=== PATIENT | female | born 1940 | race Caucasian/White ===

== ENCOUNTER 2018-12-11 18:41 | Emergency (ER) | payer OTHER, BC ==
--- NOTE | 2018-12-11 19:45 | RAD REPORT ---
EXAM DESCRIPTION: RAD - Chest Pa And Lat (2 Views) - 12/11/2018 7:39 pm CLINICAL HISTORY: Cough;SOB COMPARISON: None. TECHNIQUE: PA and lateral views of the chest were obtained. FINDINGS: The lungs are clear. Heart size is normal and central vasculature is within normal limit s. No pleural effusion or pneumothorax seen. No acute bony finding noted. No aortic abnormality. IMPRESSION: No acute cardiopulmonary process.
[2018-12-11 21:02] LABS: Absolute Lymphocytes (CBC) 0.5 K/uL (0.7-4.9); Basophils % 0.1 % (0-1.3); Hematocrit 30.5 % (36.0-45.0); Lymphocytes % 6.5 % (15.3-44.8); MPV 8.6 fL (7.6-11.3)
[2018-12-11] MEDS ORDERED: METHYLPREDNISOLONE 125 MG INJ ONE (21:16)
[2018-12-11 21:17] LABS: Protime INR 1.55
[2018-12-11] MEDS ORDERED: CEFTRIAXONE/SWI 1gm 1 GM/10 ML SYR ONE (21:17)
[2018-12-11] MEDS ORDERED: IPRATROPIUM BROM 0.5MG/2.5ML ONE (21:17)
[2018-12-11] MEDS ORDERED: AZITHROMYCIN 250 MG TAB ONE (21:17)
[2018-12-11] MEDS ORDERED: ALBUTEROL 2.5 MG/3 ML NEB SOL ONE (21:17)
[2018-12-11] MEDS ORDERED: NA CHLORIDE 0.9% 1,000 ML ONE (21:17)
[2018-12-11 21:22] LABS: ALT/SGPT 26 U/L (12-78); AST/SGOT 40 U/L (15-37); Albumin 3.7 g/dL (3.4-5.0); Alkaline Phosphatase 72 U/L (45-117); BUN Blood Urea Nitrogen 26 mg/dL (7-18); Bicarbonate 27 mmol/L (21-32); Bilirubin Direct 0.1 mg/dL (0-0.2); Bilirubin Total 0.4 mg/dL (0.2-1.0); Glucose Level 98 mg/dL (74-106); Magnesium 2.1 mg/dL (1.8-2.4); NT PRO-BNP 1779 pg/mL (<450); Potassium 4.2 mmol/L (3.5-5.1); Sodium Level 133 mmol/L (136-145); Troponin (Emerg Dept Use Only) < 0.02 ng/mL (0.0-0.045)
--- NOTE | 2018-12-11 21:31 | ER ---
Nurse's Notes [facility] Name: Bertha Connell Age: 78 yrs Sex: Female : 1940 Arrival Date: 12/11/2018 Time: 18:45 Bed 14 Private MD: ALAN ARAUZ Diagnosis: Chronic obstructive pulmonary disease with (acute) exacerbation;Bronchitis, not specified as acute or chronic Presentation: 12/11 18:51 Presenting complaint: SOB x 2 days. Pt is being treated for lymphocytic lymphoma at [facility], told to come to local ED, was seen at [facility] today and was unhappy with plan so she signed out AMA. Transition of care: patient was not received from another setting of care. Onset of symptoms was December 10, 2018. Risk Assessment: Do you want to hurt yourself or someone else? Patient reports no desire to harm self or others. Care prior to arrival: None. 18:51 Method Of Arrival: Ambulatory 18:51 Acuity: SUSY 3 19:38 Initial Sepsis Screen: Does the patient meet any 2 criteria? No. Patient's initial ca1 sepsis screen is negative. Does the patient have a suspected source of infection? No. Patient's initial sepsis screen is negative. Triage Assessment: 19:38 Respiratory: Onset: The symptoms/episode began/occurred ca1 Historical: - Allergies: 18:54 IV contrast; hb - PMHx: 18:54 lymphocytic lymphoma; - Immunization history:: Adult Immunizations up to date. - Social history:: Smoking status: Patient/guardian denies using tobacco. - Ebola Screening: : No symptoms or risks identified at this time. - Family history:: not pertinent. Screenin:10 Abuse screen: Denies threats or abuse. Denies injuries from another. Nutritional ca1 screening: No deficits noted. Tuberculosis screening: No symptoms or risk factors identified. Fall Risk None identified. Assessment: 19:10 General: Appears in no apparent distress. comfortable, Behavior is calm, cooperative, ca1 appropriate for age. Pain: Denies pain. Neuro: Level of Consciousness is awake, alert, obeys commands, Oriented to person, place, time, situation. Cardiovascular: Heart tones S1 S2 present Capillary refill < 3 seconds Patient's skin is warm and dry. Respiratory: Reports shortness of breath on exertion since yesterday Airway is patent Respiratory effort is even, unlabored, Respiratory pattern is regular, symmetrical, Breath sounds are clear bilaterally. GI: Abdomen is flat, non-distended, Bowel sounds present X 4 quads. Abd is soft and non tender X 4 quads. : No deficits noted. No signs and/or symptoms were reported regarding the genitourinary system. EENT: No deficits noted. No signs and/or symptoms were reported regarding the EENT system. Derm: Skin is intact, is healthy with good turgor, Skin is pink, warm \T\ dry. Musculoskeletal: Circulation, motion, and sensation intact. Capillary refill < 3 seconds, Range of motion: intact in all extremities. 20:29 Reassessment: Patient appears in no apparent distress at this time. Patient and/or jb4 family updated on plan of care and expected duration. Pain level reassessed. Patient is alert, oriented x 3, equal unlabored respirations, skin warm/dry/pink. 21:30 Reassessment: Patient appears in no apparent distress at this time. Patient and/or jb4 family updated on plan of care and expected duration. Pain level reassessed. Patient is alert, oriented x 3, equal unlabored respirations, skin warm/dry/pink. D/c pending completion of breathing treatment. 22:30 Reassessment: Patient appears in no apparent distress at this time. Patient and/or jb4 family updated on plan of care and expected duration. Pain level reassessed. Patient is alert, oriented x 3, equal unlabored respirations, skin warm/dry/pink. Pt request to speak with ER provider. 23:11 Reassessment: Patient appears in no apparent distress at this time. Patient and/or jb4 family updated on plan of care and expected duration. Pain level reassessed. Patient is alert, oriented x 3, equal unlabored respirations, skin warm/dry/pink. Pt verbalized understanding of d/c and follow up instructions. Refused to wait for provider, left ED with ambulatory gait, with family. Vital Signs: 18:54 BP 156 / 57; Pulse 58; Resp 16; Temp 97.8; Pulse Ox 96% on R/A; Weight 70.31 kg; Height hb 5 ft. 5 in. (165.10 cm); Pain 0/10; 20:30 BP 134 / 57; Pulse 59; Resp 16; Pulse Ox 98% on R/A; jb4 21:45 BP 155 / 58; Pulse 57; Resp 16; Pulse Ox 100% on R/A; jb4 22:45 BP 145 / 64; Pulse 77; Resp 16; Pulse Ox 100% on R/A; jb4 18:54 Body Mass Index 25.79 (70.31 kg, 165.10 cm) hb ED Course: 18:45 Patient arrived in ED. am2 18:45 ALAN ARAUZ is Private Physician. am2 18:54 Triage completed. hb 18:54 Arm band placed on. hb 19:01 Shannan Spencer, RN is Primary Nurse. ca1 19:10 Patient has correct armband on for positive identification. Bed in low position. Call ca1 light in reach. Side rails up X 1. log turner on. Pulse ox on. NIBP on. Warm blanket given. 19:10 No provider procedures requiring assistance completed. ca1 19:16 [facility]C [facility]. snw 19:16 Radhames Downing MD is Attending Physician. snw 19:37 Radhames Downing MD is Attending Physician. racquel 19:40 Chest Pa And Lat (2 Views) XRAY In Process Unspecified. EDMS 20:29 Usman Trujillo, RN is Primary Nurse. jb4 20:42 Inserted saline lock: 20 gauge in right antecubital area, using aseptic technique. jb4 Blood collected. 20:42 Initial lab(s) drawn, by id, sent to lab. First set of blood cultures drawn by me, Flu jb4 and/or RSV swab sent to lab. 20:57 Second set of blood cultures drawn by me. jb4 21:28 ALAN ARAUZ is Referral Physician. racquel 21:28 Raffaele Bosch MD is Referral Physician. racquel 22:45 IV discontinued, intact, bleeding controlled, No redness/swelling at site. Pressure jb4 dressing applied. Administered Medications: 21:32 Drug: Zithromax 500 mg Route: PO; jb4 23:08 Follow up: Response: No adverse reaction jb4 21:34 Drug: Albuterol - atroVENT (3:1) (2.5 mg - 0.5 mg) 3 ml Route: Nebulizer; jb4 22:00 Follow up: Response: No adverse reaction jb4 21:35 Drug: SOLU-Medrol 125 mg Route: IVP; Site: right antecubital; jb4 23:09 Follow up: Response: No adverse reaction jb4 21:36 Drug: Rocephin 1 grams Route: IV; Rate: per protocol; Site: right antecubital; jb4 21:38 Follow up: Response: No adverse reaction; IV Status: Completed infusion; IV Intake: [id number] 21:37 Drug: NS 0.9% 500 ml Route: IV; Rate: bolus; Site: right antecubital; jb4 22:00 Follow up: Response: No adverse reaction; IV Status: Order to discontinue infusion jb4 22:09 Not Given (Patient Refused): predniSONE 20 mg PO once jb4 22:09 Not Given (Patient Refused): predniSONE 20 mg PO once jb4 22:26 Not Given (Physician Discretion): NS 0.9% 1000 ml IV at 125 ml/hr continuous jb4 Intake: 21:38 IV: 10ml; Total: 10ml. jb4 Outcome: 21:30 Discharge ordered by MD. clement 23:13 Discharged to home ambulatory, with family. jb4 23:13 Condition: stable 23:13 Discharge instructions given to patient, family, Instructed on discharge instructions, follow up and referral plans. medication usage, Demonstrated understanding of instructions, follow-up care, medications, Prescriptions given X 4. 23:14 Patient left the ED. jb4 Signatures: Dispatcher [employer] Radhames Pettit MD MD cha Therrien, Shelly, COMPENSATION AND HRIS ANALYST-C COMPENSATION AND HRIS ANALYST-Csnw Joyce Coe RN RN hb Bryson, James, RN RN jb4 Amita Briseno Cheryl, RN RN ca1
--- NOTE | 2018-12-11 21:31 | EDPHYS ---
Physician Documentation [facility] Name: Bertha Connell Age: 78 yrs Sex: Female : 1940 Arrival Date: 12/11/2018 Time: 18:45 Bed 14 Private MD: ALAN ARAUZ ED Physician Radhames Downing HPI: 12/11 20:29 This 78 yrs old Female presents to ER via Ambulatory with complaints of racquel Shortness Of Breath. 20:29 The patient has shortness of breath at rest. Onset: The symptoms/episode began/occurred racquel 3 day(s) ago. Duration: The symptoms are continuous, and are steadily getting worse. The patient's shortness of breath has no apparent modifying factors. Associated signs and symptoms: The patient has no apparent associated signs or symptoms. Severity of symptoms: At their worst the symptoms were mild in the emergency department the symptoms are unchanged. The patient has experienced similar episodes in the past, a few times. Historical: - Allergies: 18:54 IV contrast; hb - PMHx: 18:54 lymphocytic lymphoma; hb - Immunization history:: Adult Immunizations up to date. - Social history:: Smoking status: Patient/guardian denies using tobacco. - Ebola Screening: : No symptoms or risks identified at this time. - Family history:: not pertinent. ROS: 20:29 Constitutional: Negative for fever, chills, and weight loss, Eyes: Negative for injury, racquel pain, redness, and discharge, ENT: Negative for injury, pain, and discharge, Neck: Negative for injury, pain, and swelling, Cardiovascular: Negative for chest pain, palpitations, and edema, Abdomen/GI: Negative for abdominal pain, nausea, vomiting, diarrhea, and constipation, Back: Negative for injury and pain, : Negative for injury, bleeding, discharge, and swelling, MS/Extremity: Negative for injury and deformity, Skin: Negative for injury, rash, and discoloration, Neuro: Negative for headache, weakness, numbness, tingling, and seizure, Psych: Negative for depression, anxiety, suicide ideation, homicidal ideation, and hallucinations, Allergy/Immunology: Negative for hives, rash, and allergies, Endocrine: Negative for neck swelling, polydipsia, polyuria, polyphagia, and marked weight changes, Hematologic/Lymphatic: Negative for swollen nodes, abnormal bleeding, and unusual bruising. 20:29 Respiratory: Positive for cough, shortness of breath, wheezing, inspiratory, expiratory. Exam: 20:29 Constitutional: This is a well developed, well nourished patient who is awake, alert, racquel and in no acute distress. Head/Face: Normocephalic, atraumatic. Eyes: Pupils equal round and reactive to light, extra-ocular motions intact. Lids and lashes normal. Conjunctiva and sclera are non-icteric and not injected. Cornea within normal limits. Periorbital areas with no swelling, redness, or edema. ENT: Nares patent. No nasal discharge, no septal abnormalities noted. Tympanic membranes are normal and external auditory canals are clear. Oropharynx with no redness, swelling, or masses, exudates, or evidence of obstruction, uvula midline. Mucous membranes moist. Neck: Trachea midline, no thyromegaly or masses palpated, and no cervical lymphadenopathy. Supple, full range of motion without nuchal rigidity, or vertebral point tenderness. No Meningismus. Chest/axilla: Normal chest wall appearance and motion. Nontender with no deformity. No lesions are appreciated. Cardiovascular: Regular rate and rhythm with a normal S1 and S2. No gallops, murmurs, or rubs. Normal PMI, no JVD. No pulse deficits. Abdomen/GI: Soft, non-tender, with normal bowel sounds. No distension or tympany. No guarding or rebound. No evidence of tenderness throughout. Back: No spinal tenderness. No costovertebral tenderness. Full range of motion. Female : Normal external genitalia. Skin: Warm, dry with normal turgor. Normal color with no rashes, no lesions, and no evidence of cellulitis. MS/ Extremity: Pulses equal, no cyanosis. Neurovascular intact. Full, normal range of motion. Neuro: Awake and alert, GCS 15, oriented to person, place, time, and situation. Cranial nerves II-XII grossly intact. Motor strength 5/5 in all extremities. Sensory grossly intact. Cerebellar exam normal. Normal gait. Psych: Awake, alert, with orientation to person, place and time. Behavior, mood, and affect are within normal limits. 20:29 Respiratory: the patient does not display signs of respiratory distress, Respirations: labored breathing, that is mild, Breath sounds: decreased breath sounds, rhonchi, that are mild, + upper airway congestion. wheezing: inspiratory expiratory 20:29 Musculoskeletal/extremity: DVT Exam: No signs of deep vein thrombosis. no pain, no swelling, no tenderness, negative Homans' sign noted on exam, no appreciated bluish discoloration, no erythema, no increased warmth. Vital Signs: 18:54 BP 156 / 57; Pulse 58; Resp 16; Temp 97.8; Pulse Ox 96% on R/A; Weight 70.31 kg; Height hb 5 ft. 5 in. (165.10 cm); Pain 0/10; 20:30 BP 134 / 57; Pulse 59; Resp 16; Pulse Ox 98% on R/A; jb4 21:45 BP 155 / 58; Pulse 57; Resp 16; Pulse Ox 100% on R/A; jb4 22:45 BP 145 / 64; Pulse 77; Resp 16; Pulse Ox 100% on R/A; jb4 18:54 Body Mass Index 25.79 (70.31 kg, 165.10 cm) hb MDM: 19:37 Patient medically screened. [facility] 20:31 Data reviewed: vital signs, nurses notes, lab test result(s), EKG, radiologic studies, racquel plain films. 12/11 20:28 Order name: Basic Metabolic Panel; Complete Time: 21:28 [facility] 12/11 20:28 Order name: CBC with Diff; Complete Time: 21:24 [facility] 12/11 20:28 Order name: LFT's; Complete Time: 21:28 [facility] 12/11 20:28 Order name: Magnesium; Complete Time: 21:28 [facility] 12/11 20:28 Order name: NT PRO-BNP; Complete Time: 21:28 [facility] 12/11 20:28 Order name: PT-INR; Complete Time: 21:24 [facility] 12/11 19:18 Order name: Chest Pa And Lat (2 Views) XRAY; Complete Time: 21:24 snw 12/11 20:28 Order name: Troponin (emerg Dept Use Only); Complete Time: 21:28 [facility] 12/11 20:28 Order name: Blood Culture Adult (2) [facility] 12/11 20:29 Order name: Flu; Complete Time: 21:28 [facility] 12/11 20:28 Order name: EKG; Complete Time: 20:29 [facility] 12/11 20:28 Order name: Cardiac monitoring; Complete Time: 21:39 [facility] 12/11 20:28 Order name: EKG - Nurse/Tech; Complete Time: 21:39 [facility] 12/11 20:28 Order name: IV Saline Lock; Complete Time: 21:12 [facility] 12/11 20:28 Order name: Labs collected and sent; Complete Time: 21:12 [facility] 12/11 20:28 Order name: O2 Per Protocol; Complete Time: 21:12 [facility] 12/11 20:28 Order name: O2 Sat Monitoring; Complete Time: 21:12 [facility] Administered Medications: 21:32 Drug: Zithromax 500 mg Route: PO; jb4 23:08 Follow up: Response: No adverse reaction jb4 21:34 Drug: Albuterol - atroVENT (3:1) (2.5 mg - 0.5 mg) 3 ml Route: Nebulizer; jb4 22:00 Follow up: Response: No adverse reaction jb4 21:35 Drug: SOLU-Medrol 125 mg Route: IVP; Site: right antecubital; jb4 23:09 Follow up: Response: No adverse reaction jb4 21:36 Drug: Rocephin 1 grams Route: IV; Rate: per protocol; Site: right antecubital; jb4 21:38 Follow up: Response: No adverse reaction; IV Status: Completed infusion; IV Intake: [id number] 21:37 Drug: NS 0.9% 500 ml Route: IV; Rate: bolus; Site: right antecubital; jb4 22:00 Follow up: Response: No adverse reaction; IV Status: Order to discontinue infusion jb4 22:09 Not Given (Patient Refused): predniSONE 20 mg PO once jb4 22:09 Not Given (Patient Refused): predniSONE 20 mg PO once jb4 22:26 Not Given (Physician Discretion): NS 0.9% 1000 ml IV at 125 ml/hr continuous jb4 Disposition: 12/11/18 21:30 Discharged to Home. Impression: Chronic obstructive pulmonary disease with (acute) exacerbation, Bronchitis, not specified as acute or chronic. - Condition is Stable. - Discharge Instructions: Acute Bronchitis, Adult, Asthma, Adult, Chronic Bronchitis, Chronic Obstructive Pulmonary Disease, How to Use an Inhaler, Upper Respiratory Infection, Adult, Chronic Obstructive Pulmonary Disease Exacerbation, Chronic Obstructive Pulmonary Disease, [id number]. - Prescriptions for Zithromax Z- Musa 250 mg Oral Tablet - take 1 tablet by ORAL route as directed for 5 days Day 1 - take two (2) tablets one time. Day 2, 3, 4 , 5 take one (1) tablet once daily.; 6 tablet. Prednisone 20 mg Oral Tablet - take 2 tablet by ORAL route once daily for 5 days; 10 tablet. Albuterol Sulfate 90 mcg/actuation - inhale 1-2 puff by INHALATION route every 4-6 hours; 1 Inhaler. Guaifenesin AC 10- 100 mg/5 mL Oral Liquid - take 5 milliliter by ORAL route every 4 hours As needed; 150 milliliter. - Medication Reconciliation Form, Thank You Letter, Antibiotic Education, Prescription Opioid Use form. - Follow up: ALAN ARAUZ; When: 2 - 3 days; Reason: Recheck today's complaints, Continuance of care, Re-evaluation by your physician. Follow up: Raffaele Bosch MD; When: 2 - 3 days; Reason: Recheck today's complaints, Re-evaluation by your physician. - Problem is new. - Symptoms have improved. Signatures: Dispatcher [employer] [facility] Radhames Downing MD MD cha Baxter, Heather, ADRIA RN Usman Trujillo RN RN jb4 Corrections: (The following items were deleted from the chart) 20:36 20:29 Chest Single View+RAD.RAD.BRZ ordered. [facility] 23:14 21:30 12/11/2018 21:30 Discharged to Home. Impression: Chronic obstructive pulmonary jb4 disease with (acute) exacerbation; Bronchitis, not specified as acute or chronic. Condition is Stable. Forms are Medication Reconciliation Form, Thank You Letter, Antibiotic Education, Prescription Opioid Use. Follow up: ALAN ARAUZ; When: 2 - 3 days; Reason: Recheck today's complaints, Continuance of care, Re-evaluation by your physician. Follow up: Raffaele Bosch; When: 2 - 3 days; Reason: Recheck today's complaints, Re-evaluation by your physician. Problem is new. Symptoms have improved. racquel
[2018-12-11 23:35] VITALS: TEMP 97.8
[2018-12-11 23:38] VITALS: O2SAT 100
[2018-12-11 23:40] VITALS: BP 145/64
--- NOTE | 2018-12-12 07:42 | EKG ---
Test Date: 2018-12-11 Test Time: 22:40:27 Autism Specialist: JAYDEN MEASUREMENT RESULTS: Intervals: Rate: 77 VT: 206 QRSD: 82 QT: 388 QTc: 439 [place]: P: 72 VT: 206 QRS: -18 T: 46 INTERPRETIVE STATEMENTS: Sinus rhythm with marked sinus arrhythmia with occasional premature ventricular complexes Possible Anteroseptal infarct, age undetermined Abnormal ECG Compared to ECG 12/11/2018 21:20:14 Ventricular premature complex(es) now present Sinus bradycardia no longer present Atrial premature complex(es) no longer present Myocardial infarct finding still present Electronically Signed On 12-12-18 07:41:38 CDT by Mehul Soto
--- NOTE | 2018-12-12 07:42 | EKG ---
Test Date: 2018-12-11 Test Time: 21:20:14 Top Stop Attacher: JAYDEN MEASUREMENT RESULTS: Intervals: Rate: 52 MN: 196 QRSD: 86 QT: 448 QTc: 416 [place]: P: 75 MN: 196 QRS: -15 T: 37 INTERPRETIVE STATEMENTS: Sinus bradycardia with premature atrial complexes Possible Anteroseptal infarct, age undetermined Abnormal ECG Compared to ECG 06/29/2003 07:12:00 Atrial premature complex(es) now present Myocardial infarct finding still present Electronically Signed On 12-12-18 07:42:05 CDT by Mehul Soto
== END 2018-12-11 23:14 | disposition home or self-care (01) ==
LOC: ER 18:41
DX: J44.1 Chronic obstructive pulmonary disease with (acute) exacerbation (principal); J40 Bronchitis, not specified as acute or chronic
CPT/HCPCS: 93005 ×2; 87040 ×2; 85025; 80048; 36415; 83735; 85610; 80076; 84484; 83880; 87804 ×2; 71046; 94640; 96375; 96374; 99285; J0696; J7030; J2930

== ENCOUNTER 2018-12-31 19:37 | Emergency (ER) | payer OTHER, BC ==
--- OUTSIDE RECORDS SUMMARY | 2018-12-31 19:39 | XMS REPORT ---
:1940 [facility] Address [address] [place] [id number] Care Team Providers Name Role Phone Unavailable Unavailable Unavailable Problems This patient has no known problems. Allergies, Adverse Reactions, Alerts This patient has no known allergies or adverse reactions. Medications This patient has no known medications.
--- NOTE | 2018-12-31 20:46 | RAD REPORT ---
EXAM DESCRIPTION: Aura Single View12/31/2018 8:41 pm CLINICAL HISTORY: Chest pain COMPARISON: November 2018 FINDINGS: The lungs appear clear of acute infiltrate. The heart is mildly enlarged IMPRESSION: No acute abnormalities displayed
[2018-12-31] MEDS ORDERED: ALBUTEROL 2.5 MG/3 ML NEB SOL ONE (20:53)
[2018-12-31 21:16] LABS: Protime INR 1.55
[2018-12-31 21:18] LABS: ALT/SGPT 21 U/L (12-78); AST/SGOT 19 U/L (15-37); Albumin 3.6 g/dL (3.4-5.0); Alkaline Phosphatase 80 U/L (45-117); BUN Blood Urea Nitrogen 15 mg/dL (7-18); Bicarbonate 27 mmol/L (21-32); Bilirubin Direct 0.2 mg/dL (0-0.2); Bilirubin Total 0.4 mg/dL (0.2-1.0); Glucose Level 117 mg/dL (74-106); Magnesium 1.6 mg/dL (1.8-2.4); NT PRO-BNP 330 pg/mL (<450); Potassium 3.8 mmol/L (3.5-5.1); Protein, Total 6.6 g/dL (6.4-8.2); Sodium Level 129 mmol/L (136-145); Troponin (Emerg Dept Use Only) < 0.02 ng/mL (0.0-0.045)
[2018-12-31 21:32] LABS: Absolute Lymphocytes (CBC) 0.7 K/uL (0.7-4.9); Basophils % 1.4 % (0-1.3); Hematocrit 30.4 % (36.0-45.0); Lymphocytes % 25.6 % (15.3-44.8); MPV 7.9 fL (7.6-11.3); RBC Red Blood Cell Count 3.44 M/uL (3.86-4.86)
[2018-12-31 22:09] LABS: Blood Morphology Comment NOT SEEN (NOT SEEN); Platelet Estimate ADEQ; Urine White Blood Cell Casts OK
[2018-12-31] MEDS ORDERED: MAGNESIUM OXIDE 400 MG TAB ONE (22:46)
--- NOTE | 2019-01-01 00:41 | EDPHYS ---
Physician Documentation [facility] Name: Bertha Connell Age: 78 yrs Sex: Female : 1940 Arrival Date: 12/31/2018 Time: 19:38 Bed 17 Private MD: ED Physician Miles Corea HPI: 01/01 04:39 This 78 yrs old Female presents to ER via Ambulatory with complaints of tw4 Breathing Difficulty. 04:39 The patient has shortness of breath at rest. Onset: The symptoms/episode began/occurred tw4 today. Duration: The symptoms are continuous, and are unchanged since they started. The patient's shortness of breath has no apparent modifying factors. Associated signs and symptoms: Pertinent positives: pleuritic chest pain. Severity of symptoms: At their worst the symptoms were moderate in the emergency department the symptoms. The patient has not experienced similar symptoms in the past. Historical: - Allergies: 12/31 19:46 IV contrast; aj1 - Home Meds: 19:46 Advair Diskus 100-50 mcg/dose Inhl dsdv 1 puff 2 times per day [Active]; estradiol aj1 patch [Active]; fenofibrate 40 mg oral tab [Active]; Gazyva 1,000 mg/40 mL intravenous soln [Active]; hydrochlorothiazide 12.5 mg Oral tab 1 tab once daily [Active]; Bystolic 2.5 mg oral tab 2 tabs once daily [Active]; losartan 100 mg oral tab 1 tab once daily [Active]; [place] Thyroid 75 mg Oral daily [Active]; Xarelto 15 mg oral tab daily [Active]; Dexilant 30 mg oral CpDB 1 cap once daily [Active]; allopurinol 300 mg Oral tab 1 tab once daily [Active]; aspirin 81 mg Oral chew 1 tab once daily [Active]; - PMHx: 19:46 lymphocytic lymphoma; Atrial Fib; Hypertension; Hypothyroidism; Hyperlipidemia; Gout; aj1 - Immunization history:: Flu vaccine is not up to date. - Social history:: Smoking status: Patient/guardian denies using tobacco. - Ebola Screening: : Patient denies travel to an Ebola-affected area in the 21 days before illness onset. ROS: 01/01 04:39 Constitutional: Negative for fever, chills, and weight loss, Eyes: Negative for injury, tw4 pain, redness, and discharge, Cardiovascular: Negative for chest pain, palpitations, and edema, Abdomen/GI: Negative for abdominal pain, nausea, vomiting, diarrhea, and constipation, Back: Negative for injury and pain, MS/Extremity: Negative for injury and deformity, Skin: Negative for injury, rash, and discoloration, Neuro: Negative for headache, weakness, numbness, tingling, and seizure. Cardiovascular: Positive for chest pain, with movement, Negative for edema, orthopnea, palpitations. Respiratory: Positive for shortness of breath, Negative for cough, dyspnea on exertion, hemoptysis, orthopnea, pleurisy. Exam: 04:39 Constitutional: This is a well developed, well nourished patient who is awake, alert, tw4 and in no acute distress. Head/Face: Normocephalic, atraumatic. Chest/axilla: Normal chest wall appearance and motion. Nontender with no deformity. No lesions are appreciated. Cardiovascular: Regular rate and rhythm with a normal S1 and S2. No gallops, murmurs, or rubs. Normal PMI, no JVD. No pulse deficits. Respiratory: Lungs have equal breath sounds bilaterally, clear to auscultation and percussion. No rales, rhonchi or wheezes noted. No increased work of breathing, no retractions or nasal flaring. Abdomen/GI: Soft, non-tender, with normal bowel sounds. No distension or tympany. No guarding or rebound. No evidence of tenderness throughout. Skin: Warm, dry with normal turgor. Normal color with no rashes, no lesions, and no evidence of cellulitis. MS/ Extremity: Pulses equal, no cyanosis. Neurovascular intact. Full, normal range of motion. Neuro: Awake and alert, GCS 15, oriented to person, place, time, and situation. Cranial nerves II-XII grossly intact. Motor strength 5/5 in all extremities. Sensory grossly intact. Cerebellar exam normal. Normal gait. Vital Signs: 12/31 19:46 BP 157 / 41; Pulse 57; Resp 18; Temp 97.2; Pulse Ox 97% on R/A; Weight 68.04 kg (R); aj1 Height 5 ft. 5 in. (165.10 cm) (R); Pain 0/10; 21:20 BP 129 / 46; Pulse 64; Resp 18; Pulse Ox 95% on R/A; wh 22:53 BP 113 / 64; Pulse 57; Resp 18; Pulse Ox 97% on R/A; wh 01/01 01:14 BP 118 / 66; Pulse 61; Resp 18; Pulse Ox 100% on R/A; rv 12/31 19:46 Body Mass Index 24.96 (68.04 kg, 165.10 cm) aj1 MDM: 12/31 20:07 Patient medically screened. tw4 01/01 04:39 Differential diagnosis: Anemia Anxiety Reaction. Differential diagnosis: asthma, tw4 Bronchitis Myocardial Infarction pneumonia, Pneumothorax pulmonary edema, Pulmonary Embolism reactive airway disease, Unstable Angina. Antibiotic administration: Not indicated. The patient's Wells Deep Vein Thrombosis Score was calculated as follows: Malignancy Total Score: 0-2 Pts- Low Risk. The patient's pulmonary embolism risk score was calculated as follows: malignancy Total Score: 0-2 points. This patient was found to be at low risk for a pulmonary embolism by using the Well's assessment criteria. Data reviewed: vital signs, nurses notes. Data reviewed: lab test result(s), CBC, white blood cell count, hemoglobin, hematocrit, platelets, electrolytes, sodium, potassium, chloride, serum bicarbonate, BUN, creatinine, serum glucose, hepatic panel, radiologic studies, plain films. Data interpreted: Pulse oximetry: Interpretation: normal. Test interpretation: by ED physician or midlevel provider: ECG, plain radiologic studies. Counseling: I had a detailed discussion with the patient and/or guardian regarding: the historical points, exam findings, and any diagnostic results supporting the discharge/admit diagnosis, lab results, radiology results. Medication response: albuterol nebulizer treatment(s) relieved the patient's symptoms. The patient is no longer wheezing. Response to treatment: the patient's symptoms have resolved after treatment, and as a result, I will discharge patient. Special discussion: Based on the patient's history, exam, and Dx evaluation, there is no indication for emergent intervention or inpatient Tx. It is understood by the patient/guardian that if the Sx's persist or worsen they need to return immediately for re-evaluation. I discussed with the patient/guardian in detail that at this point there is no indication for admission to the hospital. It is understood, however, that if the symptoms persist or worsen the patient needs to return immediately for re-evaluation. ED course: Discussed with pt's PMD Dr Calderon from [facility] and reviewed all pertinent findings. Agreed that patient is low risk for PE and patient has normal EKG and two sets of negative troponin's. Pt also felt better after neb treatments. Plan is to have pt followup with Dr Calderon this and continue regular mediations. 12/31 20:20 Order name: Basic Metabolic Panel; Complete Time: 21:49 tw4 12/31 21:49 Interpretation: Normal except: NA 129; CL 95; GLUC 117; GFR 63. tw4 12/31 20:20 Order name: CBC with Diff tw4 12/31 21:50 Interpretation: Normal except: WBC 2.7; RBC 3.44; HGB 10.6; HCT 30.4; MN% 13.3; tw4 EOSINOPHIL % 5.7; BASO% 1.4; NEUT A 1.4. 12/31 20:20 Order name: LFT's; Complete Time: 21:49 tw4 12/31 21:50 Interpretation: Within normal limits. tw4 12/31 20:20 Order name: Magnesium; Complete Time: 21:49 tw4 12/31 21:50 Interpretation: Normal except: MG 1.6. tw4 12/31 20:20 Order name: NT PRO-BNP; Complete Time: 21:49 tw4 12/31 21:50 Interpretation: Within normal limits: NT PRO-BNP 330. tw4 12/31 20:20 Order name: PT-INR; Complete Time: 21:49 tw4 12/31 21:50 Interpretation: Normal except: PT 18.0. tw4 12/31 20:20 Order name: Troponin (emerg Dept Use Only); Complete Time: 21:49 tw4 12/31 21:50 Interpretation: Within normal limits: TROPED < 0.02. tw4 12/31 20:20 Order name: XRAY Chest (1 view); Complete Time: 21:49 tw4 12/31 20:20 Order name: EKG; Complete Time: 20:21 tw4 12/31 20:20 Order name: D-Dimer; Complete Time: 21:49 tw4 12/31 21:50 Interpretation: Within normal limits: D-DIMER < 215. tw4 12/31 21:55 Order name: CBC Smear Scan EDMS 11/20 23:24 Order name: Troponin (emerg Dept Use Only) 12/31 20:20 Order name: Cardiac monitoring; Complete Time: 20:41 tw4 12/31 20:20 Order name: EKG - Nurse/Tech; Complete Time: 20:41 tw4 12/31 20:20 Order name: IV Saline Lock; Complete Time: 20:41 tw4 12/31 20:20 Order name: Labs collected and sent; Complete Time: 20:42 tw4 12/31 20:20 Order name: O2 Per Protocol; Complete Time: 20:42 tw4 12/31 20:20 Order name: O2 Sat Monitoring; Complete Time: 20:42 tw4 EC:39 Rate is 57 beats/min. Rhythm is regular, Sinus bradycardia. QRS Oneill is Normal. HI tw4 interval is normal. QRS interval is normal. QT interval is normal. No Q waves. T waves are Flattened in leads III, aVL. No ST changes noted. Clinical impression: NSR w/ Non-specific ST/T Changes and 1st degree heart block. Interpreted by me. Reviewed by me. Administered Medications: 12/31 21:00 Drug: Albuterol 1.25 mg Route: Inhalation; 23:26 Follow up: Response: No adverse reaction; Wheezing diminished 22:48 Drug: Magnesium 400 mg Route: PO; 23:26 Follow up: Response: No adverse reaction Disposition: 01/01/19 00:40 Discharged to Home. Impression: Acute bronchospasm, Chest pain on breathing, Hypomagnesemia. - Condition is Stable. - Discharge Instructions: Bronchospasm, Adult, Hypomagnesemia, How to Use an Inhaler, Pain Without a Known Cause. - Prescriptions for Albuterol Sulfate 2.5 mg /3 mL (0.083 %) Inhalation Solution for Nebulization - inhale 1 unit by NEBULIZATION route every 8 hours As needed; 1 box. Albuterol Sulfate 90 mcg/actuation - inhale 1-2 puff by INHALATION route every 4-6 hours; 1 Inhaler. - Medication Reconciliation Form, Thank You Letter, Antibiotic Education, Prescription Opioid Use form. - Follow up: Private Physician; When: Upon discharge from the Emergency Department; Reason: Recheck today's complaints, Continuance of care. - Problem is new. - Symptoms have improved. Signatures: Dispatcher [employer] Nathaly Roman, RN RN aj1 Todd Jo Terrence, MD MD tw4 Moreno Farr, RN RN rv Corrections: (The following items were deleted from the chart) 01/01 00:40 00:40 01/01/2019 00:40 Discharged to Home. Impression: Acute bronchospasm; Chest pain tw4 on breathing. Condition is Stable. Forms are Medication Reconciliation Form, Thank You Letter, Antibiotic Education, Prescription Opioid Use. Follow up: Private Physician; When: Upon discharge from the Emergency Department; Reason: Recheck today's complaints, Continuance of care. Problem is new. Symptoms have improved. tw4 01:16 00:40 01/01/2019 00:40 Discharged to Home. Impression: Acute bronchospasm; Chest pain rv on breathing; Hypomagnesemia. Condition is Stable. Discharge Instructions: Bronchospasm, Adult, How to Use an Inhaler. Prescriptions for Albuterol Sulfate 2.5 mg /3 mL (0.083 %) Inhalation Solution for Nebulization - inhale 1 unit by NEBULIZATION route every 8 hours As needed; 1 box, Albuterol Sulfate 90 mcg/actuation - inhale 1-2 puff by INHALATION route every 4-6 hours; 1 Inhaler. and Forms are Medication Reconciliation Form, Thank You Letter, Antibiotic Education, Prescription Opioid Use. Follow up: Private Physician; When: Upon discharge from the Emergency Department; Reason: Recheck today's complaints, Continuance of care. Problem is new. Symptoms have improved. tw4
--- NOTE | 2019-01-01 00:41 | ER ---
Nurse's Notes [facility] Name: Bertha Connell Age: 78 yrs Sex: Female : 1940 Arrival Date: 12/31/2018 Time: 19:38 Bed 17 Private MD: Diagnosis: Acute bronchospasm;Chest pain on breathing;Hypomagnesemia Presentation: 12/31 19:41 Presenting complaint: Patient states: Shortness of breath since 11:00 today. Denies aj1 cough, denies fever. Patient states that she has CLL and when she talked to her environmental compliance officer she said to come to the ER to have it checked. Patient states that she was here 3 weeks ago for the same thing and they gave her a breathing treatment and some cough syrup and that helped. Transition of care: patient was not received from another setting of care. Onset of symptoms was December 31, 2018. Risk Assessment: Do you want to hurt yourself or someone else? Patient reports no desire to harm self or others. Initial Sepsis Screen: Does the patient meet any 2 criteria? No. Patient's initial sepsis screen is negative. Does the patient have a suspected source of infection? Yes: Other: shortness of breath, immunocompromised patient. Care prior to arrival: None. 19:41 Method Of Arrival: Ambulatory aj 19:41 Acuity: SUSY 3 aj1 Triage Assessment: 19:46 General: Appears in no apparent distress. comfortable, Behavior is calm, cooperative, aj1 appropriate for age. Pain: Denies pain. Neuro: Level of Consciousness is awake, alert, obeys commands. Cardiovascular: Patient's skin is warm and dry. Respiratory: Reports shortness of breath on exertion Airway is patent Respiratory effort is even, unlabored, Respiratory pattern is regular, symmetrical, the patient has mild shortness of breath. 20:00 Respiratory: Onset: The symptoms/episode began/occurred this morning. wh Historical: - Allergies: 19:46 IV contrast; aj1 - Home Meds: 19:46 Advair Diskus 100-50 mcg/dose Inhl dsdv 1 puff 2 times per day [Active]; estradiol aj1 patch [Active]; fenofibrate 40 mg oral tab [Active]; Gazyva 1,000 mg/40 mL intravenous soln [Active]; hydrochlorothiazide 12.5 mg Oral tab 1 tab once daily [Active]; Bystolic 2.5 mg oral tab 2 tabs once daily [Active]; losartan 100 mg oral tab 1 tab once daily [Active]; [place] Thyroid 75 mg Oral daily [Active]; Xarelto 15 mg oral tab daily [Active]; Dexilant 30 mg oral CpDB 1 cap once daily [Active]; allopurinol 300 mg Oral tab 1 tab once daily [Active]; aspirin 81 mg Oral chew 1 tab once daily [Active]; - PMHx: 19:46 lymphocytic lymphoma; Atrial Fib; Hypertension; Hypothyroidism; Hyperlipidemia; Gout; aj1 - Immunization history:: Flu vaccine is not up to date. - Social history:: Smoking status: Patient/guardian denies using tobacco. - Ebola Screening: : Patient denies travel to an Ebola-affected area in the 21 days before illness onset. Screenin:30 Abuse screen: Denies threats or abuse. Denies injuries from another. Nutritional wh screening: No deficits noted. Tuberculosis screening: No symptoms or risk factors identified. Fall Risk None identified. Assessment: 20:10 General: Appears in no apparent distress. Behavior is calm, cooperative, appropriate wh for age. Pain: Denies pain. Neuro: Level of Consciousness is awake, alert, obeys commands, Oriented to person, place, time, situation, Appropriate for age. Cardiovascular: Reports shortness of breath, since Chest Tightness Heart tones S1 S2 Rhythm is regular. Respiratory: Reports shortness of breath Airway is patent Respiratory effort is even, unlabored, Respiratory pattern is regular, symmetrical, Breath sounds are clear bilaterally. GI: Abdomen is flat, non-distended. : No signs and/or symptoms were reported regarding the genitourinary system. EENT: No signs and/or symptoms were reported regarding the EENT system. Derm: Skin is intact, is healthy with good turgor, Skin is pink, warm \T\ dry. normal. Musculoskeletal: Circulation, motion, and sensation intact. 21:16 Reassessment: Patient appears in no apparent distress at this time. No changes from previously documented assessment. Patient and/or family updated on plan of care and expected duration. Pain level reassessed. Patient is alert, oriented x 3, equal unlabored respirations, skin warm/dry/pink. 22:53 Reassessment: Patient appears in no apparent distress at this time. No changes from previously documented assessment. Patient and/or family updated on plan of care and expected duration. Pain level reassessed. Patient is alert, oriented x 3, equal unlabored respirations, skin warm/dry/pink. Patient states feeling better. Patient states symptoms have improved. Vital Signs: 19:46 BP 157 / 41; Pulse 57; Resp 18; Temp 97.2; Pulse Ox 97% on R/A; Weight 68.04 kg (R); aj1 Height 5 ft. 5 in. (165.10 cm) (R); Pain 0/10; 21:20 BP 129 / 46; Pulse 64; Resp 18; Pulse Ox 95% on R/A; wh 22:53 BP 113 / 64; Pulse 57; Resp 18; Pulse Ox 97% on R/A; wh 01/01 01:14 BP 118 / 66; Pulse 61; Resp 18; Pulse Ox 100% on R/A; rv 12/31 19:46 Body Mass Index 24.96 (68.04 kg, 165.10 cm) aj1 ED Course: 12/31 19:38 Patient arrived in ED. ds1 19:42 Triage completed. aj1 19:46 Arm band placed on Patient placed in waiting room, Patient notified of wait time. aj1 19:54 Todd Jo is Primary Nurse. wh 20:07 Miles Corea MD is Attending Physician. tw4 20:20 Inserted saline lock: 22 gauge in right forearm, using aseptic technique. Blood wh collected. 20:30 Patient has correct armband on for positive identification. Placed in gown. Bed in low wh position. Call light in reach. Side rails up X 1. monitoring tech on. Pulse ox on. NIBP on. 20:43 XRAY Chest (1 view) In Process Unspecified. EDMS 22:[address] Lily Calderon's office the answering service stated they should call us back mw2 within 15 minutes. 01/01 01:15 No provider procedures requiring assistance completed. IV discontinued, intact, rv bleeding controlled, No redness/swelling at site. Pressure dressing applied. Administered Medications: 12/31 21:00 Drug: Albuterol 1.25 mg Route: Inhalation; 23:26 Follow up: Response: No adverse reaction; Wheezing diminished wh 22:48 Drug: Magnesium 400 mg Route: PO; 23:26 Follow up: Response: No adverse reaction Outcome: 01/01 00:40 Discharge ordered by . riya 01:16 Discharged to home ambulatory, with family. rv 01:16 Condition: good 01:16 Discharge instructions given to patient, Instructed on discharge instructions, follow up and referral plans. medication usage, Demonstrated understanding of instructions, follow-up care, medications, Prescriptions given X 2. 01:16 Patient left the ED. rv Signatures: Dispatcher [employer] EDNathaly Granados, RN RN ajDelmi Carrillo ds1 Todd Jo Terrence, MD MD tw4 Janel Hood mw2 Moreno Farr RN RN rv
[2019-01-01] MEDS ORDERED: LEVALBUTEROL 1.25 MG/3 ML NEB ONE (00:47)
[2019-01-01 04:46] VITALS: TEMP 97.2
[2019-01-01 04:49] VITALS: BP 118/66; O2SAT 100
--- NOTE | 2019-01-01 06:13 | EKG ---
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
== END 2019-01-01 01:16 | disposition home or self-care (01) ==
LOC: ER 19:37
DX: J98.01 Acute bronchospasm (principal); E83.42 Hypomagnesemia; I10 Essential (primary) hypertension; I48.91 Unspecified atrial fibrillation; Z85.72 Personal history of non-Hodgkin lymphomas; Z79.01 Long term (current) use of anticoagulants; Z91.041 Radiographic dye allergy status
CPT/HCPCS: 36415; 71045; 80048; 80076; 83735; 83880; 84484; 85025; 85379; 85610; 93005; 99285

== ENCOUNTER 2021-10-19 10:15 | Emergency (ER) | payer OTHER, BC ==
--- OUTSIDE RECORDS SUMMARY | 2021-10-19 10:25 | XMS REPORT | Continuity of Care Document ---
:1940 Author Organization [facility] t Address [address] [place] [address] Care Team Providers Name Role Phone Martín Burleson MD Primary Care Physician CLINT PEDRAZA Attending Clinician Unavailable Doctor Unassigned, [place] Attending Clinician Unavailable RADIOLOGY Attending Clinician Unavailable Radiology Attending Clinician Unavailable Tanja Buckley MD Attending Clinician Karen Perdue Attending Clinician Unavailable Marilou Kennedy MA Attending Clinician Unavailable Miley Carmona NP Attending Clinician Jenna Suarez RN Attending Clinician Unavailable ROYAL BARRIOS Attending Clinician Unavailable Marybeth Morales Attending Clinician Royal Cheatham Attending Clinician Chary Moore Attending Clinician Amita Leonard MD Attending Clinician AMITA LEONARD Attending Clinician Unavailable CHRISSY NEGRETE Attending Clinician Unavailable Chrissy Negrete MD Attending Clinician CHARLOTTE RUCKER Attending Clinician Unavailable Charlotte Rucker Attending Clinician KELSEY MENA Attending Clinician Unavailable MD KELSEY MENA Attending Clinician Unavailable TEJAS MARTÍNEZ Attending Clinician Unavailable Perry Rico MD Attending Clinician LAWRENCE REBOLLEDO Attending Clinician Unavailable LAWRENCE REBOLLEDO Attending Clinician Unavailable PURVI MENA Attending Clinician Unavailable Fellow, Pulmonary Attending Clinician Unavailable Shantell RN, Rudi A Attending Clinician Unavailable Joseline ZAVALETA, Kimmy Hollis Attending Clinician Edwardo ZAVALETA, Antonietta Cruz Attending Clinician [phone] Jessica ZAVALETA, Junior Gonzalez Attending Clinician ANTONIETTA BROOKE Attending Clinician Unavailable MICHELLE DELEON II Admitting Clinician Unavailable KELSEY MENA Admitting Clinician Unavailable MD KELSEY MENA Admitting Clinician Unavailable Jessica ZAVALETA, Junior Gonzalez Admitting Clinician JUNIOR MUNOZ Admitting Clinician Unavailable Payers Payer Name Policy Type Policy Number Effective Date Expiration Date S [facility] MEDICARE PART A \\T\\ [id number] 2003 B 00:00:00 [employer] TRADITIONAL [id number] 2003 00:00:00 Problems Condition Condition Condition Status Onset Resolution Last Treating Co mments Source Name Details Category Date Date Treatment Clinician Date Recurrent Recurrent Disease Active Met [facility] UTI UTI 2-17 st 00:00: Hospita 00 l 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 7-20 st kidney kidney 00:00: Hospita disease disease 00 l Atrial Atrial Disease Active 2020- Univers arrhythmia arrhythmia 4-24 it y of 00:00: [address] HTN HTN Disease Active 2020- Univers (hypertens (hypertens 4-24 it y of ion) ion) 00:00: [address] Iron Iron Disease Active 2020- Univers deficiency deficiency 4-24 it y of anemia anemia 00:00: [place] [facility] H/O blood H/O blood Disease Active 2020-0 Uni vers culture culture 4-24 ity of 00:00: [address] Mucus Mucus Disease Active 2020- Overview: Univer s plugging plugging 4-24 Formattin ity of of bronchi of bronchi 00:00: g of this note Medical might be Branch different from the original. 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 00:00: Hospit a of lymph of lymph 00 l nodes of nodes of multiple multiple sites sites Chest pain Chest pain Disease Active 2014-02 U nivers with high with high 1-05 ity of risk for risk for 00:00: [place] cardiac cardiac 00 Medical etiology etiology Branch Disease of Disease Problem Resolve 2020-09-25 Memoria thyroid of thyroid d 01:09:14 l gland gland [place] (disorder) (disorder) Resolved Problem 09/25/2020 Medical Group Chronic Chronic Problem Active 2020-09-25 M emoria thyroiditi thyroiditi 01:09:14 l s s [place] (disorder) (disorder) Active Problem 09/25/2020 Medical Group 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 01:09: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 IODINE DRUG Active Med Rash Univers INGREDI 03-11 ity of 00:00: [place] 00 Medical Branch contrast contrast Active Memori a media media l (iodine- (iodine- Luca n based) based) Social History Social Habit Start Date Stop Date Quantity Comments Source Exposure to 2021-09-30 2021-10-10 Not sure University of SARS-CoV-2 00:00:00 14:43:00 [facility] [facility] (event) Branch Alcohol intake 2021-09-26 2021-09-[address] [facility] 00:00:00 00:00:00 of alcohol (finding) Social History 2019-04-13 2019-04-13 [facility] maury 15:56:44 15:56:44 Tobacco use and 2018-04-02 2018-04-02 Smokeless tobacco [facility] exposure 00:00:00 00:00:00 non-user Sex Ass[birth year] At [birth year] [facility] 00:00:00 00:00:00 Smoking Status Start Date Stop Date Source Never smoked tobacco [facility] ospital Medications Ordered Filled Start Stop Current Ordering Indication Dosage Frequency Signature Comments Components Source Medication Medication Date Date Medication? Clinician (SIG) Name Name behzad 2021- No Place Meth tushar min, 8-17 08-[address] vitamin 09:32: 00:00 tongue. Hospit a B-12, 25 :00 l (Vitamin B-12) 5,000 mcg/mL drops fluticasone Yes 1{puff} Q.5D Inhale 1 Methodi -salmeterol 8-[address] (ADVAIR) 13:07: (two) Hospita 250-50 42 times a l mcg/dose day. DISKUS estradiol Yes .025mg Q.5W Place 1 Met hodi (VIVELLE-DO 8-[address] T) 0.025 13:07: the skin 2 Hos luisa mg/24 hr 42 (two) l times a week. fenofibrate 2021-0 Yes 48mg QD Take 48 mg Methodi (TRICOR) 48 8-[address] MG tablet 13:07: daily. Hospit a 42 l hydroCHLORO 2-0 Yes 12.5mg QD Take 12.5 Methodi thiazide 8-[address] (MICROZIDE) 13:07: mouth Hospi ta 12.5 mg 42 daily. l capsule nebivolol 2021-0 Yes 2.5mg Q.5D Take 2.5 Met hodi (BYSTOLIC) 8-[address] 2.5 MG 13:07: mouth 2 Hospita tablet 42 (two) l times a day. losartan 2021-0 Yes 100mg QD Take 100 Meth tushar (COZAAR) 8-[address] 100 MG 13:07: mouth Hospita tablet 42 daily. l dexlansopra 2021-0 Yes 30mg QD Take 30 mg Methodi zole 8-[address] (DEXILANT) 13:07: daily. Hospi ta 30 mg 42 l capsule rivaroxaban 2021-0 Yes 15mg Take 15 mg Methodi (XARELTO) 8-[address] 15 mg 13:07: Hospita tablet 42 l ascorbic 2021-0 Yes 1000mg QD Take 1,000 M ethodi acid, 8-[address] vitamin C, 13:07: mouth Hospit a (VITAMIN C) 42 daily. l 1000 MG tablet cranberry 2021-0 Yes Take by Metho di 400 mg 8-[address] capsule 13:07: Hospita 42 l cholecalcif 2021-0 Yes 1000U QD Take 1,000 Methodi chrissy, 8-[address] vitamin D3, 13:07: mouth Hospi ta 125 mcg 42 daily. l (5,000 unit) tablet biotin 2021-0 Yes Take by Methodi 5,000 mcg 8-[address] tablet,disi 13:07: Hospit a ntegrating 42 l magnesium 2021-0 Yes 250mg QD Take 250 Met hodi oxide 400 8-[address] mg 13:07: mouth Hospita magnesium 42 daily. l capsule turmeric 2021-0 Yes 500mg Q.5D Take 500 Meth tushar root 8-[address] extract 13:07: mouth 2 Hospita 1,053 mg 42 (two) l tablet times a day. Take 1000mg daily flecainide Yes 50mg Q.5D Take 50 mg M ethodi (TAMBOCOR) 8-[address] 50 MG 13:07: (two) Hospita tablet 42 times a l day. benzonatate Yes 100mg Q.5D Take 100 M ethodi (TESSALON) 8-[address] 100 MG 13:07: mouth 2 Hospita capsule 42 (two) l times a day as needed for cough. glucosamine Yes Q.5D Take by Met hodi -chondroiti 8-[address] n 250-200 13:07: (two) Hospita mg tablet 42 times a l day. glucosamine 0 2021- No Take by Mt thodi /D3/shalom 03-[address] ia esme 09:46: 00:00 Hospita (OSTEO 56 :00 l BI-FLEX, 5-LOXIN, ORAL) sulfamethox 0 2021- No 1{tbl} Q.5D Take 1 M ethodi azole-trime 03-[address] thoprim 00:00: 05:59 mouth 2 Hospit a (BACTRIM 00 :00 (two) l DS) 800-160 times a mg per day for 7 tablet days. glucosamine 2020-02 Yes Take by Uni vers /D3/shalom 2-20 mouth. ity of ia esme 11:33: [place] (OSTEO 52 Medical BI-FLEX, Branch 5-LOXIN, ORAL) glucosamine 2020-02 Yes Take by Uni vers /D3/shalom 2-20 mouth. ity of ia esme 11:33: [place] (OSTEO 52 Medical BI-FLEX, Branch 5-LOXIN, ORAL) glucosamine 2020-02 Yes Take by Uni vers /D3/shalom 2-20 mouth. ity of ia esme 11:33: [place] (OSTEO 52 Medical BI-FLEX, Branch 5-LOXIN, ORAL) glucosamine 2020-02 Yes Take by Uni vers /D3/shalom 2-20 mouth. ity of ia esme 11:33: [place] (OSTEO 52 Medical BI-FLEX, Branch 5-LOXIN, ORAL) glucosamine 2020-02 Yes Take by Uni vers /D3/shalom 2-20 mouth. ity of ia esme 11:33: [place] (OSTEO 52 Medical BI-FLEX, Branch 5-LOXIN, ORAL) glucosamine 2020-02 Yes Take by Uni vers /D3/shalom 2-20 mouth. ity of ia esme 11:33: [place] (OSTEO 52 Medical BI-FLEX, Branch 5-LOXIN, ORAL) Cranberry 2020-02 Yes Take by Unive rs 400 mg Cap 2-20 mouth. ity of 11:33: [address] Cranberry 2020-02 Yes Take by Unive rs 400 mg Cap 2-20 mouth. ity of 11:33: [address] Cranberry 2020-02 Yes Take by Unive rs 400 mg Cap 2-20 mouth. ity of 11:33: [address] Cranberry 2020-02 Yes Take by Unive rs 400 mg Cap 2-20 mouth. ity of 11:33: [address] Cranberry 2020-02 Yes Take by Unive rs 400 mg Cap 2-20 mouth. ity of 11:33: [address] Cranberry 2020-02 Yes Take by Unive rs 400 mg Cap 2-20 mouth. ity of 11:33: [address] FLUTICASONE 2020-02 Yes Inhale. Uni vers /SALMETEROL 2-20 ity of (ADVAIR HFA 11:30: [place] INHALE) [address] [place] [address] fenofibrate 2020-02 Yes 48mg Take 48 mg Univers (TRICOR) 48 2-20 by mouth ity of mg tablet 11:30: daily. [address] Biotin 10 2020-02 Yes Take by Unive rs mg Tab 2-20 mouth. ity of 11:30: [address] turmeric 2020-02 Yes 900mg Take 900 Univ ers root 2-20 mg by ity of extract 500 11:30: [place]. [place] mg Cap [address] [place] [address] Dexlansopra 2020-02 Yes 1{capsu Take 1 U nivers zole 2-20 le} capsule by ity of (DEXILANT) 11:30: mouth. [place] 30 mg Medical [facility] Branch vitamin C 2020-02 Yes 1000mg Take 1,000 Univers with james 2-20 mg by ity of hips 11:30: mouth [place] (VITAMIN C) 08 daily. Medica l 1,000 mg Branch tablet Cholecalcif 2020-02 Yes Take by Uni vers chrissy, 2-20 mouth. ity of Vitamin D3, 11:30: [place] (VITAMIN Medical D3) 5,000 Branch unit tablet MAGNESIUM 2020-02 Yes 500mg Take 500 Uni vers ORAL 2-20 mg by ity of 11:30: mouth. [address] Branch hydroCHLORO 2020-02 Yes 12.5mg Take 12.5 Univers thiazide 2-20 mg by ity of 12.5 mg 11:30: mouth. [place] capsule [address] [place] [address] Branch levothyroxi 2020-02 Yes 88ug Take 88 Uni vers ne 2-20 mcg by ity of (UNITHROID) 11:30: mouth [place] 88 mcg 08 every Medical tablet morning. Branch FLUTICASONE 2020-02 Yes Inhale. Uni vers /SALMETEROL 2-20 ity of (ADVAIR HFA 11:30: [place] INHALE) [address] [place] [address] Branch fenofibrate 2020-02 Yes 48mg Take 48 mg Univers (TRICOR) 48 2-20 by mouth ity of mg tablet 11:30: daily. [address] Biotin 10 2020-02 Yes Take by Unive rs mg Tab 2-20 mouth. ity of 11:30: [address] turmeric 2020-02 Yes 900mg Take 900 Univ ers root 2-20 mg by ity of extract 500 11:30: [place]. [place] mg Cap [address] [place] [address] Dexlansopra 2020-02 Yes 1{capsu Take 1 U nivers zole 2-20 le} capsule by ity of (DEXILANT) 11:30: mouth. [place] 30 mg Medical capsule Branch vitamin C 2020-02 Yes 1000mg Take 1,000 Univers with james 2-20 mg by ity of hips 11:30: mouth [place] (VITAMIN C) 08 daily. Medica l 1,000 mg Branch tablet Cholecalcif 2020-02 Yes Take by Uni vers chrissy, 2-20 mouth. ity of Vitamin D3, 11:30: [place] (VITAMIN Medical D3) 5,000 Branch unit tablet MAGNESIUM 2020-02 Yes 500mg Take 500 Uni vers ORAL 2-20 mg by ity of 11:30: mouth. [place] 08 Medical Branch hydroCHLORO 2020-02 Yes 12.5mg Take 12.5 Univers thiazide 2-20 mg by ity of 12.5 mg 11:30: mouth. [place] capsule [address] [place] [address] Branch levothyroxi 2020-02 Yes 88ug Take 88 Uni vers ne 2-20 mcg by ity of (UNITHROID) 11:30: mouth [place] 88 mcg 08 every Medical tablet morning. Branch FLUTICASONE 2020-02 Yes Inhale. Uni vers /SALMETEROL 2-20 ity of (ADVAIR HFA 11:30: [place] INHALE) [address] [place] [address] Branch fenofibrate 2020-02 Yes 48mg Take 48 mg Univers (TRICOR) 48 2-20 by mouth ity of mg tablet 11:30: daily. [address] Biotin 10 2020-02 Yes Take by Unive rs mg Tab 2-20 mouth. ity of 11:30: [address] turmeric 2020-02 Yes 900mg Take 900 Univ ers root 2-20 mg by ity of extract 500 11:30: [place]. [place] mg Cap [address] [place] [address] Dexlansopra 2020-02 Yes 1{capsu Take 1 U nivers zole 2-20 le} capsule by ity of (DEXILANT) 11:30: mouth. [place] 30 mg Medical capsule Branch vitamin C 2020-02 Yes 1000mg Take 1,000 Univers with james 2-20 mg by ity of hips 11:30: mouth [place] (VITAMIN C) 08 daily. Medica l 1,000 mg Branch tablet Cholecalcif 2020-02 Yes Take by Uni vers chrissy, 2-20 mouth. ity of Vitamin D3, 11:30: [place] (VITAMIN [address] [place] [address] D3) 5,000 Branch unit tablet MAGNESIUM 2020-02 Yes 500mg Take 500 Uni vers ORAL 2-20 mg by ity of 11:30: mouth. [address] hydroCHLORO 2020-02 Yes 12.5mg Take 12.5 Univers thiazide 2-20 mg by ity of 12.5 mg 11:30: mouth. [place] capsule [address] [place] [address] levothyroxi 2020-02 Yes 88ug Take 88 Uni vers ne 2-20 mcg by ity of (UNITHROID) 11:30: mouth [place] 88 mcg 08 every Medical tablet morning. Branch FLUTICASONE 2020-02 Yes Inhale. Uni vers /SALMETEROL 2-20 ity of (ADVAIR HFA 11:30: [place] INHALE) Medical Branch fenofibrate 2020-02 Yes 48mg Take 48 mg Univers (TRICOR) 48 2-20 by mouth ity of mg tablet 11:30: daily. [address] Biotin 10 2020-02 Yes Take by Unive rs mg Tab 2-20 mouth. ity of 11:30: [address] Branch turmeric 2020-02 Yes 900mg Take 900 Univ ers root 2-20 mg by ity of extract 500 11:30: [place]. [place] mg Cap [address] [place] [address] Branch Dexlansopra 2020-02 Yes 1{capsu Take 1 U nivers zole 2-20 le} capsule by ity of (DEXILANT) 11:30: mouth. [place] 30 mg Medical capsule Branch vitamin C 2020-02 Yes 1000mg Take 1,000 Univers with james 2-20 mg by ity of hips 11:30: mouth [place] (VITAMIN C) 08 daily. Medica l 1,000 mg Branch tablet Cholecalcif 2020-02 Yes Take by Uni vers chrissy, 2-20 mouth. ity of Vitamin D3, 11:30: [place] (VITAMIN [address] [place] [address] D3) 5,000 Branch unit tablet MAGNESIUM 2020-02 Yes 500mg Take 500 Uni vers ORAL 2-20 mg by ity of 11:30: mouth. [address] hydroCHLORO 2020-02 Yes 12.5mg Take 12.5 Univers thiazide 2-20 mg by ity of 12.5 mg 11:30: mouth. [place] capsule [address] [place] [address] levothyroxi 2020-02 Yes 88ug Take 88 Uni vers ne 2-20 mcg by ity of (UNITHROID) 11:30: mouth [place] 88 mcg 08 every Medical tablet morning. Branch FLUTICASONE 2020-02 Yes Inhale. Uni vers /SALMETEROL 2-20 ity of (ADVAIR HFA 11:30: [place] INHALE) [address] [place] [address] Branch fenofibrate 2020-02 Yes 48mg Take 48 mg Univers (TRICOR) 48 2-20 by mouth ity of mg tablet 11:30: daily. [address] Biotin 10 2020-02 Yes Take by Unive rs mg Tab 2-20 mouth. ity of 11:30: [address] turmeric 2020-02 Yes 900mg Take 900 Univ ers root 2-20 mg by ity of extract 500 11:30: [place]. [place] mg Cap [address] [place] [address] Branch Dexlansopra 2020-02 Yes 1{capsu Take 1 U nivers zole 2-20 le} capsule by ity of (DEXILANT) 11:30: mouth. [place] 30 mg Medical capsule Branch vitamin C 2020-02 Yes 1000mg Take 1,000 Univers with james 2-20 mg by ity of hips 11:30: mouth [place] (VITAMIN C) 08 daily. Medica l 1,000 mg Branch tablet Cholecalcif 2020-02 Yes Take by Uni vers chrissy, 2-20 mouth. ity of Vitamin D3, 11:30: [place] (VITAMIN [address] [place] [address] D3) 5,000 Branch unit tablet MAGNESIUM 2020-02 Yes 500mg Take 500 Uni vers ORAL 2-20 mg by ity of 11:30: mouth. [address] hydroCHLORO 2020-02 Yes 12.5mg Take 12.5 Univers thiazide 2-20 mg by ity of 12.5 mg 11:30: mouth. [place] capsule [address] [place] [address] levothyroxi 2020-02 Yes 88ug Take 88 Uni vers ne 2-20 mcg by ity of (UNITHROID) 11:30: mouth [place] 88 mcg 08 every Medical tablet morning. Branch FLUTICASONE 2020-02 Yes Inhale. Uni vers /SALMETEROL 2-20 ity of (ADVAIR HFA 11:30: [place] INHALE) [address] [place] [address] fenofibrate 2020-02 Yes 48mg Take 48 mg Univers (TRICOR) 48 2-20 by mouth ity of mg tablet 11:30: daily. [address] Biotin 10 2020-02 Yes Take by Unive rs mg Tab 2-20 mouth. ity of 11:30: [address] turmeric 2020-02 Yes 900mg Take 900 Univ ers root 2-20 mg by ity of extract 500 11:30: [place]. [place] mg Cap [address] [place] [address] Branch Dexlansopra 2020-02 Yes 1{capsu Take 1 U nivers zole 2-20 le} capsule by ity of (DEXILANT) 11:30: mouth. [place] 30 mg Medical capsule Branch vitamin C 2020-02 Yes 1000mg Take 1,000 Univers with james 2-20 mg by ity of hips 11:30: mouth [place] (VITAMIN C) 08 daily. Medica l 1,000 mg Branch tablet Cholecalcif 2020-02 Yes Take by Uni vers chrissy, 2-20 mouth. ity of Vitamin D3, 11:30: [place] (VITAMIN 08 Medical D3) 5,000 Branch unit tablet MAGNESIUM 2020-02 Yes 500mg Take 500 Uni vers ORAL 2-20 mg by ity of 11:30: mouth. [place] 08 Medical Branch hydroCHLORO 2020-02 Yes 12.5mg Take 12.5 Univers thiazide 2-20 mg by ity of 12.5 mg 11:30: mouth. [place] capsule 08 [facility] Branch levothyroxi 2020-02 Yes 88ug Take 88 Uni vers ne 2-20 mcg by ity of (UNITHROID) 11:30: mouth [place] 88 mcg 08 every Medical tablet morning. Branch ciprofloxac 2020-02- No [id number] 500mg Take 1 Univers in HCl 2-20 12-28 tablet by ity of (CIPRO) 500 00:00: 05:59 mouth [place] mg tablet 00 :00 every 12 Medica l (twelve) Branch hours for 7 days. acetylcyste 2020-02 Yes Univer s ine 200 2-08 ity of mg/mL (20 00:00: [place] %) solution [facility] acetylcyste 2020-02 Yes Univer s ine 200 2-08 ity of mg/mL (20 00:00: [place] %) solution [facility] acetylcyste 2020-02 Yes Univer s ine 200 2-08 ity of mg/mL (20 00:00: [place] %) solution 00 [facility] acetylcyste 2020-02 Yes Univer s ine 200 2-08 ity of mg/mL (20 00:00: [place] %) solution 00 [facility] acetylcyste 2020-02 Yes Univer s ine 200 2-08 ity of mg/mL (20 00:00: [place] %) solution [facility] acetylcyste 2020-02 Yes Univer s ine 200 2-08 ity of mg/mL (20 00:00: [place] %) solution [facility] albuterol 2020-02 Yes Univers 90 0-23 ity of mcg/actuati 00:00: [place] on inhaler 00 Medical Branch albuterol 2020-02 Yes Univers 90 0-23 ity of mcg/actuati 00:00: on inhaler Medical Branch albuterol 2020-02 Yes Univers 90 0-23 ity of mcg/actuati 00:00: on inhaler Medical Branch albuterol 2020-02 Yes Univers 90 0-23 ity of mcg/actuati 00:00: on inhaler Medical Branch albuterol 2020-02 Yes Univers 90 0-23 ity of mcg/actuati 00:00: on inhaler Medical Branch albuterol 2020-02 Yes Univers 90 0-23 ity of mcg/actuati 00:00: on inhaler Medical Branch thyroid, 2020-02 75mg QD Take 75 mg Me thodi pork, 0-21 10-[address] (ARMOUR 09:42: 00:00 daily. Hospita THYROID) 60 12 :00 l mg tablet tizanidine Yes 4 mg = 1 Mem oria 4 mg oral 8-12 cap, PO, l capsule 16:14: Q8H, PRN [place] 00 for muscle spasms, # 90 cap, 0 Refill(s) NAC Yes NAC, See Memoria 812 Instructio l 16:14: ns, 1 po [place] 00 bid, Refill(s) 0 tizanidine Yes 4 mg = 1 Mem oria 4 mg oral 8-12 cap, PO, l capsule 16:14: Q8H, PRN [place] 00 for muscle spasms, # 90 cap, 0 Refill(s) NAC Yes NAC, See Memoria 8-12 Instructio l 16:14: ns, 1 po [place] 00 bid, Refill(s) 0 Levothyroxi Yes = 1 tab, Me moria ne Sodium 6-24 PO, Daily, l 0.088 MG 21:52: # 90 tab, Herm karrie Oral Tablet 00 1 [Unithroid] Refill(s), ARIANA, Pharmacy: [facility], 165.1, cm, 03/17/20 13:22:00 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 (MEDROL 00:00: 00:00 Hospita DOSEPAK) 4 00 :00 l mg tablet fluticasone 2019-02 Yes 2{spray Use 2 Un jignesh propionate 1-18 } Sprays in ity of 50 00:00: each [place] mcg/actuati 00 nostril. Medi mk on nasal Branch spray fluticasone 2019-02 Yes 2{spray Use 2 Un jignesh propionate 1-18 } Sprays in ity of 50 00:00: each [place] mcg/actuati 00 nostril. Medi mk on nasal Branch spray fluticasone 2019-02 Yes 2{spray Use 2 Un jignesh propionate 1-18 } Sprays in ity of 50 00:00: each [place] mcg/actuati 00 nostril. Medi mk on nasal Branch spray fluticasone 2019-02 Yes 2{spray Use 2 Un jignesh propionate 1-18 } Sprays in ity of 50 00:00: each [place] mcg/actuati 00 nostril. Medi mk on nasal Branch spray fluticasone 2019-02 Yes 2{spray Use 2 Un jignesh propionate 1-18 } Sprays in ity of 50 00:00: each [place] mcg/actuati 00 nostril. Medi mk on nasal Branch spray fluticasone 2019-02 Yes 2{spray Use 2 Un jignesh propionate 1-18 } Sprays in ity of 50 00:00: each [place] mcg/actuati 00 nostril. Medi mk on nasal Branch spray fluticasone 2019-02 Yes 100ug QD 2 sprays M ethodi propionate 1-[address] (FLONASE) 00:00: Nare route Ho spita 50 00 daily. l mcg/actuati on nasal spray acetylcyste 2020-1 Yes INHALE 2 Un jignesh ine 200 1-09 ML BY ity of mg/mL (20 00:00: NEBULIZER Osbaldo as %) solution 00 TWICE Medical DAILY Branch NEEDED FOR CONGESTION acetylcyste 2020-1 Yes INHALE 2 Un jignesh ine 200 1-09 ML BY ity of mg/mL (20 00:00: NEBULIZER [place]bal[place] as %) solution 00 TWICE Medical DAILY Branch NEEDED FOR CONGESTION acetylcyste 2020-1 Yes INHALE 2 Un jignesh ine 200 1-09 ML BY ity of mg/mL (20 00:00: NEBULIZER [place]baldo as %) solution 00 TWICE Medical DAILY Branch NEEDED FOR CONGESTION acetylcyste 2020-1 Yes INHALE 2 Un jignesh ine 200 1-09 ML BY ity of mg/mL (20 00:00: NEBULIZER [place]bal[place] as %) solution 00 TWICE Medical DAILY Branch NEEDED FOR CONGESTION acetylcyste 2020-1 Yes INHALE 2 Un jignesh ine 200 1-09 ML BY ity of mg/mL (20 00:00: NEBULIZER Osbaldo as %) solution 00 TWICE Medical DAILY Branch NEEDED FOR CONGESTION acetylcyste 2020-1 Yes INHALE 2 Un jignesh ine 200 1-09 ML BY ity of mg/mL (20 00:00: NEBULIZER [place]baldo as %) solution 00 TWICE Medical DAILY Branch NEEDED FOR CONGESTION acetylcyste 2020-1 Yes INHALE 2 Me thodi ine 1-[address] (MUCOMYST) 00:00: NEBULIZER Ho spita 200 mg/mL 00 TWICE l (20 %) DAILY solution NEEDED FOR CONGESTION azelastine 2020- Yes USE 2 Univer s 137 mcg 1-03 SPRAY(S) ity of (0.1 %) 00:00: IN EACH [place] nasal spray 00 NOSTRIL Medic al TWICE Branch DAILY azelastine 2020-1 Yes USE 2 Univer s 137 mcg 1-03 SPRAY(S) ity of (0.1 %) 00:00: IN EACH [place] nasal spray 00 NOSTRIL Medic al TWICE Branch DAILY azelastine 2020-1 Yes USE 2 Univer s 137 mcg 1-03 SPRAY(S) ity of (0.1 %) 00:00: IN EACH [place] nasal spray 00 NOSTRIL Medic al TWICE Branch DAILY azelastine 2020- Yes USE 2 Univer s 137 mcg 1-03 SPRAY(S) ity of (0.1 %) 00:00: IN EACH [place] nasal spray 00 NOSTRIL Medic al TWICE Branch DAILY azelastine 2019-02 Yes USE 2 Univer s 137 mcg 1-03 SPRAY(S) ity of (0.1 %) 00:00: IN EACH [place] nasal spray 00 NOSTRIL Medic al TWICE Branch DAILY azelastine 2019-02 Yes USE 2 Univer s 137 mcg 1-03 SPRAY(S) ity of (0.1 %) 00:00: IN EACH [place] nasal spray 00 NOSTRIL Medic al TWICE Branch DAILY azelastine 2019-02 Yes USE 2 Method i (ASTELIN) 1-03 SPRAY(S) st 137 mcg 00:00: IN EACH [facility] (0.1 %) 00 NOSTRIL l nasal spray TWICE DAILY ipratropium 2019-02 Yes USE 1 Metho di -albuteroL 0-[address] (DUO-NEB) 00:00: NEBULIZER Hos luisa 0.5-2.5 00 THREE l mg/3 mL TIMES nebulizer DAILY NEEDED Levothyroxi 2019-0 Yes 88 [facility] a ne Sodium 6-15 microgram l 0.088 MG 22:52: = 1 tab, Pet[place] nn Oral Tablet 00 PO, Daily, [Unithroid] brand medically necessary, # 90 tab, 1 Refill(s), [facility], Pharmacy: [facility], 165.1, cm, 07/14/19 11:24:00 CDT, Height, 68.182, kg, 07/14/19 11:24:00 CDT, Weight Levothyroxi 2020-0 Yes 88 Memori a ne Sodium 6-15 microgram l 0.088 MG 22:52: = 1 tab, [place] nn Oral Tablet 00 PO, Daily, [Unithroid] brand medically necessary, # 90 tab, 1 Refill(s), [facility], Pharmacy: [facility], 165.1, cm, 07/14/19 11:24:00 CDT, Height, 68.182, kg, 07/14/19 11:24:00 CDT, Weight MAGNESIUM 2019-0 2021- No Take by Meth tushar ORAL 5-14 02-[address] 00:00: 00:00 Hospita 00 :00 l FLUTICASONE 2020-0 Yes Inhale. Uni vers /SALMETEROL 4-28 ity of (ADVAIR HFA 21:53: [place] INHALE) 45 Medical Branch fenofibrate 2020-0 Yes 48mg Take 48 mg Univers (TRICOR) 48 4-28 by mouth ity of mg tablet 21:53: daily. [place] [address] Medical Branch Biotin 10 2019-0 Yes Take by Unive rs mg Tab 4-28 mouth. ity of 21:53: [place] [address] Medical Branch turmeric 2020-0 Yes 900mg Take 900 Univ ers root 4-28 mg by ity of extract 500 21:53: [place]. [place] mg Cap 45 Medical Branch Dexlansopra 2020-0 Yes 1{capsu Take 1 U nivers zole 4-28 le} capsule by ity of (DEXILANT) 21:53: mouth. [place] 30 mg 45 Medical capsule Branch vitamin C 2019-0 Yes 1000mg Take 1,000 Univers with james 4-28 mg by ity of hips 21:53: mouth [place] (VITAMIN C) 45 daily. Medica l 1,000 mg Branch tablet Cholecalcif 2019-0 Yes Take by Uni vers chrissy, 4-28 mouth. ity of Vitamin D3, 21:53: [place] (VITAMIN Medical D3) 5,000 Branch unit tablet MAGNESIUM 2019-0 Yes 500mg Take 500 Uni vers ORAL 4-28 mg by ity of 21:53: mouth. [place] [address] Medical Branch hydroCHLORO 2020-0 Yes 12.5mg Take 12.5 Univers thiazide 4-28 mg by ity of 12.5 mg 21:53: mouth. [place] capsule 45 Medical Branch levothyroxi 2019-0 Yes 88ug Take 88 Uni vers ne 4-28 mcg by ity of (UNITHROID) 21:53: mouth [place] 88 mcg 45 every Medical tablet morning. Branch FLUTICASONE 2020-0 Yes Inhale. Uni vers /SALMETEROL 4-28 ity of (ADVAIR HFA 21:53: [place] INHALE) 45 Medical Branch fenofibrate 2020-0 Yes 48mg Take 48 mg Univers (TRICOR) 48 4-28 by mouth ity of mg tablet 21:53: daily. [place] [address] Medical Branch Biotin 10 2019-0 Yes Take by Unive rs mg Tab 4-28 mouth. ity of 21:53: [place] [address] Medical Branch turmeric 2020-0 Yes 900mg Take 900 Univ ers root 4-28 mg by ity of extract 500 21:53: mouth. [place] mg Cap 45 Medical Branch Dexlansopra 2020-0 Yes 1{capsu Take 1 U nivers zole 4-28 le} capsule by ity of (DEXILANT) 21:53: mouth. [place] 30 mg 45 Medical capsule Branch vitamin C 2020-0 Yes 1000mg Take 1,000 Univers with james 4-28 mg by ity of hips 21:53: mouth [place] (VITAMIN C) 45 daily. Medica l 1,000 mg Branch tablet Cholecalcif 2020-0 Yes Take by Uni vers chrissy, 4-28 mouth. ity of Vitamin D3, 21:53: [place] (VITAMIN 45 Medical D3) 5,000 Branch unit tablet MAGNESIUM 2020-0 Yes 500mg Take 500 Uni vers ORAL 4-28 mg by ity of 21:53: mouth. [place] [address] Medical Branch hydroCHLORO 2019-0 Yes 12.5mg Take 12.5 Univers thiazide 4-28 mg by ity of 12.5 mg 21:53: mouth. [place] capsule 45 Medical Branch levothyroxi 2019-0 Yes 88ug Take 88 Uni vers ne 4-28 mcg by ity of (UNITHROID) 21:53: mouth [place] 88 mcg 45 every Medical tablet morning. Branch FLUTICASONE 2019-0 Yes Inhale. Uni vers /SALMETEROL 4-28 ity of (ADVAIR HFA 21:53: [place] INHALE) 45 Medical Branch fenofibrate 2019-0 Yes 48mg Take 48 mg Univers (TRICOR) 48 4-28 by mouth ity of mg tablet 21:53: daily. [place] [address] Medical Branch Biotin 10 2019-0 Yes Take by Unive rs mg Tab 4-28 mouth. ity of 21:53: [place] [address] Medical Branch turmeric 2020-0 Yes 900mg Take 900 Univ ers root 4-28 mg by ity of extract 500 21:53: mouth. [place] mg Cap 45 Medical Branch Dexlansopra 2020-0 Yes 1{capsu Take 1 U nivers zole 4-28 le} capsule by ity of (DEXILANT) 21:53: mouth. [place] 30 mg 45 Medical capsule Branch vitamin C 2020-0 Yes 1000mg Take 1,000 Univers with james 4-28 mg by ity of hips 21:53: mouth [place] (VITAMIN C) 45 daily. Medica l 1,000 mg Branch tablet Cholecalcif 2020-0 Yes Take by Uni vers chrissy, 4-28 mouth. ity of Vitamin D3, 21:53: [place] (VITAMIN 45 Medical D3) 5,000 Branch unit tablet MAGNESIUM 2020-0 Yes 500mg Take 500 Uni vers ORAL 4-28 mg by ity of 21:53: mouth. [place] [address] Medical Branch hydroCHLORO 2020-0 Yes 12.5mg Take 12.5 Univers thiazide 4-28 mg by ity of 12.5 mg 21:53: mouth. [place] capsule 45 Medical Branch levothyroxi 2020-0 Yes 88ug Take 88 Uni vers ne 4-28 mcg by ity of (UNITHROID) 21:53: mouth [place] 88 mcg 45 every Medical tablet morning. Branch FLUTICASONE 2020-0 Yes Inhale. Uni vers /SALMETEROL 4-28 ity of (ADVAIR HFA 21:53: [place] INHALE) Medical Branch fenofibrate 2020-0 Yes 48mg Take 48 mg Univers (TRICOR) 48 4-28 by mouth ity of mg tablet 21:53: daily. [address] Branch Biotin 10 2020-0 Yes Take by Unive rs mg Tab 4-28 mouth. ity of 21:53: [place] [address] Medical Branch turmeric 2020-0 Yes 900mg Take 900 Univ ers root 4-28 mg by ity of extract 500 21:53: mouth. [place] mg Cap Medical Branch Dexlansopra 2020-0 Yes 1{capsu Take 1 U nivers zole 4-28 le} capsule by ity of (DEXILANT) 21:53: mouth. [place] 30 mg 45 Medical capsule Branch vitamin C 2020-0 Yes 1000mg Take 1,000 Univers with james 4-28 mg by ity of hips 21:53: mouth [place] (VITAMIN C) 45 daily. Medica l 1,000 mg Branch tablet Cholecalcif 2020-0 Yes Take by Uni vers chrissy, 4-28 mouth. ity of Vitamin D3, 21:53: [place] (VITAMIN 45 Medical D3) 5,000 Branch unit tablet MAGNESIUM 2020-0 Yes 500mg Take 500 Uni vers ORAL 4-28 mg by ity of 21:53: mouth. [place] 45 Medical Branch hydroCHLORO 2020-0 Yes 12.5mg Take 12.5 Univers thiazide 4-28 mg by ity of 12.5 mg 21:53: mouth. [place] capsule 45 Medical Branch levothyroxi 2019-0 Yes 88ug Take 88 Uni vers ne 4-28 mcg by ity of (UNITHROID) 21:53: mouth [place] 88 mcg 45 every Medical tablet morning. Branch rivaroxaban 0 2020- No 15mg Take 15 mg Univers (XARELTO) -08 06-28 by mouth ity o f 15 mg 18:40: 00:00 daily. [place] tablet 45 :00 Medical Branch FLUTICASONE 2020-0 Yes Inhale. Uni vers /SALMETEROL - ity of (ADVAIR HFA 16:53: [place] INHALE) 45 Medical Branch fenofibrate 2019-0 Yes 48mg Take 48 mg Univers (TRICOR) 48 06-08 by mouth ity of mg tablet 16:53: daily. [place] [address] Medical Branch Biotin 10 2019-0 Yes Take by Unive rs mg Tab - mouth. ity of 16:53: [place] [address] Medical Branch turmeric 2019-0 Yes 900mg Take 900 Univ ers root 4-28 mg by ity of extract 500 16:53: mouth. [place] mg Cap 45 Medical Branch Dexlansopra 2019-0 Yes 1{capsu Take 1 U nivers zole -28 le} capsule by ity of (DEXILANT) 16:53: mouth. [place] 30 mg 45 Medical capsule Branch vitamin C 2019-0 Yes 1000mg Take 1,000 Univers with james 4-28 mg by ity of hips 16:53: mouth [place] (VITAMIN C) 45 daily. Medica l 1,000 mg Branch tablet Cholecalcif 2019-0 Yes Take by Uni vers chrissy, 4-28 mouth. ity of Vitamin D3, 16:53: [place] (VITAMIN 45 Medical D3) 5,000 Branch unit tablet MAGNESIUM 2020-0 Yes 500mg Take 500 Uni vers ORAL 4-28 mg by ity of 16:53: mouth. [place] [address] Medical Branch hydroCHLORO 2019-0 Yes 12.5mg Take 12.5 Univers thiazide 4-28 mg by ity of 12.5 mg 16:53: mouth. [place] capsule 45 Medical Branch levothyroxi 2019-0 Yes 88ug Take 88 Uni vers ne 4-28 mcg by ity of (UNITHROID) 16:53: mouth [place] 88 mcg 45 every Medical tablet morning. Branch FLUTICASONE 2020-0 Yes Inhale. Uni vers /SALMETEROL 4-28 ity of (ADVAIR HFA 16:53: [place] INHALE) 45 Medical Branch fenofibrate 2020-0 Yes 48mg Take 48 mg Univers (TRICOR) 48 4-28 by mouth ity of mg tablet 16:53: daily. [place] [address] Medical Branch Biotin 10 2019-0 Yes Take by Unive rs mg Tab 4-28 mouth. ity of 16:53: [place] [address] Medical Branch turmeric 2020-0 Yes 900mg Take 900 Univ ers root 4-28 mg by ity of extract 500 16:53: mouth. [place] mg Cap 45 Medical Branch Dexlansopra 2019-0 Yes 1{capsu Take 1 U nivers zole 4-28 le} capsule by ity of (DEXILANT) 16:53: mouth. [place] 30 mg 45 Medical capsule Branch vitamin C 2019-0 Yes 1000mg Take 1,000 Univers with james 4-28 mg by ity of hips 16:53: mouth [place] (VITAMIN C) 45 daily. Medica l 1,000 mg Branch tablet Cholecalcif 2019-0 Yes Take by Uni vers chrissy, 4-28 mouth. ity of Vitamin D3, 16:53: [place] (VITAMIN 45 Medical D3) 5,000 Branch unit tablet MAGNESIUM 2020-0 Yes 500mg Take 500 Uni vers ORAL 4-28 mg by ity of 16:53: mouth. [place] [address] Medical Branch hydroCHLORO 2020-0 Yes 12.5mg Take 12.5 Univers thiazide 4-28 mg by ity of 12.5 mg 16:53: mouth. [place] capsule 45 Medical Branch levothyroxi 2020-0 Yes 88ug Take 88 Uni vers ne 4-28 mcg by ity of (UNITHROID) 16:53: mouth [place] 88 mcg 45 every Medical tablet morning. Branch FLUTICASONE 2020-0 Yes Inhale. Uni vers /SALMETEROL 4-28 ity of (ADVAIR HFA 16:53: [place] INHALE) 45 Medical Branch fenofibrate 2020-0 Yes 48mg Take 48 mg Univers (TRICOR) 48 4-28 by mouth ity of mg tablet 16:53: daily. [place] [address] Medical Branch Biotin 10 2020-0 Yes Take by Unive rs mg Tab 4-28 mouth. ity of 16:53: [place] [address] Medical Branch turmeric 2020-0 Yes 900mg Take 900 Univ ers root 4-28 mg by ity of extract 500 16:53: mouth. [place] mg Cap 45 Medical Branch Dexlansopra 2020-0 Yes 1{capsu Take 1 U nivers zole 4-28 le} capsule by ity of (DEXILANT) 16:53: mouth. [place] 30 mg 45 Medical capsule Branch vitamin C 2020-0 Yes 1000mg Take 1,000 Univers with james 4-28 mg by ity of hips 16:53: mouth [place] (VITAMIN C) 45 daily. Medica l 1,000 mg Branch tablet Cholecalcif 2020-0 Yes Take by Uni vers chrissy, - mouth. ity of Vitamin D3, 16:53: [place] (VITAMIN 45 Medical D3) 5,000 Branch unit tablet MAGNESIUM 2020-0 Yes 500mg Take 500 Uni vers ORAL 4-28 mg by ity of 16:53: mouth. [address] Branch hydroCHLORO 2020-0 Yes 12.5mg Take 12.5 Univers thiazide 4-28 mg by ity of 12.5 mg 16:53: mouth. [place] capsule 45 Medical Branch levothyroxi 2020-0 Yes 88ug Take 88 Uni vers ne 4-28 mcg by ity of (UNITHROID) 16:53: mouth [place] 88 mcg 45 every Medical tablet morning. Branch rivaroxaban 2020-0 Yes 15mg 15 mg, Univ ers (XARELTO) - Oral, ity of tablet 15 14:00: DAILY, [place] mg 00 First dose Medical on Sat Branch 06/09/19 at 0900, Until Discontinu ed, Routine magnesium 2020-0 2020- No 4g 4 g, IV Univ ers sulfate in 06-08 04-28 Piggyback, it y of water 4 13:45: 14:20 ONCE, 1 [place] gram/50 mL 00 :00 dose, Medi mk (8 %) IV 06/09/19 at [facility] h Piggyback 4 0845, g Routine nebivolol 2020-0 Yes [id number] 2.5mg Take 0.5 Univers (BYSTOLIC) 4- tablets by ity of 5 mg tablet 00:00: mouth 2 [place] 00 (two) Medical times Branch daily. rivaroxaban 2020-0 Yes [id number] 15mg Take 1 Univ ers (XARELTO) 4-28 tablet by ity o f 15 mg 00:00: mouth [place] tablet 00 daily. Medical Indication Branch s: prevention of thromboemb olism in paroxysmal atrial fibrillati on nebivolol 2020-0 Yes [id number] 2.5mg Take 0.5 Univers (BYSTOLIC) 4-28 tablets by ity of 5 mg tablet 00:00: mouth 2 [place] 00 (two) Medical times Branch daily. rivaroxaban 2020-0 Yes [id number] 15mg Take 1 Univ ers (XARELTO) 4-28 tablet by ity o f 15 mg 00:00: mouth [place] tablet 00 daily. Medical Indication Branch s: prevention of thromboemb olism in paroxysmal atrial fibrillati on nebivolol 2020-0 Yes [id number] 2.5mg Take 0.5 Univers (BYSTOLIC) 4-28 tablets by ity of 5 mg tablet 00:00: mouth 2 [place] 00 (two) Medical times Branch daily. rivaroxaban 2020-0 Yes [id number] 15mg Take 1 Univ ers (XARELTO) 4-28 tablet by ity o f 15 mg 00:00: mouth [place] tablet 00 daily. Medical Indication Branch s: prevention of thromboemb olism in paroxysmal atrial fibrillati on nebivolol 2020-0 Yes [id number] 2.5mg Take 0.5 Univers (BYSTOLIC) 4-28 tablets by ity of 5 mg tablet 00:00: mouth 2 [place] 00 (two) Medical times Branch daily. rivaroxaban 2020-0 Yes [id number] 15mg Take 1 Univ ers (XARELTO) 4-28 tablet by ity o f 15 mg 00:00: mouth [place] tablet 00 daily. Medical Indication Branch s: prevention of thromboemb olism in paroxysmal atrial fibrillati on nebivolol 2020-0 Yes [id number] 2.5mg Take 0.5 Univers (BYSTOLIC) 4-28 tablets by ity of 5 mg tablet 00:00: mouth 2 [place] 00 (two) Medical times Branch daily. rivaroxaban 2020-0 Yes [id number] 15mg Take 1 Univ ers (XARELTO) 4-28 tablet by ity o f 15 mg 00:00: mouth [place] tablet 00 daily. Medical Indication Branch s: prevention of thromboemb olism in paroxysmal atrial fibrillati on nebivolol 2020-0 Yes [id number] 2.5mg Take 0.5 Univers (BYSTOLIC) 4-28 tablets by ity of 5 mg tablet 00:00: mouth 2 [place] 00 (two) Medical times Branch daily. rivaroxaban 2020-0 Yes [id number] 15mg Take 1 Univ ers (XARELTO) 4-28 tablet by ity o f 15 mg 00:00: mouth [place] tablet 00 daily. Medical Indication Branch s: prevention of thromboemb olism in paroxysmal atrial fibrillati on nebivolol 2020-0 Yes [id number] 2.5mg Take 0.5 Univers (BYSTOLIC) 4-28 tablets by ity of 5 mg tablet 00:00: mouth 2 [place] 00 (two) Medical times Branch daily. rivaroxaban 2020-0 Yes [id number] 15mg Take 1 Univ ers (XARELTO) 4-28 tablet by ity o f 15 mg 00:00: mouth [place] tablet 00 daily. Medical Indication Branch s: prevention of thromboemb olism in paroxysmal atrial fibrillati on nebivolol 2020-0 Yes [id number] 2.5mg Take 0.5 Univers (BYSTOLIC) 4-28 tablets by ity of 5 mg tablet 00:00: mouth 2 [place] 00 (two) Medical times Branch daily. rivaroxaban 2020-0 Yes [id number] 15mg Take 1 Univ ers (XARELTO) 4-28 tablet by ity o f 15 mg 00:00: mouth [place] tablet 00 daily. Medical Indication Branch s: prevention of thromboemb olism in paroxysmal atrial fibrillati on nebivolol 2020-0 Yes [id number] 2.5mg Take 0.5 Univers (BYSTOLIC) 4-28 tablets by ity of 5 mg tablet 00:00: mouth 2 [place] 00 (two) Medical times Branch daily. rivaroxaban 2020-0 Yes [id number] 15mg Take 1 Univ ers (XARELTO) 4-28 tablet by ity o f 15 mg 00:00: mouth [place] tablet 00 daily. Medical Indication Branch s: prevention of thromboemb olism in paroxysmal atrial fibrillati on nebivolol 2020-0 Yes [id number] 2.5mg Take 0.5 Univers (BYSTOLIC) 4-28 tablets by ity of 5 mg tablet 00:00: mouth 2 [place] 00 (two) Medical times Branch daily. rivaroxaban 2020-0 Yes [id number] 15mg Take 1 Univ ers (XARELTO) 4-28 tablet by ity o f 15 mg 00:00: mouth [place] tablet 00 daily. Medical Indication Branch s: prevention of thromboemb olism in paroxysmal atrial fibrillati on nebivolol 2020-0 Yes [id number] 2.5mg Take 0.5 Univers (BYSTOLIC) 4-28 tablets by ity of 5 mg tablet 00:00: mouth 2 [place] 00 (two) Medical times Branch daily. rivaroxaban 2020-0 Yes [id number] 15mg Take 1 Univ ers (XARELTO) 4-28 tablet by ity o f 15 mg 00:00: mouth [place] tablet 00 daily. Medical Indication Branch s: prevention of thromboemb olism in paroxysmal atrial fibrillati on nebivolol 2020-0 Yes [id number] 2.5mg Take 0.5 Univers (BYSTOLIC) 4-28 tablets by ity of 5 mg tablet 00:00: mouth 2 [place] 00 (two) Medical times Branch daily. rivaroxaban 2020-0 Yes [id number] 15mg Take 1 Univ ers (XARELTO) 4-28 tablet by ity o f 15 mg 00:00: mouth [place] tablet 00 daily. Medical Indication Branch s: prevention of thromboemb olism in paroxysmal atrial fibrillati on nebivolol 2020-0 Yes [id number] 2.5mg Take 0.5 Univers (BYSTOLIC) 4-28 tablets by ity of 5 mg tablet 00:00: mouth 2 [place] 00 (two) Medical times Branch daily. rivaroxaban 2020-0 Yes [id number] 15mg Take 1 Univ ers (XARELTO) 4-28 tablet by ity o f 15 mg 00:00: mouth [place] tablet 00 daily. Medical Indication Branch s: prevention of thromboemb olism in paroxysmal atrial fibrillati on venetoclax 2020-0 2020- No [id number] 400mg Take 4 Univers 100 mg 4-28 06-28 tablets by ity of tablet 00:00: 04:59 mouth [place] 00 :00 every Medical evening Branch venetoclax 2020-0 2020- No [id number] 400mg Take 4 Univers 100 mg 4-28 06-28 tablets by ity of tablet 00:00: 04:59 mouth [place] 00 :00 every Medical evening Branch venetoclax 2020-0 2020- No [id number] 400mg Take 4 Univers 100 mg 4-28 06-28 tablets by ity of tablet 00:00: 04:59 mouth [place] 00 :00 every Medical evening Branch sodium 2020-0 2020- No [id number] 4mL Inhale 4 Un jignesh chloride 7% 06-08 05-13 mL 3 ity of nebulizer 00:00: 04:59 (three) [place] solution 00 :00 times Medical daily for Branch 14 days. ipratropium 2020-2019- No [id number] 3mL Inhale 3 Univers -albuterol 06-08 05-13 mL 3 ity of 0.5 mg-3 00:00: 04:59 (three) [place] mg(2.5 mg 00 :00 times Medical base)/3 mL daily as Branc h nebulizer needed for solution Wheezing for up to 14 days. sodium 2020-0 2019- No [id number] 4mL Inhale 4 Un jignesh chloride 7% 06-08 05-13 mL 3 ity of nebulizer 00:00: 04:59 (three) [place] solution 00 :00 times Medical daily for Branch 14 days. ipratropium 2019-2019- No [id number] 3mL Inhale 3 Univers -albuterol 06-08 05-13 mL 3 ity of 0.5 mg-3 00:00: 04:59 (three) [place] mg(2.5 mg 00 :00 times Medical base)/3 mL daily as Branc h nebulizer needed for solution Wheezing for up to 14 days. amoxicillin 2019- No [id number] 1{tbl} Take 1 Univers -clavulanat 06-08 tablet by it y of e 00:00: 04:59 mouth 2 [place] (AUGMENTIN) 00 :00 (two) Medical 875-125 mg times Branch per tablet daily for 2 days. azithromyci 2019- No [id number] 250mg Take 1 Univers n 250 mg 06-08 tablet by ity o f tablet 00:00: 04:59 mouth [place] 00 :00 daily for Medical 2 days. Branch Take 500 mg day 1, then 250 mg days 2 to 5. amoxicillin 2019-2019- No [id number] 1{tbl} Take 1 Univers -clavulanat 06-08 tablet by it y of e 00:00: 04:59 mouth 2 [place] (AUGMENTIN) 00 :00 (two) Medical 875-125 mg times Branch per tablet daily for 2 days. azithromyci 2019-0 2020- No [id number] 250mg Take 1 Univers n 250 mg 06-08- tablet by ity o f tablet 00:00: 04:59 mouth [place] 00 :00 daily for Medical 2 days. Branch Take 500 mg day 1, then 250 mg days 2 to 5. estradiol 2020-0 Yes 1{patch 1 Patch, U nivers (SIMON) - } Transderma ity of 0.05 mg/24 03:45: l (Apply [place] hr twice 00 To Skin), Medica l weekly QMON/THURS [place] patch 1 , First Patch dose on [facility] 06/06/19 at 2245, Until Discontinu ed, Routine metoprolol 2020-0 Yes 12.5mg 12.5 mg, U nivers tartrate - Oral, BID, ity o f (LOPRESSOR) 01:00: First dose [place] half tablet 00 on [facility] Medica l 12.5 mg 06/06/19 at Branch 2000, Until Discontinu ed, Routine valACYclovi 2020-0 Yes 500mg 500 mg, Un jignesh r (VALTREX) 4-25 Oral, ity of tablet 500 14:00: DAILY, [place] mg 00 First dose Medical on [facility] 06/06/19 at 0900, Until Discontinu ed, CHELY cholecalcif 2020-0 Yes 5000U 5,000 [facility] ers chrissy 4-25 Units, ity of (vitamin 14:00: Oral, [place] D3) tablet 00 DAILY, Medical 5,000 Units First dose Br anch on [facility] 06/06/19 at 0900, Until Discontinu ed, Routine
administrative appeals tribunal member approving Non-formul chuck medication : ANTONIETTA BROOKE
Reason for Non-Formul chuck Use: SPECIFIC INDICATION FOR NONFORMULA RY PRODUCT sodium 2020-0 Yes 4mL 4 mL, Univers chloride 7% -25 Inhalation it y of (HYPER-JARROD) 13:00: , TID, [place] nebulizer 00 First dose Medi mk solution 4 on [facility] mL 06/06/19 at 0800, Until Discontinu ed, Routine levothyroxi 2020-0 Yes 88ug 88 mcg, Uni vers ne 4-25 Oral, ity of (SYNTHROID) 11:00: QAM-0600, [place] tablet 88 00 First dose Medi mk mcg on Sat Branch 06/06/19 at 0600, Until Discontinu ed, Routine venetoclax 2019-0 Yes 400mg 400 mg, Uni vers (VENCLEXTA) 4-24 Oral, ity of tablet 400 22:45: DAILY AT [place] mg 00 1700, Medical First dose Branch on Sat06/05/19 at 1745, Until Discontinu ed, Routine lactated 2019-0 2020- No 500mL at 100 Unive rs ringers IV 06-04 04-24 mL/hr, 500 it y of infusion 21:45: 23:03 mL, IV [place] 500 mL 00 :00 Infusion, Medical ONCE, 1 Branch dose, Sat06/05/19 at 1645, STAT THYROID,POR 2019-0 2020- No 45mg Take 45 mg Univers K (ARMOUR 06-04-24 by mouth. ity of THYROID 21:43: 00:00 [place] ORAL) 55 :00 Medical Branch nebivolol 2019-0 2020- No 2.5mg Take 2.5 Un jignesh (BYSTOLIC) - 04-24 mg by ity of 2.5 mg 21:43: 00:00 mouth 2 [place] tablet 43 :00 (two) Medical times Branch daily. Magnesium 2019-0 2020- No 250mg Take 250 Un jignesh Oxide 250 -24 04-24 mg by ity of mg Tab 21:43: 00:00 mouth. [place] 25 :00 Medical Branch lovastatin 2019-0 2020- No 20mg Take 20 mg Univers (MEVACOR) 06-04 04-24 by mouth ity o f 20 mg 21:42: 00:00 at [place] tablet 57 :00 bedtime. Medical Branch Glucosamine 2019-0 2020- No 1{tbl} Take 1 U nivers -Chondroiti -24 04-24 tablet by it y of n (OSTEO 21:42: 00:00 mouth. [place] BI-FLEX) 42 :00 Medical 250-200 mg Branch Tab Garlic 100 2020-0 2020- No 100mg Take 100 U nivers mg Tab -24 04-24 mg by ity of 21:42: 00:00 mouth. [place] 33 :00 Medical Branch FOLIC 2020-0 2020- No Take by Univers ACID/MULTIV -24 04-24 mouth. ity o f IT-MIN/LUTE 21:42: 00:00 [place] IN (CENTRUM 30 :00 Medical SILVER Branch ORAL) Fenofibrate 2019-0 2020- No Take by Un jignesh 40 mg Tab -04 06-24 mouth. ity of 21:42: 00:00 [place] 15 :00 Medical Branch famotidine 2019- No 20mg Take 20 mg Univers (PEPCID) 20 06-04-24 by mouth 2 i ty of mg tablet 21:42: 00:00 (two) [place] 03 :00 times Medical daily. Branch estradiol 0 2019- No 1mg Take 1 mg Un jignesh (ESTRACE) 1 06-04-24 by mouth ity of mg tablet 21:41: 00:00 daily. [place] 54 :00 Medical Branch CRANBERRY 2019- 2020- No 84mg Take 84 mg U nivers FRUIT 06-04-24 by mouth. ity of EXTRACT 21:41: 00:00 [place] (CRANBERRY 45 :00 Medical ORAL) Branch CRANBERRY 0 2020- No 84mg Take 84 mg U nivers FRUIT 06-04-24 by mouth. ity of EXTRACT 21:41: 00:00 [place] (CRANBERRY 42 :00 Medical CONCENTRATE Branch ORAL) codeine-gua 2019-0 Yes 5mL 5 mL, Unive rs ifenesin 4-24 Oral, ity of (ROBITUSSIN 20:56: Q6HPRN, [place] AC) 10-100 49 Starting Medic al mg/5 mL Fri Branch solution 5 06/05/19 at mL 1556, Until Discontinu ed, Routine, Cough hydrochloro 2019- No 12.5mg Take 12.5 Univers thiazide -24 04-24 mg by ity of (ESIDRIX) 18:54: 00:00 mouth [place] 12.5 mg 48 :00 daily. Medical capsule Branch LOSARTAN 2020- No 100mg Take 100 Uni vers POTASSIUM 4-24 04-24 mg by ity of (LOSARTAN 18:54: 00:00 mouth [place] ORAL) 39 :00 daily. Medical Branch pantoprazol 2019-0 Yes 40mg 40 mg, Univ ers e 4-24 Oral, ity of (PROTONIX) 18:45: DAILY, [place] EC tablet 00 First dose Medi mk 40 mg on Fri Branch 06/05/19 at 1345, Until Discontinu ed, Routine valACYclovi 2019- No 500mg 500 mg, U nivers r (VALTREX) 06-04 Oral, BID, i ty of tablet 500 18:45: 20:26 First dose [place] mg 00 :34 on Sat Medical 06/05/19 at Branch 1345, Until Discontinu ed, CHELY heparin 2020-0 2020- No 12U/kg/ 12 Univer s 25,000 06-04- h Units/kg/h ity of unit/250 mL 18:00: 20:38 r ?65.8 kg [place] (Premixed 00 :27 (7.896 Medical Bag) in D5W mL/hr, Branch weight rounded to based 7.9 dosing ACS mL/hr), IV protocol Infusion, CONTINUOUS , Starting Sat06/05/19 at 1300, Until Sat06/08/19 at 1538 heparin 2020-0 2020- No 60U/kg 3,948 Univer s 1000 06-04 Units (60 ity of unit/mL 17:00: 23:12 Units/kg [place] injection 00 :00 ?65.8 kg), Medi mk Soln 3,948 IV Push, Branc h Units ONCE, 1 dose, Sat06/05/19 at 1200, Routine magnesium 2020-0 2020- No 4g 4 g, IV Univ ers sulfate in 06-04 Piggyback, it y of water 4 16:30: 19:23 ONCE, 1 [place] gram/50 mL 00 :00 dose, Sat Medi mk (8 %) IV 06/05/19 at Branc h Piggyback 4 1130, g Routine cefTRIAXone 2020-0 Yes 1000mg 1,000 mg, Univers (ROCEPHIN) 06-04 IV ity of 1,000 mg in 15:45: Piggyback, [place] NaCl 0.9% 00 Q24H ABX, Medic al (NS) 50 mL First dose Bra nch MINI-BAG on Sat06/05/19 at 1045, Until Discontinu ed, 50 mL
R moi for Anti-Infec tive: Empiric Therapy for Suspected Infection< br>Empiric Therapy Site: Respirator y
Durat ion of therapy: 7 days acetaminoph 2020-0 Yes 650mg 650 mg, Un jignesh en 06-04 Oral, ity of (TYLENOL) 15:17: Q6HPRN, [place] tablet 650 59 Starting Medic al mg Sat Branch 06/05/19 at 1017, Until Discontinu ed, Routine, Pain (scale 4-6), Please schedule with Hypersal and duonebs azithromyci 2020-0 2020- No 500mg 500 mg, IV Univers n 06-04-27 Piggyback, ity of (ZITHROMAX) 15:00: 12:56 Q24H ABX, [place] 500 mg in 00 :38 7 doses, Medica l NaCl 0.9% First dose Bran ch (NS) 250 mL on Sat VIAL-MATE 06/05/19 at IV 1000, Last piggyback dose on Janell 06/11/19 at 1000, 250 mL
Reas on for Anti-Infec tive: Empiric Therapy for Suspected Infection< br>Empiric Therapy Site: Respirator y
Durat ion of therapy: 7 days ascorbic 2020-0 Yes 1000mg 1,000 mg, Un jignesh acid -24 Oral, ity of (vitamin C) 14:45: DAILY, [place] (VITAMIN C) 00 First dose Me dical tablet on Sat Branch 1,000 mg 06/05/19 at 0945, Until Discontinu ed, Routine losartan 2019-0 Yes 25mg 25 mg, Univers (COZAAR) -24 Oral, ity of tablet 25 14:00: DAILY, [place] mg 00 First dose Medical on Sat Branch 06/05/19 at 0900, Until Discontinu ed, Routine aspirin 325 2020-0 2020- No 325mg Take 325 Univers mg tablet 06-04 04-24 mg by ity of 13:55: 00:00 mouth [place] 52 :00 daily. Medical Branch ipratropium 2019-0 Yes 3mL 3 mL, Unive rs -albuterol 24 Inhalation ity of (DUONEB) 12:34: , TIDPRN, [place] 0.5 mg-3 39 Starting Medical mg(2.5 mg Sat Branch base)/3 mL 06/05/19 at nebulizer 0734, solution 3 Until mL Discontinu ed, Routine, Wheezing benzonatate 2019-0 2020- No 200mg 200 mg, U nivers (TESSALON - 04-24 Oral, ity of PERLES) 07:15: 06:06 ONCE, 1 [place] capsule 200 00 :00 dose, Fri Med ical mg 06/05/19 at Branch 0215, Routine Levothyroxi 2019-0 Yes 88 Memori a ne Sodium 3-12 microgram l 0.088 MG 21:49: = 1 tab, Petty nn Oral Tablet 00 PO, Daily, [Unithroid] brand medically necessary, # 90 tab, 0 Refill(s), [facility], Pharmacy: [id number] Levothyroxi 2019-0 Yes 88 Memori a ne Sodium 3-12 microgram l 0.088 MG 21:49: = 1 tab, Petty nn Oral Tablet 00 PO, Daily, [Unithroid] brand medically necessary, # 90 tab, 0 Refill(s), [facility], Pharmacy: [facility] [id number] levothyroxi Yes 88 Method i ne 3-[address] (SYNTHROID) 00:00: = 1 tab, Ho spita 88 mcg 00 PO, Daily, l tablet brand medically necessary, # 90 tab, 1 Refill(s), [facility], Pharmacy: [id number], 165.1, cm, 07/14/19 11:24:00 CDT, Height, 68.182, kg, 07/14/19 11:24:00 CDT, Weight Advair 2020-0 Yes 1 puff, Memoria Diskus 250 3-02 INHALATION l mcg-50 mcg 15:59: , BID, # 1 H ermann inhalation 00 ea, 3 powder Refill(s) Estradiol 2020-0 Yes 1 patch, Madi oli Patch 0.05 3-02 TOP, 0 l mg/24 hours 15:59: Refill(s) H ermann twice 00 weekly transdermal film, extended release Fenofibrate 2020-0 Yes = 1 cap, Me moria 48 MG Oral 3-02 PO, Daily, l Tablet 15:59: # 30 cap, Luca n 00 0 Refill(s) Hydrochloro 2020-0 Yes 12.5 mg, Me moria thiazide 3-02 PO, Daily, l 15:59: 0 [place] 00 Refill(s) nebivolol 2020-0 Yes 5 mg = 2 Madi oli 2.5 MG Oral 3-02 tab, PO, l Tablet 15:59: Daily, # [place] [Bystolic] 00 60 tab, 0 Refill(s) losartan 2020-0 Yes 100 mg = 1 Mem oria 100 mg oral 3-02 tab, PO, l tablet 15:59: Daily, # [place] 00 30 tab, 0 Refill(s) [place] 2019-0 Yes 60 mg, PO, Memor ia Thyroid 3-02 Daily, 0 l 15:59: Refill(s) [place] 00 thyroid 0 Yes 15 mg = 1 Memor ia (LONGTERM) 15 MG 3-02 tab, PO, l Oral Tablet 15:59: Daily, # He rmann [[place] 00 30 tab, 0 Thyroid] Refill(s) rivaroxaban 0 Yes 15 mg = 1 M emoria 15 MG Oral 3-02 tab, PO, l Tablet 15:59: Daily, # [place] [Xarelto] 00 90 tab, 3 Refill(s) dexlansopra 0 Yes 30 mg = 1 M emoria zole 30 MG 3-02 cap, PO, l Enteric 15:59: Daily, # [place] n Coated 00 30 cap, 0 Capsule Refill(s) [Dexilant] valacyclovi Yes 500 mg = 1 Memoria r 500 MG 3-02 tab, PO, l Oral Tablet 15:59: Daily, # He rmann [Valtrex] 00 30 tab, 0 Refill(s) allopurinol Yes 300 mg = 1 Memoria 300 mg oral 3-02 tab, PO, l tablet 15:59: Daily, # [place] 00 90 tab, 1 Refill(s) obinutuzuma 2019-0 Yes IV, q4wk, M emoria b 25 MG/ML 04-12 0 l Injectable 15:59: Refill(s) He rmkarrie Solution 00 [Gazyva] Venclexta 0 Yes 400 mg, Memor ia 3-02 PO, Daily, l 15:59: 0 [place] 00 Refill(s) Vitamin C 2019-0 Yes 1,000 mg = Me moria 1000 mg -02 1 tab, PO, l oral tablet 15:59: Daily, # He rmann 00 30 tab, 0 Refill(s) Cranberry 2019-0 Yes 0 Memoria preparation 02 Refill(s) l 15:59: [place] 00 Vitamin D3 2019-0 Yes 5,000 Memori a 5000 intl 04-12 IntlUnit = l units oral 15:59: 1 cap, PO, H ermann capsule 00 Daily, # 30 cap, 1 Refill(s) biotin 2020-0 Yes See Memoria 04-12 Instructio l 15:59: ns, 7500 [place] 00 PO Daily, 0 Refill(s) Turmeric 2020-0 Yes Turmeric, Madi oli - See l 15:59: [place], [address] 1 PO daily, Refill(s) 0 B-12 2020-0 Yes 0 Memoria 04-12 Refill(s) l 15:59: [place] 00 Magnesium 2020-0 Yes Magnesium, Me moria 04-12 500 1 PO l 15:59: daily, [place] 00 Refill(s) 0 Advair 2020-0 Yes 1 puff, Memoria Diskus 250 -02 INHALATION l mcg-50 mcg 15:59: , BID, # 1 H ermann inhalation 00 ea, 3 powder Refill(s) Estradiol 2019-0 Yes 1 patch, Madi oli Patch 0.05 04-12 TOP, 0 l mg/24 hours 15:59: Refill(s) H ermann twice 00 weekly transdermal film, extended release Fenofibrate 2019-0 Yes = 1 cap, Me moria 48 MG Oral 3-02 PO, Daily, l Tablet 15:59: # 30 cap, Luca n 00 0 Refill(s) Hydrochloro 2020-0 Yes 12.5 mg, Me moria thiazide -02 PO, Daily, l 15:59: 0 [place] 00 Refill(s) nebivolol 2020-0 Yes 5 mg = 2 Madi oli 2.5 MG Oral 3-02 tab, PO, l Tablet 15:59: Daily, # [place] [Bystolic] 00 60 tab, 0 Refill(s) losartan 2020-0 Yes 100 mg = 1 Mem oria 100 mg oral 3-02 tab, PO, l tablet 15:59: Daily, # [place] 00 30 tab, 0 Refill(s) [place] 2020-0 Yes 60 mg, PO, Memor ia Thyroid 3-02 Daily, 0 l 15:59: Refill(s) [place] 00 thyroid 2020-0 Yes 15 mg = 1 Memor ia (LONGTERM) 15 MG 3-02 tab, PO, l Oral Tablet 15:59: Daily, # He rmann [[place] 00 30 tab, 0 Thyroid] Refill(s) rivaroxaban 2020-0 Yes 15 mg = 1 M emoria 15 MG Oral 3-02 tab, PO, l Tablet 15:59: Daily, # [place] [Xarelto] 00 90 tab, 3 Refill(s) dexlansopra 2020-0 Yes 30 mg = 1 M emoria zole 30 MG 3-02 cap, PO, l Enteric 15:59: Daily, # [place] n Coated 00 30 cap, 0 Capsule Refill(s) [Dexilant] valacyclovi 2020-0 Yes 500 mg = 1 Memoria r 500 MG 3-02 tab, PO, l Oral Tablet 15:59: Daily, # Cosme rmkarrie [Valtrex] 00 30 tab, 0 Refill(s) allopurinol 2020-0 Yes 300 mg = 1 Memoria 300 mg oral 3-02 tab, PO, l tablet 15:59: Daily, # [place] 00 90 tab, 1 Refill(s) obinutuzuma 2020-0 Yes IV, q4wk, M emoria b 25 MG/ML 02 0 l Injectable 15:59: Refill(s) He rmkarrie Solution 00 [Gazyva] Venclexta 2020-0 Yes 400 mg, Memor ia -02 PO, Daily, l 15:59: 0 [place] 00 Refill(s) Vitamin C 2020-0 Yes 1,000 mg = Me moria 1000 mg 02 1 tab, PO, l oral tablet 15:59: Daily, # Cosme rmkarrie 00 30 tab, 0 Refill(s) Cranberry 2020-0 Yes 0 Memoria preparation 02 Refill(s) l 15:59: [place] 00 Vitamin D3 2020-0 Yes 5,000 Memori a 5000 intl 04-12 IntlUnit = l units oral 15:59: 1 cap, PO, H ermann capsule 00 Daily, # 30 cap, 1 Refill(s) biotin 2020-0 Yes See Memoria 04-12 Instructio l 15:59: ns, 7500 [place] 00 PO Daily, 0 Refill(s) Turmeric 2020-0 Yes Turmeric, Madi oli 04-12 See l 15:59: [place], [address] 1 PO daily, Refill(s) 0 B-12 Yes 0 Memoria 04-12 Refill(s) l 15:59: [place] 00 Magnesium Yes Magnesium, Me moria 04-12 500 1 PO l 15:59: daily, [place] 00 Refill(s) 0 estradioL Yes 1 patch, Meth tushar (CLIMARA) 04-12 TOP, 0 st 0.05 mg/24 00:00: Refill(s) Ho spita hr 00 l fluticasone Yes 1 puff, Met hodi propion-jarrod 04-[address] meteroL 00:00: , BID, # 1 Hosp topher (ADV/ ea, 3 l WIXELA Refill(s) INHUB) 250-50 mcg/dose DISKUS vitamin 2021- No 5,000 Methodi D3-folic 04-12 IntlUnit = st acid 5,000 00:00: 00:00 1 cap, PO, Hospita unit- 1 mg 00 :00 Daily, # l tablet 30 cap, 1 Refill(s) vit A,C and 2021- No 1,000 mg = Methodi E-lutein-mi 04-12 1 tab, PO, s t nerals 00:00: 00:00 Daily, # Hospit a (OCUVITE 00 :00 30 tab, 0 l WITH Refill(s) LUTEIN) 1,000 unit-200 mg-60 unit-2 mg tablet per tablet fenofibrate 2021- No = 1 cap, M ethodi (Tricor) 48 04-12 PO, Daily, s t MG tablet 00:00: 00:00 # 30 cap, Ho spita 00 :00 0 l Refill(s) mecobalamin 2021- No 0 Metho di (B12 ACTIVE 04-12 Refill(s) st ORAL) 00:00: 00:00 Hospita 00 :00 l methylPREDN 2020- No [id number] 84mg Take 21 Univers ISolone [id number] tablets by jey sanches (MEDROL, 00:00: 00:00 mouth [place] BRIAN,) 4 mg 00 :00 SEE-INSTRU Med ical tablets CTIONS. Branch follow package directions XARELTO 15 2020- No Univer s mg tablet 5-10 04-24 ity of 00:00: 00:00 [place] 00 Medical Branch estradiol 2019-0 Yes Univers 0.05 mg/24 4-30 ity of hr twice 00:00: Medical patch Branch estradiol 2018-0 Yes Univers 0.05 mg/24 4-30 ity of hr twice 00:00: Medical patch Branch estradiol 2018-0 Yes Univers 0.05 mg/24 4-30 ity of hr twice 00:00: Medical patch Branch estradiol 2018-0 Yes Univers 0.05 mg/24 4-30 ity of hr twice 00:00: Medical patch Branch estradiol 2018- Yes Univers 0.05 mg/24 4-30 ity of hr twice 00:00: Medical patch Branch estradiol 2018-0 Yes Univers 0.05 mg/24 4-30 ity of hr twice 00:00: Medical patch Branch estradiol 2018-0 Yes Univers 0.05 mg/24 4-30 ity of hr twice 00:00: Medical patch Branch estradiol 2018-0 Yes Univers 0.05 mg/24 4-30 ity of hr twice 00:00: Medical patch Branch estradiol 2018-0 Yes Univers 0.05 mg/24 4-30 ity of hr twice 00:00: Medical patch Branch estradiol 2018-0 Yes Univers 0.05 mg/24 4-30 ity of hr twice 00:00: Medical patch Branch estradiol 2018-0 Yes Univers 0.05 mg/24 4-30 ity of hr twice 00:00: Medical patch Branch estradiol 2018-0 Yes Univers 0.05 mg/24 4-30 ity of hr twice 00:00: Medical patch Branch estradiol 2018-0 Yes Univers 0.05 mg/24 4-30 ity of hr twice 00:00: Medical patch Branch BYSTOLIC 5 0 2020- No Univer s mg tablet -16 04-28 ity of 00:00: 00:00 [place] 00 :00 Medical Branch losartan 2018-0 Yes Univers 100 mg 2-28 ity of tablet 00:00: Medical Branch losartan 2018-0 Yes Univers 100 mg 2-28 ity of tablet 00:00: [place] 00 Medical Branch losartan 2019-0 Yes Univers 100 mg 2-28 ity of tablet 00:00: [place] 00 Medical Branch losartan 2019-0 Yes Univers 100 mg 2-28 ity of tablet 00:00: [place] 00 Medical Branch losartan 2019-0 Yes Univers 100 mg 2-28 ity of tablet 00:00: [place] 00 Medical Branch losartan 2019-0 Yes Univers 100 mg 2-28 ity of tablet 00:00: [place] 00 Medical Branch losartan 2019-0 Yes 100mg Take 100 Univ ers 100 mg 2-28 mg by ity of tablet 00:00: mouth [place] 00 daily. Medical Branch losartan 2019-0 Yes 100mg Take 100 Univ ers 100 mg 2-28 mg by ity of tablet 00:00: mouth [place] 00 daily. Medical Branch losartan 2019-0 Yes 100mg Take 100 Univ ers 100 mg 2-28 mg by ity of tablet 00:00: mouth [place] 00 daily. Medical Branch losartan 2019-0 Yes 100mg Take 100 Univ ers 100 mg 2-28 mg by ity of tablet 00:00: mouth [place] 00 daily. Medical Branch losartan 2019-0 Yes 100mg Take 100 Univ ers 100 mg 2-28 mg by ity of tablet 00:00: mouth [place] 00 daily. Medical Branch losartan 2019-0 Yes 100mg Take 100 Univ ers 100 mg 2-28 mg by ity of tablet 00:00: mouth [place] 00 daily. Medical Branch losartan 2019-0 Yes Univers 100 mg 2-28 ity of tablet 00:00: [place] 00 Medical Branch naproxen 2017- 2020- No [id number] 500mg Take 1 U nivers 500 mg 07-11-24 tablet by ity of tablet 00:00: 00:00 mouth 2 [place] 00 :00 (two) Medical times Branch daily with meals. codeine-gua 2020- No [id number] 5mL Take 5 mL Univers ifenesin 07-03-24 by mouth ity of 10-100 mg/5 00:00: 00:00 every 6 [place] mL solution 00 :00 (six) Medical hours as Branch needed for Cough. albuterol 2020- No 2{puff} Inhale 2 Univers 90 - 04-24 Puffs ity of mcg/actuati 00:00: 00:00 every 4 [place] on inhaler 00 :00 (four) Medical hours as Branch needed for Wheezing or Shortness of Breath. traMADOL 50 2019- No [id number] 50mg Take 1 Univers mg tablet 07-07 tablet by ity of 00:00: 00:00 mouth [place] 00 :00 every 4 Medical (four) Branch hours as needed (pain requiring narcotic). amitriptyli 2019- No [id number] 25mg Take 1 Univers ne 25 mg 07-07 tablet by ity o f tablet 00:00: 00:00 mouth at [place] 00 :00 bedtime. Medical 1-2 tab at Branch bedtime for neuropathi c pain Immunizations Ordered Filled Immunization Date Status Comments [facility] e Immunization Name Name 2021-01-12 Completed University of 00:00:00 [facility] Td 2021-01-12 Completed University of 00:00:00 [facility] Td 2021-01-12 Completed University of 00:00:00 [facility] Td 2021-01-12 Completed University of 00:00:00 [facility] Td 2021-01-12 Completed University of 00:00:00 [facility] Td 2021-01-12 Completed University of 00:00:00 [facility] Td 2021-01-12 Completed University of 00:00:00 [facility] Td 2021-01-12 Completed University of 00:00:00 [facility] Td 2021-01-12 Completed University of 00:00:00 [facility] PFIZER COVID-19 2020-10-04 Completed [facility] MRNA VACCINATION 00:00:00 [facility] PFIZER COVID-19 2020-03-16 Completed [facility] MRNA VACCINATION 00:00:00 [facility] [id number] 2020-03-15 Completed Memor ial [place] [id number] 00:00:00 ER [id number] 2020-03-15 Completed Memor ial [place] [id number] 00:00:00 [id number] 2020-03-02 Completed Memor ial [place] [id number] 00:00:00 [id number] 2020-03-02 Completed Memor ial [place] [id number] 00:00:00 ER PFIZER COVID-19 2020-02-24 Completed [facility] MRNA VACCINATION 00:00:00 Hospital Influenza Trivalent 2019-10-13 Completed [facility] 00:00:00 Hospital influenza virus 2019-09-12 Completed [facility] [place] vaccine, 00:00:00 inactivated influenza virus 2019-09-12 Completed [facility] [place] vaccine, 00:00:00 inactivated Pneumococcal 2018-07-12 Completed [facility] Conjugate 00:00:00 Hospital Zoster Vaccine 2018-07-12 Completed [facility] Recombinant 00:00:00 Hospital Zoster Vaccine 2018-04-11 Completed [facility] Recombinant 00:00:00 Hospital Pneumococcal 2017-11-11 Completed [facility] Conjugate 13-Valent 00:00:00 Hospi jon Vital Signs Vital Name Observation Time Observation Value Comments Source Systolic blood 2021-06-17 15:41:00 147 mm[Hg] [facility]iver [facility] of [facility] Diastolic blood 2021-06-17 15:41:00 63 mm[Hg] Unive rsity of [facility] Heart rate 2021-06-17 15:40:00 59 /min [facility] Body temperature 2021-06-17 15:40:00 36.56 Kaylen [facility] Respiratory rate 2021-06-17 15:40:00 18 /min [facility] Body height 2021-06-17 15:40:00 165.1 cm [facility] Body weight 2021-06-17 15:40:00 74.118 kg [facility] BMI 2021-06-17 15:40:00 27.19 kg/m2 [facility] Oxygen saturation in 2021-06-17 15:40:00 97 /min [facility] Arterial blood by [facility] Pulse oximetry Branch Systolic blood 2021-01-30 17:26:00 146 mm[Hg] Univer sity of [facility] Diastolic blood 2021-01-30 17:26:00 69 mm[Hg] Unive rsity of [facility] Heart rate 2021-01-30 17:26:00 56 /min [facility] Body temperature 2021-01-30 17:26:00 36.78 Kaylen [facility] [place] [facility] Respiratory rate 2021-01-30 17:26:00 18 /min [facility] [place] [facility] Body height 2021-01-30 17:26:00 165.1 cm [facility] [place] [facility] Body weight 2021-01-30 17:26:00 78.586 kg [facility] [place] [facility] BMI 2021-01-30 17:26:00 28.83 kg/m2 [facility] [place] [facility] Oxygen saturation in 2021-01-30 17:26:00 98 /min [facility] of Arterial blood by [place] [facility] Pulse oximetry Branch Systolic blood 2021-01-21 17:39:00 138 mm[Hg] Univer sity of pressure [facility] [place] [facility] Diastolic blood 2021-01-21 17:39:00 63 mm[Hg] Unive rsity of pressure [facility] [place] [facility] Heart rate 2021-01-21 17:39:00 50 /min [facility] Body temperature 2021-01-21 17:39:00 36.11 Kaylen [facility] [place] [facility] Respiratory rate 2021-01-21 17:39:00 19 /min [facility] [place] [facility] Body height 2021-01-21 17:39:00 165.1 cm [facility] [place] [facility] Body weight 2021-01-21 17:39:00 76.658 kg [facility] [place] [facility] BMI 2021-01-21 17:39:00 28.12 kg/m2 [facility] [place] [facility] Oxygen saturation in 2021-01-21 17:39:00 98 /min University of Arterial blood by [place] [facility] Pulse oximetry Branch Respiratory rate 2021-01-13 06:30:00 20 /min [facility] [place] [facility] Oxygen saturation in 2021-01-13 06:30:00 96 /min University of Arterial blood by [place] Medi mk Pulse oximetry Branch Systolic blood 2021-01-13 03:42:00 145 mm[Hg] Univer sity of pressure [place] [facility] Diastolic blood 2021-01-13 03:42:00 74 mm[Hg] Unive rsity of pressure [place] [facility] Heart rate 2021-01-13 03:42:00 51 /min [facility] [place] [facility] Body temperature 2021-01-13 03:42:[address] 2021-01-13 03:42:00 165.1 cm Universi ty [facility] Body weight 2021-01-13 03:42:00 74.844 kg Universi ty [facility] BMI 2021-01-13 03:42:00 27.46 kg/m2 Universi ty [facility] Systolic blood 2019-06-09 20:30:00 139 mm[Hg] Univer sity of pressure [facility] Diastolic blood 2019-06-09 20:30:00 49 mm[Hg] Unive rsity of pressure [facility] Heart rate 2019-06-09 20:30:00 56 /min Universi ty [facility] Body temperature 2019-06-09 20:30:00 36.56 Kaylen [facility] Respiratory rate 2019-06-09 20:30:00 18 /min [facility] Oxygen saturation in 2019-06-09 20:30:00 94 /min University Arterial blood by [facility] Pulse oximetry Branch Body height 2019-06-05 12:17:00 165.1 cm Universi ty [facility] Body weight 2019-06-05 12:17:00 65.772 kg Universi ty [facility] BMI 2019-06-05 12:17:00 24[facility]13 [facility] Body height 2021-09-26 18:03:00 165.1 cm [facility] Body weight 2021-09-26 18:03:00 74.118 kg [facility] [place] [facility] BMI 2021-09-26 18:03:00 27.19 kg/m2 [facility] [place] [facility] Oxygen saturation in 2021-09-26 18:03:00 97 /min [facility] Arterial blood by Pulse oximetry Systolic blood 2021-09-26 18:03:00 160 mm[Hg] Method ist [facility] pressure Diastolic blood 2021-09-26 18:03:00 60 mm[Hg] [facility] pressure Heart rate 2021-09-26 18:03:00 54 /min [facility] Body temperature 2021-09-26 18:03:00 35.89 Kaylen [facility] Respiratory rate 2021-07-17 18:36:00 18 /min [facility] Systolic (mm Hg) 2020-09-22 16:07:00 Madi rial [place] Diastolic (mm Hg) 2020-09-22 16:07:00 Mem orial [place] Heart Rate 2020-09-22 16:07:00 [facility] [place] Temperature Oral (F) 2020-09-22 16:07:00 98.0 F [facility] [place] Height 2020-09-22 16:07:00 165.1 cm [facility] [place] Weight 2020-09-22 16:07:00 [facility] [place] BMI Calculated 2020-09-22 16:07:00 Memori al [place] Systolic (mm Hg) 2019-07-14 16:24:00 Madi rial [place] Diastolic (mm Hg) 2019-07-14 16:24:00 Mem orial [place] Heart Rate 2019-07-14 16:24:00 [facility] [place] Temperature Oral (F) 2019-07-14 16:24:00 97.8 F [facility] [place] Height 2019-07-14 16:24:00 165.1 cm [facility] [place] Weight 2019-07-14 16:24:00 [facility] [place] BMI Calculated 2019-07-14 16:24:00 Memori al [place] Systolic (mm Hg) 2019-04-13 16:35:00 Madi rial [place] Diastolic (mm Hg) 2019-04-13 16:35:00 Mem orial [place] Height 2019-04-13 15:46:00 165.1 cm [facility] [place] Weight 2019-04-13 15:46:00 [facility] [place] BMI Calculated 2019-04-13 15:46:00 Memori al [place] Systolic (mm Hg) 2019-04-13 15:46:00 Madi rial [place] Diastolic (mm Hg) 2019-04-13 15:46:00 Mem orial [place] Heart Rate 2019-04-13 15:46:00 [facility] [place] Procedures Procedure Date / Time Performing Clinician Source Performed PHYSICIAN ORDERS 2021-10-18 05:01:00 Doctor Unassigned, No Unive [facility] XR LUMBAR SPINE 4 VW 2021-10-10 20:02:43 Requisition, Paper [facility] ASSIGNMENT OF BENEFITS 2021-10-10 19:37:15 Doctor Unassigned, No [facility] LDH 2021-09-26 05:00:00 Buckley [facility] HEPATIC FUNCTION PANEL 2021-09-26 05:00:00 BuckleyTanja Bre [facility] BASIC METABOLIC PANEL 2021-09-26 05:00:00 [facility] COVID-19 ANTI-SPIKE IGG 2021-06-29 19:59:00 Marcio Patrickbri Díaz [facility] ANTIBODY TITER HEPATIC FUNCTION PANEL 2021-06-29 05:00:00 Tanja Buckley [facility] LDH 2021-06-29 05:00:00 [facility] BASIC METABOLIC PANEL 2021-06-29 05:00:00 [facility] POCT MOLECULAR STREP 2021-06-17 16:01:00 Royal Barrios [facility] URINE CULTURE 2021-03-30 15:41:00 Chary Anand ospital POC URINALYSIS DIPSTICK 2021-03-30 15:40:00 Chary Anand [facility] BASIC METABOLIC PANEL 2021-03-30 06:00:00 [facility] LDH 2021-03-30 06:00:00 [facility] HEPATIC FUNCTION PANEL 2021-03-30 06:00:00 [facility]EV[facility] 2021-03-30 06:00:00 [facility] TOTAL IRON BINDING 2021-03-30 06:00:00 Tanja Buckley [facility] CAPACITY CBC WITH PLATELET AND 2021-03-30 06:00:00 [facility] DIFFERENTIAL CBC WITH PLATELET AND 2021-03-03 19:09:00 [facility] DIFFERENTIAL LDH 2021-03-03 19:09:00 [facility] HEPATIC FUNCTION PANEL 2021-03-03 19:09:00 Tanja Buckley [facility] BASIC METABOLIC PANEL 2021-03-03 19:09:00 [facility] FERRITIN LEVEL 2021-03-03 19:09:00 [facility] TOTAL IRON BINDING 2021-03-03 19:09:00 [facility] POCT URINALYSIS 2021-01-30 17:30:00 Royal Barrios o f [facility] ASSIGNMENT OF BENEFITS 2021-01-30 17:06:46 Doctor Unassigned, No [facility] Name [facility] [place] RESUPERF WND BODY 2021-01-13 05:14:11 Chrissy Negrete [facility] 2.5CM OR LESS [facility] NOTICE OF PRIVACY 2021-01-13 03:39:06 Doctor Unassigned, No [facility] Name [facility] CONSENT/REFUSAL FOR 2021-01-13 03:37:57 Doctor Unassigned, No [facility] DIAGNOSIS AND TREATMENT Name [facility] BASIC METABOLIC PANEL 2020-12-01 05:00:00 [facility] HEPATIC FUNCTION PANEL 2020-12-01 05:00:[address] [facility] LDH 2020-12-01 05:00:00 [facility] US THYROID 2020-11-09 19:03:39 Charlotte Rucker [facility]spital MAGNESIUM 2019-06-09 11:05:00 [facility] BASIC METABOLIC PANEL 2019-06-09 11:05:00 Mikhail Stockton [facility] (NA, K, CL, CO2, [facility] GLUCOSE, BUN, CREATININE, CA) CBC WITH DIFFERENTIAL 2019-06-09 11:05:00 Mikhail Stockton [facility] XR CHEST 2 VW 2019-06-08 16:37:40 Jose A Hamm [facility] BASIC METABOLIC PANEL 2019-06-08 09:13:00 Mikhail Stockton [facility] (NA, K, CL, CO2, [facility] GLUCOSE, BUN, CREATININE, CA) CBC WITH DIFFERENTIAL 2019-06-08 09:13:00 Mikhail Stockton [facility] PROTHROMBIN TIME / INR 2019-06-08 09:13:00 Howard, Christopher U [facility] ACTIVATED PARTIAL 2019-06-08 09:13:00 Adele Rodriguez [facility] ACTIVATED PARTIAL 2019-06-08 02:07:00 Adele Rodriguez [facility] ACTIVATED PARTIAL 2019-06-07 19:18:00 Adele Rodriguez [facility] BASIC METABOLIC PANEL 2019-06-07 07:28:00 Mikhail Stockton [facility] (NA, K, CL, CO2, [facility] GLUCOSE, BUN, CREATININE, CA) CBC WITH DIFFERENTIAL 2019-06-07 07:28:00 Mikhail Stockton [facility] ACTIVATED PARTIAL 2019-06-07 07:28:00 Adele Rodriguez [facility] ACTIVATED PARTIAL 2019-06-06 18:55:00 Adele Rodriguez [facility] BASIC METABOLIC PANEL 2019-06-06 13:07:00 Omar Howard [facility] (NA, K, CL, CO2, [facility] GLUCOSE, BUN, CREATININE, CA) ACTIVATED PARTIAL 2019-06-06 10:23:00 Adele Rodriguez [facility] ACTIVATED PARTIAL 2019-06-06 05:09:00 Adele Rodriguez [facility] LACTATE DEHYDROGENASE 2019-06-05 17:34:00 Jose A Hamm [facility] FERRITIN SERUM 2019-06-05 17:34:00 Jose A Hamm [facility] CORTISOL PM SERUM 2019-06-05 17:34:00 Jose A Hamm [facility] C-REACTIVE PROTEIN 2019-06-05 17:34:00 Jose A Hamm [facility] BASIC METABOLIC PANEL 2019-06-05 17:34:[address] [facility] (NA, K, CL, CO2, [facility] GLUCOSE, BUN, CREATININE, CA) PROTHROMBIN TIME / INR 2019-06-05 17:34:00 [facility] PART[facility] 2019-06-05 17:34:00 Martha Falcon [facility] PROCALCITONIN 2019-06-05 17:34:00 [facility] CORONAVIRUS COVID-19 2019-06-05 17:22:00 Martha Falcon [facility] CT THORAX WO CONTRAST 2019-06-05 06:25:[address] [facility] SPUTUM CULTURE 2019-06-05 06:07:00 Chrissy Negrete [facility] XR CHEST 1 VW COVID 2019-06-05 05:08:57 Chrissy Negrete [facility] URINALYSIS 2019-06-05 04:56:00 Chrissy Negrete [facility] MAGNESIUM 2019-06-05 04:52:00 [facility] TROPONIN I 2019-06-05 04:52:00 Chrissy Negrete [facility] THYROID STIMULATING 2019-06-05 04:52:00 Jose A Hamm [facility] HORMONE [facility] COMP. METABOLIC PANEL 2019-06-05 04:52:00 Chrissy Negrete [facility] ([id number]) [facility] CBC WITH DIFFERENTIAL 2019-06-05 04:52:00 Chrissy Negrete [facility] PROTHROMBIN TIME / INR 2019-06-05 04:52:00 Chrissy Negrete [facility] N-TERMINAL PRO-BNP 2019-06-05 04:52:00 Crhissy Negrete [facility] CORONAVIRUS COVID-19 2019-06-05 04:49:00 Chrissy Negrete [facility] EKG-12 LEAD 2019-06-05 04:46:32 Chrissy Negrete [facility] EKG-12 LEAD 2019-06-05 04:43:05 Chrissy Negrete [facility] Hysterectomy 1982-02-11 00:00:00 [facility] Plan of Care Planned Activity Planned Date Details Comments Source Future Scheduled 2021-10-19 HEPATITIS B VACCINES Met [facility] Test 10:18:16 (1 of 3 - 3-dose series) [code = HEPATITIS B VACCINES (1 of 3 - 3-dose series)] Future Scheduled 2021-10-19 65+ PNEUMOCOCCAL Methodi [facility] Test 10:18:16 VACCINE (2 - PPSV23 or PCV20) [code = 65+ PNEUMOCOCCAL VACCINE (2 - PPSV23 or PCV20)] Future Scheduled 2021-10-19 COVID-19 VACCINE (5 - [facility] Test 10:18:16 Booster for Pfizer series) [code = COVID-19 VACCINE (5 - Booster for Pfizer series)] Future Scheduled 2021-10-19 INFLUENZA VACCINE Method [facility] Hospital Test 10:18:16 [code = INFLUENZA VACCINE] Encounters Start End Encounter Admission Attending Care Care Encounter Source Date/Time Date/Time Type Type Clinicians Facility Department ID 2021-10-25 2021-10-25 Outpatient R [facility] [id number] Univers 11:00:00 11:00:00 [id number] ity of [facility] 2021-10-25 2021-10-25 Outpatient R MILO, [facility] [id number] Univers 11:00:00 11:00:00 CLINT ity of [facility] 2021-10-18 2021-10-18 Orders Doctor NARGIS 1.2.840.114 [id number] Univers 00:00:00 00:00:00 Only Unassigned, KOFFI 350.1.13.10 ity of [facility] 4.2.7.2.686 [facility] [phone] [facility] 009 Branch 2021-10-10 2021-10-10 Outpatient R RADIOLOGY [facility] [id number] Univers 14:44:08 23:59:00 ity of [facility] 2021-10-10 2021-10-10 [facility] Radiology [facility] 1.2.840.114 [id number] Univers 14:15:00 23:59:00 Encounter IVY 350.1.13.10 ity of [place] 4.2.7.2.686 [facility] [id number] Medi mk 807 Branch 2021-10-10 2021-10-10 Orders Doctor NARGIS 1.2.840.114 [id number] Univers 00:00:00 00:00:00 Only Unassigned, KOFFI 350.1.13.10 ity of [place] [facility] 4.2.7.2.686 Osbaldo as [phone] [facility] 009 Branch 2021-09-26 2021-09-26 Office Marcio, 1.2.840.2 [id number] Methodi 13:00:00 13:50:26 Visit Tnaja Díaz 38788.1.1 907 s t 3.430.2.7 Hospit a .3.204626 l .8 2021-09-26 2021-09-26 Outpatient MHIE MHIE [id number] Memoria 11:00:00 11:00:00 05 l [place] 2021-09-26 2021-09-26 Outpatient MHIE MHIE [id number] Memoria 11:00:00 11:00:00 05 [facility] 2021-09-26 2021-09-26 [facility] [id number] 00:00:00 00:00:00 TANJA [facility] 2021-09-26 2021-09-26 Travel 1.2.840.1 1.2.716.988 [id number] Methodi 00:00:00 00:00:[address] 3.430.2.7 0.2.7.3.698 spita .3.013803 084.8 l .8 2021-07-28 2021-07-28 Telephone Perdue, 1.2.840.7 [id number] [id number] Methodi 00:00:00 00:00:[address] 3.430.2.7 Hospit a .3.339328 l .8 2021-07-18 2021-07-18 Telephone Kennedy, 1.2.840.9 [id number] [id number] Methodi 00:00:00 00:00:00 Marilou Lindsey [address]315.1.[address] 3.430.2.7 Hospit a .3.023910 l .8 2021-07-17 2021-07-17 Nurse Only Marcio, 1.2.840.1 [id number] [id number] Methodi 13:30:00 14:00:00 Tanja Díaz 14619.1.1 750 s t 3.430.2.7 Hospit a .3.678329 l .8 2021-07-17 2021-07-17 Outpatient MARCIO [facility] [id number] [place] 00:00:00 00:00:00 TANJA [address] 2021-07-17 2021-07-17 Travel 1.2.840.1 1.2.010.277 0256 [id number] Methodi 00:00:00 00:00:[address] 3.430.2.7 0.2.7.3.698 Ho spita .3.832695 084.8 l .8 2021-07-03 2021-07-03 Telephone Mathew, 1.2.840.1 [id number] Methodi 00:00:00 00:00:[address] 3.430.2.7 Hospit a .3.804806 l .8 2021-07-03 2021-07-03 Travel 1.2.840.1 1.2.877.494 9761 517708 Methodi 00:00:00 00:00:[address] 3.430.2.7 0.2.7.3.698 Ho spita .3.522453 084.8 l .8 2021-07-03 2021-07-03 Orders Mathew, 1.2.840.5 [id number] 2100 [id number] Methodi 00:00:00 00:00:00 Only Miley 62921.1.[address] 3.430.2.7 Hospit a .3.162954 l .8 2021-06-29 2021-06-29 Office Marcio, 1.2.840.7 [id number] Methodi 15:00:00 15:35:54 Visit Tanja Díaz 47357.1.1 749 s t 3.430.2.7 Hospit a .3.928768 l .8 2021-06-29 2021-06-29 Lab Marcio 1.2.840.1 [id number] 4850 Methodi 06:10:00 06:15:00 Tanja Díaz 03779.1.1 768 s t 3.430.2.7 Hospit a .3.800247 l .8 2021-06-29 2021-06-29 Outpatient BUCKLEY, [facility] [id number] [place] 00:00:00 00:00:00 TANJA [address] 2021-06-29 2021-06-29 Outpatient BUCKLEY, [facility] [id number] [place] 00:00:00 00:00:00 TANJA [address] 2021-06-28 2021-06-28 Travel 1.2.840.1 1.2.471.099 5730 [id number] Methodi 00:00:00 00:00:[address] 3.430.2.7 0.2.7.3.698 Ho spita .3.944662 084.8 l .8 2021-06-26 2021-06-26 Travel 1.2.840.1 1.2.621.558 4916 905298 Methodi 00:00:00 00:00:[address] 3.430.2.7 0.2.7.3.698 Ho spita .3.626747 084.8 l .8 2021-06-18 2021-06-18 Telephone NARGIS Suarez 1.2.549.227 [id number] Univers 00:00:00 00:00:00 Jenna RAIN 350.1.13.10 it y [facility] 4.2.7.2.686 [place] as [phone] [facility] 019 Branch 2021-06-17 2021-06-17 Outpatient Rosalia BARRIOS [facility] [id number] Univers 10:40:00 11:17:02 [facility] 2021-06-17 2021-06-17 Urgent Marybeth Taveras J [facility] 1.2.840 .114 [id number] Univers 10:40:00 11:17:02 Care Royal Barrios [facility] 350.1.13.10 ity [facility] 4.2.7.2.686 [place]do as DANNIE?BLEA [phone] [facility] [address] MEDICAL OFFICE BUILDING 2021-06-17 2021-06-17 Outpatient R [facility] [id number] -[id number] Univers 10:40:00 10:40:[id number] [facility] 2021-03-30 2021-04-07 Office Cheng, 1.2.840.1 [id number] 3207 Methodi 10:00:00 15:59:50 Visit Chary HRamírez 67642.1.[address] 3.430.2.7 Hospit a .3.001147 l .8 2021-03-30 2021-03-30 Office Marcio 1.2.840.8 [id number] 50741 Methodi 08:30:00 08:46:56 Visit Tanja Díaz 53726.1.1 493 s t 3.430.2.7 Hospit a .3.899545 l .8 2021-03-30 2021-03-30 Outpatient MARCIO [facility] [id number] [place] 00:00:00 00:00:00 TANJA Portillo [facility] 2021-03-30 2021-03-30 Outpatient [facility] [id number] [place] 00:00:00 00:00:[address] 2021-03-30 2021-03-30 Travel 1.2.840.1 1.2.731.604 1021 076166 Methodi 00:00:00 00:00:[address] 3.430.2.7 0.2.7.3.698 Ho spita .3.094079 084.8 l .8 2021-03-24 2021-03-24 Travel 1.2.840.1 1.2.288.607 6162 265484 Methodi 00:00:00 00:00:[address] 3.430.2.7 0.2.7.3.698 Ho spita .3.158425 084.8 l .8 2021-03-07 2021-03-07 Travel 1.2.840.1 1.2.814.995 3954 105664 Methodi 00:00:00 00:00:[address] 3.430.2.7 0.2.7.3.698 Ho spita .3.401886 084.8 l .8 2021-02-23 2021-02-23 Travel 1.2.840.1 1.2.999.828 0688 698227 Methodi 00:00:00 00:00:[address] 3.430.2.7 0.2.7.3.698 Ho spita .3.585813 084.8 l .8 2021-01-30 2021-01-30 Urgent Sophie [facility] 1.2.840.114 [id number] Univers 11:20:00 11:40:00 Care Go Pool and Spa [facility] 350.1.13.10 it y of [place] 4.2.7.2.686 Osbaldo as DANNIE?BLEA [phone] [address] MEDICAL OFFICE BUILDING 2021-01-30 2021-01-30 Outpatient R [facility] [id number] Univers 11:20:00 11:20:00 [id number] ity [facility] 2021-01-30 2021-01-30 Outpatient [facility] [id number] Univers 11:20:00 11:20:00 [facility] 2021-01-30 2021-01-30 Orders Doctor BARILLAS 1.2.840.114 [id number] Univers 00:00:00 00:00:00 Only Unassigned, KOFFI 350.1.13.10 ity of [place] [facility] 4.2.7.2.686 Osbaldo as [phone] [facility] 009 [place] 2021-01-21 2021-01-21 [facility] 1.2.840.114 [id number] Univers 11:21:55 11:41:55 Care [facility] 350.1.13.10 it y of [place] 4.2.7.2.686 Osbaldo as DANNIE?BLEA [phone] [address] MEDICAL OFFICE BUILDING 2021-01-21 2021-01-21 Outpatient R [facility] [id number] Univers 11:40:00 11:40:00 [id number] ity [facility] 2021-01-21 2021-01-21 Outpatient R [facility] [id number] Univers 11:40:00 11:40:00 [facility] 2021-01-12 2021-01-13 Emergency X [facility] ERT [id number] Univers 21:49:00 00:47:00 [facility] 2021-01-12 2021-01-13 Emergency [facility] 1.2.489.813 [id number] Univers 21:49:00 00:47:00 Chrissy HAYNSE 350.1.13.10 ity [facility] 4.2.7.2.686 [place] [facility] [phone] [facility] 084 [place] 2020-12-01 2020-12-06 Office Marcio 1.2.840.5 [id number] 20529 Methodi 09:30:00 11:54:40 Visit Tanja Díaz 12134.1.1 743 s t 3.430.2.7 Hospit a .3.121645 l .8 2020-12-01 2020-12-01 Outpatient MARCIO [facility] [id number] [place] 00:00:00 00:00:00 TANJA Gomez [facility] 2020-12-01 2020-12-01 Travel 1.2.840.1 1.2.427.563 0969 068018 Methodi 00:00:00 00:00:[address] 3.430.2.7 0.2.7.3.698 Ho spita .3.551039 084.8 l .8 2020-11-09 2020-11-09 Outpatient SHIVER, [facility] [id number] [address] [place] [address] 00:00:00 00:00:00 [place]TE [address] 2020-09-22 2020-09-23 Outpatient nullFlavo [facility] [id number] Memoria 16:30:00 04:59:59 r Primary 04 l [facility] 2020-09-22 2020-09-23 Outpatient nullFlavo [facility] [id number] Memoria 16:30:00 04:59:[address] [facility] 2020-09-22 2020-09-22 Outpatient Shiver, [facility] [id number] 11:30:00 23:59:59 Charlotte Hoang 2020-09-22 2020-09-22 Ambulatory nullFlavo [facility] [id number] Memoria 16:30:00 16:30:00 Pre-Reg r Primary 03 l [facility] 2020-09-22 2020-09-22 Ambulatory nullFlavo [facility] [id number] Memoria 16:30:00 16:30:00 Pre-Reg r Primary 03 l [facility] 2020-09-22 2020-09-22 Outpatient MHIE MHIE [id number] Memoria 11:30:00 11:30:00 04 [facility] 2020-09-22 2020-09-22 Outpatient MHIE MHIE [id number] Memoria 11:30:00 11:30:00 03 curtis [place] 2020-09-22 2020-09-22 Outpatient Shiver, [facility] [id number] 11:30:00 11:30:00 Charlotte Hoang 2020-09-13 2020-09-15 Phone nullFlavo [facility] [id number] Memoria 15:33:13 04:59:59 Message r Primary 05 l [facility] 2020-09-13 2020-09-15 Phone nullFlavo [facility] [id number] Memoria 15:33:13 04:59:59 Message r Primary 05 l [facility] 2020-09-13 2020-09-14 Outpatient MHMG [facility] [id number] 10:33:13 23:59:59 05 2020-09-07 2020-09-07 Outpatient RAJESH [facility] [id number] [place] 00:00:00 00:00:00 KELSEY 622 Method i 2020-08-31 2020-08-31 Outpatient MARCIO [facility] [id number] [place] 00:00:00 00:00:00 KELTY 048 Method i 2020-08-04 2020-08-06 Phone nullFlavo [facility] [id number] Memoria 15:40:35 04:59:59 Message r Primary 04 l Care [facility] 2020-08-04 2020-08-06 Phone nullFlavo [facility] [id number] Memoria 15:40:35 04:59:59 Message r Primary 04 l [facility] 2020-08-04 2020-08-05 Outpatient MHMG [facility] [id number] 10:40:35 23:59:59 04 2020-03-21 2020-03-21 Outpatient RAJESH [facility] [id number] [place] 00:00:00 00:00:00 KELSEY 622 Method i 2020-03-17 2020-03-17 Outpatient MHIE MHIE [id number] Memoria 13:30:00 13:30:00 02 [facility] 2020-03-17 2020-03-17 Outpatient MHIE MHIE [id number] Memoria 13:30:00 13:30:00 02 curtis [place] 2020-03-17 2020-03-17 Outpatient RAJESH [facility] [id number] [place] 00:00:00 00:00:00 KELSEY 093 Method i 2020-03-16 2020-03-16 Outpatient [facility] [id number] [place] 00:00:00 00:00:00 692 Method i 2020-03-07 2020-03-07 Outpatient MARCIO [facility] [id number] [place] 00:00:00 00:00:00 KELTY 414 Method i 2020-02-24 2020-02-24 Outpatient [facility] [id number] [place] 00:00:00 00:00:00 941 Method i 2020-01-27 2020-01-27 Outpatient TANYA, [facility] [id number] [place] 00:00:00 00:00:00 TEJAS 977 Method i 2020-01-01 2020-01-01 Outpatient MARCIO, [facility] [id number] [place] 00:00:00 00:00:00 TANJA 197 Method i 2020-01-01 2020-01-01 Outpatient MARCIO, [facility] [id number] [place] 00:00:00 00:00:00 TANJA 036 Method i 2019-11-09 2019-11-09 Outpatient MARCIO, [facility] [id number] [place] 00:00:00 00:00:00 TANJA 569 Method i 2019-11-05 2019-11-05 Telephone GABRIEL Rico 1.2.840.114 [id number] [facility] 00:00:00 00:00:00 [facility] 350.1.13.10 i [facility] 4.2.7.2.[place] [phone] [facility] 084 Branch 2019-08-17 2019-08-17 Outpatient MARCIO, [facility] [id number] [place] 00:00:00 00:00:00 TANJA 919 Method i 2019-07-27 2019-07-29 Phone nullFlavo [facility] [id number] Memoria 15:04:00 04:59:59 Message r Internal 03 l [facility] 2019-07-27 2019-07-29 Phone nullFlavo [facility] [id number] Memoria 15:04:00 04:59:59 Message r Internal 03 l Medicine [facility] 2019-07-27 2019-07-29 Phone nullFlavo [facility] [id number] Memoria 15:03:36 04:59:59 Message r Internal 02 l [facility] 2019-07-27 2019-07-29 Phone nullFlavo [facility] [id number] Memoria 15:03:36 04:59:59 Message r Internal 02 l [facility] 2019-07-27 2019-07-28 Outpatient [facility] [id number] 10:04:00 23:59:59 03 2019-07-27 2019-07-28 Outpatient [facility] [id number] 10:03:36 23:59:59 02 2019-07-22 2019-07-22 Outpatient MARCIO [facility] [id number] [place] 00:00:00 00:00:00 TANJA [address] 2019-07-17 2019-07-18 Between nullFlavo [facility] [id number] Memoria 21:03:39 21:03:39 Visit r Internal 04 l Medicine [facility] 2019-07-17 2019-07-18 Between nullFlavo [facility] [id number] Memoria 21:03:39 21:03:39 Visit r Internal 04 l Medicine [facility] 2019-07-17 2019-07-18 Outpatient MHMG [facility] [id number] 16:03:39 16:03:39 04 2019-07-14 2019-07-15 Outpatient nullFlavo [facility] [id number] Memoria 16:20:00 04:59:59 r Internal 01 l [facility] 2019-07-14 2019-07-15 Outpatient nullFlavo [facility] [id number] Memoria 16:20:00 04:59:59 r Internal 01 l Medicine [facility] 2019-07-14 2019-07-14 Outpatient Shiver, [facility] [id number] 11:20:00 23:59:59 Charlotte Hoang 2019-07-14 2019-07-14 Outpatient MHIE MHIE [id number] Memoria 11:20:00 11:20:00 01 l [place] 2019-07-02 2019-07-02 Outpatient R [facility] [id number] Univers 14:00:00 14:00:00 [id number] ity [facility] 2019-07-02 2019-07-02 Outpatient R LAWRENCE REBOLLEDO [facility] [id number] Univers 14:00:00 14:00:00 LAWRENCE REBOLLEDO i [facility] 2019-06-25 2019-06-25 Outpatient RAJESH [facility] [id number] [place] 00:00:00 00:00:00 PURVI Guillory [facility] 2019-06-24 2019-06-24 Telephone Fellow, GABRIEL 1.2.840.114 [id number] [facility] 00:00:00 00:00:00 Pulmonary Y HEALTH 350.1.13.10 ity of [place] [id number] [facility] 084 Branch 2019-06-10 2019-06-10 Transition Aylin Stinson 1.2.840.114 [id number] [facility] 00:00:00 00:00:00 of Care Rudi Dolan 350.1.13.10 ity of [place].2.[place] [phone] [facility] 403 Branch 2019-06-04 2019-06-09 [facility] Chrissy Negrete 1.2.840. 114 [id number] [facility] 23:37:35 16:50:00 Encounter Kimmy Trevizo 350.1.13. 10 [facility] 4.2.7.2 .686 [facility] Junior Carlos [phone] [address] 2019-06-04 2019-06-09 Inpatient X EDWRADO [facility] [id number] [facility] 23:37:35 16:50:00 ANTONIETTA ity [facility] 2019-04-28 2019-04-30 Phone nullFlavo [facility] [id number] Memoria 19:11:18 04:59:59 Message r Internal 01 l Medicine [facility] 2019-04-28 2019-04-30 Phone nullFlavo [facility] [id number] Memoria 19:11:18 04:59:59 Message r Internal 01 l Medicine [facility] 2019-04-28 2019-04-29 Outpatient MHMG [facility] [id number] 14:11:18 23:59:59 2019-04-29 2019-04-29 Outpatient MARCIO [facility] [id number] [place] 00:00:00 00:00:00 TANJA 649 Method i 2019-04-28 2019-04-28 Outpatient MARCIO [facility] [id number] [place] 00:00:00 00:00:00 TANJA 772 Method i 2019-04-28 2019-04-28 Outpatient ALKA [facility] [id number] [place] 00:00:00 00:00:00 [place] [address] 2019-04-23 2019-04-24 Between nullFlavo MG [id number] Memoria 21:46:04 21:46:04 Visit r Internal 02 l Medicine [facility] 2019-04-23 2019-04-24 Between nullFlavo MG [id number] Memoria 21:46:04 21:46:04 Visit r Internal 02 l Medicine [facility] 2019-04-23 2019-04-24 Outpatient [facility] [id number] 16:46:04 16:46:04 02 2019-04-21 2019-04-23 Phone nullFlavo MG [id number] Memoria 16:23:04 04:59:59 Message r Internal 00 l Medicine [facility] 2019-04-21 2019-04-23 Phone nullFlavo MG [id number] Memoria 16:23:04 04:59:59 Message r Internal 00 l Medicine [facility] 2019-04-21 2019-04-22 Outpatient MG MG [id number] 11:23:04 23:59:59 00 2019-04-13 2019-04-14 Outpatient nullFlavo [facility] [id number] Memoria 16:00:00 05:59:59 r Internal 00 l Medicine [facility] 2019-04-13 2019-04-14 Outpatient nullFlavo [facility] [id number] Memoria 16:00:00 05:59:59 r Internal 00 l Medicine [facility] 2019-04-13 2019-04-13 Outpatient [place]opatra[place], MG MG [id number] 10:00:00 23:59:59 [place] 2019-04-13 2019-04-13 Outpatient [facility] [id number] Memoria 10:00:00 10:00:00 00 l [place] 2019-03-26 2019-03-26 [facility] [id number] [place] 00:00:00 00:00:00 TANJA [address] 2018-12-03 2018-12-03 [facility] [id number] [place] 00:00:00 00:00:00 TANJA [address] Results Test Description Test Time Test Comments Results Result Comments Source Basic metabolic panel 2021-09-27 06:33:00 Test Item Value Reference Range Interpretation Comme nts Glucose (test code = 96 mg/dL 65-139 Non-fa sting reference 2345-7) interval BUN (test code = 3094-0) 15 mg/dL 7-25 Creatinine (test code = 0.92 mg/dL 0.6-0.95 2160-0) eGFR (test code = 8257) See_Comment The eGFR is based on the CKD-EPI 202 1 equation. To ca lculate the new eGFR fr om a previous Creati nine or Cystatin Cresul t, go to https://www.kid mady.org /professionals/ kdoqi/g fr%5Fcalculator [Automated mess age] The system [employer] h generated this result transmitted ref erence range: > OR = 6 0 mL/min/1.73m2. The reference range was not used to int erpret this result as normal/abnormal . BUN/creatinine ratio (test NOT APPLICABLE See_Comment [Automated message] code = 3097-3) The system [employer] ich generated this result transmitted ref erence range: 6 - 22 ( calc). The reference r delmy was not used to interpret this result as normal/abnor mal. Sodium (test code = 138 mmol/L 995-159 2230-2) Potassium (test code = 4.7 mmol/L 3.5-5.3 2823-3) Chloride (test code = 97 mmol/L 98-110 L 2075-0) CO2 (test code = 2027-9) 32 mmol/L 20-32 Calcium (test code = 9.9 mg/dL 8.6-10.4 18316-9) BETO (test code = BETO) FASTING:NO FASTING: NO RAC (test code = RAC) Performing Organization Information: Site ID: [facility] Address: [address] [place] [phone] Director: Andrade Barron Lab Interpretation (test Abnormal code = 59625-2) [facility] function [id number] 06:33:00 Test Item Value Reference Range Interpretation Comments Protein (test code 6.9 g/dL 6.1-8.1 = 2885-2) Albumin, S (test 4.5 g/dL 3.6-5.1 code = 1751-7) Globulin, total See_Comment [Automated (test code = message] The 67161-9) system which generated this result transmitted reference range : 1.9 - 3.7 g/dL (calc). The reference range was not used to interpret this result as normal/abnormal . Albumin/globulin See_Comment [Automated ratio (test code = message] The ) system which generated this result transmitted reference range : 1.0 - 2.5 (calc ). The reference range was not used to interpr et this result as normal/abnormal . Total bilirubin 0.4 mg/dL 0.2-1.2 (test code = 1974-03) Bilirubin direct 0.1 mg/dL See_Comment [Automated (test code = message] The 1967-08) system which generated this result transmitted reference range : < OR = 0.2. The reference range was not used to interpret this result as normal/abnormal . Bilirubin, See_Comment [Automated indirect (test message] The code = 1970-02) system which generated this result transmitted reference range : 0.2 - 1.2 mg/dL (calc). The reference range was not used to interpret this result as normal/abnormal . Alkaline 53 U/L 37-153 phosphatase (test code = 6768-6) AST (test code = 22 U/L 10-35 1920-8) ALT (test code = 16 U/L 6-29 1742-6) BETO (test code = FASTING:NO FASTING: BETO) NO RAC (test code = Performing RAC) Organization Information: Site ID: [facility] Name: [facility] Lab Address: [address] [place] [phone] Director: [facility] HospitalLDH2022-08-17 06:33:00 Test Item Value Reference Range Interpretation Comments LDH (test code = 125 U/L 120-250 57262-2) BETO (test code = FASTING:NO FASTING: NO BETO) RAC (test code = Performing Organization RAC) Information: Site ID: [facility] Name: [facility] Address: [address] [place] [phone] Director: [facility]Medical [facility] HospitalPONV MOLECULAR [id number] 16:08:58 Test Item Value Reference Range Interpretation Comments POCT Molecular Strep (test code = Negative Negative 59386-1) Lab Interpretation (test code = Normal 09270-0) [facility] Hospital[facility]ritin [id number] 08:58:00 Test Item Value Reference Range Interpretation Comments Ferritin level (test 47 ng/mL 16-288 code = 2276-4) BETO (test code = BETO) FASTING:NO FASTING: NO RAC (test code = RAC) Performing Organization Information: Site ID: [facility]GA Name: [facility] Address: [address] [place] [phone] Director: Andrade Barron [facility] with platelet and [id number] 08:58:00 Test Item Value Reference Range Interpretation Comments WBC (test code = See_Comment [Automated 3244-2) message] The system which generated this result transmitted reference range : 3.8 - 10.8 Thousand/uL. Th e reference range was not used to interpret this result as normal/abnormal . RBC (test code = See_Comment [Automated 699-8) message] The system which generated this result transmitted reference range : 3.80 - 5.10 Million/uL. The reference range was not used to interpret this result as normal/abnormal . HGB (test code = 11.3 g/dL 11.7-15.5 L 718-7) HCT (test code = 33.9 % 35-45 L 4544-3) MCV (test code = 89.2 fL 80-100 787-2) MCH (test code = 29.7 pg 27-33 785-6) MCHC (test code = 33.3 g/dL 32-36 786-4) RDW (test code = 13.7 % 11-15 788-0) Platelet count (test See_Comment [Autom ated code = 777-3) message] The system which generated this result transmitted reference range : 140 - 400 Thousand/uL. Th e reference range was not used to interpret this result as normal/abnormal . MPV (test code = 9.0 fL 7.5-12.5 776-5) Neutrophils, See_Comment [Automated absolute (test code message] The = 491-8) system which generated this result transmitted reference range : 1,500 - 7,800 cells/uL. The reference range was not used to interpret this result as normal/abnormal . Lymphocytes, See_Comment [Automated absolute (test code message] The = 731-0) system which generated this result transmitted reference range : 850 - 3,900 cells/uL. The reference range was not used to interpret this result as normal/abnormal . Monocytes, absolute See_Comment [Automa mahnaz (test code = 742-7) message] The system which generated this result transmitted reference range : 200 - 950 cells/uL. The reference range was not used to interpret this result as normal/abnormal . Eosinophils, See_Comment [Automated absolute (test code message] The = 711-2) system which generated this result transmitted reference range : 15 - 500 cells/uL. The reference range was not used to interpret this result as normal/abnormal . Basophils, absolute See_Comment [Automa mahnaz (test code = 704-7) message] The system which generated this result transmitted reference range : 0 - 200 cells/u L. The reference range was not used to interpr et this result as normal/abnormal . Neutrophils (test 46.8 % code = 770-8) Lymphocytes (test 35.6 % code = 736-9) Monocytes (test code 13.7 % = 5905-5) Eosinophils (test 3.3 % code = 713-8) Basophils + RC (test 0.6 % code = 706-2) BETO (test code = FASTING:NO BETO) FASTING: NO RAC (test code = Performing RAC) Organization Information: Site ID: [facility] Address: [address] [place] [phone] Director: Andrade Barron Lab Interpretation Abnormal (test code = 26299-0) [facility] iron binding [id number] 08:58:00 Test Item Value Reference Range Interpretation Comments Iron level (test See_Comment [Automated code = 2498-4) message] The system which generated this result transmit mahnaz reference range : 45 - 160 mcg/dL . The reference range was not u sed to interpret th is result as normal/abnormal . Iron binding See_Comment [Automated capacity (test message] The code = 2500-7) system which generated this result transmit mahnaz reference range : 250 - 450 mcg/d L (calc). The reference range was not used to interpret this result as normal/abnormal . Iron saturation See_Comment [Automated (test code = message] The 2502-3) system which generated this result transmit mahnaz reference range : 16 - 45 % (calc ). The reference range was not u sed to interpret th is result as normal/abnormal . BETO (test code = FASTING:NO FASTING: BETO) NO RAC (test code = Performing RAC) Organization Information: Site ID: [facility]GA [facility] Address: [address] [place] [phone] Director: Andrade Barron [facility] urinalysis [id number] 15:40:00 Test Item Value Reference Range Interpretation Comments Color urine, POC (test Yellow code = 4416201) Clarity urine, POC (test Cloudy code = 2341866) Glucose urine, POC (test Negative Negative code = 8526360) Bilirubin urine, POC Negative Negative (test code = 1259358) Ketones urine, POC (test Negative Negative code = 3337137) Specific gravity urine, 1.005-1.030 POC (test code = 7930155) Blood urine, POC (test Trace Negative A code = 6367649) pH urine, POC (test code See_Comment [A utomated message] = 9656356) The system whic h generated this result transmitted ref erence range: 5.0, 5.5 , 6.0, 6.5, 7.0, 7.5, 8.0, 8.5. The refere nce range was not u sed to interpret this result as normal/abnor mal. Protein urine, POC (test Negative Negative code = 1552969) Urobilinogen urine, POC <2.0 See_Comment [Au tomated message] (test code = 4045355) The sy stem which generated this result transmitted ref erence range: <=2.0. T he reference range was not used to int erpret this result as normal/abnormal . Nitrite urine, POC (test Positive Negative A code = 5163101) Leukocyte esterase Large Negative A urine, POC (test code = 7773593) Lab Interpretation (test Abnormal code = 25817-3) [facility] URINALYSIS W SPECIFIC [id number] 18:10:00 Test Item Value Reference Range Interpretation Comments POCT U SP GRAV 1.010 mg/dl 1.005-1.025 (test code = 3255) POCT PH U (test 8 mg/dl 5-8 code = 3254) POCT U LEUK EST 2+ Negative - Negative (test code = 3263) POCT U NIT (test + Negative - Negative code = 3262) POCT U PROT (test 30+ Negative - Negative code = 3259) POCT U GLU (test norm Negative - Negative code = 3256) POCT U KETONE neg Negative - Negative (test code = 3258) POCT U UROBILI norm 0.2-1 (test code = 3260) POCT U BILI (test neg Negative - Negative code = 3261) POCT U BLD (test about 30 Negative - Negative code = 3257) POCT U COLOR (test yellow code = 3266) POCT U APPEAR cloudy (test code = 3267) BETO (test code = accurate development and BETO) interpretation of all internal controls [facility] ([facility]OVID-19) RNA [Presence] in Respiratory specimen by JONN with probe [id number] 16:33:31 Test Item Value Reference Range Interpretation Comments SARS-CoV-2 (COVID-19) RNA Not detected Not-Detected [Presence] in Respiratory specimen by JONN with probe detection (test code = 38551-0) [id number] 12:34:00 Test Item Value Reference Range Interpretation Comments MAGNESIUM (test code = 4987312013) 1.5 mg/dL 1.7-2.4 L Lab Interpretation (test code = Abnormal 77307-7) [facility] (NA, K, CL, CO2, GLUCOSE, BUN, CREATININE, CA)2019-06-09 11:42:00 Test Item Value Reference Range Interpretation Comments NA (test code = 134 mmol/L 135-145 L 7958920867) K (test code = 3.9 mmol/L 3.5-5 0605971654) CL (test code = 98 mmol/L 98-108 9834826630) CO2 TOTAL (test code = 26 mmol/L 23-31 4799691180) AGAP (test code = 2-16 6002198228) BUN (test code = 8 mg/dL 7-23 0650001100) GLUCOSE (test code = 108 mg/dL 70-110 4388334578) CREATININE (test code = 0.67 mg/dL 0.5-1.04 4210201408) CALCIUM (test code = 9.4 mg/dL 8.6-10.6 8073159366) eGFR Calculation mL/min/1.73m2 (Non-) (test code = 2379519532) eGFR Calculation mL/min/1.73m2 () (test code = 0997659879) BETO (test code = BETO) Association of Glomerular Filtration Rate (GFR) and Staging of Kidney Disease* + --+ --+ ------+| GFR (mL/min/1.73 m2) ?| With Kidney Damage ?| ?Without Kidney Damage+ --------+ --------+ +| ?>90 ?| ?Stage one ?| ? Normal ?+ ---+ ---+ -------+| ?60-89 ?| ?Stage two ?| ? Decreased GFR ? + --+ --+ ------+| ?30-59 ?| ?Stage three ?| ? Stage three ? + --+ --+ ------+| ?15-29 ?| ?Stage four ? | ? Stage four ?+ ---+ ---+ -------+| ?<15 (or dialysis) ? ?| ?Stage five ? | ? Stage five ?+ ---+ ---+ -------+ *Each stage assumes the associated GFR level has been in effect for at least three months. ?Stages 1 to 5, with or without kidney disease, indicate chronic kidney disease. Notes: Determination of stages one and two (with eGFR >59mL/min/1.73 m2) requires estimation of kidney damage for at least three months as defined by structural or functional abnormalities of the kidney, manifested by either:Pathological abnormalities or Markers of kidney damage (including abnormalities in the composition of the blood or urine or abnormalities in imaging tests). Lab Interpretation Abnormal (test code = 30243-2) [facility] WITH [id number] 11:20:00 Test Item Value Reference Range Interpretation Comments WBC (test code = See_Comment L [Automated 6690-2) message] The sy stem which generated this result transmitted reference range : 4.30 - 11.10 10*3/?L. The reference range was not used to interpret this result as normal/abnormal . RBC (test code = See_Comment L [Automated 789-8) message] The sy stem which generated this result transmitted reference range : 3.93 - 5.25 10*6/?L. The reference range was not used to interpret this result as normal/abnormal . HGB (test code = 9.1 g/dL 11.6-15 L 718-7) HCT (test code = 27.3 % 35.7-45.2 L 4544-3) MCV (test code = 93.2 fL 80.6-95.5 787-2) MCH (test code = 31.1 pg 25.9-32.8 785-6) MCHC (test code = 33.3 g/dL 31.6-35.1 786-4) RDW-SD (test code = 44.4 fL 39-49.9 99843-8) RDW-CV (test code = 12.9 % 12-15.5 788-0) PLT (test code = See_Comment [Automated 777-3) message] The sy stem which generated this result transmitted reference range : 166 - 358 10*3/ ?L. The reference r delmy was not used to interpret this result as normal/abnormal . MPV (test code = 8.7 fL 9.5-12.9 L 13622-5) NRBC/100 WBC (test See_Comment [Automat ed code = 3416511070) message] The system which generated this result transmitted reference range : 0.0 - 10.0 /100 WBCs. The refer ence range was not u sed to interpret th is result as normal/abnormal . NRBC x10^3 (test code <0.01 See_Comment [Auto mated = 6369920315) message] The s ystem which generated this result transmitted reference range : 10*3/?L. The reference range was not used to interpret this result as normal/abnormal . GRAN MAT (NEUT) % 54.8 % (test code = 770-8) IMM GRAN % (test code 0.80 % = 0593997210) LYMPH % (test code = 22.9 % 736-9) MONO % (test code = 14.8 % 5905-5) EOS % (test code = 6.2 % 713-8) BASO % (test code = 0.5 % 706-2) GRAN MAT x10^3(ANC) 2.03 10*3/uL 1.88-7.09 (test code = 2168390053) IMM GRAN x10^3 (test 0.03 10*3/uL 0-0.06 code = 6719815416) LYMPH x10^3 (test code 0.85 10*3/uL 1.32-3.29 L = 731-0) MONO x10^3 (test code 0.55 10*3/uL 0.33-0.92 = 742-7) EOS x10^3 (test code = 0.23 10*3/uL 0.03-0.39 711-2) BASO x10^3 (test code <0.03 0.01-0.07 = 704-7) Lab Interpretation Abnormal (test code = 23602-3) [facility] [id number] 17:33:18 Blunting of the left costophrenic sinus concerning for small pleuraleffusion. Retrocardiac opacity could be consistent with atelectasis butinfectious process cannot be excluded. PROCEDURE: XR CHEST 2 VW CLINICAL INDICATION: cough COMPARISON: Chest x-ray dated 07/03/2017 FINDINGS: The lungs are clear except for retrocardiac opacity could be consistentwith subsegmental atelectasis.. Blunting of the left costophrenic sinussinus could be due to small pleural effusion. No ?pneumothorax is seen. Theheart is normal in size. No acute bony abnormality. The left hemidiaphragm is elevated. [facility], Radiant Results Inft User - 06/08/2019 12:34 PM CDTPROCEDURE: XR CHEST 2 VWCLINICAL INDICATION: cough COMPARISON: Chest x-ray dated 07/03/2017FINDINGS:The lungs are clear except for retrocardiac opacity could be consistentwith subsegmental atelectasis.. Blunting of the left costophrenic sinussinus could be due to small pleural effusion. No pneumothorax is seen. Theheart is normal in size.No acute bony abnormality. The left hemidiaphragm is elevated.IMPRESSIONBlunting of the left costophrenic sinus concerning for small pleuraleffusion. Retrocardiac opacity could be consistent with atelectasis butinfectious processcannot be excluded.[facility] HospitalPROTHROMBIN TIME / [id number] 12:00:00 Test Item Value Reference Range Interpretation Comments PROTIME PATIENT (test See_Comment [Auto mated message] code = 5964-2) The system wh ich generated this result transmitted ref erence range: 10.1 - 1 2.6 Seconds. The re ference range was not u sed to interpret this result as normal/abnor mal. INR (test code = 6301-6) Nor mal INR <1.1; Warfarin Therap eutic range 2.0 to 3. 0 or 2.5 to 3.5, dep ending upon the indica tions. Lab Interpretation (test Normal code = 45198-7) [facility] WITH [id number] 10:09:00 Test Item Value Reference Range Interpretation Comments WBC (test code = See_Comment L [Automated 6690-2) message] The sy stem which generated this result transmitted reference range : 4.30 - 11.10 10*3/?L. The reference range was not used to interpret this result as normal/abnormal . RBC (test code = See_Comment L [Automated 789-8) message] The sy stem which generated this result transmitted reference range : 3.93 - 5.25 10*6/?L. The reference range was not used to interpret this result as normal/abnormal . HGB (test code = 8.9 g/dL 11.6-15 L 718-7) HCT (test code = 26.5 % 35.7-45.2 L 4544-3) MCV (test code = 93.3 fL 80.6-95.5 787-2) MCH (test code = 31.3 pg 25.9-32.8 785-6) MCHC (test code = 33.6 g/dL 31.6-35.1 786-4) RDW-SD (test code = 44.6 fL 39-49.9 61684-7) RDW-CV (test code = 13.0 % 12-15.5 788-0) PLT (test code = See_Comment [Automated 777-3) message] The sy stem which generated this result transmitted reference range : 166 - 358 10*3/ ?L. The reference r delmy was not used to interpret this result as normal/abnormal . MPV (test code = 8.9 fL 9.5-12.9 L 50996-9) NRBC/100 WBC (test See_Comment [Automat ed code = 0497042503) message] The system which generated this result transmitted reference range : 0.0 - 10.0 /100 WBCs. The refer ence range was not u sed to interpret th is result as normal/abnormal . NRBC x10^3 (test code <0.01 See_Comment [Auto mated = 3851347391) message] The s ystem which generated this result transmitted reference range : 10*3/?L. The reference range was not used to interpret this result as normal/abnormal . GRAN MAT (NEUT) % 46.8 % (test code = 770-8) IMM GRAN % (test code 1.00 % = 1056322245) LYMPH % (test code = 28.5 % 736-9) MONO % (test code = 15.4 % 5905-5) EOS % (test code = 7.8 % 713-8) BASO % (test code = 0.5 % 706-2) GRAN MAT x10^3(ANC) 1.79 10*3/uL 1.88-7.09 L (test code = 3706191799) IMM GRAN x10^3 (test 0.04 10*3/uL 0-0.06 code = 0034600466) LYMPH x10^3 (test code 1.09 10*3/uL 1.32-3.29 L = 731-0) MONO x10^3 (test code 0.59 10*3/uL 0.33-0.92 = 742-7) EOS x10^3 (test code = 0.30 10*3/uL 0.03-0.39 711-2) BASO x10^3 (test code <0.03 0.01-0.07 = 704-7) LG GRAN LYMPHS (test Rare Rare code = 7407232192) PROLYMPHS (test code = Rare 2893977624) Lab Interpretation Abnormal (test code = 93764-7) [facility] METABOLIC PANEL (NA, K, CL, CO2, GLUCOSE, BUN, CREATININE, CA)2019-06-08 09:53:00 Test Item Value Reference Range Interpretation Comments NA (test code = 133 mmol/L 135-145 L 7176166006) K (test code = 3.9 mmol/L 3.5-5 0055550319) CL (test code = 99 mmol/L 98-108 2837700697) CO2 TOTAL (test code = 25 mmol/L 23-31 0970511891) AGAP (test code = 2-16 2091288095) BUN (test code = 6 mg/dL 7-23 L 1897665326) GLUCOSE (test code = 95 mg/dL 70-110 6027776852) CREATININE (test code = 0.57 mg/dL 0.5-1.04 6053311414) CALCIUM (test code = 9.1 mg/dL 8.6-10.6 0243242348) eGFR Calculation mL/min/1.73m2 (Non-) (test code = 7599541884) eGFR Calculation mL/min/1.73m2 () (test code = 8716027566) BETO (test code = BETO) Association of Glomerular Filtration Rate (GFR) and Staging of Kidney Disease* + --+ --+ ------+| GFR (mL/min/1.73 m2) ?| With Kidney Damage ?| ?Without Kidney Damage+ --------+ --------+ +| ?>90 ?| ?Stage one ?| ? Normal ?+ ---+ ---+ -------+| ?60-89 ?| ?Stage two ?| ? Decreased GFR ? + --+ --+ ------+| ?30-59 ?| ?Stage three ?| ? Stage three ? + --+ --+ ------+| ?15-29 ?| ?Stage four ? | ? Stage four ?+ ---+ ---+ -------+| ?<15 (or dialysis) ? ?| ?Stage five ? | ? Stage five ?+ ---+ ---+ -------+ *Each stage assumes the associated GFR level has been in effect for at least three months. ?Stages 1 to 5, with or without kidney disease, indicate chronic kidney disease. Notes: Determination of stages one and two (with eGFR >59mL/min/1.73 m2) requires estimation of kidney damage for at least three months as defined by structural or functional abnormalities of the kidney, manifested by either:Pathological abnormalities or Markers of kidney damage (including abnormalities in the composition of the blood or urine or abnormalities in imaging tests). Lab Interpretation Abnormal (test code = 98438-9) [facility] 09:33:00 Test Item Value Reference Range Interpretation Comments APTT Patient (test code See_Comment H [Au tomated message] = 3173-2) The system Flurry generated this result transmitted ref erence range: 26 - 36 Seconds. The reference range was not used to int erpret this result as normal/abnormal . Lab Interpretation (test Abnormal code = 56656-3) [facility]2020-04-27 02:44:00 Test Item Value Reference Range Interpretation Comments APTT Patient (test code See_Comment H [Au tomated message] = 3173-2) The system Flurry generated this result transmitted ref erence range: 26 - 36 Seconds. The reference range was not used to int erpret this result as normal/abnormal . Lab Interpretation (test Abnormal code = 26305-9) [facility]2020-04-26 20:04:00 Test Item Value Reference Range Interpretation Comments APTT Patient (test code See_Comment H [Au tomated message] = 3173-2) The system Flurry generated this result transmitted ref erence range: 26 - 36 Seconds. The reference range was not used to int erpret this result as normal/abnormal . Lab Interpretation (test Abnormal code = 55274-8) [facility] HospitalSPUTUM [id number] 16:19:00 Test Item Value Reference Range Interpretation Comments SPUTUM CULTURE 2+ Respiratory michael: (test code = Commensal upper 622-1) respiratory microorganisms only. Gram stain No Epithelial cells This is an (test code = present appended report . 664-3) These results h ave been appended t o a previously preliminary verified report . BETO (test code Bacterial pathogens = BETO) associated with lower respiratory infections were not identified, which include Pseudomonas aeruginosa and Staphylococcus aureus (MRSA or MSSA). [facility] (NA, K, CL, CO2, GLUCOSE, BUN, CREATININE, CA)2019-06-07 07:50:00 Test Item Value Reference Range Interpretation Comments NA (test code = 131 mmol/L 135-145 L 6607207861) K (test code = 4.2 mmol/L 3.5-5 6328077844) CL (test code = 97 mmol/L 98-108 L 5698600419) CO2 TOTAL (test code = 24 mmol/L 23-31 0212466200) AGAP (test code = 2-16 8725786700) BUN (test code = 8 mg/dL 7-23 1669675764) GLUCOSE (test code = 103 mg/dL 70-110 6277020592) CREATININE (test code = 0.59 mg/dL 0.5-1.04 4983150909) CALCIUM (test code = 8.7 mg/dL 8.6-10.6 9142364751) eGFR Calculation mL/min/1.73m2 (Non-) (test code = 1248975801) eGFR Calculation mL/min/1.73m2 () (test code = 2090863985) BETO (test code = BETO) Association of Glomerular Filtration Rate (GFR) and Staging of Kidney Disease* + --+ --+ ------+| GFR (mL/min/1.73 m2) ?| With Kidney Damage ?| ?Without Kidney Damage+ --------+ --------+ +| ?>90 ?| ?Stage one ?| ? Normal ?+ ---+ ---+ -------+| ?60-89 ?| ?Stage two ?| ? Decreased GFR ? + --+ --+ ------+| ?30-59 ?| ?Stage three ?| ? Stage three ? + --+ --+ ------+| ?15-29 ?| ?Stage four ? | ? Stage four ?+ ---+ ---+ -------+| ?<15 (or dialysis) ? ?| ?Stage five ? | ? Stage five ?+ ---+ ---+ -------+ *Each stage assumes the associated GFR level has been in effect for at least three months. ?Stages 1 to 5, with or without kidney disease, indicate chronic kidney disease. Notes: Determination of stages one and two (with eGFR >59mL/min/1.73 m2) requires estimation of kidney damage for at least three months as defined by structural or functional abnormalities of the kidney, manifested by either:Pathological abnormalities or Markers of kidney damage (including abnormalities in the composition of the blood or urine or abnormalities in imaging tests). Lab Interpretation Abnormal (test code = 70002-5) [facility] 07:47:00 Test Item Value Reference Range Interpretation Comments APTT Patient (test code See_Comment H [Au tomated message] = 3173-2) The system [employer] h generated this result transmitted ref erence range: 26 - 36 Seconds. The reference range was not used to int erpret this result as normal/abnormal . Lab Interpretation (test Abnormal code = 09646-5) [facility] [id number] 07:42:00 Test Item Value Reference Range Interpretation Comments WBC (test code = See_Comment L [Automated 3490-2) message] The sy stem which generated this result transmitted reference range : 4.30 - 11.10 10*3/?L. The reference range was not used to interpret this result as normal/abnormal . RBC (test code = See_Comment L [Automated 789-8) message] The sy stem which generated this result transmitted reference range : 3.93 - 5.25 10*6/?L. The reference range was not used to interpret this result as normal/abnormal . HGB (test code = 8.7 g/dL 11.6-15 L 718-7) HCT (test code = 25.7 % 35.7-45.2 L 4544-3) MCV (test code = 92.8 fL 80.6-95.5 787-2) MCH (test code = 31.4 pg 25.9-32.8 785-6) MCHC (test code = 33.9 g/dL 31.6-35.1 786-4) RDW-SD (test code = 43.9 fL 39-49.9 69650-3) RDW-CV (test code = 12.8 % 12-15.5 788-0) PLT (test code = See_Comment [Automated 777-3) message] The sy stem which generated this result transmitted reference range : 166 - 358 10*3/ ?L. The reference r delmy was not used to interpret this result as normal/abnormal . MPV (test code = 8.9 fL 9.5-12.9 L 28808-5) NRBC/100 WBC (test See_Comment [Automat ed code = 0661657259) message] The system which generated this result transmitted reference range : 0.0 - 10.0 /100 WBCs. The refer ence range was not u sed to interpret th is result as normal/abnormal . NRBC x10^3 (test code <0.01 See_Comment [Auto mated = 7835781602) message] The s ystem which generated this result transmitted reference range : 10*3/?L. The reference range was not used to interpret this result as normal/abnormal . GRAN MAT (NEUT) % 53.3 % (test code = 770-8) IMM GRAN % (test code 1.40 % = 7201154615) LYMPH % (test code = 26.0 % 736-9) MONO % (test code = 11.9 % 5905-5) EOS % (test code = 6.9 % 713-8) BASO % (test code = 0.5 % 706-2) GRAN MAT x10^3(ANC) 2.24 10*3/uL 1.88-7.09 (test code = 9765783920) IMM GRAN x10^3 (test 0.06 10*3/uL 0-0.06 code = 3139109036) LYMPH x10^3 (test code 1.09 10*3/uL 1.32-3.29 L = 731-0) MONO x10^3 (test code 0.50 10*3/uL 0.33-0.92 = 742-7) EOS x10^3 (test code = 0.29 10*3/uL 0.03-0.39 711-2) BASO x10^3 (test code <0.03 0.01-0.07 = 704-7) Lab Interpretation Abnormal (test code = 65089-7) [facility] Test Item Value Reference Range Interpretation Comments APTT Patient (test code See_Comment H [Au tomated message] = 3173-2) The system [employer] generated this result transmitted ref erence range: 26 - 36 Seconds. The reference range was not used to int erpret this result as normal/abnormal . Lab Interpretation (test Abnormal code = 92625-3) [facility]-REACTIVE [id number] 16:40:00 Test Item Value Reference Range Interpretation Comments CRP (test code = 1424330100) 9.0 mg/dL <0.8 H Lab Interpretation (test code = Abnormal 17161-0) [facility] METABOLIC PANEL (NA, K, CL, CO2, GLUCOSE, BUN, CREATININE, CA)2019-06-06 13:42:00 Test Item Value Reference Range Interpretation Comments NA (test code = 127 mmol/L 135-145 L 9943291658) K (test code = 3.9 mmol/L 3.5-5 5803169946) CL (test code = 93 mmol/L 98-108 L 9962577797) CO2 TOTAL (test code = 26 mmol/L 23-31 0510261895) AGAP (test code = 2-16 1222332100) BUN (test code = 8 mg/dL 7-23 3869503518) GLUCOSE (test code = 136 mg/dL 70-110 H 4666591675) CREATININE (test code = 0.68 mg/dL 0.5-1.04 0413447105) CALCIUM (test code = 8.6 mg/dL 8.6-10.6 0100248321) eGFR Calculation mL/min/1.73m2 (Non-) (test code = 6426827781) eGFR Calculation mL/min/1.73m2 () (test code = 6842420296) BETO (test code = BETO) Association of Glomerular Filtration Rate (GFR) and Staging of Kidney Disease* + --+ --+ ------+| GFR (mL/min/1.73 m2) ?| With Kidney Damage ?| ?Without Kidney Damage+ --------+ --------+ +| ?>90 ?| ?Stage one ?| ? Normal ?+ ---+ ---+ -------+| ?60-89 ?| ?Stage two ?| ? Decreased GFR ? + --+ --+ ------+| ?30-59 ?| ?Stage three ?| ? Stage three ? + --+ --+ ------+| ?15-29 ?| ?Stage four ? | ? Stage four ?+ ---+ ---+ -------+| ?<15 (or dialysis) ? ?| ?Stage five ? | ? Stage five ?+ ---+ ---+ -------+ *Each stage assumes the associated GFR level has been in effect for at least three months. ?Stages 1 to 5, with or without kidney disease, indicate chronic kidney disease. Notes: Determination of stages one and two (with eGFR >59mL/min/1.73 m2) requires estimation of kidney damage for at least three months as defined by structural or functional abnormalities of the kidney, manifested by either:Pathological abnormalities or Markers of kidney damage (including abnormalities in the composition of the blood or urine or abnormalities in imaging tests). Lab Interpretation Abnormal (test code = 80993-2) [facility]00 Test Item Value Reference Range Interpretation Comments APTT Patient (test code See_Comment H [Au tomated message] = 3173-2) The system [employer] generated this result transmitted ref erence range: 26 - 36 Seconds. The reference range was not used to int erpret this result as normal/abnormal . Lab Interpretation (test Abnormal code = 15103-6) [facility] 05:40:00 Test Item Value Reference Range Interpretation Comments APTT Patient (test code See_Comment H [Au tomated message] = 3173-2) The system [employer] generated this result transmitted ref erence range: 26 - 36 Seconds. The reference range was not used to int erpret this result as normal/abnormal . Lab Interpretation (test Abnormal code = 90383-3) [facility]CORON[facility]IR[facility] COVID-19 [id number] 01:05:00 Test Item Value Reference Range Interpretation Comments SARS-CoV-2 (test code = Not Detected Not Detected 29323-5) BETO (test code = BETO) Elsie Fusion SARS-CoV-2 Assay is a real-time RT-PCR test intended for the qualitative detection of RNA from SARS-CoV-2 from nasopharyngeal ([employer]) specimens. It is used under Emergency Use Authorization (EUA) by FDA. A positive result is indicative of the presence of SARS-CoV-2 RNA. ?Clinical correlation with patient history and other diagnostic information is necessary to determine patient infection status. A negative (Not Detected) result does not preclude SARS-CoV-2 infection. Clinical correlation with patient history and other diagnostic information should be used in patient management decisions. Invalid: Please collect a new specimen for repeat patient testing if clinically indicated. Lab Interpretation Normal (test code = 63203-3) [facility]PROCAL[facility]ONIN2020-04-24 20:47:00 Test Item Value Reference Range Interpretation Comments Procalcitonin (test 0.04 ng/mL <0.07 code = 3433056850) BETO (test code = BETO) INTERPRETATION OF PROCALCITONIN RESULTS IN ADULTS >= 18 YEARS OF AGE Initiation and discontinuation of antibiotics on patients with suspected or confirmed Lower Respiratory Tract Infection in Adults >= 18 years of age. + +-------- --------+ + -----+|Procalcitonin |Interpretation ?|Antibiotic ? ? |Considerations ? |ng/mL ? | ?|recommendation | ? + +-------- --------+ + -----+| <0.1 ? | Bacterial ? ? ?| Strongly ? ? ?| ? | ?| infection very | discouraged ? | Overruling: ? | ?| unlikely ? ? ? | ? | ? Clinically unstable ? ? ? + +-------- --------+ + ? High risk for adverse ? ? | <0.25 ?| Bacterial ? ? ?| Discouraged ? | ? outcome ? | ?| infection ? ? ?| ? | ? SEE IMPORTANT NOTE ?| ?| unlikely ? ? ? | ? | ? + +-------- --------+ + -----+| >=0.25 ? ? ? | Bacterial ? ? ?| Encouraged ? ?| ? | ?| infection ? ? ?| ? | ? | ?| likely ? | ? | Consider treatment failure ?+ +------- ---------+ -+ if levels does not decrease | >0.5 ? | Bacterial ? ? ?| Strongly ? ? ?| appropriately ? | ?| infection very | encouraged ? ?| ? | ?| likely ? | ? | ? + +-------- --------+ + -----+ Discontinuation of antibiotics in high-acuity patients with suspected or confirmed sepsis in Adults >= 18 years of age. + +-------- --------+ + -----+|Procalcitonin |Interpretation ?|Antibiotic ? ? |Considerations ? |ng/mL ? | ?|recommendation | ? + +-------- --------+ + -----+| <0.25 ?| Bacterial ? ? ?| Strongly ? ? ?| ? | ?| infection very | discouraged ? | Overruling: ? | ?| unlikely ? ? ? | ? | ? Clinically unstable ? ? ? + +-------- --------+ + ? High risk for adverse ? ? | <0.5 or drop | Bacterial ? ? ?| Discouraged ? | ? outcome ? | >80% from ? ?| infection ? ? ?| ? | ? SEE IMPORTANT NOTE ?| highest PCT ?| unlikely ? ? ? | ? | ? | level ?| ?| ? | ? + +-------- --------+ + -----+| >=0.5 ?| Bacterial ? ? ?| Encouraged ? ?| ? | ?| infection ? ? ?| ? | ? | ?| likely ? | ? | Consider treatment failure ?+ +------- ---------+ -+ if levels does not decrease | >1.0 ? | Bacterial ? ? ?| Strongly ? ? ?| appropriately ? | ?| infection very | encouraged ? ?| ? | ?| likely ? | ? | ? + +-------- --------+ + -----+ Percentage of drop of Procalcitonin calculation for Discontinuation of antibiotics in high-acuity patients with suspected or confirmed sepsis in Adults >= 18 years of age. ? Procalcitonin highest{}-Procalcitonin current{}Delta Procalcitonin = x100% ? Procalcitonin current {} IMPORTANT NOTE: Procalcitonin may be elevated without bacterial infection by physiologic stress related to trauma, drew, chronic dialysis, metastatic cancer, surgery in the past seven days, malaria, some fungal infections, and some forms of vasculitis. The interpretation algorithm may not apply to patients with immunosuppression (equivalent of >10 mg of prednisone daily), HIV with CD4 cell count < 350 cells/mm3, active malignancy on systemic chemotherapy, solid organ transplant or hematopoietic stem cell transplantation, or hospital acquired pneumonia. Additionally, some clinical trials of procalcitonin have excluded patients with shock requiring vasopressor use, acute respiratory failure requiring mechanical ventilation, or those with known lung abscess/empyema. For further information please refer to:[email or web address] Lab Interpretation Normal (test code = 22121-2) [facility] METABOLIC PANEL (NA, K, CL, CO2, GLUCOSE, BUN, CREATININE, CA)2019-06-05 20:11:00 Test Item Value Reference Range Interpretation Comments NA (test code = 126 mmol/L 135-145 L 7873735417) K (test code = 4.4 mmol/L 3.5-5 1989031772) CL (test code = 90 mmol/L 98-108 L 4681879350) CO2 TOTAL (test code = 24 mmol/L 23-31 1370637680) AGAP (test code = 2-16 4842451627) BUN (test code = 9 mg/dL 7-23 2440543556) GLUCOSE (test code = 96 mg/dL 70-110 7844612770) CREATININE (test code = 0.59 mg/dL 0.5-1.04 0303779765) CALCIUM (test code = 9.3 mg/dL 8.6-10.6 1601483536) eGFR Calculation mL/min/1.73m2 (Non-) (test code = 8236403615) eGFR Calculation mL/min/1.73m2 () (test code = 4258042998) BETO (test code = BETO) Association of Glomerular Filtration Rate (GFR) and Staging of Kidney Disease* + --+ --+ ------+| GFR (mL/min/1.73 m2) ?| With Kidney Damage ?| ?Without Kidney Damage+ --------+ --------+ +| ?>90 ?| ?Stage one ?| ? Normal ?+ ---+ ---+ -------+| ?60-89 ?| ?Stage two ?| ? Decreased GFR ? + --+ --+ ------+| ?30-59 ?| ?Stage three ?| ? Stage three ? + --+ --+ ------+| ?15-29 ?| ?Stage four ? | ? Stage four ?+ ---+ ---+ -------+| ?<15 (or dialysis) ? ?| ?Stage five ? | ? Stage five ?+ ---+ ---+ -------+ *Each stage assumes the associated GFR level has been in effect for at least three months. ?Stages 1 to 5, with or without kidney disease, indicate chronic kidney disease. Notes: Determination of stages one and two (with eGFR >59mL/min/1.73 m2) requires estimation of kidney damage for at least three months as defined by structural or functional abnormalities of the kidney, manifested by either:Pathological abnormalities or Markers of kidney damage (including abnormalities in the composition of the blood or urine or abnormalities in imaging tests). Lab Interpretation Abnormal (test code = 01100-4) [facility] HospitalFERRITIN [id number] 19:51:00 Test Item Value Reference Range Interpretation Comments FERRITIN (test code = 132.0 ng/mL 7999001143) BETO (test code = BETO) Biotin has been reported to cause a negative bias, interpret results relative to patient's use of biotin. Lab Interpretation (test Normal code = 91911-0) [facility] HospitalCORTISOL PM [id number] 19:17:00 Test Item Value Reference Range Interpretation Comments JAK PM (test code = 15.2 ug/dL 1.7-14 H 8652030588) BETO (test code = BETO) Biotin has been reported to cause a positive bias, interpret results relative to patient's use of biotin. Lab Interpretation (test Abnormal code = 29311-8) [facility] HospitalLACTATE [id number] 18:46:00 Test Item Value Reference Range Interpretation Comments LDH (test code = 1911909717) 475 U/L 300-600 Lab Interpretation (test code = Normal 08073-4) [facility] HospitalProthrombin Time (PT) / [id number] 17:56:00 Test Item Value Reference Range Interpretation Comments PROTIME PATIENT (test See_Comment H [Auto mated message] code = 5964-2) The system [employer] generated this result transmitted ref erence range: 10.1 - 1 2.6 Seconds. The reference range was not used to int erpret this result as normal/abnormal . INR (test code = 6301-6) Nor mal INR <1.1; Warfarin Therap eutic range 2.0 to 3. 0 or 2.5 to 3.5, dep ending upon the indica tions. Lab Interpretation (test Abnormal code = 83357-6) [facility] 17:56:00 Test Item Value Reference Range Interpretation Comments APTT Patient (test code = See_Comment [ Automated message] 3173-2) The system [employer] generated this result transmitted ref erence range: 26 - 36 Seconds. The re ference range was not u sed to interpret this result as normal/abnor mal. Lab Interpretation (test Normal code = 28690-2) [facility] HospitalTHYROID STIMULATING [id number] 15:53:00 Test Item Value Reference Range Interpretation Comments TSH (test code = See_Comment [Automated message] 4626176901) The system [employer] generated this result transmitted ref erence range: 0.45 - 4 .70 mIU/L. The refe rence range was not u sed to interpret this result as normal/abnor mal. Lab Interpretation (test Normal code = 40764-8) [facility] HospitalMAGNESIUM2020-04-24 15:22:00 Test Item Value Reference Range Interpretation Comments MAGNESIUM (test code = 2826628779) 1.4 mg/dL 1.7-2.4 L Lab Interpretation (test code = Abnormal 21417-2) [facility] HospitalCT THORAX WO CONTRAST [id number] 13:10:38 Mucus plugging of the lobar and segmental bronchi of the left lower lobewith associated airspace consolidation with accompanying groundglassopacities in the left lower lobe. These findings may be secondary toatelectasis or infection. However, are atypical for COVID19 pneumonia. Ectatic ascending aorta measuring 4.0 cm. Aortic valvular calcifications. FINDINGS: Lungs: ?An airspace consolidation is noted in the left lower lobe (14:107).There is ground glass attenuation of the adjacent lung parenchyma(14:109).These findings are concerning for an infectious process. An additional 1.8 cm area of groundglass attenuation in the right lowerlobe (14:92) is nonspecific. A 3 mm subpleural noncalcified nodules isnoted (2:31). Linear atelectasis in the right lung base. Airways: There is calcification of thetrachea with sparing of theposterior wall. However, in no significant wall thickening is appreciated. Mucus plugging of the lobar and segmental bronchus the left lower lobe(14:91). Pleura: ?There is emeli pical thickening. No pleural effusion or pneumothorax. Mediastinum: Within normal limits Cardiovascular: ?There vessel arch anatomy. The ascending aorta is ectaticmeasuring 4.0 cm. Mild atheroscleroticdisease affects the visualizedaorta. Multivessel coronary artery calcifications. Aortic valvular calcificationsare noted. Unremarkable ?pericardium. Lower neck and chest wall: Within normal limits Upper abdomen: Partially visualized right renal parapelvic fluid densitystructure measuring 2.4 cm could be consistent with a parapelvic cyst ordilated renal pelvis. Bones: Within normal limits Disclaimer: CT may be negative in the early stages of COVID-19. Generally,the findings on chest imaging in COVID-19 are not specific, and overlapwith other infections, including influenza, H1N1, SARS and MERS.According to the Centers for Disease Control (CDC) and recent statement ofthe [employer], viral testing remains the only specificmethod of diagnosis even if CXR or CT findings are suggestive of COVID-19. Preliminary Report Dictated by Resident: Jono Kitchen MD., have reviewed this study and agree with the abovereport.PROCEDURE: CT CHEST NON CONTRAST - COVID CHEST PROTOCOL TECHNIQUE: Helical CT was performed of the chest (lung apices to bases). Images were reconstructed at 1.25 mm slice thickness. MIP and coronal &sagittal MPR images were generated and reviewed. ?(DFOV = 38 cm). CLINICAL INFORMATION:Dyspnea, chronic, neg or nondiagnostic xray DOSE INFORMATION: 156 m gy-cm DLP COMPARISON: Same day chest x-ray [facility], Radiant Results Inft User - 06/05/2019 8:11 AM CDTPROCEDURE: CT CHEST NON CONTRAST - COVID CHEST PROTOCOLTECHNIQUE: Helical CT was performed of the chest (lung apices to bases). Images were reconstructed at 1.25 mm slice thickness. MIP and coronal &s agittal MPR images were generated and reviewed. (DFOV = 38 cm).CLINICAL INFORMATION:Dyspnea, chronic, neg or nondiagnostic xray DOSE INFORMATION: 156 mgy-cm DLPCOMPARISON: Same day chest x-rayIMPRESSIONMucus plugging of the lobar and segmental bronchi of the left lower lobewith associated airspace cons olidation with accompanying groundglassopacities in the left lower lobe. These findings may be secondary toatelectasis or infection. However, are atypical for COVID19 pneumonia.Ectatic ascending aorta measuring 4.0 cm.Aortic valvular calcifications.FINDINGS:Lungs: An airspace consolidation is noted inthe left lower lobe (14:107).There is ground glass attenuation of the adjacent lung parenchyma (14:109).These findings are concerning for an infectious process.An additional 1.8 cm area of groundglass attenuation in the right lowerlobe (14:92) is nonspecific. A 3 mm subpleural noncalcified nodules isnoted (2:31). Linear atelectasis in the right lung base.Airways: There is calcification of the tracheawith sparing of theposterior wall. However, in no significant wall thickening is appreciated.Mucus plugging of the lobar and segmental bronchus the left lower lobe(14:91).Pleura: There is biapical thickening. No pleural effusion or pneumothorax.Mediastinum: Within normal limitsCardiovascular: There vessel arch anatomy. The ascending aorta is ectaticmeasuring 4.0 cm. Mild atherosclerotic disease affects the visualizedaorta.Multivessel coronary artery calcifications. Aortic valvular calcificationsare noted. Unremarkable pericardium.Lower neck and chest wall: Within normal limitsUpper abdomen: Partially visualized right renal parapelvic fluid densitystructure measuring 2.4 cm could be consistent witha parapelvic cyst ordilated renal pelvis.Bones: Within normal limitsDisclaimer: CT may be negative in the early stages of COVID- 19. Generally,the findings on chest imaging in COVID-19 are not specific,and overlapwith other infections, including influenza, H1N1, SARS and MERS.According to the Centers for Disease Control (CDC) and recent statement ofthe [employer], viral testing remains the only specificmethod of diagnosis even if CXR or CT findings are suggestive of COVID-19.Preliminary Report Dictated by Resident: Jono Wiggins MD., have reviewed this study and agree with the abovereport.[facility] HospitalXR CHEST 1 VW [id number] 13:01:01 1. ?Retrocardiac opacities may be secondary to atelectasis or infection.These findings are atypicalfor COVID19 pneumonia. 2. ?Small bilateral pleural effusions, left more than right. Disclaimer: Generally, the findings on chest imaging in COVID-19 are notspecific, and overlap with other infections, including influenza, H1N1,SARS and MERS.According to the Centers for Disease Control (CDC) and the [employer], viral testing remains the only specific method of diagnosiseven if CXR orCT findings are suggestive of COVID-19. Preliminary Report Dictated by Resident: Jono Kitchen MD., have reviewed this study and agree with the abovereport.PROCEDURE: CHEST XRAY , CLINICAL INDICATION: SOB COMPARISON: Chest x-ray 07/03/2017 FINDINGS: Lungs: Retrocardiac opacities may be secondary to infection or atelectasis. Pleura: Small bilateral pleural effusions, left more than right arepresent. No pneumothorax. The heart is normal in size. Calcifications are present at the aortic arch. No acute bony abnormality. [facility], Radiant Results Inft User - 06/05/2019 8:02 AM CDTPROCEDURE: CHEST XRAY , CLINICAL INDICATION: SOB COMPARISON: Chest x-ray 07/03/2017FINDINGS:Lungs: Retrocardiac opacities may be secondary to infection or atelectasis.Pleura: Small bilateral pleural effusions, left more than right arepresent. No pneumothorax.The heart is normal in size. Calcifications are present at the aortic arch.No acute bony abnormality.IMPRESSION1. Retrocardiac opacities may be secondary to atelectasis or infection.These findings are atypical for COVID19 pneumonia.2. Small bilateral pleural effusions, left more than right.Disclaimer: Generally, the findings on chest imaging in COVID-19 are notspecific, and overlap with other infections, including influenza, H1N1,SARS and MERS.According to the Centers for Disease Control (CDC) and the [employer], viral testing remains theonly specific method of diagnosiseven if CXR or CT findings are suggestive of COVID-19. Preliminary Report Dictated by Resident: Sheila Rodriguez, Jono Campos MD., have reviewed this study and agree withthe abovereport.[facility] HospitalROXANNA [id number] 05:28:00 Test Item Value Reference Range Interpretation Comments TROPONIN I (test <0.012 See_Comment [Automated code = [id number]) message] The system which generated this result transmitted reference range : <=0.034 ng/mL. The reference range was not used to interpr et this result as normal/abnormal . BETO (test code = Equal or Less than BETO) 0.034 ng/ml---Normal ?Note: Cardiac troponin begins to rise 3-4 hours after the onset of ischemia. Repeat in 4-6 hours if the sample was drawn within 3-4 hours of the onset of the symptom and found normal. Between 0.035 and 0.120 ng/mL--- Borderline. Questionable myocardial injury or necrosis ? ?Note: Serial measurement may be necessary to confirm or exclude the diagnosis of myocardial injury or necrosis; Clinical correlation (symptoms, EKGs, imaging studies, and others) required; Repeat in 4-6 hours if clinically indicated. ? Equal or Higher than 0.121 ng/mL---Abnormal. Myocardial Injury or Necrosis Likely ? Biotin has been reported to cause a negative bias, interpret results relative to patient's use of biotin. ? Lab Interpretation Normal (test code = 89252-5) [facility] HospitalN-TERMINAL [id number] 05:25:00 Test Item Value Reference Range Interpretation Comments NT-proBNP (test code 345 pg/mL See_Comment [Autom ated = 2733840030) message] The system which generated this result transmitted reference range : <=450. The reference range was not used to interpret this result as normal/abnormal . BETO (test code = BETO) Biotin has been reported to cause a negative bias, interpret results relative to patient's use of biotin. Lab Interpretation Normal (test code = 09167-3) [facility] HospitalCB WITH [id number] 05:23:00 Test Item Value Reference Range Interpretation Comments WBC (test code = See_Comment [Automated 6690-2) message] The sy stem which generated this result transmitted reference range : 4.30 - 11.10 10*3/?L. The reference range was not used to interpret this result as normal/abnormal . RBC (test code = See_Comment L [Automated 789-8) message] The sy stem which generated this result transmitted reference range : 3.93 - 5.25 10*6/?L. The reference range was not used to interpret this result as normal/abnormal . HGB (test code = 10.4 g/dL 11.6-15 L 718-7) HCT (test code = 29.6 % 35.7-45.2 L 4544-3) MCV (test code = 90.8 fL 80.6-95.5 787-2) MCH (test code = 31.9 pg 25.9-32.8 785-6) MCHC (test code = 35.1 g/dL 31.6-35.1 786-4) RDW-SD (test code = 42.0 fL 39-49.9 68782-8) RDW-CV (test code = 12.5 % 12-15.5 788-0) PLT (test code = See_Comment [Automated 777-3) message] The sy stem which generated this result transmitted reference range : 166 - 358 10*3/ ?L. The reference r delmy was not used to interpret this result as normal/abnormal . MPV (test code = 8.8 fL 9.5-12.9 L 55893-6) NRBC/100 WBC (test See_Comment [Automat ed code = 3419848425) message] The system which generated this result transmitted reference range : 0.0 - 10.0 /100 WBCs. The refer ence range was not u sed to interpret th is result as normal/abnormal . NRBC x10^3 (test code <0.01 See_Comment [Auto mated = 6100672918) message] The s ystem which generated this result transmitted reference range : 10*3/?L. The reference range was not used to interpret this result as normal/abnormal . GRAN MAT (NEUT) % 63.5 % (test code = 770-8) IMM GRAN % (test code 2.10 % = 8314823104) LYMPH % (test code = 19.7 % 736-9) MONO % (test code = 10.8 % 5905-5) EOS % (test code = 3.6 % 713-8) BASO % (test code = 0.3 % 706-2) GRAN MAT x10^3(ANC) 5.50 10*3/uL 1.88-7.09 (test code = 9806833037) IMM GRAN x10^3 (test 0.18 10*3/uL 0-0.06 H code = 2173199982) LYMPH x10^3 (test code 1.70 10*3/uL 1.32-3.29 = 731-0) MONO x10^3 (test code 0.93 10*3/uL 0.33-0.92 H = 742-7) EOS x10^3 (test code = 0.31 10*3/uL 0.03-0.39 711-2) BASO x10^3 (test code 0.03 10*3/uL 0.01-0.07 = 704-7) Lab Interpretation Abnormal (test code = 05202-5) [facility] Test Item Value Reference Range Interpretation Comments APPEARANCE (test code = Clear Clear 4118573943) COLOR (test code = Yellow Yellow 3149699919) PH (test code = 4.8-8.0 3187034818) SP GRAVITY (test code = 1.003-1.030 4871602623) GLU U QUAL (test code = Negative Negative 7686427403) BLOOD (test code = Negative Negative 1896388731) KETONES (test code = Negative Negative 3432942936) PROTEIN (test code = Negative Negative 2887-8) UROBILIN (test code = 0.2 mg/dL See_Comment [Auto mated message] 2959477576) The system [employer] generated this result transmit mahnaz reference range : 0-1.0 mg/dL. Th e reference range was not used to interpret this result as normal/abnormal . BILIRUBIN (test code = Negative Negative 8829700210) NITRITE (test code = Negative Negative 1268212387) LEUK VERENICE (test code = Negative Negative 1606958514) RBC/HPF (test code = See_Comment [Autom ated message] 3241032794) The system [employer] generated this result transmit mahnaz reference range : 0 - 3 HPF. The refe rence range was not u sed to interpret th is result as normal/abnormal . WBC/HPF (test code = See_Comment [Autom ated message] 7967123499) The system [employer] generated this result transmit mahnza reference range : 0 - 5 HPF. The refe rence range was not u sed to interpret th is result as normal/abnormal . BACTERIA (test code = Few Negative A 5137864047) SQ EPITH (test code = HPF 2940790861) Lab Interpretation (test Abnormal code = 73757-7) [facility] [id number] 05:21:00 Test Item Value Reference Range Interpretation Comments SARS-CoV-2 (test code = Not Detected Not Detected 27732-4) BETO (test code = BETO) ID NOW COVID-19 Assay is an isothermal nucleic acid amplification test intended for the qualitative detection of nucleic acid from SARS-CoV-2 viral RNA in nasopharyngeal ([employer]) specimens. It is used under Emergency Use Authorization (EUA) by FDA. The limit of detection (LOD) of the assay is 125 Genome Equivalents/mL. A positive result is indicative of the presence of SARS-CoV-2 RNA. ?Clinical correlation with patient history and other diagnostic information is necessary to determine patient infection status. A negative (Not Detected) result does not preclude SARS-CoV-2 infection. Clinical correlation with patient history and other diagnostic information should be used in patient management decisions. Invalid: Please collect a new specimen for repeat patient testing if clinically indicated. Lab Interpretation Normal (test code = 82055-2) [facility] / [id number] 05:16:00 Test Item Value Reference Range Interpretation Comments PROTIME PATIENT (test See_Comment H [Auto mated message] code = 5964-2) The system [employer] generated this result transmitted ref erence range: 12.0 - 1 4.7 Seconds. The reference range was not used to int erpret this result as normal/abnormal . INR (test code = 6301-6) Nor mal INR <1.1; Warfarin Therap eutic range 2.0 to 3. 0 or 2.5 to 3.5, dep ending upon the indica tions. Lab Interpretation (test Abnormal code = 64039-8) [facility] ([id number])2019-06-05 05:16:00 Test Item Value Reference Range Interpretation Comments NA (test code = 125 mmol/L 135-145 L 3816591358) K (test code = 4.0 mmol/L 3.5-5 2113815367) CL (test code = 87 mmol/L 98-108 L 7078160921) CO2 TOTAL (test code = 24 mmol/L 23-31 0153950131) AGAP (test code = 2-16 4842596157) BUN (test code = 12 mg/dL 7-23 4568007837) GLUCOSE (test code = 123 mg/dL 70-110 H 5598181705) CREATININE (test code = 0.76 mg/dL 0.5-1.04 2726067213) TOTAL BILI (test code = 0.5 mg/dL 0.1-1.7 6439604487) CALCIUM (test code = 9.6 mg/dL 8.6-10.6 4913459608) T PROTEIN (test code = 7.6 g/dL 6.3-8.2 7173763638) ALBUMIN (test code = 4.5 g/dL 3.5-5 7266986167) ALK PHOS (test code = 96 U/L 34-122 5927779676) ALTv (test code = 13 U/L 5-35 1742-6) AST(SGOT) (test code = 26 U/L 13-40 6445948130) eGFR Calculation mL/min/1.73m2 (Non-) (test code = 0572349880) eGFR Calculation mL/min/1.73m2 () (test code = 6481140832) BETO (test code = BETO) Association of Glomerular Filtration Rate (GFR) and Staging of Kidney Disease* + --+ --+ ------+| GFR (mL/min/1.73 m2) ?| With Kidney Damage ?| ?Without Kidney Damage+ --------+ --------+ +| ?>90 ?| ?Stage one ?| ? Normal ?+ ---+ ---+ -------+| ?60-89 ?| ?Stage two ?| ? Decreased GFR ? + --+ --+ ------+| ?30-59 ?| ?Stage three ?| ? Stage three ? + --+ --+ ------+| ?15-29 ?| ?Stage four ? | ? Stage four ?+ ---+ ---+ -------+| ?<15 (or dialysis) ? ?| ?Stage five ? | ? Stage five ?+ ---+ ---+ -------+ *Each stage assumes the associated GFR level has been in effect for at least three months. ?Stages 1 to 5, with or without kidney disease, indicate chronic kidney disease. Notes: Determination of stages one and two (with eGFR >59mL/min/1.73 m2) requires estimation of kidney damage for at least three months as defined by structural or functional abnormalities of the kidney, manifested by either:Pathological abnormalities or Markers of kidney damage (including abnormalities in the composition of the blood or urine or abnormalities in imaging tests). Lab Interpretation Abnormal (test code = 77303-4) [facility]"
[2021-10-19] MEDS ORDERED: DIAZEPAM 5 MG TABLET ONE (11:48)
[2021-10-19] MEDS ORDERED: HYDROCODONE/APAP 5/325 MG TAB ONE (11:48)
--- NOTE | 2021-10-19 12:36 | ER ---
Nurse's Notes [facility] Name: Bertha Connell Age: 81 yrs Sex: Female : 1940 Arrival Date: 10/19/2021 Time: 10:18 Bed 11 Private MD: Martín Sequeira Diagnosis: Lumbago with sciatica, left side;Muscle spasm Presentation: 10/19 11:43 Chief complaint:. Coronavirus screen: At this time, the client does not indicate any iw symptoms associated with coronavirus-19. Risk Assessment: Do you want to hurt yourself or someone else? Patient reports no desire to harm self or others. Onset of symptoms. 11:43 Acuity: SUSY 4 iw 11:43 Method Of Arrival: Ambulatory iw 11:45 Ebola Screen: Patient negative for fever greater than or equal to 101.5 degrees iw Fahrenheit, and additional compatible Ebola Virus Disease symptoms Patient denies exposure to infectious person. Patient denies travel to an Ebola-affected area in the 21 days before illness onset. No symptoms or risks identified at this time. Initial Sepsis Screen: Does the patient meet any 2 criteria? No. Patient's initial sepsis screen is negative. Does the patient have a suspected source of infection? No. Patient's initial sepsis screen is negative. Screenin:38 Abuse screen: Denies threats or abuse. Denies injuries from another. Nutritional iw screening: No deficits noted. Tuberculosis screening: No symptoms or risk factors identified. Fall Risk None identified. Assessment: 12:01 General: Appears in no apparent distress. Behavior is calm, cooperative. Pain: iw Complains of pain in right leg and left leg. Neuro: Steiner Agitation-Sedation Scale (RASS): Level of Consciousness is awake, alert, obeys commands. Vital Signs: 11:43 BP 179 / 63; Pulse 59; Resp 16; Temp 98.0; Pulse Ox 100% on R/A; iw ED Course: 10:18 Patient arrived in ED. am2 10:18 Geremias Horton DO is Attending Physician. ms3 10:18 Martín Sequeira is Private Physician. am2 11:36 Bushra Jones, RN is Primary Nurse. iw 11:44 Triage completed. iw 12:01 No provider procedures requiring assistance completed. Patient did not have IV access iw during this emergency room visit. 12:01 Arm band placed on right wrist. iw 12:01 Patient has correct armband on for positive identification. iw Administered Medications: 11:43 Drug: Valium (diazepam) 5 mg Route: PO; iw 12:15 Follow up: Response: No adverse reaction iw 11:43 Drug: HYDROcodone-acetaminophen 5 mg-325 mg 1 tabs Route: PO; iw 11:50 Follow up: Response: No adverse reaction iw Outcome: 12:35 Discharge ordered by . ms3 12:38 Discharged to home ambulatory. iw 12:38 Condition: good 12:38 Discharge instructions given to patient, Instructed on discharge instructions, follow up and referral plans. Demonstrated understanding of instructions, follow-up care, medications, Prescriptions given X 1. 12:39 Patient left the ED. eh3 Signatures: Bushra Jones, RN RN iw Amita Briseno am2 Geremias Horton DO DO ms3 Kimmy Penn, RN RN eh3
--- NOTE | 2021-10-19 12:36 | EDPHYS ---
Physician Documentation [facility] Name: Bertha Connell Age: 81 yrs Sex: Female : 1940 Arrival Date: 10/19/2021 Time: 10:18 Bed 11 Private MD: Martín Sequeira ED Physician Geremias Horton HPI: 10/19 12:36 This 81 yrs old Female presents to ER via Ambulatory with complaints of Leg Pain. ms3 12:36 81-year-old female with past medical history of atrial fibrillation, hypertension, ms3 asthma/COPD, GERD, SLL, bronchiectasis presents for left sided back pain and left leg pain. Patient states pain is a 10/10 described as shooting. Patient states applying a heating pad to the area improves the pain. Patient states that sitting up makes the pain worse. Patient states she had an MRI performed by Dr. Lonnie Zuniga in January and at that time they prescribed pain medications.. ROS: 12:36 Constitutional: Negative for fever, and chills. Neck: Negative for injury, pain, and ms3 swelling, Cardiovascular: Negative for chest pain, and palpitations. Respiratory: Negative for shortness of breath, cough, wheezing, and pleuritic chest pain, Abdomen/GI: Negative for abdominal pain, nausea, vomiting, diarrhea, and constipation. 12:36 MS/extremity: Positive for Back pain radiates down left leg. 12:36 All other systems are negative. Exam: 12:36 Constitutional: This is a well developed, well nourished patient who is awake, alert, ms3 and in no acute distress. Head/Face: Normocephalic, atraumatic. Neck: Trachea midline, no cervical lymphadenopathy. Supple, full range of motion without nuchal rigidity, or vertebral point tenderness. No Meningismus. Chest/axilla: Normal chest wall appearance and motion. Nontender with no deformity. Cardiovascular: Regular rate and rhythm with a normal S1 and S2. No gallops, murmurs, or rubs. Normal PMI, no JVD. No pulse deficits. Respiratory: Lungs have equal breath sounds bilaterally, clear to auscultation and percussion. No rales, rhonchi or wheezes noted. No increased work of breathing, no retractions or nasal flaring. Abdomen/GI: Soft, non-tender, with normal bowel sounds. No distension or tympany. No guarding or rebound. No evidence of tenderness throughout. Skin: Warm, dry with normal turgor. Normal color with no rashes, no lesions, and no evidence of cellulitis. 12:36 Musculoskeletal/extremity: Extremities: ROM: no acute changes, Muscle spasm of left paraspinal mm, TTP. Vital Signs: 11:43 BP 179 / 63; Pulse 59; Resp 16; Temp 98.0; Pulse Ox 100% on R/A; iw MDM: 10:30 Patient medically screened. ms3 12:36 Data reviewed: vital signs, nurses notes, and as a result, I will discharge patient. ms3 Counseling: I had a detailed discussion with the patient and/or guardian regarding: the historical points, exam findings, and any diagnostic results supporting the discharge/admit diagnosis, the need for outpatient follow up, to return to the emergency department if symptoms worsen or persist or if there are any questions or concerns that arise at home. ED course: Patient's pain improved after [place] and Valium. Patient given prescription for Flexeril. Patient understands agrees with plan. Patient to follow-up with her primary care physician in 2 to 3 days. All questions were answered. Strict return precautions were discussed to include worsening symptoms, or any other concerns. On reevaluation patient is alert and oriented x4, improved, in no apparent distress, nontoxic-appearing, ambulatory in emergency department.. Administered Medications: 11:43 Drug: Valium (diazepam) 5 mg Route: PO; iw 12:15 Follow up: Response: No adverse reaction iw 11:43 Drug: HYDROcodone-acetaminophen 5 mg-325 mg 1 tabs Route: PO; iw 11:50 Follow up: Response: No adverse reaction iw Disposition: 16:43 Chart complete. ms3 Disposition Summary: 10/19/21 12:35 Discharge Ordered Location: Home ms3 Condition: Stable ms3 Diagnosis - Lumbago with sciatica, left side ms3 - Muscle spasm ms3 Followup: ms3 - With: Private Physician - When: 2 - 3 days - Reason: Recheck today's complaints, Re-evaluation by your physician Discharge Instructions: - Discharge Summary Sheet ms3 - Sciatica ms3 Forms: - Medication Reconciliation Form ms3 - Thank You Letter ms3 - Antibiotic Education ms3 - Prescription Opioid Use ms3 Prescriptions: - Cyclobenzaprine 5 mg Oral Tablet - take 1 tablet by ORAL route 3 times per day As needed; 15 tablet; Refills: 0, ms3 Product Selection Permitted Signatures: Bushra Jones RN RN iw Geremias Horton DO DO ms3 Corrections: (The following items were deleted from the chart) 16:29 12:36 This 81 yrs old Female presents to ER via Ambulatory with complaints of Leg Pain. ms3 ms3 16:29 16:27 This 81 yrs old Female presents to ER via Ambulatory with complaints of Leg Pain. ms3 ms3
[2021-10-19 12:54] VITALS: BP 179/63; TEMP 98; O2SAT 100
== END 2021-10-19 12:39 | disposition home or self-care (01) ==
LOC: ER 10:15
DX: M54.42 Lumbago with sciatica, left side (principal); M62.838 Other muscle spasm
CPT/HCPCS: 99283

== ENCOUNTER 2022-04-18 16:54 | Emergency (ER) | payer OTHER, BC ==
--- OUTSIDE RECORDS SUMMARY | 2022-04-18 17:05 | XMS REPORT | Continuity of Care Document ---
:1940 Author Organization [facility] t Address [address] [place] [address] Care Team Providers Name Role Phone Benjy ZAVALETA, Martín De La Paz Primary Care Physician Miley Carmona NP Attending Clinician Tanja Buckley MD Attending Clinician Andrade Cash PTA Attending Clinician Unavailable Israel Pedraza MD Attending Clinician ISRAEL PEDRAZA Attending Clinician Unavailable Aaron PTXenia Attending Clinician Unavailable Hanna Cash PTA Attending Clinician Unavailable Olena Salmeron PT Attending Clinician Unavailable Doctor Unassigned, [place] Attending Clinician Unavailable RADIOLOGY Attending Clinician Unavailable Radiology Attending Clinician Unavailable Karen Perdue MA Attending Clinician Unavailable Marilou Kennedy MA Attending Clinician Unavailable Jenna Suarez RN Attending Clinician Unavailable ROYAL BARRIOS Attending Clinician Unavailable Darcy JAINPMarybeth Attending Clinician Royal Cheatham Attending Clinician Chary Moore Attending Clinician Amita Leonard MD Attending Clinician AMITA LEONARD Attending Clinician Unavailable CHRISSY NEGRETE Attending Clinician Unavailable Chrissy Negrete MD Attending Clinician CHARLOTTE RUCKER Attending Clinician Unavailable Charlotte Rucker Attending Clinician KELSEY MENA Attending Clinician Unavailable MD KELSEY MENA Attending Clinician Unavailable TEJAS MARTÍNEZ Attending Clinician Unavailable Jacky ZAVALETA, [place] Attending Clinician LAWRENCE REBOLLEDO Attending Clinician Unavailable LAWRENCE REBOLLEDO Attending Clinician Unavailable PURVI MENA Attending Clinician Unavailable Fellow, Pulmonary Attending Clinician Unavailable Shantell RN, Rudi Aguilar Attending Clinician Unavailable Joseline ZAVALETA, Kimmy Hollis Attending Clinician Edwardo ZAVALETA, Antonietta Cruz Attending Clinician [phone] Jessica ZAVALETA, Junior Gonzalez Attending Clinician ANTONIETTA BROOKE Attending Clinician Unavailable MICHELLE DELEON II Admitting Clinician Unavailable KELSEY MENA Admitting Clinician Unavailable MD KELSEY MENA Admitting Clinician Unavailable Jessica ZAVALETA, Junior Gonzalez Admitting Clinician JUNIOR MUNOZ Admitting Clinician Unavailable Payers Payer Name Policy Type Policy Number Effective Date Expiration Date S ource Problems Condition Condition Condition Status Onset Resolution Last Treating Co mments Source Name Details Category Date Date Treatment Clinician Date Recurrent Recurrent Disease Active [facility] UTI UTI [facility] 00[facility] Hosp[facility] 00 l 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 7-20 [facility] kidney kidney 00:00: Hospita disease disease 00 l 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 [facility] kidney kidney 00:00: Hospita disease disease 00 l Atrial Atrial Disease Active Univers arrhythmia arrhythmia 4-24 it y of 00:00: [address] HTN HTN Disease Active Univers (hypertens (hypertens 4-24 it y of ion) ion) 00:00: [address] Iron Iron Disease Active Univers deficiency deficiency 4-24 it y of anemia anemia 00:00: [address] H/O blood H/O blood Disease Active Uni vers culture culture 4-24 ity of 00:00: [address] Mucus Mucus Disease Active Overview: Univer s plugging plugging 4-24 Formattin ity of of bronchi of bronchi 00:00: g of this [place] 00 note Medical might be Branch different from the original. 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 Added automatic ally from request for surgery [id number] Small cell Small cell Disease Active 2018-02 [...] of thyroid d 01:09:14 l gland gland [place] (disorder) (disorder) Resolved Problem 09/25/2020 Medical Group Chronic Chronic Problem Active 2020-09-25 Me moria thyroiditi thyroiditi 01:09:14 l s s [place] (disorder) (disorder) Active Problem 09/25/2020 Medical Group [...] Active Rash Has had Univers ty to -29 several ity of adverse 00:00: Iodine-IV [place] reaction 00 -contrast Medic al s to studies Branch drug after one that caused rash without incident, but pre-treat ed with antihista mines and steroid. IODINE DRUG Active Med Rash Univers INGREDI - ity of 00:00: [place] [address] Medical Branch contrast contrast Active Memori a media media l (iodine- (iodine- [place] based) based) Social History Social Habit Start Date Stop Date Quantity Comments Source Alcohol intake 2021-12-29 2021-12-29 Current drinker [facility] 00:00:00 00:00:00 of alcohol (finding) Tobacco use and 2021-12-29 2021-12-29 Smokeless tobacco [facility] exposure 00:00:00 00:00:00 non-user Exposure to 2021-09-30 2021-10-10 Not sure [facility] SARS-CoV-2 00:00:00 14:43:00 [facility] [place] [facility] (event) Branch Social History 2019-04-13 2019-04-13 [facility] maury 15:56:44 15:56:44 Sex [birth year] [facility] 00:00:00 00:00:00 Smoking Status Start Date Stop Date Source Never smoked tobacco [facility] ospital Medications Ordered Filled Start Stop Current Ordering Indication Dosage Frequency Signature Comments Components Source Medication Medication Date Date Medication? Clinician (SIG) Name Name fluticasone 2021-02 Yes 1{puff} Q.5D Inhale 1 Methodi -salmeterol 1-[address] (ADVAIR) 09:32: (two) Hospita 250-50 16 times a l mcg/dose day. DISKUS estradiol 2021-[address] 1 Met hodi (VIVELLE-DO 1-[address] T) 0.025 09:32: the skin 2 Hos luisa mg/24 hr 16 (two) l times a week. fenofibrate 2021-02 Yes 48mg QD Take 48 mg Methodi (TRICOR) 48 1-[address] MG tablet 09:32: daily. Hospit a 16 l hydroCHLORO 2021-02 Yes 12.5mg QD Take 12.5 Methodi thiazide 1-[address] (MICROZIDE) 09:32: mouth Hospi ta 12.5 mg 16 daily. l capsule nebivolol 2021-02 Yes 2.5mg Q.5D Take 2.5 Met hodi (BYSTOLIC) 1-[address] 2.5 MG 09:32: mouth 2 Hospita tablet 16 (two) l times a day. losartan 2021-02 Yes 100mg QD Take 100 Meth tushar (COZAAR) 1-[address] 100 MG 09:32: mouth Hospita tablet 16 daily. l dexlansopra 2021-02 Yes 30mg QD Take 30 mg Methodi zole 1-[address] (DEXILANT) 09:32: daily. Hospi ta 30 mg 16 l capsule rivaroxaban 2021-02 Yes 15mg Take 15 mg Methodi (XARELTO) 1-[address] 15 mg 09:32: Hospita tablet 16 l ascorbic 2021-02 Yes 1000mg QD Take 1,000 M ethodi acid, 1-[address] vitamin C, 09:32: mouth Hospit a (VITAMIN C) 16 daily. l 1000 MG tablet cranberry 2021-02 Yes Take by Metho di 400 mg 1-[address] capsule 09:32: Hospita 16 l biotin 2021-02 Yes Take by Methodi 5,000 mcg 1-[address] tablet,disi 09:32: Hospit a ntegrating 16 l magnesium 2021-02 Yes 250mg QD Take 250 Met hodi oxide 400 1-[address] mg 09:32: mouth Hospita magnesium 16 daily. l capsule turmeric 2021-02 Yes 500mg Q.5D Take 500 Meth tushar root 1-[address] extract 09:32: mouth 2 Hospita 1,053 mg 16 (two) l tablet times a day. Take 1000mg daily flecainide 2021-02 Yes 50mg Q.5D Take 50 mg M ethodi (TAMBOCOR) 1-[address] 50 MG 09:32: (two) Hospita tablet 16 times a l day. benzonatate 2021-02 Yes 100mg Q.5D Take 100 M ethodi (TESSALON) 1-[address] 100 MG 09:32: mouth 2 Hospita capsule 16 (two) l times a day as needed for cough. glucosamine 2021-02 Yes Q.5D Take by Met hodi -chondroiti 1-[address] n 250-200 09:32: (two) Hospita mg tablet 16 times a l day. fluticasone 2021-02 Yes 1{puff} Q.5D Inhale 1 Methodi -salmeterol 1-[address] (ADVAIR) 09:32: (two) Hospita 250-50 16 times a l mcg/dose day. DISKUS estradiol 2021-[address] 1 Met hodi (VIVELLE-DO 1-[address] T) 0.025 09:32: the skin 2 Hos luisa mg/24 hr 16 (two) l times a week. fenofibrate 2021-02 Yes 48mg QD Take 48 mg Methodi (TRICOR) 48 1-[address] MG tablet 09:32: daily. Hospit a 16 l hydroCHLORO 2021-02 Yes 12.5mg QD Take 12.5 Methodi thiazide 1-[address] (MICROZIDE) 09:32: mouth Hospi ta 12.5 mg 16 daily. l capsule nebivolol 2021-02 Yes 2.5mg Q.5D Take 2.5 Met hodi (BYSTOLIC) 1-[address] 2.5 MG 09:32: mouth 2 Hospita tablet 16 (two) l times a day. losartan 2021-02 Yes 100mg QD Take 100 Meth tushar (COZAAR) 1-[address] 100 MG 09:32: mouth Hospita tablet 16 daily. l dexlansopra 2021-02 Yes 30mg QD Take 30 mg Methodi zole 1-[address] (DEXILANT) 09:32: daily. Hospi ta 30 mg 16 l capsule rivaroxaban 2021-02 Yes 15mg Take 15 mg Methodi (XARELTO) 1-[address] 15 mg 09:32: Hospita tablet 16 l ascorbic 2021-02 Yes 1000mg QD Take 1,000 M ethodi acid, 1-[address] vitamin C, 09:32: mouth Hospit a (VITAMIN C) 16 daily. l 1000 MG tablet cranberry 2021-02 Yes Take by Metho di 400 mg 1-[address] capsule 09:32: Hospita 16 l biotin 2021-02 Yes Take by Methodi 5,000 mcg 1-[address] tablet,disi 09:32: Hospit a ntegrating 16 l magnesium 2021-02 Yes 250mg QD Take 250 Met hodi oxide 400 1-[address] mg 09:32: mouth Hospita magnesium 16 daily. l capsule turmeric 2021-02 Yes 500mg Q.5D Take 500 Meth tushar root 1-[address] extract 09:32: mouth 2 Hospita 1,053 mg 16 (two) l tablet times a day. Take 1000mg daily flecainide 2021-02 Yes 50mg Q.5D Take 50 mg M ethodi (TAMBOCOR) 1-[address] 50 MG 09:32: (two) Hospita tablet 16 times a l day. benzonatate 2021-02 Yes 100mg Q.5D Take 100 M ethodi (TESSALON) 1-[address] 100 MG 09:32: mouth 2 Hospita capsule 16 (two) l times a day as needed for cough. glucosamine 2021-02 Yes Q.5D Take by Met hodi -chondroiti 1-[address] n 250-200 09:32: (two) Hospita mg tablet 16 times a l day. fluticasone 2021-02 Yes 1{puff} Q.5D Inhale 1 Methodi -salmeterol 1-[address] (ADVAIR) 09:32: (two) Hospita 250-50 16 times a l mcg/dose day. DISKUS estradiol 2021-[address] 1 Met hodi (VIVELLE-DO 1-[address] T) 0.025 09:32: the skin 2 Hos luisa mg/24 hr 16 (two) l times a week. fenofibrate 2021-02 Yes 48mg QD Take 48 mg [facility]i (TRICOR) 48 1-[address] MG tablet 09:32: daily. Hospit a 16 l hydroCHLORO 2021-02 Yes 12.5mg QD Take 12.5 Methodi thiazide 1-[address] (MICROZIDE) 09:32: mouth Hospi ta 12.5 mg 16 daily. l capsule nebivolol 2021-02 Yes 2.5mg Q.5D Take 2.5 Met hodi (BYSTOLIC) 1-[address] 2.5 MG 09:32: mouth 2 Hospita tablet 16 (two) l times a day. losartan 2021-02 Yes 100mg QD Take 100 Meth tushar (COZAAR) 1-[address] 100 MG 09:32: mouth Hospita tablet 16 daily. l dexlansopra 2021-02 Yes 30mg QD Take 30 mg Methodi zole 1-[address] (DEXILANT) 09:32: daily. Hospi ta 30 mg 16 l capsule rivaroxaban 2021-02 Yes 15mg Take 15 mg Methodi (XARELTO) 1-[address] 15 mg 09:32: Hospita tablet 16 l ascorbic 2021-02 Yes 1000mg QD Take 1,000 M ethodi acid, 1-[address] vitamin C, 09:32: mouth Hospit a (VITAMIN C) 16 daily. l 1000 MG tablet cranberry 2021-02 Yes Take by Metho di 400 mg 1-[address] capsule 09:32: Hospita 16 l biotin 2021-02 Yes Take by Methodi 5,000 mcg 1-[address] tablet,disi 09:32: Hospit a ntegrating 16 l magnesium 2021-02 Yes 250mg QD Take 250 Met hodi oxide 400 1-[address] mg 09:32: mouth Hospita magnesium 16 daily. l capsule turmeric 2021-02 Yes 500mg Q.5D Take 500 Meth tushar root 1-[address] extract 09:32: mouth 2 Hospita 1,053 mg 16 (two) l tablet times a day. Take 1000mg daily flecainide 2021-02 Yes 50mg Q.5D Take 50 mg M ethodi (TAMBOCOR) 1-[address] 50 MG 09:32: (two) Hospita tablet 16 times a l day. benzonatate 2021-02 Yes 100mg Q.5D Take 100 M ethodi (TESSALON) 1-[address] 100 MG 09:32: mouth 2 Hospita capsule 16 (two) l times a day as needed for cough. glucosamine 2021-02 Yes Q.5D Take by Met hodi -chondroiti 1-[address] n 250-200 09:32: (two) Hospita mg tablet 16 times a l day. cyanocobala 2021-0 2021- No Place Meth tushar min, 09-27-17 under the vitamin 09:32: 00:00 tongue. Hospit a B-12, 25 :00 l (Vitamin B-12) 5,000 mcg/mL drops cyanocobala 2021-0 2021- No Place Meth tushar min, 09-27-17 under the vitamin 09:32: 00:00 tongue. Hospit a B-12, 25 :00 l (Vitamin B-12) 5,000 mcg/mL drops cyanocobala 2021-0 2021- No Place Meth tushar min, 09-27-17 under the vitamin 09:32: 00:00 tongue. Hospit a B-12, 25 :00 l (Vitamin B-12) 5,000 mcg/mL drops cyanocobala 2021-0 2021- No Place Meth tushar min, 09-27-17 under the vitamin 09:32: 00:00 tongue. Hospit a B-12, 25 :00 l (Vitamin B-12) 5,000 mcg/mL drops cholecalcif Yes 1000U QD Take 1,000 Methodi chrissy, 8-16 Units by vitamin D3, 13:07: mouth Hospi ta 125 mcg 42 daily. l (5,000 unit) tablet turmeric 0 Yes 500mg Q.5D Take 500 Meth tushar root 8-[address] extract 13:07: mouth 2 Hospita 1,053 mg 42 (two) l tablet times a day. Take 1000mg daily flecainide 0 Yes 50mg Q.5D Take 50 mg M ethodi (TAMBOCOR) 8-[address] 50 MG 13:07: (two) Hospita tablet 42 times a l day. benzonatate 0 Yes 100mg Q.5D Take 100 M ethodi (TESSALON) 8-[address] 100 MG 13:07: mouth 2 Hospita capsule 42 (two) l times a day as needed for cough. glucosamine 2022-0 Yes Q.5D Take by Met hodi -chondroiti 8-[address] n 250-200 13:07: (two) Hospita mg tablet 42 times a l day. cholecalcif 2022-0 Yes 1000U QD Take 1,000 Methodi chrissy, 8-[address] vitamin D3, 13:07: mouth Hospi ta 125 mcg 42 daily. l (5,000 unit) tablet cholecalcif 2022-0 Yes 1000U QD Take 1,000 Methodi chrissy, 8-[address] vitamin D3, 13:07: mouth Hospi ta 125 mcg 42 daily. l (5,000 unit) tablet fluticasone 2021-0 Yes 1{puff} Q.5D Inhale 1 Methodi -salmeterol 8-[address] (ADVAIR) 13:07: (two) Hospita 250-50 42 times a l mcg/dose day. DISKUS estradiol 2021-[address] 1 Met hodi [...] 42 (two) l times a day. losartan 2022-0 Yes 100mg QD Take 100 Meth tushar (COZAAR) 8-[address] 100 MG 13:07: mouth Hospita tablet 42 daily. l dexlansopra 2022-0 Yes 30mg QD Take 30 mg Methodi zole 8-[address] (DEXILANT) 13:07: daily. Hospi ta 30 mg 42 l capsule rivaroxaban Yes 15mg Take 15 mg Methodi (XARELTO) 8-[address] 15 mg 13:07: Hospita tablet 42 l ascorbic 0 Yes 1000mg QD Take 1,000 M ethodi acid, 8-16 mg by vitamin C, 13:07: mouth Hospit a (VITAMIN C) 42 daily. l 1000 MG tablet cranberry Yes Take by Metho di 400 mg 8-[address] capsule 13:07: Hospita 42 l cholecalcif Yes 1000U QD Take 1,000 Methodi chrissy, 8-16 Units by vitamin D3, 13:07: mouth Hospi ta 125 mcg 42 daily. l (5,000 unit) tablet biotin Yes Take by Methodi 5,000 mcg 8-[address] tablet,disi 13:07: Hospit a ntegrating 42 l magnesium Yes 250mg QD Take 250 Met hodi oxide 400 8-16 mg by mg 13:07: mouth Hospita magnesium 42 daily. l capsule glucosamine 2021- No Take by Ms thodi /D3/shalom 03-30 mouth. [facility] esme 09:46: 00:00 Hospita (OSTEO 56 :00 l BI-FLEX, 5-LOXIN, ORAL) glucosamine 2021- No Take by Ms thodi /D3/shalom 03-30 mouth. [facility] esme 09:46: 00:00 Hospita (OSTEO 56 :00 l BI-FLEX, 5-LOXIN, ORAL) glucosamine 2021- No Take by Ms thodi /D3/shalom 03-30 mouth. [facility] esme 09:46: 00:00 Hospita (OSTEO 56 :00 l BI-FLEX, 5-LOXIN, ORAL) sulfamethox 2021- No 1{tbl} Q.5D Take 1 M ethodi azole-trime 03-30 tablet by thoprim 00:00: 05:59 mouth 2 Hospit a (BACTRIM 00 :00 (two) l DS) 800-160 times a mg per day for 7 tablet days. sulfamethox 2021- No 1{tbl} Q.5D Take 1 M ethodi azole-trime [address] thoprim 00:00: 05:59 mouth 2 Hospit a (BACTRIM 00 :00 (two) l DS) 800-160 times a mg per day for 7 tablet days. sulfamethox 2021- No 1{tbl} Q.5D Take 1 M ethodi azole-trime [address] thoprim 00:00: 05:59 mouth 2 Hospit a (BACTRIM 00 :00 (two) l DS) 800-160 times a mg per day for 7 tablet days. glucosamine 2020-02 Yes Take by Uni vers /D3/shalom 2-20 mouth. ity of ia esme 11:33: [place] (OSTEO 52 Medical BI-FLEX, Branch 5-LOXIN, ORAL) glucosamine 2020-02 Yes Take by Uni vers /D3/shalom 2-20 mouth. ity of ia esme 11:33: [place] (OSTEO 52 Medical BI-FLEX, Branch 5-LOXIN, ORAL) glucosamine 2020-02 Yes Take by Uni vers /D3/shalom 2-20 mouth. ity of ia esme 11:33: [place] (OSTEO 52 Medical BI-FLEX, Branch 5-LOXIN, ORAL) glucosamine 2020-02 Yes Take by Uni vers /D3/shalom 2-20 mouth. ity of ia esme 11:33: [place] (OSTEO 52 Medical BI-FLEX, Branch 5-LOXIN, ORAL) glucosamine 2020-02 Yes Take by Uni vers /D3/shalom 2-20 mouth. ity of ia esme 11:33: [place] (OSTEO 52 Medical BI-FLEX, Branch 5-LOXIN, ORAL) glucosamine 2020-02 Yes Take by Uni vers /D3/shalom 2-20 mouth. ity of ia esme 11:33: [place] (OSTEO 52 Medical BI-FLEX, Branch 5-LOXIN, ORAL) glucosamine 2020-02 Yes Take by Uni vers /D3/shalom 2-20 mouth. ity of ia esme 11:33: [place] (OSTEO 52 Medical BI-FLEX, Branch 5-LOXIN, ORAL) glucosamine 2020-02 Yes Take by Uni vers /D3/shalom 2-20 mouth. ity of ia esme 11:33: [place] (OSTEO 52 Medical BI-FLEX, Branch 5-LOXIN, ORAL) glucosamine 2020-02 Yes Take by Uni vers /D3/shalom 2-20 mouth. ity of ia esme 11:33: [place] (OSTEO 52 Medical BI-FLEX, Branch 5-LOXIN, ORAL) glucosamine 2020-02 Yes Take by Uni vers /D3/shalom 2-20 mouth. ity of ia esme 11:33: [place] (OSTEO 52 Medical BI-FLEX, Branch 5-LOXIN, ORAL) glucosamine 2020-02 Yes Take by Uni vers /D3/shalom 2-20 mouth. ity of ia esme 11:33: [place] (OSTEO 52 Medical BI-FLEX, Branch 5-LOXIN, ORAL) glucosamine 2020-02 Yes Take by Uni vers /D3/shalom 2-20 mouth. ity of ia esme 11:33: [place] (OSTEO 52 Medical BI-FLEX, Branch 5-LOXIN, ORAL) glucosamine 2020-02 Yes Take by Uni vers /D3/shalom 2-20 mouth. ity of ia esme 11:33: [place] (OSTEO 52 Medical BI-FLEX, Branch 5-LOXIN, ORAL) glucosamine 2020-02 Yes Take by Uni vers /D3/shalom 2-20 mouth. ity of ia esme 11:33: [place] (OSTEO 52 Medical BI-FLEX, Branch 5-LOXIN, ORAL) Cranberry 2020-02 Yes Take by Unive rs 400 mg Cap 2-20 mouth. ity of 11:33: [address] Branch Cranberry 2020-02 Yes Take by Unive rs 400 mg Cap 2-20 mouth. ity of 11:33: [address] Branch Cranberry 2020-02 Yes Take by Unive rs 400 mg Cap 2-20 mouth. ity of 11:33: [address] Branch Cranberry 2020-02 Yes Take by Unive rs 400 mg Cap 2-20 mouth. ity of 11:33: [address] Branch Cranberry 2020-02 Yes Take by Unive rs 400 mg Cap 2-20 mouth. ity of 11:33: [address] Branch Cranberry 2020-02 Yes Take by Unive rs 400 mg Cap 2-20 mouth. ity of 11:33: [address] Cranberry 2020-02 Yes Take by Unive rs 400 mg Cap 2-20 mouth. ity of 11:33: [address] Cranberry 2020-02 Yes Take by Unive rs 400 mg Cap 2-20 mouth. ity of 11:33: [address] Cranberry 2020-02 Yes Take by Unive rs 400 mg Cap 2-20 mouth. ity of 11:33: [address] Cranberry 2020-02 Yes Take by Unive rs 400 mg Cap 2-20 mouth. ity of 11:33: [address] Cranberry 2020-02 Yes Take by Unive rs 400 mg Cap 2-20 mouth. ity of 11:33: [address] Cranberry 2020-02 Yes Take by Unive rs 400 mg Cap 2-20 mouth. ity of 11:33: [address] Cranberry 2020-02 Yes Take by Unive rs 400 mg Cap 2-20 mouth. ity of 11:33: [address] Cranberry 2020-02 Yes Take by Unive rs 400 mg Cap 2-20 mouth. ity of 11:33: [address] FLUTICASONE 2020-02 Yes Inhale. Uni vers /SALMETEROL 2-20 ity of (ADVAIR HFA 11:30: [place] INHALE) [address] [place] [address] fenofibrate 2020-02 Yes 48mg Take 48 mg Univers (TRICOR) 48 2-20 by mouth ity of mg tablet 11:30: daily. [address] Biotin 10 2020-02 Yes Take by Unive rs mg Tab 2-20 mouth. ity of 11:30: [address] turmeric 2020-02 Yes 900mg Take 900 Univ ers root 2-20 mg by ity of extract 500 11:30: [place]. [place] mg Cap [address] [place] [address] Dexlansopra 2020-02 Yes 1{capsu Take 1 U nivers zole 2-20 le} capsule by ity of (DEXILANT) 11:30: mouth. [place] 30 mg 08 Medical capsule Branch vitamin C 2020-02 Yes 1000mg Take 1,000 Univers with james 2-20 mg by ity of hips 11:30: mouth [place] (VITAMIN C) 08 daily. Medica l 1,000 mg Branch tablet Cholecalcif 2020-02 Yes Take by Uni vers chrissy, 2-20 mouth. ity of Vitamin D3, 11:30: [place] (VITAMIN [address] [place] [address] D3) 5,000 Branch unit tablet MAGNESIUM 2020-02 Yes 500mg Take 500 Uni vers ORAL 2-20 mg by ity of 11:30: mouth. [address] hydroCHLORO 2020-02 Yes 12.5mg Take 12.5 Univers thiazide 2-20 mg by ity of 12.5 mg 11:30: mouth. [place] capsule [address] [place] [address] levothyroxi 2020-02 Yes 88ug Take 88 Uni vers ne 2-20 mcg by ity of (UNITHROID) 11:30: mouth [place] 88 mcg 08 every Medical tablet morning. Branch FLUTICASONE 2020-02 Yes Inhale. Uni vers /SALMETEROL 2-20 ity of (ADVAIR HFA 11:30: [place] INHALE) [address] [place] [address] fenofibrate 2020-02 Yes 48mg Take 48 mg Univers (TRICOR) 48 2-20 by mouth ity of mg tablet 11:30: daily. [address] Biotin 10 2020-02 Yes Take by Unive rs mg Tab 2-20 mouth. ity of 11:30: [address] turmeric 2020-02 Yes 900mg Take 900 Univ ers root 2-20 mg by ity of extract 500 11:30: [place]. [place] mg Cap [address] [place] [address] Dexlansopra 2020-02 Yes 1{capsu Take 1 U nivers zole 2-20 le} capsule by ity of (DEXILANT) 11:30: mouth. [place] 30 mg Medical capsule Branch vitamin C 2020-02 Yes 1000mg Take 1,000 Univers with james 2-20 mg by ity of hips 11:30: mouth [place] (VITAMIN C) 08 daily. Medica l 1,000 mg Branch tablet Cholecalcif 2020-02 Yes Take by Uni vers chrissy, 2-20 mouth. ity of Vitamin D3, 11:30: [place] (VITAMIN Medical D3) 5,000 Branch unit tablet MAGNESIUM 2020-02 Yes 500mg Take 500 Uni vers ORAL 2-20 mg by ity of 11:30: mouth. [address] hydroCHLORO 2020-02 Yes 12.5mg Take 12.5 Univers thiazide 2-20 mg by ity of 12.5 mg 11:30: mouth. [place] capsule Medical Branch levothyroxi 2020-02 Yes 88ug Take 88 Uni vers ne 2-20 mcg by ity of (UNITHROID) 11:30: mouth [place] 88 mcg 08 every Medical tablet morning. Branch FLUTICASONE 2020-02 Yes Inhale. Uni vers /SALMETEROL 2-20 ity of (ADVAIR HFA 11:30: [place] INHALE) Medical Branch fenofibrate 2020-02 Yes 48mg Take 48 mg Univers (TRICOR) 48 2-20 by mouth ity of mg tablet 11:30: daily. [address] Branch Biotin 10 2020-02 Yes Take by Unive rs mg Tab 2-20 mouth. ity of 11:30: [address] Branch turmeric 2020-02 Yes 900mg Take 900 Univ ers root 2-20 mg by ity of extract 500 11:30: [place]. [place] mg [place] [address] [place] [address] Branch Dexlansopra 2020-02 Yes 1{capsu Take 1 [...] 2-20 mouth. ity of Vitamin D3, 11:30: [place] (VITAMIN [address] [place] [address] D3) 5,000 Branch unit tablet MAGNESIUM 2020-02 Yes 500mg Take 500 Uni vers ORAL 2-20 mg by ity of 11:30: mouth. [address] Branch hydroCHLORO 2020-02 Yes 12.5mg Take 12.5 Univers thiazide 2-20 mg by ity of 12.5 mg 11:30: mouth. [place] capsule Medical Branch levothyroxi 2020-02 Yes 88ug Take 88 Uni vers ne 2-20 mcg by ity of (UNITHROID) 11:30: mouth [place] 88 mcg 08 every Medical tablet morning. Branch FLUTICASONE 2020-02 Yes Inhale. Uni vers /SALMETEROL 2-20 ity of (ADVAIR HFA 11:30: [place] INHALE) [address] [place] [address] Branch fenofibrate 2020-02 Yes 48mg Take 48 mg Univers (TRICOR) 48 2-20 by mouth ity of mg tablet 11:30: daily. [address] Biotin 10 2020-02 Yes Take by Unive rs mg Tab 2-20 mouth. ity of 11:30: [address] turmeric 2020-02 Yes 900mg Take 900 Univ ers root 2-20 mg by ity of extract 500 11:30: [place]. [place] mg [place] [address] [place] [address] Dexlansopra 2020-02 Yes 1{capsu Take 1 U nivers zole 2-20 le} capsule by ity of (DEXILANT) 11:30: mouth. [place] 30 mg Medical capsule Branch vitamin C 2020-02 Yes 1000mg Take 1,000 Univers with james 2-20 mg by ity of hips 11:30: mouth [place] (VITAMIN C) 08 daily. Medica l 1,000 mg Branch tablet Cholecalcif 2020-02 Yes Take by Uni vers chrissy, 2-20 mouth. ity of Vitamin D3, 11:30: [place] (VITAMIN [address] [place] [address] D3) 5,000 Branch unit tablet MAGNESIUM 2020-02 Yes 500mg Take 500 Uni vers ORAL 2-20 mg by ity of 11:30: mouth. [address] hydroCHLORO 2020-02 Yes 12.5mg Take 12.5 Univers thiazide 2-20 mg by ity of 12.5 mg 11:30: mouth. [place] capsule [address] [place] [address] levothyroxi 2020-02 Yes 88ug Take 88 Uni vers ne 2-20 mcg by ity of (UNITHROID) 11:30: mouth [place] 88 mcg 08 every Medical tablet morning. Branch FLUTICASONE 2020-02 Yes Inhale. Uni vers /SALMETEROL 2-20 ity of (ADVAIR HFA 11:30: [place] INH[address] fenofibrate 2020-02 Yes 48mg Take 48 mg Univers (TRICOR) 48 2-20 by mouth ity of mg tablet 11:30: daily. [address] Biotin 10 2020-02 Yes Take by Unive rs mg Tab 2-20 mouth. ity of 11:30: [address] turmeric 2020-02 Yes 900mg Take 900 Univ ers root 2-20 mg by [place] [place] extract 500 11:30: [place] mg Cap [facility] Dexlansopra 2020-02 Yes 1{capsu Take 1 U nivers zole 2-20 le} capsule by ity of (DEXILANT) 11:30: mouth. [place] 30 mg Medical capsule Branch vitamin C 2020-02 Yes 1000mg Take 1,000 Univers with james 2-20 mg by ity of hips 11:30: mouth [place] (VITAMIN C) 08 daily. Medica l 1,000 mg Branch tablet Cholecalcif 2020-02 Yes Take by Uni vers chrissy, 2-20 mouth. ity of Vitamin D3, 11:30: [place] (VITAMIN [address] [place] [address] D3) 5,000 Branch unit tablet MAGNESIUM 2020-02 Yes 500mg Take 500 Uni vers ORAL 2-20 mg by ity of 11:30: mouth. [address] Branch hydroCHLORO 2020-02 Yes 12.5mg Take 12.5 [facility] thiazide 2-20 mg by ity of 12.5 mg 11:30: mouth. [place] capsule [address] [place] [address] levothyroxi 2020-02 Yes 88ug Take 88 Uni vers ne 2-20 mcg by ity of (UNITHROID) 11:30: mouth [place] 88 mcg 08 every Medical tablet morning. Branch FLUTICASONE 2020-02 Yes Inhale. Uni vers /SALMETEROL 2-20 ity of (ADVAIR HFA 11:30: [place] INHALE) [address] [place] [address] fenofibrate 2020-02 Yes 48mg Take 48 mg [facility] (TRICOR) 48 2-20 by mouth ity of mg tablet 11:30: daily. [address] Biotin 10 2020-02 Yes Take by Unive rs mg Tab 2-20 mouth. ity of 11:30: [address] Branch turmeric 2020-02 Yes 900mg Take 900 Univ ers root 2-20 mg by [place] [place] extract 500 11:30: [place]. [place] [address] [place] [address] Branch Dexlansopra 2020-02 Yes 1{capsu Take 1 [...] 2-20 mouth. ity of Vitamin D3, 11:30: [place] (VITAMIN Medical D3) 5,000 Branch unit tablet MAGNESIUM 2020-02 Yes 500mg Take 500 Uni vers ORAL 2-20 mg by ity of 11:30: mouth. [address] hydroCHLORO 2020-02 Yes 12.5mg Take 12.5 [facility] thiazide 2-20 mg by ity of 12.5 mg 11:30: mouth. [place] capsule [address] [place] [address] Branch levothyroxi 2020-02 Yes 88ug Take 88 Uni vers ne 2-20 mcg by ity of (UNITHROID) 11:30: mouth [place] 88 mcg 08 every Medical tablet morning. Branch FLUTICASONE 2020-02 Yes Inhale. Uni vers /SALMETEROL 2-20 ity of (ADVAIR HFA 11:30: [place] INHALE) [address] [place] [address] fenofibrate 2020-02 Yes 48mg Take 48 mg Univers (TRICOR) 48 2-20 by mouth ity of mg tablet 11:30: daily. [address] Biotin 10 2020-02 Yes Take by Unive rs mg Tab 2-20 mouth. ity of 11:30: [address] turmeric 2020-02 Yes 900mg Take 900 Univ ers root 2-20 mg by [facility]y of extract 500 11:30: [place]. [place] [address] [place] [address] Dexlansopra 2020-02 Yes 1{capsu Take 1 U [...] 2-20 mouth. ity of Vitamin D3, 11:30: [place] (VITAMIN Medical D3) 5,000 Branch unit tablet MAGNESIUM 2020-02 Yes 500mg Take 500 Uni vers ORAL 2-20 mg by ity of 11:30: mouth. [address] hydroCHLORO 2020-02 Yes 12.5mg Take 12.5 [facility] thiazide 2-20 mg by ity of 12.5 mg 11:30: mouth. [place] capsule [address] [place] [address] Branch levothyroxi 2020-02 Yes 88ug Take 88 Uni vers ne 2-20 mcg by ity of (UNITHROID) 11:30: mouth [place] 88 mcg 08 every Medical tablet morning. Branch FLUTICASONE 2020-02 Yes Inhale. Uni vers /SALMETEROL 2-20 ity of (ADVAIR HFA 11:30: [place] INHALE) [address] [place] [address] Branch fenofibrate 2020-02 Yes 48mg Take 48 mg Univers (TRICOR) 48 2-20 by mouth ity of mg tablet 11:30: daily. [address] Biotin 10 2020-02 Yes Take by Unive rs mg Tab 2-20 mouth. ity of 11:30: [address] turmeric 2020-02 Yes 900mg Take 900 Univ ers root 2-20 mg by [facility] of extract 500 11:30: [place]. [place] [address] [place] [address] Branch Dexlansopra 2020-02 Yes 1{capsu Take 1 [...] 2-20 mouth. ity of Vitamin D3, 11:30: [place] (VITAMIN [address] [place] [address] D3) 5,000 Branch unit tablet MAGNESIUM 2020-02 Yes 500mg Take 500 Uni vers ORAL 2-20 mg by ity of 11:30: mouth. [address] Branch hydroCHLORO 2020-02 Yes 12.5mg Take 12.5 [facility] thiazide 2-20 mg by ity of 12.5 mg 11:30: mouth. [place] capsule [address] [place] [address] levothyroxi 2020-02 Yes 88ug Take 88 Uni vers ne 2-20 mcg by ity of (UNITHROID) 11:30: mouth [place] 88 mcg 08 every Medical tablet morning. Branch FLUTICASONE 2020-02 Yes Inhale. Uni vers /SALMETEROL 2-20 ity of (ADVAIR HFA 11:30: [place] INHALE) [address] [place] [address] Branch fenofibrate 2020-02 Yes 48mg Take 48 mg Univers (TRICOR) 48 2-20 by mouth ity of mg tablet 11:30: daily. [address] Biotin 10 2020-02 Yes Take by Unive rs mg Tab 2-20 mouth. ity of 11:30: [address] turmeric 2020-02 Yes 900mg Take 900 Univ ers root 2-20 mg by [facility]y of extract 500 11:30: [place]. [place] Cap [address] [place] [address] Branch Dexlansopra 2020-02 Yes 1{capsu Take 1 U nivers zole 2-20 le} capsule by ity of (DEXILANT) 11:30: mouth. [place] 30 mg Medical capsule Branch vitamin C 2020-02 Yes 1000mg Take 1,000 [facility] with james 2-20 mg by ity of hips 11:30: mouth [place] (VITAMIN C) 08 daily. Medica l 1,000 mg Branch tablet Cholecalcif 2020-02 Yes Take by Uni vers chrissy, 2-20 mouth. ity of Vitamin D3, 11:30: [place] (VITAMIN [address] [place] [address] D3) 5,000 Branch unit tablet MAGNESIUM 2020-02 Yes 500mg Take 500 Uni vers ORAL 2-20 mg by ity of 11:30: mouth. [address] hydroCHLORO 2020-02 Yes 12.5mg Take 12.5 [facility] thiazide 2-20 mg by ity of 12.5 mg 11:30: mouth. [place] capsule [address] [place] [address] levothyroxi 2020-02 Yes 88ug Take 88 Uni vers ne 2-20 mcg by ity of (UNITHROID) 11:30: mouth [place] 88 mcg 08 every Medical tablet morning. Branch FLUTICASONE 2020-02 Yes Inhale. Uni vers /SALMETEROL 2-20 ity of (ADVAIR HFA 11:30: [place] INHALE) [address] [place] [address] fenofibrate 2020-02 Yes 48mg Take 48 mg Univers (TRICOR) 48 2-20 by mouth ity of mg tablet 11:30: daily. [address] Biotin 10 2020-02 Yes Take by Unive rs mg Tab 2-20 mouth. ity of 11:30: [address] turmeric 2020-02 Yes 900mg Take 900 Univ ers root 2-20 mg by ity of extract 500 11:30: [place]. [place] mg Cap [facility] Dexlansopra 2020-02 Yes 1{capsu Take 1 U nivers zole 2-20 le} capsule by ity of (DEXILANT) 11:30: mouth. [place] 30 mg Medical capsule Branch vitamin C 2020-02 Yes 1000mg Take 1,000 Univers with james 2-20 mg by ity of hips 11:30: mouth [place] (VITAMIN C) 08 daily. Medica l 1,000 mg Branch tablet Cholecalcif 2020-02 Yes Take by Uni vers chrissy, 2-20 mouth. ity of Vitamin D3, 11:30: [place] (VITAMIN [address] [place] [address] D3) 5,000 Branch unit tablet MAGNESIUM 2020-02 Yes 500mg Take 500 Uni vers ORAL 2-20 mg by ity of 11:30: mouth. [address] Branch hydroCHLORO 2020-02 Yes 12.5mg Take 12.5 [facility] thiazide 2-20 mg by ity of 12.5 mg 11:30: mouth. [place] capsule [address] [place] [address] Branch levothyroxi 2020-02 Yes 88ug Take 88 Uni vers ne 2-20 mcg by ity of (UNITHROID) 11:30: mouth [place] 88 mcg 08 every Medical tablet morning. Branch FLUTICASONE 2020-02 Yes Inhale. Uni vers /SALMETEROL 2-20 ity of (ADVAIR HFA 11:30: [place] INHALE) [address] [place] [address] Branch fenofibrate 2020-02 Yes 48mg Take 48 mg Univers (TRICOR) 48 2-20 by mouth ity of mg tablet 11:30: daily. [address] Biotin 10 2020-02 Yes Take by Unive rs mg Tab 2-20 mouth. ity of 11:30: [place] [address] Medical Branch turmeric 2020-02 Yes 900mg Take 900 Univ ers root 2-20 mg by ity of extract 500 11:30: [place]. [place] mg Cap [facility] Dexlansopra 2020-02 Yes 1{capsu Take 1 U nivers zole 2-20 le} capsule by ity of (DEXILANT) 11:30: mouth. [place] 30 mg Medical capsule Branch vitamin C 2020-02 Yes 1000mg Take 1,000 Univers with james 2-20 mg by ity of hips 11:30: mouth [place] (VITAMIN C) 08 daily. Medica l 1,000 mg Branch tablet Cholecalcif 2020-02 Yes Take by Uni vers chrissy, 2-20 mouth. ity of Vitamin D3, 11:30: [place] (VITAMIN Medical D3) 5,000 Branch unit tablet MAGNESIUM 2020-02 Yes 500mg Take 500 Uni vers ORAL 2-20 mg by ity of 11:30: mouth. [address] Branch hydroCHLORO 2020-02 Yes 12.5mg Take 12.5 [facility] thiazide 2-20 mg by ity of 12.5 mg 11:30: mouth. [place] capsule [address] [place] [address] Branch levothyroxi 2020-02 Yes 88ug Take 88 Uni vers ne 2-20 mcg by ity of (UNITHROID) 11:30: mouth [place] 88 mcg 08 every Medical tablet morning. Branch FLUTICASONE 2020-02 Yes Inhale. Uni vers /SALMETEROL 2-20 ity of (ADVAIR HFA 11:30: [place] INHALE) [address] [place] [address] Branch fenofibrate 2020-02 Yes 48mg Take 48 mg Univers (TRICOR) 48 2-20 by mouth ity of mg tablet 11:30: daily. [address] Biotin 10 2020-02 Yes Take by Unive rs mg Tab 2-20 mouth. ity of 11:30: [address] turmeric 2020-02 Yes 900mg Take 900 Univ ers root 2-20 mg by ity of extract 500 11:30: mouth. [place] mg Cap [address] [place] [address] Branch Dexlansopra 2020-02 Yes 1{capsu Take 1 [...] 2-20 mouth. ity of Vitamin D3, 11:30: [place] (VITAMIN Medical D3) 5,000 Branch unit tablet MAGNESIUM 2020-02 Yes 500mg Take 500 Uni vers ORAL 2-20 mg by ity of 11:30: mouth. [address] hydroCHLORO 2020-02 Yes 12.5mg Take 12.5 Univers thiazide 2-20 mg by ity of 12.5 mg 11:30: mouth. [place] capsule [address] [place] [address] levothyroxi 2020-02 Yes 88ug Take 88 Uni vers ne 2-20 mcg by ity of (UNITHROID) 11:30: mouth [place] 88 mcg 08 every Medical tablet morning. Branch FLUTICASONE 2020-02 Yes Inhale. Uni vers /SALMETEROL 2-20 ity of (ADVAIR HFA 11:30: [place] INHALE) [address] [place] [address] fenofibrate 2020-02 Yes 48mg Take 48 mg Univers (TRICOR) 48 2-20 by mouth ity of mg tablet 11:30: daily. [address] Biotin 10 2020-02 Yes Take by Unive rs mg Tab 2-20 mouth. ity of 11:30: [address] turmeric 2020-02 Yes 900mg Take 900 Univ ers root 2-20 mg by ity of extract 500 11:30: mouth. [place] mg Cap [address] [place] [address] Dexlansopra 2020-02 Yes 1{capsu Take 1 U nivers zole 2-20 le} capsule by ity of (DEXILANT) 11:30: mouth. [place] 30 mg Medical capsule Branch vitamin C 2020-02 Yes 1000mg Take 1,000 Univers with james 2-20 mg by ity of hips 11:30: mouth [place] (VITAMIN C) 08 daily. Medica l 1,000 mg Branch tablet Cholecalcif 2020-02 Yes Take by Uni vers chrissy, 2-20 mouth. ity of Vitamin D3, 11:30: [place] (VITAMIN [address] [place] [address] D3) 5,000 [place] unit tablet MAGNESIUM 2020-02 Yes 500mg Take 500 Uni vers ORAL 2-20 mg by ity of 11:30: mouth. [address] hydroCHLORO 2020-02 Yes 12.5mg Take 12.5 Univers thiazide 2-20 mg by ity of 12.5 mg 11:30: mouth. [place] capsule [address] [place] [address] levothyroxi 2020-02 Yes 88ug Take 88 Uni vers ne 2-20 mcg by ity of (UNITHROID) 11:30: mouth [place] 88 mcg 08 every Medical tablet morning. Branch FLUTICASONE 2020-02 Yes Inhale. Uni vers /SALMETEROL 2-20 ity of (ADVAIR HFA 11:30: [place] INHALE) Medical Branch fenofibrate 2020-02 Yes 48mg Take 48 mg Univers (TRICOR) 48 2-20 by mouth ity of mg tablet 11:30: daily. [address] Branch Biotin 10 2020-02 Yes Take by Unive rs mg Tab 2-20 mouth. ity of 11:30: [address] Branch turmeric 2020-02 Yes 900mg Take 900 Univ ers root 2-20 mg by ity of extract 500 11:30: [place]. [place] Cap [address] [place] [address] Branch Dexlansopra 2020-02 Yes 1{capsu Take 1 [...] 2-20 mouth. ity of Vitamin D3, 11:30: [place] (VITAMIN [address] [place] [address] D3) 5,000 Branch unit tablet MAGNESIUM 2020-02 Yes 500mg Take 500 Uni vers ORAL 2-20 mg by ity of 11:30: mouth. [address] Branch hydroCHLORO 2020-02 Yes 12.5mg Take 12.5 [facility] thiazide 2-20 mg by ity of 12.5 mg 11:30: mouth. [place] capsule [address] [place] [address] Branch levothyroxi 2020-02 Yes 88ug Take 88 Uni vers ne 2-20 mcg by ity of (UNITHROID) 11:30: mouth [place] 88 mcg 08 every Medical tablet morning. Branch ciprofloxac 2020-02- No [id number] 500mg Take 1 Univers in HCl 2-20 12-28 tablet by ity of (CIPRO) 500 00:00: 05:59 mouth [place] mg tablet 00 :00 every 12 Medica l (twelve) Branch hours for 7 days. acetylcyste 2020-02 Yes Univer s ine 200 2-08 ity of mg/mL (20 00:00: [place] %) solution [facility] Branch acetylcyste 2020-02 Yes Univer s ine 200 2-08 ity of mg/mL (20 00:00: [place] %) solution 00 Medical Branch acetylcyste 2020-02 Yes Univer s ine 200 2-08 ity of mg/mL (20 00:00: [place] %) solution 00 Medical Branch acetylcyste 2020-02 Yes Univer s ine 200 2-08 ity of mg/mL (20 00:00: [place] %) solution 00 Medical Branch acetylcyste 2020-02 Yes Univer s ine 200 2-08 ity of mg/mL (20 00:00: [place] %) solution 00 Medical Branch acetylcyste 2020-02 Yes Univer s ine 200 2-08 ity of mg/mL (20 00:00: [place] %) solution 00 Medical Branch acetylcyste 2020-02 Yes Univer s ine 200 2-08 ity of mg/mL (20 00:00: [place] %) solution 00 Medical Branch acetylcyste 2020-02 Yes Univer s ine 200 2-08 ity of mg/mL (20 00:00: [place] %) solution 00 Medical Branch acetylcyste 2020-02 Yes Univer s ine 200 2-08 ity of mg/mL (20 00:00: [place] %) solution 00 Medical Branch acetylcyste 2020-02 Yes Univer s ine 200 2-08 ity of mg/mL (20 00:00: [place] %) solution 00 Medical Branch acetylcyste 2020-02 Yes Univer s ine 200 2-08 ity of mg/mL (20 00:00: [place] %) solution 00 Medical Branch acetylcyste 2020-02 Yes Univer s ine 200 2-08 ity of mg/mL (20 00:00: [place] %) solution 00 Medical Branch acetylcyste 2020-02 Yes Univer s ine 200 2-08 ity of mg/mL (20 00:00: [place] %) solution 00 Medical Branch acetylcyste 2020-02 Yes Univer s ine 200 2-08 ity of mg/mL (20 00:00: [place] %) solution 00 Medical Branch albuterol 2020-02 Yes Univers 90 0-23 ity of mcg/actuati 00:00: [place] on inhaler 00 Medical Branch albuterol 2020-02 Yes Univers 90 0-23 ity of mcg/actuati 00:00: [place] on inhaler Medical Branch albuterol 2020-02 Yes Univers 90 0-23 ity of mcg/actuati 00:00: [place] on inhaler Medical Branch albuterol 2020-02 Yes Univers 90 0-23 ity of mcg/actuati 00:00: [place] on inhaler Medical Branch albuterol 2020-02 Yes Univers 90 0-23 ity of mcg/actuati 00:00: [place] on inhaler Medical Branch albuterol 2020-02 Yes Univers 90 0-23 ity of mcg/actuati 00:00: [place] on inhaler Medical Branch albuterol 2020-02 Yes Univers 90 0-23 ity of mcg/actuati 00:00: [place] on inhaler Medical Branch albuterol 2020-02 Yes Univers 90 0-23 ity of mcg/actuati 00:00: [place] on inhaler Medical Branch albuterol 2020-02 Yes Univers 90 0-23 ity of mcg/actuati 00:00: [place] on inhaler Medical Branch albuterol 2020-02 Yes Univers 90 0-23 ity of mcg/actuati 00:00: [place] on inhaler Medical Branch albuterol 2020-02 Yes Univers 90 0-23 ity of mcg/actuati 00:00: [place] on inhaler Medical Branch albuterol 2020-02 Yes Univers 90 0-23 ity of mcg/actuati 00:00: [place] on inhaler Medical Branch albuterol 2020-02 Yes Univers 90 0-23 ity of mcg/actuati 00:00: [place] on inhaler Medical Branch albuterol 2020-02 Yes Univers 90 0-23 ity of mcg/actuati 00:00: [place] on inhaler Medical Branch thyroid, 2020-02- No 75mg QD Take 75 mg Me thodi pork, 0-21 10-[address] (ARMOUR 09:42: 00:00 daily. Hospita THYROID) 60 12 :00 l mg tablet tizanidine Yes 4 mg = 1 Mem oria 4 mg oral 8-12 cap, PO, l capsule 16:14: Q8H, PRN [place] n 00 for muscle spasms, # 90 cap, 0 Refill(s) NAC 2021-0 Yes NAC, See Memoria 09-22 Instructio l 16:14: ns, 1 po [place] 00 bid, Refill(s) 0 tizanidine 2021-0 Yes 4 mg = 1 Mem oria 4 mg oral 8-12 cap, PO, l capsule 16:14: Q8H, PRN [place] 00 for muscle spasms, # 90 cap, 0 Refill(s) NAC 2020-0 Yes NAC, See Memoria 09-22 Instructio l 16:14: ns, 1 po [place] 00 bid, Refill(s) 0 tizanidine 1-0 Yes 4 mg = 1 Mem oria 4 mg oral 8-12 cap, PO, l capsule 16:14: Q8H, PRN [place] 00 for muscle spasms, # 90 cap, 0 Refill(s) NAC 2020-0 Yes NAC, See Memoria 09-22 Instructio l 16:14: ns, 1 po [place] 00 bid, Refill(s) 0 tizanidine 1-0 Yes 4 mg = 1 Mem oria 4 mg oral 8-12 cap, PO, l capsule 16:14: Q8H, PRN [place] 00 for muscle spasms, # 90 cap, 0 Refill(s) NAC 2020-0 Yes NAC, See Memoria 09-22 Instructio l 16:14: ns, 1 po [place] 00 bid, Refill(s) 0 tizanidine 1-0 Yes 4 mg = 1 Mem oria 4 mg oral 8-12 cap, PO, l capsule 16:14: Q8H, PRN [place] 00 for muscle spasms, # 90 cap, 0 Refill(s) NAC 2020-0 Yes NAC, See Memoria 09-22 Instructio l 16:14: ns, 1 po [place] 00 bid, Refill(s) 0 Levothyroxi 2020-0 Yes = 1 tab, Me moria ne Sodium 6-24 PO, Daily, l 0.088 MG 21:52: # 90 tab, Herm karrie Oral Tablet 00 1 [Unithroid] Refill(s), [place], Pharmacy: [facility], 165.1, cm, 03/17/20 13:22: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, Height, 74.591, kg, 03/17/20 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1, cm, 03/17/20 13:22: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, Height, 74.591, kg, 03/17/20 13:22: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, Weight Levothyroxi 0 Yes = 1 tab, Me moria ne Sodium 6-24 PO, Daily, l 0.088 MG 21:52: # 90 tab, Herm karrie Oral Tablet 00 1 [Unithroid] Refill(s), [facility], Pharmacy: [facility], 165.1, cm, 03/17/20 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 (MEDROL 00:00: 00:00 Hospita DOSEPAK) 4 00 :00 l mg tablet fluticasone 2019-02 Yes 100ug QD 2 sprays M ethodi propionate 1-[address] (FLONASE) 00:00: Nare route Ho spita 50 00 daily. l mcg/actuati on nasal spray fluticasone 2019- Yes 100ug QD 2 sprays M ethodi propionate 1-[address] (FLONASE) 00:00: Nare route [facility] spita 50 00 daily. l mcg/actuati on nasal spray fluticasone 2020- Yes 100ug QD 2 sprays M ethodi propionate 1-[address] (FLONASE) 00:00: Nare route [facility] sp[facility] 50 00 daily. l mcg/actuati on nasal spray fluticasone 2019- Yes 100ug QD 2 sprays M ethodi propionate 1-[address] (FLONASE) 00:00: Nare route [facility] spita 50 00 daily. l mcg/actuati on nasal spray fluticasone 2019- Yes 2{spray Use 2 Un jignesh propionate 1-18 } Sprays in ity of 50 00:00: each [place] mcg/actuati 00 nostril. Medi mk on nasal Branch spray fluticasone 2019-02 Yes 2{spray Use 2 Un jignesh propionate 1-18 } Sprays in ity of 50 00:00: each [place] mcg/actuati 00 nostril. Medi mk on nasal Branch spray fluticasone 2019- Yes 2{spray Use 2 Un jignesh propionate 1-18 } Sprays in ity of 50 00:00: each [place] mcg/actuati 00 nostril. Medi mk on nasal Branch spray fluticasone 2019- Yes 2{spray Use 2 Un jignesh propionate 1-18 } Sprays in ity of 50 00:00: each [place] mcg/actuati 00 nostril. Medi mk on nasal Branch spray fluticasone 2019- Yes 2{spray Use 2 Un jignesh propionate 1-18 } Sprays in ity of 50 00:00: each [place] mcg/actuati 00 nostril. Medi mk on nasal Branch spray fluticasone 2019- Yes 2{spray Use 2 Un jignesh propionate 1-18 } Sprays in ity of 50 00:00: each [place] mcg/actuati 00 nostril. Medi mk on nasal Branch spray fluticasone 2019- Yes 2{spray Use 2 Un jignesh propionate 1-18 } Sprays in ity of 50 00:00: each [place] mcg/actuati 00 nostril. Medi mk on nasal Branch spray fluticasone 2020-1 Yes 2{spray Use 2 Un jignesh propionate 1-18 } Sprays in ity of 50 00:00: each [place] mcg/actuati 00 nostril. Medi mk on nasal Branch spray fluticasone 2020-1 Yes 2{spray Use 2 Un jignesh propionate 1-18 } Sprays in ity of 50 00:00: each [place] mcg/actuati 00 nostril. Medi mk on nasal Branch spray fluticasone 2020-1 Yes 2{spray Use 2 Un jignesh propionate 1-18 } Sprays in ity of 50 00:00: each [place] mcg/actuati 00 nostril. Medi mk on nasal Branch spray fluticasone 2020-1 Yes 2{spray Use 2 Un jignesh propionate 1-18 } Sprays in ity of 50 00:00: each [place] mcg/actuati 00 nostril. Medi mk on nasal Branch spray fluticasone 2020-1 Yes 2{spray Use 2 Un jignesh propionate 1-18 } Sprays in ity of 50 00:00: each [place] mcg/actuati 00 nostril. Medi mk on nasal Branch spray fluticasone 2020-1 Yes 2{spray Use 2 Un jignesh propionate 1-18 } Sprays in ity of 50 00:00: each [place] mcg/actuati 00 nostril. Medi mk on nasal Branch spray fluticasone 2020-1 Yes 2{spray Use 2 Un jignesh propionate 1-18 } Sprays in ity of 50 00:00: each [place] mcg/actuati 00 nostril. Medi mk on nasal Branch spray acetylcyste 2020-1 Yes INHALE 2 Me thodi ine 1-[address] (MUCOMYST) 00:00: NEBULIZER Ho spita 200 mg/mL 00 TWICE l (20 %) DAILY solution NEEDED FOR CONGESTION acetylcyste 2019-1 Yes INHALE 2 Me thodi ine 1-[address] (MUCOMYST) 00:00: NEBULIZER [facility] 200 mg/mL 00 TWICE l (20 %) DAILY solution NEEDED FOR CONGESTION acetylcyste 2019- Yes INHALE 2 Me thodi ine 1-[address] (MUCOMYST) 00:00: NEBULIZER [facility] spita 200 mg/mL 00 TWICE l (20 %) DAILY solution NEEDED FOR CONGESTION acetylcyste 2020-1 Yes INHALE 2 Me thodi ine 1-[address] (MUCOMYST) 00:00: NEBULIZER [facility] spita 200 mg/mL 00 TWICE l (20 %) DAILY solution NEEDED FOR CONGESTION acetylcyste 2020-1 Yes INHALE [...] Medical DAILY Branch NEEDED FOR CONGESTION acetylcyste 2020- Yes INHALE 2 Un jignesh ine 200 1-09 ML BY ity of mg/mL (20 00:00: NEBULIZER [place] as %) solution 00 TWICE Medical DAILY Branch NEEDED FOR CONGESTION acetylcyste 2020- Yes INHALE 2 Un jignesh ine 200 1-09 ML BY ity of mg/mL (20 00:00: NEBULIZER [place] as %) solution 00 TWICE Medical DAILY Branch NEEDED FOR CONGESTION acetylcyste 2020- Yes INHALE 2 Un jignesh ine 200 1-09 ML BY ity of mg/mL (20 00:00: NEBULIZER [place] as %) solution 00 TWICE Medical DAILY Branch NEEDED FOR CONGESTION acetylcyste 2020- Yes INHALE 2 Un jignesh ine 200 1-09 ML BY ity of mg/mL (20 00:00: NEBULIZER [place] as %) solution 00 TWICE Medical DAILY Branch NEEDED FOR CONGESTION azelastine 2020- Yes USE 2 Method i (ASTELIN) 1-03 SPRAY(S) st 137 mcg 00:00: IN EACH Hospita (0.1 %) 00 NOSTRIL l nasal spray TWICE DAILY azelastine 2020- Yes USE 2 Method i (ASTELIN) 1-03 SPRAY(S) st 137 mcg 00:00: IN EACH Hospita (0.1 %) 00 NOSTRIL l nasal spray TWICE DAILY azelastine 2020- Yes USE 2 Method i (ASTELIN) 1-03 SPRAY(S) st 137 mcg 00:00: IN EACH Hospita (0.1 %) 00 NOSTRIL l nasal spray TWICE DAILY azelastine 2020- Yes USE 2 Method i (ASTELIN) 1-03 SPRAY(S) st 137 mcg 00:00: IN EACH Hospita (0.1 %) 00 NOSTRIL l nasal spray TWICE DAILY azelastine 2020- Yes USE 2 [facility] 137 mcg 1-03 SPRAY(S) ity of (0.1 %) 00:00: IN EACH [place] nasal spray 00 NOSTRIL Medic al TWICE Branch DAILY azelastine 2020- Yes USE 2 [facility] 137 mcg 1-03 SPRAY(S) ity of (0.1 %) 00:00: IN EACH [place] nasal spray 00 NOSTRIL Medic al TWICE Branch DAILY azelastine 2019-02 Yes USE 2 [facility] 137 mcg 1-03 SPRAY(S) ity of (0.1 %) 00:00: IN EACH [place] nasal spray 00 NOSTRIL Medic al TWICE Branch DAILY azelastine 2019-02 Yes USE 2 [facility] 137 mcg 1-03 SPRAY(S) ity of (0.1 %) 00:00: IN EACH [place] nasal spray 00 NOSTRIL Medic al TWICE Branch DAILY azelastine 2019-02 Yes USE 2 Univer s 137 mcg 1-03 SPRAY(S) ity of (0.1 %) 00:00: IN EACH [place] nasal spray 00 NOSTRIL Medic al TWICE Branch DAILY azelastine 2020 Yes USE 2 Univer s 137 mcg 1-03 SPRAY(S) ity of (0.1 %) 00:00: IN EACH [place] nasal spray 00 NOSTRIL Medic al TWICE Branch DAILY azelastine 2019-02 Yes USE 2 Univer s 137 mcg 1-03 SPRAY(S) ity of (0.1 %) 00:00: IN EACH [place] nasal spray 00 NOSTRIL Medic al TWICE Branch DAILY azelastine 2019-02 Yes USE 2 Univer s 137 mcg 1-03 SPRAY(S) ity of (0.1 %) 00:00: IN EACH [place] nasal spray 00 NOSTRIL Medic al TWICE Branch DAILY azelastine 2020- Yes USE 2 Univer s 137 mcg 1-03 SPRAY(S) ity of (0.1 %) 00:00: IN EACH [place] nasal spray 00 NOSTRIL Medic al TWICE Branch DAILY azelastine 2020- Yes USE 2 Univer s 137 mcg 1-03 SPRAY(S) ity of (0.1 %) 00:00: IN EACH [place] nasal spray 00 NOSTRIL Medic al TWICE Branch DAILY azelastine 2020- Yes USE 2 Univer s 137 mcg 1-03 SPRAY(S) ity of (0.1 %) 00:00: IN EACH [place] nasal spray 00 NOSTRIL Medic al TWICE Branch DAILY azelastine 2020-1 Yes USE 2 Univer s 137 mcg 1-03 SPRAY(S) ity of (0.1 %) 00:00: IN EACH [place] nasal spray 00 NOSTRIL Medic al TWICE Branch DAILY azelastine 2020- Yes USE 2 Univer s 137 mcg 1-03 SPRAY(S) ity of (0.1 %) 00:00: IN EACH [place] nasal spray 00 NOSTRIL Medic al TWICE Branch DAILY azelastine 2020- Yes USE 2 Univer s 137 mcg 1-03 SPRAY(S) ity of (0.1 %) 00:00: IN EACH [place] nasal spray 00 NOSTRIL Medic al TWICE Branch DAILY ipratropium 2019- Yes USE 1 Metho di -albuteroL 0-[address] (DUO-NEB) 00:00: NEBULIZER Hos luisa 0.5-2.5 00 THREE l mg/3 mL TIMES nebulizer DAILY NEEDED ipratropium 2019- Yes USE 1 Metho di -albuteroL 0-[address] (DUO-NEB) 00:00: NEBULIZER [facility] 0.5-2.5 00 THREE l mg/3 mL TIMES nebulizer DAILY NEEDED ipratropium 2019- Yes USE 1 Metho di -albuteroL 0-[address] (DUO-NEB) 00:00: NEBULIZER [facility] 0.5-2.5 00 THREE l mg/3 mL TIMES nebulizer DAILY NEEDED ipratropium 2019- Yes USE 1 Metho di -albuteroL 0-[address] (DUO-NEB) 00:00: NEBULIZER [facility] 0.5-2.5 00 THREE l mg/3 mL TIMES nebulizer DAILY NEEDED Levothyroxi 2020-0 Yes 88 Mem[facility] a ne Sodium 6-15 microgram l 0.088 MG 22:52: = 1 tab, Petty nn Oral Tablet 00 PO, Daily, [Unithroid] brand medically necessary, # 90 tab, 1 Refill(s), ARIANA, Pharmacy: [facility], 165.1, cm, 07/14/19 11:24:00 CDT, Height, 68.182, kg, 07/14/19 11:24:00 CDT, Weight Levothyroxi 2020-0 Yes 88 Memori a ne Sodium 6-15 microgram l 0.088 MG 22:52: = 1 tab, Petty nn Oral Tablet 00 PO, Daily, [Unithroid] brand medically necessary, # 90 tab, 1 Refill(s), [facility], Pharmacy: [facility], 165.1, cm, 07/14/19 11:24:00 CDT, Height, 68.182, kg, 07/14/19 11:24:00 CDT, Weight Levothyroxi 2020-0 Yes 88 Memori a ne Sodium 6-15 microgram l 0.088 MG 22:52: = 1 tab, [place] nn Oral Tablet 00 PO, Daily, [Unithroid] brand medically necessary, # 90 tab, 1 Refill(s), [facility], Pharmacy: [facility], 165.1, cm, 07/14/19 11:24:00 CDT, Height, 68.182, kg, 07/14/19 11:24:00 CDT, Weight Levothyroxi 2020-0 Yes 88 Memori a ne Sodium 6-15 microgram l 0.088 MG 22:52: = 1 tab, [place] nn Oral Tablet 00 PO, Daily, [Unithroid] brand medically necessary, # 90 tab, 1 Refill(s), [facility], Pharmacy: [facility], 165.1, cm, 07/14/19 11:24:00 CDT, Height, 68.182, kg, 07/14/19 11:24:00 CDT, Weight Levothyroxi 2020-0 Yes 88 Memori a ne Sodium 6-15 microgram l 0.088 MG 22:52: = 1 tab, [place] nn Oral Tablet 00 PO, Daily, [Unithroid] brand medically necessary, # 90 tab, 1 Refill(s), [facility], Pharmacy: [facility], 165.1, cm, 07/14/19 11:24:00 CDT, Height, 68.182, kg, 07/14/19 11:24:00 CDT, Weight MAGNESIUM 2020-0 2021- No Take by Meth tushar ORAL 5-14 -[address] 00[facility]00: [facility]:00 Hosp[facility] 00 :00 l MAGNESIUM 2020-0 2021- No Take by Meth tushar ORAL 5-14 -[address] 00:00: 00:00 Hospita 00 :00 l MAGNESIUM 2020-0 2021- No Take by Meth tushar ORAL 5-14 02-[address] 00:00: 00:00 Hospita 00 :00 l FLUTICASONE 2020-0 Yes Inhale. Uni vers /SALMETEROL 4-28 ity of (ADVAIR HFA 21:53: [place] INHALE) 45 Medical Branch fenofibrate 2020-0 Yes 48mg Take 48 mg Univers (TRICOR) 48 4-28 by mouth ity of mg tablet 21:53: daily. [place] [address] Medical Branch Biotin 10 2019-0 Yes Take by Unive rs mg Tab 4-28 mouth. ity of 21:53: [place] [address] Medical Branch turmeric 2020-0 Yes 900mg Take 900 Univ ers root 4-28 mg by ity of extract 500 21:53: mouth. [place] mg Cap 45 [facility] Branch Dexlansopra 2019-0 Yes 1{capsu Take 1 U nivers zole 4-28 le} capsule by ity of (DEXILANT) 21:53: mouth. [place] 30 mg 45 Medical capsule Branch vitamin C 2020-0 Yes 1000mg Take 1,000 Univers with james 4-28 mg by ity of hips 21:53: mouth [place] (VITAMIN C) 45 daily. Medica l 1,000 mg Branch tablet Cholecalcif 2019-0 Yes Take by Uni vers chrissy, 4-28 mouth. ity of Vitamin D3, 21:53: [place] (VITAMIN 45 Medical D3) 5,000 Branch unit tablet MAGNESIUM 2020-0 Yes 500mg Take 500 Uni vers ORAL 4-28 mg by ity of 21:53: mouth. [place] [address] Medical Branch hydroCHLORO 2020-0 Yes 12.5mg Take 12.5 Univers thiazide 4-28 mg by ity of 12.5 mg 21:53: mouth. [place] capsule 45 Medical Branch levothyroxi 2020-0 Yes [...] mouth ity of mg tablet 21:53: daily. [place] [address] Medical Branch Biotin 10 2020-0 Yes Take by Unive rs mg Tab 4-28 mouth. ity of 21:53: [place] [address] Medical Branch turmeric 2019-0 Yes 900mg Take 900 Univ ers root 4-28 mg by ity of extract 500 21:53: mouth. [place] mg Cap 45 Medical Branch Dexlansopra 2020-0 Yes 1{capsu Take 1 U nivers zole 4-28 le} capsule by ity of (DEXILANT) 21:53: mouth. [place] 30 mg 45 Medical capsule Branch vitamin C 2020-0 Yes 1000mg Take 1,000 Univers with james 4-28 mg by ity of hips 21:53: mouth [place] (VITAMIN C) 45 daily. Medica l 1,000 mg Branch tablet Cholecalcif 2019-0 Yes Take by Uni vers chrissy, 4-28 mouth. ity of Vitamin D3, 21:53: [place] (VITAMIN 45 Medical D3) 5,000 Branch unit tablet MAGNESIUM 2020-0 Yes 500mg Take 500 Uni vers ORAL 4-28 mg by ity of 21:53: mouth. [place] [address] Medical Branch hydroCHLORO 2019-0 Yes 12.5mg Take 12.5 Univers thiazide 4-28 mg by ity of 12.5 mg 21:53: mouth. [place] capsule Medical Branch levothyroxi 2019-0 Yes 88ug Take 88 Uni vers ne 4-28 mcg by ity of (UNITHROID) 21:53: mouth [place] 88 mcg 45 every Medical tablet morning. Branch FLUTICASONE 2019-0 Yes Inhale. Uni vers /SALMETEROL 4-28 ity of (ADVAIR HFA 21:53: [place] INHALE) Medical Branch fenofibrate 2019-0 Yes 48mg Take 48 mg Univers (TRICOR) 48 4-28 by mouth ity of mg tablet 21:53: daily. [place] [address] Medical Branch Biotin 10 2019-0 Yes Take by Unive rs mg Tab 4-28 mouth. ity of 21:53: [place] [address] Medical Branch turmeric 2019-0 Yes 900mg Take 900 Univ ers root 4-28 mg by [place]y of extract 500 21:53: mouth. [place] mg Cap 45 Medical Branch Dexlansopra 2020-0 Yes 1{capsu Take 1 U nivers zole 4-28 le} capsule by ity of (DEXILANT) 21:53: mouth. [place] 30 mg 45 Medical capsule Branch vitamin C 2020-0 Yes 1000mg Take 1,000 Univers with james 4-28 mg by ity of hips 21:53: mouth [place] (VITAMIN C) 45 daily. Medica l 1,000 mg Branch tablet Cholecalcif 2020-0 Yes Take by Uni vers chrissy, 4-28 mouth. ity of Vitamin D3, 21:53: [place] (VITAMIN 45 Medical D3) 5,000 Branch unit tablet MAGNESIUM 2020-0 Yes 500mg Take 500 Uni vers ORAL 4-28 mg by ity of 21:53: mouth. [place] [address] Medical Branch hydroCHLORO 2020-0 Yes 12.5mg Take 12.5 Univers thiazide 4-28 mg by ity of 12.5 mg 21:53: mouth. [place] capsule 45 Medical Branch levothyroxi 2020-0 Yes 88ug Take 88 Uni vers ne 4-28 mcg by ity of (UNITHROID) 21:53: mouth [place] 88 mcg 45 every Medical tablet morning. Branch FLUTICASONE 2020-0 Yes Inhale. Uni vers /SALMETEROL -28 ity of (ADVAIR HFA 21:53: [place] INHALE) 45 Medical Branch fenofibrate 2020-0 Yes 48mg Take 48 mg Univers (TRICOR) 48 4- by mouth ity of mg tablet 21:53: daily. [place] [address] Medical Branch Biotin 10 2020-0 Yes Take by Unive rs mg Tab 4-28 mouth. ity of 21:53: [place] [address] Medical Branch turmeric 2020-0 Yes 900mg Take 900 Univ ers root 4-28 mg by ity of extract 500 21:53: mouth. [place] mg Cap 45 Medical Branch Dexlansopra 2020-0 Yes 1{capsu Take 1 U nivers zole 4-28 le} capsule by ity of (DEXILANT) 21:53: mouth. [place] 30 mg 45 Medical capsule Branch vitamin C 2020-0 Yes 1000mg Take 1,000 Univers with james 4-28 mg by ity of hips 21:53: mouth [place] (VITAMIN C) 45 daily. Medica l 1,000 mg Branch tablet Cholecalcif 2020-0 Yes Take by Uni vers chrissy, 4-28 mouth. ity of Vitamin D3, 21:53: [place] (VITAMIN 45 Medical D3) 5,000 Branch unit tablet MAGNESIUM 2020-0 Yes 500mg Take 500 Uni vers ORAL 4-28 mg by ity of 21:53: mouth. [place] [address] Medical Branch hydroCHLORO 2020-0 Yes 12.5mg Take 12.5 Univers thiazide 4-28 mg by ity of 12.5 mg 21:53: mouth. [place] capsule Medical Branch levothyroxi 2020-0 Yes 88ug Take 88 Uni vers ne 4-28 mcg by ity of (UNITHROID) 21:53: mouth [place] 88 mcg 45 every Medical tablet morning. Branch rivaroxaban 2019-0 2020- No 15mg Take 15 mg Univers (XARELTO) -28 -28 by mouth ity o f 15 mg 18:40: 00:00 daily. [place] tablet 45 :00 Medical Branch FLUTICASONE 2020-0 Yes Inhale. Uni vers /SALMETEROL - ity of (ADVAIR HFA 16:53: [place] INHALE) Medical Branch fenofibrate 2019-0 Yes 48mg Take 48 mg Univers (TRICOR) 48 06-08 by mouth ity of mg tablet 16:53: daily. [address] Branch Biotin 10 2019-0 Yes Take by Unive rs mg Tab 4-28 mouth. ity of 16:53: [place] [address] Medical Branch turmeric 2019-0 Yes 900mg Take 900 Univ ers root 4-28 mg by ity of extract 500 16:53: mouth. [place] mg Cap Medical Branch Dexlansopra 2019-0 Yes 1{capsu Take 1 U nivers zole 4-28 le} capsule by ity of (DEXILANT) 16:53: mouth. [place] 30 mg 45 Medical capsule Branch vitamin C 2019-0 Yes 1000mg Take 1,000 Univers with james 4-28 mg by ity of hips 16:53: mouth [place] (VITAMIN C) 45 daily. Medica l 1,000 mg Branch tablet Cholecalcif 2020-0 Yes Take by Uni vers chrissy, 4-28 mouth. ity of Vitamin D3, 16:53: [place] (VITAMIN 45 Medical D3) 5,000 Branch unit tablet MAGNESIUM 2020-0 Yes 500mg Take 500 Uni vers ORAL 4-28 mg by ity of 16:53: mouth. [place] [address] Medical Branch hydroCHLORO 2020-0 Yes 12.5mg Take 12.5 Univers thiazide 4-28 mg by ity of 12.5 mg 16:53: mouth. [place] capsule 45 Medical Branch levothyroxi 2020-0 Yes [...] mouth ity of mg tablet 16:53: daily. [place] [address] Medical Branch Biotin 10 2020-0 Yes Take by Unive rs mg Tab 4-28 mouth. ity of 16:53: [place] [address] Medical Branch turmeric 2020-0 Yes 900mg Take [...] 4-28 mouth. ity of Vitamin D3, 16:53: [place] (VITAMIN 45 Medical D3) 5,000 Branch unit tablet MAGNESIUM 2020-0 Yes 500mg Take 500 Uni vers ORAL 4-28 mg by ity of 16:53: mouth. [place] [address] Medical Branch hydroCHLORO 2020-0 Yes 12.5mg Take 12.5 Univers thiazide 4-28 mg by ity of 12.5 mg 16:53: mouth. [place] capsule 45 Medical Branch levothyroxi 2020-0 Yes [...] mouth ity of mg tablet 16:53: daily. [address] Branch Biotin 10 2020-0 Yes Take by Unive rs mg Tab 4-28 mouth. ity of 16:53: [address] Branch turmeric 2020-0 Yes 900mg Take 900 Univ ers root 4-28 mg by ity of extract 500 16:53: mouth. [place] mg Cap [address] [place] [address] Branch Dexlansopra 2020-0 Yes 1{capsu Take 1 U nivers zole 4-28 le} capsule by ity of (DEXILANT) 16:53: mouth. [place] 30 mg 45 Medical capsule Branch vitamin C 2020-0 Yes 1000mg Take 1,000 Univers with james 4-28 mg by ity of hips 16:53: mouth [place] (VITAMIN C) 45 daily. Medica l 1,000 mg Branch tablet Cholecalcif 2020-0 Yes Take by Uni vers chrissy, - mouth. ity of Vitamin D3, 16:53: [place] (VITAMIN 45 Medical D3) 5,000 Branch unit tablet MAGNESIUM 2020-0 Yes 500mg Take 500 Uni vers ORAL 4-28 mg by ity of 16:53: mouth. [address] Branch hydroCHLORO 2020-0 Yes 12.5mg Take 12.5 Univers thiazide 4-28 mg by ity of 12.5 mg 16:53: mouth. [address] Branch levothyroxi 2020-0 Yes 88ug Take 88 Uni vers ne 4-28 mcg by ity of (UNITHROID) 16:53: mouth [place] 88 mcg 45 every Medical tablet morning. [place] rivaroxaban 2020-0 Yes 15mg 15 mg, Univ ers (XARELTO) 06-08 Oral, ity of tablet 15 14:00: DAILY, [place] mg 00 First dose Medical on Sat [place] 06/09/19 at 0900, Until Discontinu ed, Routine magnesium 2020-0 2020- No 4g 4 g, IV Univ ers sulfate in 06-08- Piggyback, it y of water 4 13:45: 14:20 ONCE, 1 [place] gram/50 mL 00 :00 dose, [facility] Medi mk (8 %) IV 06/09/19 at [facility] h Piggyback 4 0845, g Routine rivaroxaban 2020-0 Yes 5144 15mg Take 1 Univ ers (XARELTO) 4-28 tablet by ity o f 15 mg 00:00: mouth [place] tablet 00 daily. Medical Indication Branch s: prevention of thromboemb olism in paroxysmal atrial fibrillati on nebivolol 2020-0 Yes [id number] 2.5mg Take 0.5 Univers (BYSTOLIC) 4-28 tablets [...] paroxysmal atrial fibrillati on nebivolol 2020-0 Yes [id number] 2.5mg Take 0.5 Univers (BYSTOLIC) 4-28 tablets [...] paroxysmal atrial fibrillati on nebivolol 2020-0 Yes [id number] 2.5mg Take 0.5 Univers (BYSTOLIC) 4-28 tablets [...] paroxysmal atrial fibrillati on nebivolol 2020-0 Yes [id number] 2.5mg Take 0.5 Univers (BYSTOLIC) 4-28 tablets [...] paroxysmal atrial fibrillati on nebivolol 2020-0 Yes [id number] 2.5mg Take 0.5 Univers (BYSTOLIC) 4-28 tablets [...] paroxysmal atrial fibrillati on nebivolol 2020-0 Yes [id number] 2.5mg Take 0.5 Univers (BYSTOLIC) 4-28 tablets [...] paroxysmal atrial fibrillati on nebivolol 2020-0 Yes [id number] 2.5mg Take 0.5 Univers (BYSTOLIC) 4-28 tablets [...] paroxysmal atrial fibrillati on nebivolol 2020-0 Yes [id number] 2.5mg Take 0.5 Univers (BYSTOLIC) 4-28 tablets [...] paroxysmal atrial fibrillati on nebivolol 2020-0 Yes [id number] 2.5mg Take 0.5 Univers (BYSTOLIC) 4-28 tablets [...] paroxysmal atrial fibrillati on nebivolol 2020-0 Yes [id number] 2.5mg Take 0.5 Univers (BYSTOLIC) 4-28 tablets [...] paroxysmal atrial fibrillati on nebivolol 2020-0 Yes [id number] 2.5mg Take 0.5 Univers (BYSTOLIC) 4-28 tablets [...] paroxysmal atrial fibrillati on nebivolol 2020-0 Yes [id number] 2.5mg Take 0.5 Univers (BYSTOLIC) 4-28 tablets [...] paroxysmal atrial fibrillati on nebivolol 2020-0 Yes [id number] 2.5mg Take 0.5 Univers (BYSTOLIC) 4-28 tablets [...] paroxysmal atrial fibrillati on nebivolol 2020-0 Yes [id number] 2.5mg Take 0.5 Univers (BYSTOLIC) 4-28 tablets [...] paroxysmal atrial fibrillati on nebivolol 2020-0 Yes [id number] 2.5mg Take 0.5 Univers (BYSTOLIC) 4-28 tablets [...] paroxysmal atrial fibrillati on nebivolol 2020-0 Yes [id number] 2.5mg Take 0.5 Univers (BYSTOLIC) 4-28 tablets [...] paroxysmal atrial fibrillati on nebivolol 2020-0 Yes [id number] 2.5mg Take 0.5 Univers (BYSTOLIC) 4-28 tablets [...] paroxysmal atrial fibrillati on nebivolol 2020-0 Yes [id number] 2.5mg Take 0.5 Univers (BYSTOLIC) 4-28 tablets [...] paroxysmal atrial fibrillati on nebivolol 2020-0 Yes [id number] 2.5mg Take 0.5 Univers (BYSTOLIC) 4-28 tablets [...] paroxysmal atrial fibrillati on nebivolol 2020-0 Yes [id number] 2.5mg Take 0.5 Univers (BYSTOLIC) 4-28 tablets [...] paroxysmal atrial fibrillati on nebivolol 2020-0 Yes [id number] 2.5mg Take 0.5 Univers (BYSTOLIC) 4-28 tablets by ity of 5 mg tablet 00:00: mouth 2 [place] as 00 (two) Medical times Branch daily. venetoclax 2020-0 2020- No [id number] 400mg Take 4 Univers 100 mg 4-28 06-28 tablets by ity of tablet 00:00: 04:59 mouth [place] 00 :00 every Medical evening Branch venetoclax 2020-0 2020- No [id number] 400mg Take 4 Univers 100 mg 4-28 06-28 tablets by ity of tablet 00:00: 04:59 mouth [place] 00 :00 every Medical evening Branch venetoclax 2020-0 2020- No [id number] 400mg Take 4 Univers 100 mg 4-28 06-28 tablets by ity of tablet 00:00: 04:59 mouth [place] 00 :00 every Medical evening Branch sodium 2020-0 2020- No [id number] 4mL Inhale 4 Un jignesh chloride 7% 4-28 05-13 mL 3 ity of nebulizer 00:00: 04:59 (three) [place] solution 00 :00 times Medical daily for Branch 14 days. ipratropium 2020-0 2020- No [id number] 3mL Inhale 3 Univers -albuterol 4-28 05-13 mL 3 ity of 0.5 mg-3 00:00: 04:59 (three) [place] mg(2.5 mg 00 :00 times Medical base)/3 mL daily as Branc h nebulizer needed for solution Wheezing for up to 14 days. sodium 2019- No [id number] 4mL Inhale 4 Un jignesh chloride 7% 06-08 05-13 mL 3 ity of nebulizer 00:00: 04:59 (three) [place] solution 00 :00 times Medical daily for Branch 14 days. ipratropium 2019- No [id number] 3mL Inhale 3 Univers -albuterol 06-08 05-13 mL 3 ity of 0.5 mg-3 00:00: 04:59 (three) [place] mg(2.5 mg 00 :00 times Medical base)/3 mL daily as Branc h nebulizer needed for solution Wheezing for up to 14 days. amoxicillin 2020- No [id number] 1{tbl} Take 1 Univers -clavulanat 06-08- tablet by it y of e 00:00: 04:59 mouth 2 [place] (AUGMENTIN) 00 :00 (two) Medical 875-125 mg times Branch per tablet daily for 2 days. azithromyci 2020- No [id number] 250mg Take 1 Univers n 250 mg 06-08- tablet by ity o f tablet 00:00: 04:59 mouth [place] 00 :00 daily for Medical 2 days. Branch Take 500 mg day 1, then 250 mg days 2 to 5. amoxicillin 2019- No [id number] 1{tbl} Take 1 Univers -clavulanat 06-08- tablet by it y of e 00:00: 04:59 mouth 2 [place] (AUGMENTIN) 00 :00 (two) Medical 875-125 mg times Branch per tablet daily for 2 days. azithromyci 2019- No [id number] 250mg Take 1 Univers n 250 mg 06-08- tablet by ity o f tablet 00:00: 04:59 mouth [place] 00 :00 daily for Medical 2 days. Branch Take 500 mg day 1, then 250 mg days 2 to 5. estradiol 2020-0 Yes 1{patch 1 Patch, U nivers (SIMON) 4- } Transderma ity of 0.05 mg/24 03:45: l (Apply [place] as hr twice 00 To Skin), Medica l weekly QMON/THURS Branch patch 1 , First Patch dose on 06/06/19 at 2245, Until Discontinu ed, Routine metoprolol 2020-0 Yes 12.5mg 12.5 mg, U nivers tartrate 4-26 Oral, BID, ity o f (LOPRESSOR) 01:00: First dose [place] half tablet 00 on Sat Medica l 12.5 mg 06/06/19 at Branch 2000, Until Discontinu ed, Routine valACYclovi 2020-0 Yes 500mg 500 mg, Un jignesh r (VALTREX) 4-25 Oral, ity of tablet 500 14:00: DAILY, [place] mg 00 First dose Medical on Sat Branch 06/06/19 at 0900, Until Discontinu ed, CHELY cholecalcif 2020-0 Yes 5000U 5,000 Univ ers chrissy 4-25 Units, ity of (vitamin 14:00: Oral, [place] D3) tablet 00 DAILY, Medical 5,000 Units First dose Br anch on 06/06/19 at 0900, Until Discontinu ed, Routine
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
Reason for Non-Formul chuck Use: SPECIFIC INDICATION FOR NONFORMULA RY PRODUCT sodium 2020-0 Yes 4mL 4 mL, Univers chloride 7% - Inhalation it y of (HYPER-JARROD) 13:00: , TID, [place] nebulizer 00 First dose Medi mk solution 4 on Sat Branch mL 06/06/19 at 0800, Until Discontinu ed, Routine levothyroxi 2020-0 Yes 88ug 88 mcg, Uni vers ne 4-25 Oral, ity of (SYNTHROID) 11:00: QAM-0600, [place] tablet 88 00 First dose Medi mk mcg on Sat Branch 06/06/19 at 0600, Until Discontinu ed, Routine venetoclax 2020-0 Yes 400mg 400 mg, Uni vers (VENCLEXTA) 4-24 Oral, ity of tablet 400 22:45: DAILY AT [place] as mg 00 1700, Medical First dose Branch on Sat06/05/19 at 1745, Until Discontinu ed, Routine lactated 2020-0 2020- No 500mL at 100 Unive rs ringers IV 4-24 04-24 mL/hr, 500 it y of infusion 21:45: 23:03 mL, IV [place] 500 mL 00 :00 Infusion, Medical ONCE, 1 Branch dose, 06/05/19 at 1645, STAT THYROID,POR 2019-0 2020- No [...] 250mg Take 250 Un jignesh Oxide 250 -04 06-24 mg by ity of mg Tab 21:43: 00:00 mouth. [place] 25 :00 Medical Branch lovastatin 2019-0 2020- No 20mg Take 20 mg Univers (MEVACOR) 06-04 04-24 by mouth ity o f 20 mg 21:42: 00:00 at [place] tablet 57 :00 bedtime. Medical Branch Glucosamine 2019-0 2020- No 1{tbl} Take 1 U nivers -Chondroiti 06-04-24 tablet by it y of n (OSTEO 21:42: 00:00 mouth. [place] BI-FLEX) 42 :00 Medical 250-200 mg Branch Tab Garlic 100 2019-0 2020- No 100mg Take 100 U nivers mg Tab -24 04-24 mg by ity of 21:42: 00:00 mouth. [place] 33 :00 Medical Branch FOLIC 2019-0 2020- No Take by Univers ACID/MULTIV -04 06-24 mouth. ity o f IT-MIN/LUTE 21:42: 00:00 [place] IN (CENTRUM 30 :00 Medical SILVER Branch ORAL) Fenofibrate 2019-0 2020- No Take by Un jignesh 40 mg Tab -04 06-24 mouth. ity of 21:42: 00:00 [place] 15 :00 Medical Branch famotidine 2019-0 2020- No 20mg Take 20 mg Univers (PEPCID) 20 - 04-24 by mouth 2 i ty of mg tablet 21:42: 00:00 (two) [place] 03 :00 times Medical daily. Branch estradiol 2020-0 2020- No 1mg Take 1 mg Un jignesh (ESTRACE) 1 06-04-24 by mouth ity of mg tablet 21:41: 00:00 daily. [place] 54 :00 Medical Branch CRANBERRY 2019- No 84mg Take 84 mg U nivers FRUIT 06-04-24 by mouth. ity of EXTRACT 21:41: 00:00 [place] (CRANBERRY 45 :00 Medical ORAL) Branch CRANBERRY 2020- No 84mg Take 84 mg U nivers FRUIT 06-04-24 by mouth. ity of EXTRACT 21:41: 00:00 [place] (CRANBERRY 42 :00 Medical CONCENTRATE Branch ORAL) codeine-gua 2019-0 Yes 5mL 5 mL, Unive rs ifenesin - Oral, ity of (ROBITUSSIN 20:56: Q6HPRN, [place] as AC) 10-100 49 Starting Medic al mg/5 mL Fri Branch solution 5 06/05/19 at mL 1556, Until Discontinu ed, Routine, Cough hydrochloro 2019- No 12.5mg Take 12.5 Univers thiazide 06-04-24 mg by ity of (ESIDRIX) 18:54: 00:00 mouth [place] 12.5 mg 48 :00 daily. Medical capsule Branch LOSARTAN 2019- No 100mg Take 100 Uni vers POTASSIUM 06-04-24 mg by ity of (LOSARTAN 18:54: 00:00 mouth [place] ORAL) 39 :00 daily. Medical Branch pantoprazol 0 Yes 40mg 40 mg, Univ ers e - Oral, ity of (PROTONIX) 18:45: DAILY, [place] EC tablet 00 First dose Medi mk 40 mg on Sat Branch 06/05/19 at 1345, Until Discontinu ed, Routine valACYclovi 2019- No 500mg 500 mg, U nivers r (VALTREX) 06-04- Oral, BID, i ty of tablet 500 18:45: 20:26 First dose [place] mg 00 :34 on Sat Medical 06/05/19 at Branch 1345, Until Discontinu ed, CHELY heparin 2020- No 12U/kg/ 12 Univer s 25,000 - 04-27 h Units/kg/h ity of unit/250 mL 18:00: 20:38 r ?65.8 kg [place] (Premixed 00 :27 (7.896 Medical Bag) in D5W mL/hr, Branch weight rounded to based 7.9 dosing ACS mL/hr), IV protocol Infusion, CONTINUOUS , Starting Sat06/05/19 at 1300, Until 06/08/19 at 1538 heparin 2019-0 2020- No 60U/kg 3,948 Univer s 1000 06-04 Units (60 ity of unit/mL 17:00: 23:12 Units/kg [place] injection 00 :00 ?65.8 kg), Medi mk Soln 3,948 IV Push, Branc h Units ONCE, 1 dose, Sat06/05/19 at 1200, Routine magnesium 2019-2019- No 4g 4 g, IV Univ ers sulfate in 06-04 Piggyback, it y of water 4 16:30: 19:23 ONCE, 1 [place] gram/50 mL 00 :00 dose, Sat Medi mk (8 %) IV 06/05/19 at Branc h Piggyback 4 1130, g Routine cefTRIAXone Yes 1000mg 1,000 mg, Univers (ROCEPHIN) 06-04 IV ity of 1,000 mg in 15:45: Piggyback, [place] NaCl 0.9% 00 Q24H ABX, Medic al (NS) 50 mL First dose Bra [facility] MINI-BAG on Sat06/05/19 at 1045, Until Discontinu ed, 50 mL
R moi for Anti-Infec tive: Empiric Therapy for Suspected Infection< br>Empiric Therapy Site: Respirator y
Durat ion of therapy: 7 days acetaminoph Yes 650mg 650 mg, Un jignesh en 06-04 Oral, ity of (TYLENOL) 15:17: Q6HPRN, [place] tablet 650 59 Starting Medic al mg Fri Branch 06/05/19 at 1017, Until Discontinu ed, Routine, Pain (scale 4-6), Please schedule with Hypersal and duonebs azithromyci 0 2020- No 500mg 500 mg, IV Univers n 06-04 Piggyback, ity of (ZITHROMAX) 15:00: 12:56 Q24H ABX, [place] 500 mg in 00 :38 7 doses, Medica l NaCl 0.9% First dose Bran ch (NS) 250 mL on Fri VIAL-MATE 06/05/19 at IV 1000, Last piggyback dose on Janell 06/11/19 at 1000, 250 mL
Reas on for Anti-Infec tive: Empiric Therapy for Suspected Infection< br>Empiric Therapy Site: Respirator y
Durat ion of therapy: 7 days ascorbic 2020-0 Yes 1000mg 1,000 mg, Un jignesh acid 4-24 Oral, ity of (vitamin C) 14:45: [place] (VITAMIN C) 00 First dose Me dical tablet on Sat Branch 1,000 mg 06/05/19 at 0945, Until Discontinu ed, Routine losartan 2019-0 Yes 25mg 25 mg, Univers (COZAAR) 4-24 Oral, ity of tablet 25 14:00: DAILY, [place] mg 00 First dose Medical on Sat Branch 06/05/19 at 0900, Until Discontinu ed, Routine aspirin 325 2020-0 2020- No 325mg Take 325 [facility] mg tablet 06-04 04-24 mg by ity of 13:55: 00:00 mouth [place] 52 :00 daily. Medical Branch ipratropium 2019-0 Yes 3mL 3 mL, Unive rs -albuterol -24 Inhalation ity of (DUONEB) 12:34: , TIDPRN, [place] 0.5 mg-3 39 Starting Medical mg(2.5 mg Sat Branch base)/3 mL 06/05/19 at nebulizer 0734, solution 3 Until mL Discontinu ed, Routine, Wheezing benzonatate 2019-0 2020- No 200mg 200 mg, U nivers (TESSALON -24 04-24 Oral, ity of PERLES) 07:15: 06:06 ONCE, 1 [place] capsule 200 00 :00 dose, Fri Med ical mg 06/05/19 at Branch 0215, Routine Levothyroxi 2019-0 Yes 88 Memori a ne Sodium 3-12 microgram l 0.088 MG 21:49: = 1 tab, [place] nn Oral Tablet 00 PO, Daily, [Unithroid] brand medically necessary, # 90 tab, 0 Refill(s), [place], Pharmacy: [id number] Levothyroxi 2019-0 Yes 88 Memori a ne Sodium 3-12 microgram l 0.088 MG 21:49: = 1 tab, [place] nn Oral Tablet 00 PO, Daily, [Unithroid] brand medically necessary, # 90 tab, 0 Refill(s), [facility], Pharmacy: [place] [address] Levothyroxi Yes 88 Memori a ne Sodium 3-12 microgram l 0.088 MG 21:49: = 1 tab, [place] nn Oral Tablet 00 PO, Daily, [Unithroid] brand medically necessary, # 90 tab, 0 Refill(s), [facility], Pharmacy: [place] [address] Levothyroxi Yes 88 Memori a ne Sodium 3-12 microgram l 0.088 MG 21:49: = 1 tab, [place] nn Oral Tablet 00 PO, Daily, [Unithroid] brand medically necessary, # 90 tab, 0 Refill(s), [facility], Pharmacy: [place] [address] Levothyroxi Yes 88 Memori a ne Sodium 3-12 microgram l 0.088 MG 21:49: = 1 tab, [place] nn Oral Tablet 00 PO, Daily, [Unithroid] brand medically necessary, # 90 tab, 0 Refill(s), [facility], Pharmacy: [place] [address] levothyroxi Yes 88 Method i ne 3-[address] (SYNTHROID) 00:00: = 1 tab, Ho spita 88 mcg 00 PO, Daily, l tablet brand medically necessary, # 90 tab, 1 Refill(s), [facility], Pharmacy: [facility], 165.1, cm, 07/14/19 11:24:00 CDT, Height, 68.182, kg, 07/14/19 11:24:00 CDT, Weight levothyroxi Yes 88 Method i ne 3-[address] (SYNTHROID) 00:00: = 1 tab, Ho spita 88 mcg 00 PO, Daily, l tablet brand medically necessary, # 90 tab, 1 Refill(s), [facility], Pharmacy: [facility] 527, 165.1, cm, 07/14/19 11:24:00 CDT, Height, 68.182, kg, 07/14/19 11:24:00 CDT, Weight levothyroxi Yes 88 Method i ne 3-[address] (SYNTHROID) 00:00: = 1 tab, Ho spita 88 mcg 00 PO, Daily, l tablet brand medically necessary, # 90 tab, 1 Refill(s), [place], Pharmacy: [facility], 165.1, cm, 07/14/19 11:24:00 CDT, Height, 68.182, kg, 07/14/19 11:24:00 CDT, Weight levothyroxi 2020-0 Yes 88 Method i ne 3-[address] (SYNTHROID) 00:00: = 1 tab, Ho spita 88 mcg 00 PO, Daily, l tablet brand medically necessary, # 90 tab, 1 Refill(s), [facility], Pharmacy: [facility], 165.1, cm, 07/14/19 11:24:00 CDT, [...] thiazide 3-02 PO, Daily, l 15:59: 0 [place] 00 Refill(s) nebivolol 2020-0 Yes 5 mg = 2 Madi oli 2.5 MG Oral 3-02 tab, PO, l Tablet 15:59: Daily, # [place] [Bystolic] 00 60 tab, 0 Refill(s) losartan 2020-0 Yes 100 mg = 1 Mem oria 100 mg oral 3-02 tab, PO, l tablet 15:59: Daily, # [place] 00 30 tab, 0 Refill(s) [place] 2020-0 Yes 60 mg, PO, Memor ia Thyroid 3-02 Daily, 0 l 15:59: Refill(s) [place] 00 thyroid 2020-0 Yes 15 mg = 1 Memor ia ([facility]) 15 MG 3-02 tab, PO, l Oral Tablet 15:59: Daily, # He rmann [[place] 00 30 tab, 0 Thyroid] Refill(s) rivaroxaban 2020-0 Yes 15 mg = 1 M emoria 15 MG Oral 3-02 tab, PO, l Tablet 15:59: Daily, # [place] [Xarelto] 00 90 tab, 3 Refill(s) dexlansopra 2020-0 Yes 30 mg = 1 M emoria zole 30 MG 3-02 cap, PO, l Enteric 15:59: Daily, # [place] Coated 00 30 cap, 0 Capsule Refill(s) [Dexilant] valacyclovi 2020-0 Yes 500 mg = 1 Memoria r 500 MG 3-02 tab, PO, l Oral Tablet 15:59: Daily, # Cosme rmann [Valtrex] 00 30 tab, 0 Refill(s) allopurinol 2020-0 Yes 300 mg = 1 Memoria 300 mg oral 3-02 tab, PO, l tablet 15:59: Daily, # [place] 00 90 tab, 1 Refill(s) obinutuzuma 2020-0 Yes IV, q4wk, M emoria b 25 MG/ML 02 0 l Injectable 15:59: Refill(s) He r[place] Solution 00 [Gazyva] Venclexta 2020-0 Yes 400 mg, Memor ia -02 PO, Daily, l 15:59: 0 [place] 00 Refill(s) Vitamin C 2020-0 Yes 1,000 mg = Me moria 1000 mg 04-12 1 tab, PO, l oral tablet 15:59: Daily, # He rmann 00 30 tab, 0 Refill(s) Cranberry 2020-0 Yes 0 Memoria preparation 04-12 Refill(s) l 15:59: [place] 00 Vitamin D3 2020-0 Yes 5,000 Memori a 5000 intl 04-12 IntlUnit = l units oral 15:59: 1 cap, PO, H ermann capsule 00 Daily, # 30 cap, 1 Refill(s) biotin 2020-0 Yes See Memoria 04-12 Instructio l 15:59: ns, 7500 [place] 00 PO Daily, 0 Refill(s) Turmeric 2020-0 Yes Turmeric, Madi oli 3-02 See l 15:59: [place], [address] 1 PO daily, Refill(s) 0 B-12 2020-0 Yes 0 Memoria 3-02 Refill(s) l 15:59: [place] 00 Magnesium 2020-0 Yes Magnesium, Me moria 3-02 500 1 PO l 15:59: daily, [place] 00 Refill(s) 0 Advair 2020-0 Yes 1 [...] thiazide 3-02 PO, Daily, l 15:59: 0 [place] 00 Refill(s) nebivolol 2019-0 Yes 5 mg = 2 Madi oli 2.5 MG Oral 3-02 tab, PO, l Tablet 15:59: Daily, # [place] [Bystolic] 00 60 tab, 0 Refill(s) losartan 2020-0 Yes 100 mg = 1 Mem oria 100 mg oral 3-02 tab, PO, l tablet 15:59: Daily, # [place] 00 30 tab, 0 Refill(s) [place] 2020-0 Yes 60 mg, PO, Memor ia Thyroid 3-02 Daily, 0 l 15:59: Refill(s) [place] 00 thyroid 2020-0 Yes 15 mg = 1 Memor ia ([facility]) 15 MG 3-02 tab, PO, l Oral Tablet 15:59: Daily, # Cosme jin [[place] 00 30 tab, 0 Thyroid] Refill(s) rivaroxaban [...] [place] 00 90 tab, 1 Refill(s) obinutuzuma 2020-0 Yes IV, q4wk, M emoria b 25 MG/ML 02 0 l Injectable 15:59: Refill(s) He r[place] Solution 00 [Gazyva] Venclexta 2020-0 Yes 400 mg, Memor ia 3-02 PO, Daily, l 15:59: 0 [place] 00 Refill(s) Vitamin C 2020-0 Yes 1,000 mg = Me moria 1000 mg -02 1 tab, PO, l oral tablet 15:59: Daily, # He r[place] 00 30 tab, 0 Refill(s) Cranberry 2020-0 Yes 0 Memoria preparation 02 Refill(s) l 15:59: [place] 00 Vitamin D3 2020-0 Yes 5,000 Memori a 5000 intl 04-12 IntlUnit = l units oral 15:59: 1 cap, PO, H ermann capsule 00 Daily, # 30 cap, 1 Refill(s) biotin 2020-0 Yes See Memoria 04-12 Instructio l 15:59: ns, 7500 [place] 00 PO Daily, 0 Refill(s) Turmeric 2020-0 Yes Turmeric, Madi oli 02 See l 15:59: [place], [address] 1 PO daily, Refill(s) 0 B-12 2020-0 Yes 0 Memoria 04-12 Refill(s) l 15:59: [place] 00 Magnesium 2020-0 Yes Magnesium, Me moria -02 500 1 PO l 15:59: daily, [place] 00 Refill(s) 0 Advair 2020-0 Yes 1 [...] thiazide 3-02 PO, Daily, l 15:59: 0 [place] 00 Refill(s) nebivolol 2020-0 Yes 5 mg = 2 Madi oli 2.5 MG Oral 3-02 tab, PO, l Tablet 15:59: Daily, # [place] [Bystolic] 00 60 tab, 0 Refill(s) losartan 2020-0 Yes 100 mg = 1 Mem oria 100 mg oral 3-02 tab, PO, l tablet 15:59: Daily, # [place] 00 30 tab, 0 Refill(s) [place] 2020-0 Yes 60 mg, PO, Memor ia Thyroid 3-02 Daily, 0 l 15:59: Refill(s) [place] 00 thyroid 2020-0 Yes 15 mg = 1 Memor ia ([facility]) 15 MG 3-02 tab, PO, l Oral Tablet 15:59: Daily, # Cosme rmkarrie [[place] 00 30 tab, 0 Thyroid] Refill(s) rivaroxaban [...] l Oral Tablet 15:59: Daily, # Cosme jin [Valtrex] 00 30 tab, 0 Refill(s) allopurinol 2020-0 Yes 300 mg = 1 Memoria 300 mg oral 3-02 tab, PO, l tablet 15:59: Daily, # [place] 00 90 tab, 1 Refill(s) obinutuzuma 2020-0 Yes IV, q4wk, M emoria b 25 MG/ML 02 0 l Injectable 15:59: Refill(s) [place] r[place] Solution 00 [Gazyva] Venclexta 2020-0 Yes 400 mg, Memor ia -02 PO, Daily, l 15:59: 0 [place] 00 Refill(s) Vitamin C 2020-0 Yes 1,000 mg = Me moria 1000 mg 02 1 tab, PO, l oral tablet 15:59: Daily, # He r[place] 00 30 tab, 0 Refill(s) Cranberry 2020-0 Yes 0 Memoria preparation 04-12 Refill(s) l 15:59: [place] 00 Vitamin D3 2020-0 Yes 5,000 Memori a 5000 intl 04-12 IntlUnit = l units oral 15:59: 1 cap, PO, H ermann capsule 00 Daily, # 30 cap, 1 Refill(s) biotin 2020-0 Yes See Memoria 04-12 Instructio l 15:59: ns, 7500 [place] 00 PO Daily, 0 Refill(s) Turmeric 2020-0 Yes Turmeric, Madi oli 04-12 See l 15:59: [place], [address] 1 PO daily, Refill(s) 0 B-12 2020-0 Yes 0 Memoria 04-12 Refill(s) l 15:59: [place] 00 Magnesium 2020-0 Yes Magnesium, Me moria 02 500 1 PO l 15:59: daily, [place] 00 Refill(s) 0 Advair 2020-0 Yes 1 puff, Memoria Diskus 250 302 INHALATION l mcg-50 mcg 15:59: , BID, # 1 H ermann inhalation 00 ea, 3 powder Refill(s) Estradiol 2020-0 Yes 1 patch, Madi oli Patch 0.05 302 TOP, 0 l mg/24 hours 15:59: Refill(s) H ermann twice 00 weekly transdermal film, extended release Fenofibrate 2020-0 Yes = 1 cap, Me moria 48 MG Oral 3-02 PO, Daily, l Tablet 15:59: # 30 cap, [place] 00 0 Refill(s) Hydrochloro 2020-0 Yes 12.5 mg, Me moria thiazide 3-02 PO, Daily, l 15:59: 0 [place] 00 Refill(s) nebivolol 2020-0 Yes 5 mg = 2 Madi oli 2.5 MG Oral 3-02 tab, PO, l Tablet 15:59: Daily, # [place] [Bystolic] 00 60 tab, 0 Refill(s) losartan 2020-0 Yes 100 mg = 1 Mem oria 100 mg oral 3-02 tab, PO, l tablet 15:59: Daily, # [place] 00 30 tab, 0 Refill(s) [place] 2019-0 Yes 60 mg, PO, Memor ia Thyroid 3-02 Daily, 0 l 15:59: Refill(s) [place] 00 thyroid 2020-0 Yes 15 mg = 1 Memor ia ([facility]) 15 MG 3-02 tab, PO, l Oral Tablet 15:59: Daily, # Cosme jin [[place] 00 30 tab, 0 Thyroid] Refill(s) rivaroxaban 2019-0 Yes 15 mg = 1 M emoria 15 MG Oral 3-02 tab, PO, l Tablet 15:59: Daily, # [place] [Xarelto] 00 90 tab, 3 Refill(s) dexlansopra 2020-0 Yes 30 mg = 1 M emoria zole 30 MG 3-02 cap, PO, l Enteric 15:59: Daily, # [place] Coated 00 30 cap, 0 Capsule Refill(s) [Dexilant] valacyclovi 2019-0 Yes 500 mg = 1 Memoria r 500 MG 3-02 tab, PO, l Oral Tablet 15:59: Daily, # Cosme jin [Valtrex] 00 30 tab, 0 Refill(s) allopurinol 2019-0 Yes 300 mg = 1 Memoria 300 mg oral 3-02 tab, PO, l tablet 15:59: Daily, # [place] 00 90 tab, 1 Refill(s) obinutuzuma 2020-0 Yes IV, q4wk, M emoria b 25 MG/ML 3-02 0 l Injectable 15:59: Refill(s) Cosme jin Solution 00 [Gazyva] Venclexta 2020-0 Yes 400 mg, Memor ia 3-02 PO, Daily, l 15:59: 0 [place] 00 Refill(s) Vitamin C 2020-0 Yes 1,000 mg = Me moria 1000 mg 3-02 1 tab, PO, l oral tablet 15:59: Daily, # He r[place] 00 30 tab, 0 Refill(s) Cranberry 2020-0 Yes 0 Memoria preparation -02 Refill(s) l 15:59: [place] 00 Vitamin D3 2020-0 Yes 5,000 Memori a 5000 intl 02 IntlUnit = l units oral 15:59: 1 cap, PO, H ermann capsule 00 Daily, # 30 cap, 1 Refill(s) biotin 2020-0 Yes See Memoria 04-12 Instructio l 15:59: ns, 7500 [place] 00 PO Daily, 0 Refill(s) Turmeric 2020-0 Yes Turmeric, Madi oli 04-12 See l 15:59: [place], [address] 1 PO daily, Refill(s) 0 B-12 2020-0 Yes 0 Memoria 04-12 Refill(s) l 15:59: [place] 00 Magnesium 2020-0 Yes Magnesium, Me moria 02 500 1 PO l 15:59: daily, [place] 00 Refill(s) 0 Advair 2020-0 Yes 1 puff, Memoria Diskus 250 3-02 INHALATION l mcg-50 mcg 15:59: , BID, # 1 H ermann inhalation 00 ea, 3 powder Refill(s) Estradiol 2020-0 Yes 1 patch, Madi oli Patch 0.05 302 TOP, 0 l mg/24 hours 15:59: Refill(s) H ermann twice 00 weekly transdermal film, extended release Fenofibrate 2020-0 Yes = 1 cap, Me moria 48 MG Oral 3-02 PO, Daily, l Tablet 15:59: # 30 cap, [place] n 00 0 Refill(s) Hydrochloro 2020-0 Yes 12.5 mg, Me moria thiazide 3-02 PO, Daily, l 15:59: 0 [place] 00 Refill(s) nebivolol 2020-0 Yes 5 mg = 2 Madi oli 2.5 MG Oral 3-02 tab, PO, l Tablet 15:59: Daily, # [place] [Bystolic] 00 60 tab, 0 Refill(s) losartan 2020-0 Yes 100 mg = 1 Mem oria 100 mg oral 3-02 tab, PO, l tablet 15:59: Daily, # [place] 00 30 tab, 0 Refill(s) [place] 2020-0 Yes 60 mg, PO, Memor ia Thyroid 3-02 Daily, 0 l 15:59: Refill(s) [place] 00 thyroid 2019-0 Yes 15 mg = 1 Memor ia ([facility]) 15 MG 3-02 tab, PO, l Oral Tablet 15:59: Daily, # Cosme jin [[place] 00 30 tab, 0 Thyroid] Refill(s) rivaroxaban 2019-0 Yes 15 mg = 1 M emoria 15 MG Oral 3-02 tab, PO, l Tablet 15:59: Daily, # [place] [Xarelto] 00 90 tab, 3 Refill(s) dexlansopra 0 Yes 30 mg = 1 M emoria zole 30 MG 3-02 cap, PO, l Enteric 15:59: Daily, Kishan Segovia n Coated 00 30 cap, 0 Capsule Refill(s) [Dexilant] valacyclovi 2019-0 Yes 500 mg = 1 Memoria r 500 MG 3-02 tab, PO, l Oral Tablet 15:59: Daily, # Cosme jin [Valtrex] 00 30 tab, 0 Refill(s) allopurinol 0 Yes 300 mg = 1 Memoria 300 mg oral 3-02 tab, PO, l tablet 15:59: Daily, # [place] 00 90 tab, 1 Refill(s) obinutuzuma 2019-0 Yes IV, q4wk, M emoria b 25 MG/ML -02 0 l Injectable 15:59: Refill(s) Cosme jin Solution 00 [Gazyva] Venclexta 2019-0 Yes 400 mg, Memor ia 3-02 PO, Daily, l 15:59: 0 [place] 00 Refill(s) Vitamin C 2019-0 Yes 1,000 mg = Me moria 1000 mg 02 1 tab, PO, l oral tablet 15:59: Daily, # Cosme jin 00 30 tab, 0 Refill(s) Cranberry 2019-0 Yes 0 Memoria preparation 02 Refill(s) l 15:59: [place] 00 Vitamin D3 2020-0 Yes 5,000 Memori a 5000 intl 302 IntlUnit = l units oral 15:59: 1 cap, PO, H ermann capsule 00 Daily, # 30 cap, 1 Refill(s) biotin 2020-0 Yes See Memoria 04-12 Instructio l 15:59: ns, 7500 [place] 00 PO Daily, 0 Refill(s) Turmeric 2020-0 Yes Turmeric, Madi oli 02 See l 15:59: [place], [address] 1 PO daily, Refill(s) 0 B-12 2020-0 Yes 0 Memoria 02 Refill(s) l 15:59: [place] 00 Magnesium 2020-0 Yes Magnesium, Me moria 302 500 1 PO l 15:59: daily, [place] 00 Refill(s) 0 estradioL 2020-0 Yes 1 patch, Meth tushar (CLIMARA) 3-02 TOP, 0 st 0.05 mg/24 00:00: Refill(s) Ho spita hr 00 l fluticasone 2020-0 Yes 1 puff, Met hodi propion-jarrod 3-[address] meteroL 00:00: , BID, # 1 Hosp topher (ADVAIR/ 00 ea, 3 l WIXELA Refill(s) INHUB) 250-50 mcg/dose DISKUS estradioL 2020-0 Yes 1 patch, Meth tushar (CLIMARA) 3-02 TOP, 0 st 0.05 mg/24 00:00: Refill(s) Ho spita hr 00 l fluticasone 2020-0 Yes 1 puff, Met hodi propion-jarrod 3-[address] meteroL 00:00: , BID, # 1 Hosp topher (ADVAIR/ 00 ea, 3 l WIXELA Refill(s) INHUB) 250-50 mcg/dose DISKUS estradioL 2020-0 Yes 1 patch, Meth tushar (CLIMARA) 3-02 TOP, 0 st 0.05 mg/24 00:00: Refill(s) Ho spita hr 00 l fluticasone 2020-0 Yes 1 puff, Met hodi propion-jarrod 3-[address] meteroL 00:00: , BID, # 1 Hosp topher (ADVAIR/ 00 ea, 3 l WIXELA Refill(s) INHUB) 250-50 mcg/dose DISKUS estradioL Yes 1 patch, Meth tushar (CLIMARA) 04-12 TOP, 0 st 0.05 mg/24 00:00: Refill(s) Ho spita hr 00 l fluticasone Yes 1 puff, Met hodi propion-jarrod - INHALATION st meteroL 00:00: , BID, # 1 Hosp topher (ADVAIR/ 00 ea, 3 l WIXELA Refill(s) INHUB) 250-50 mcg/dose DISKUS vitamin 2021- No 5,000 Methodi D3-folic 04-12 IntlUnit = st acid 5,000 00:00: 00:00 1 cap, PO, Hospita unit- 1 mg 00 :00 Daily, # l tablet 30 cap, 1 Refill(s) vit A,C and No 1,000 mg = Methodi E-lutein-wv 04-12 1 tab, PO, s t nerals [...] ORAL) 00:00: 00:00 Hospita 00 :00 l vitamin 2021- No 5,000 Methodi D3-folic 04-12 IntlUnit = st acid 5,000 00:00: 00:00 1 cap, PO, Hospita unit- 1 mg 00 :00 Daily, # l tablet 30 cap, 1 Refill(s) vit A,C and 2021- No 1,000 mg = Methodi E-lutein-wv 04-12 1 tab, PO, s t nerals 00:00: 00:00 Daily, # Hospit a (OCUVITE 00 :00 30 tab, 0 l WITH Refill(s) LUTEIN) 1,000 unit-200 mg-60 unit-2 mg tablet per tablet fenofibrate 2021- No = 1 cap, M ethodi (Tricor) 48 04-12 PO, Daily, s t MG tablet 00:00: 00:00 # 30 cap, Ho spita 00 :00 0 l Refill(s) mecobalamin No 0 Metho di (B12 ACTIVE 04-12 Refill(s) st ORAL) 00:00: 00:00 Hospita 00 :00 l vitamin No 5,000 Methodi D3-folic 04-12 IntlUnit = st acid 5,000 00:00: 00:00 1 cap, PO, Hospita unit- 1 mg 00 :00 Daily, # l tablet 30 cap, 1 Refill(s) vit A,C and No 1,000 mg = Methodi E-lutein-mi 04-12 [...] spita 00 :00 0 l Refill(s) mecobalamin No 0 Metho di (B12 ACTIVE 04-12 Refill(s) st ORAL) 00:00: 00:00 Hospita 00 :00 l methylPREDN 2019- No [id number] 84mg Take 21 Univers ISolone 06-23 9102 tablets by itdede o f (MEDROL, 00:00: 00:00 mouth [place] BRIAN,) 4 mg 00 :00 SEE-INSTRU Med ical tablets CTIONS. Branch follow package directions XARELTO 15 2019- No Univer s mg tablet 06-20 ity of 00:00: 00:00 [place] 00 : Medical Branch estradiol 2019-0 Yes Univers 0.05 mg/24 4-30 ity of hr twice 00:00: Medical patch Branch estradiol 2019-0 Yes Univers 0.05 mg/24 4-30 ity of hr twice 00:00: Medical patch Branch estradiol 2019-0 Yes Univers 0.05 mg/24 [...] hr twice 00:00: Medical patch Branch estradiol 2019-0 Yes Univers 0.05 mg/24 4-30 ity of hr twice 00:00: Medical patch Branch estradiol 2018-0 Yes Univers 0.05 mg/24 4-30 ity of hr twice 00:00: Medical patch Branch estradiol 2019-0 Yes Univers 0.05 mg/24 4-30 ity of hr twice 00:00: Medical patch Branch estradiol 2019-0 Yes Univers 0.05 mg/24 4-30 ity of hr twice 00:00: Medical patch Branch estradiol 2019-0 Yes Univers 0.05 mg/24 4-30 ity of hr twice 00:00: Medical patch Branch estradiol 2019-0 Yes Univers 0.05 mg/24 4-30 ity of hr twice 00:00: Medical patch Branch estradiol 2018-0 Yes Univers 0.05 mg/24 4-30 ity of hr twice 00:00: Medical patch Branch estradiol 2018-0 Yes Univers 0.05 mg/24 4-30 ity of hr twice 00:00: [place] Medical patch Branch estradiol 2019-0 Yes Univers 0.05 mg/24 4-30 ity of hr twice 00:00: Medical patch Branch estradiol 2019-0 Yes Univers 0.05 mg/24 4-30 ity of hr twice 00:00: Medical patch Branch estradiol 2019-0 Yes Univers 0.05 mg/24 4-30 ity of hr twice 00:00: Medical patch Branch estradiol 2019-0 Yes Univers 0.05 mg/24 4-30 ity of hr twice 00:00: Medical patch Branch BYSTOLIC 5 2019-0 2020- No Univer s mg tablet 16 - ity of 00:00: 00:00 [place] 00 :00 Medical Branch losartan 2019-0 Yes Univers 100 mg 2-28 ity of tablet 00:00: 00 Medical Branch losartan 2019-0 Yes Univers 100 mg 2-28 ity of tablet 00:00: 00 Medical Branch losartan 2019-0 Yes Univers 100 mg 2-28 ity of tablet 00:00: 00 Medical Branch losartan 2019-0 Yes Univers 100 mg 2-28 ity of tablet 00:00: 00 Medical Branch losartan 2019-0 Yes Univers 100 mg 2-28 ity of tablet 00:00: 00 Medical Branch losartan 2019-0 Yes Univers 100 mg 2-28 ity of tablet 00:00: 00 Medical Branch losartan 2019-0 Yes 100mg Take 100 Univ ers 100 mg 2-28 mg by ity of tablet 00:00: mouth daily. Medical Branch losartan 2019-0 Yes 100mg Take 100 Univ ers 100 mg 2-28 mg by ity of tablet 00:00: mouth daily. Medical Branch losartan 2019-0 Yes 100mg Take 100 Univ ers 100 mg 2-28 mg by ity of tablet 00:00: mouth daily. Medical Branch losartan 2019-0 Yes 100mg Take 100 Univ ers 100 mg 2-28 mg by ity of tablet 00:00: mouth 00 daily. Medical Branch losartan 2019-0 Yes 100mg Take 100 Univ ers 100 mg 2-28 mg by ity of tablet 00:00: mouth 00 daily. Medical Branch losartan 2019-0 Yes [...] mouth [place] 00 daily. Medical Branch losartan 2018-0 Yes 100mg Take 100 Univ ers 100 [...] 00:00: mouth [place] 00 daily. Medical Branch naproxen 2020- No [id number] 500mg Take 1 U nivers 500 mg 07-11-24 tablet by ity of tablet 00:00: 00:00 mouth 2 [place] 00 :00 (two) Medical times Branch daily with meals. codeine-gua 2020- No [id number] 5mL Take 5 mL Univers ifenesin 07-03-24 by mouth ity of 10-100 mg/5 00:00: 00:00 every 6 [place] mL solution 00 :00 (six) Medical hours as Branch needed for Cough. albuterol 2020- No 2{puff} Inhale 2 Univers 90 03-11 04-24 Puffs ity of mcg/actuati 00:00: 00:00 every 4 [place] on inhaler 00 :00 (four) Medical hours as Branch needed for Wheezing or Shortness of Breath. traMADOL 50 2020- No [id number] 50mg Take 1 Univers mg tablet 07-07-24 tablet by ity of 00:00: 00:00 mouth [place] 00 :00 every 4 Medical (four) Branch hours as needed (pain requiring narcotic). amitriptyli 2019- No [id number] 25mg Take 1 Univers ne 25 mg 07-07-24 tablet by ity o f tablet 00:00: 00:00 mouth at [place] 00 :00 bedtime. Medical 1-2 tab at Branch bedtime for neuropathi c pain Immunizations Ordered Filled Immunization Date Status Comments [facility] e Immunization Name Name Td 2021-01-12 Completed [facility] 2021-01-12 Completed [facility]d 2021-01-12 Completed [facility] Td 2021-01-12 Completed [facility] Td 2021-01-12 Completed [facility] 00:[facility] Td 2021-01-12 Completed [facility] 00:[facility] Td 2021-01-12 Completed [facility] 00:[facility] Td 2021-01-12 Completed [facility] 00:[facility] Td 2021-01-12 Completed [facility] 00:[facility] Td 2021-01-12 Completed [facility] Td 2021-01-12 Completed [facility] 00:[facility] Td 2021-01-12 Completed [facility] Td 2021-01-12 Completed [facility] 00:[facility] Td 2021-01-12 Completed [facility] Td 2021-01-12 Completed [facility] Td 2021-01-12 Completed [facility] Td 2021-01-12 Completed [facility] PFIZER COVID-19 2020-10-04 Completed [facility] VACCINATION 00:00:00 [facility] PFIZER COVID-19 2020-10-04 Completed [facility] VACCINATION 00:00:00 [facility] PFIZER COVID-19 2020-10-04 Completed [facility]RNA VACCINATION 00:00:00 [facility] COVIDClay 2020-10-04 Completed [facility]RNA VACCINATION 00:00:00 [facility] COVID-Clay 2020-03-16 Completed [facility]RNA VACCINATION 00:00:00 [facility] COVIDClay 2020-03-16 Completed [facility]RNA VACCINATION 00:00:00 [facility] COVIDClay 2020-03-16 Completed [facility]RNA VACCINATION 00:00:00 [facility] BUBBAClay 2020-03-16 Completed [facility]RNA VACCINATION 00:00:00 [facility] [id number] 2020-03-15 Completed Memor ial [place] [id number] 00:00:00 [id number] 2020-03-15 Completed Memor ial [place] [id number] 00:00:00 [id number] 2020-03-15 Completed Memor ial [place] [id number] 00:00:00 ER [id number] 2020-03-15 Completed Memor ial [place] [id number] 00:00:00 ER [id number] 2020-03-15 Completed Memor ial [place] [id number] 00:00:00 ER [id number] 2020-03-02 Completed Memor ial [place] [id number] 00:00:00 ER [id number] 2020-03-02 Completed Memor ial [place] [id number] 00:00:00 ER [id number] 2020-03-02 Completed [facility] ial [place] [id number] 00:00:00 ER [id number] 2020-03-02 Completed [facility] ial [place] [id number] 00:00:00 ER [id number] 2020-03-02 Completed [facility] RNABNT-[id number] 00:00:00 PFIZER COVID-19 2020-02-24 [facility]pleted [facility]:00 [facility] PFIZER COVID-19 2020-02-24 [facility] 00:00:00 [facility] PFIZER COVID-19 2020-02-24 Com[facility] VACC[facility] 00:00:00 [facility] PFIZER COVID-19 2020-02-24 Com[facility] VACC[facility] 00:00:00 Hospital Influenza Trivalent 2019-10-13 Completed [facility] 00:00:00 [facility] Influenza Trivalent 2019-10-13 Completed [facility] 00:00:00 [facility] Influenza Trivalent 2019-10-13 Completed [facility] 00:00:00 [facility] Influenza Trivalent 2019-10-13 Completed [facility] 00:00:00 [facility] influenza virus 2019-09-12 Completed [facility], 00:00:00 inactivated influenza virus 2019-09-12 Completed [facility], 00:00:00 inactivated influenza virus 2019-09-12 Completed [facility], 00:00:00 inactivated influenza virus 2019-09-12 Completed [facility], 00:00:00 inactivated influenza virus 2019-09-12 Completed [facility], 00:00:00 inactivated Pneumococcal 2018-07-12 Completed [facility] Conjugate 00:00:00 [facility] Zoster Vaccine 2018-07-12 Completed [facility] Recombinant 00:00:00 [facility] Pneumococcal 2018-07-12 Completed [facility]jug[facility] 00:00:00 [facility] Zoster Vaccine 2018-07-12 Completed [facility] Recombinant 00:00:00 [facility] Pneumococcal 2018-07-12 Completed [facility] Conjug[facility] 00:00:00 [facility] Zoster Vaccine 2018-07-12 Completed [facility] Recombinant 00:00:00 [facility] Pneumococcal 2018-07-12 Completed [facility] Conjug[facility] 00:00:00 [facility] Zoster Vaccine 2018-07-12 Completed [facility] Recombinant 00:00:00 [facility] Zoster Vaccine 2018-04-11 Completed [facility] Zoster Vaccine 2018-04-11 Completed [facility] Zoster Vaccine 2018-04-11 Completed [facility] Zoster Vaccine 2018-04-11 Completed [facility]00 [facility] Pneumococcal 2017-11-11 Completed [facility] Conjugate 13-Valent 00:00:00 Hospi jon Pneumococcal 2017-11-11 Completed [facility] Conjugate 13-Valent 00:00:00 Gomez webb Pneumococcal 2017-11-11 Completed [facility] Conjugate 13-Valent 00:00:00 Gomez webb Pneumococcal 2017-11-11 Completed [facility] Conjugate 13-Valent 00:00:00 Gomez webb Vital Signs Vital Name Observation Time Observation Value Comments Source Systolic blood 2021-06-17 15:41:00 147 mm[Hg] [facility] Diastolic blood 2021-06-17 15:41:00 63 mm[Hg] [facility] Heart rate 2021-06-17 15:40:00 59 /min [facility] Body temperature 2021-06-17 15:40:00 36.56 Kaylen [facility] Respiratory rate 2021-06-17 15:40:00 18 /min [facility] Body height 2021-06-17 15:40:00 165.1 cm [facility] Body weight 2021-06-17 15:40:00 74.118 kg [facility] BMI 2021-06-17 15:40:00 27.19 kg/m2 [facility] Oxygen saturation in 2021-06-17 15:40:00 97 /min University Arterial blood by [facility] Pulse oximetry Branch Systolic blood 2021-01-30 17:26:00 146 mm[Hg] [facility] Diastolic blood 2021-01-30 17:26:00 69 mm[Hg] [facility] Heart rate 2021-01-30 17:26:00 56 /min [facility] Body temperature 2021-01-30 17:26:00 36.78 Kaylen [facility] Respiratory rate 2021-01-30 17:26:00 18 /min Univ ersity of [facility] Body height 2021-01-30 17:26:00 165.1 cm [facility] Body weight 2021-01-30 17:26:00 78.586 kg [facility] BMI 2021-01-30 17:26:00 28.83 kg/m2 [facility] Oxygen saturation in 2021-01-30 17:26:00 98 /min University of Arterial blood by [facility] Pulse oximetry Branch Systolic blood 2021-01-21 17:39:00 138 mm[Hg] [facility] Diastolic blood 2021-01-21 17:39:00 63 mm[Hg] [facility] Heart rate 2021-01-21 17:39:00 50 /min [facility] Body temperature 2021-01-21 17:39:00 36.11 Kaylen [facility] Respiratory rate 2021-01-21 17:39:00 19 /min [facility] Body height 2021-01-21 17:39:00 165.1 cm [facility] Body weight 2021-01-21 17:39:00 76.658 kg [facility] BMI 2021-01-21 17:39:00 28.12 kg/m2 [facility] Oxygen saturation in 2021-01-21 17:39:00 98 /min [facility] of Arterial blood by [facility] Pulse oximetry Branch Respiratory rate 2021-01-13 06:30:00 20 /min [facility] Oxygen saturation in 2021-01-13 06:30:00 96 /min [facility] of Arterial blood by [facility] Pulse oximetry Branch Systolic blood 2021-01-13 03:42:00 145 mm[Hg] [facility] Diastolic blood 2021-01-13 03:42:00 74 mm[Hg] [facility] Heart rate 2021-01-13 03:42:00 51 /min [facility] Body temperature 2021-01-13 03:42:00 36.44 Kaylen [facility] Body height 2021-01-13 03:42:00 165.1 cm [facility] Body weight 2021-01-13 03:42:00 74.844 kg [facility] BMI 2021-01-13 03:42:00 27.46 kg/m2 [facility] Systolic blood 2019-06-09 20:30:00 139 mm[Hg] [facility] Diastolic blood 2019-06-09 20:30:00 49 mm[Hg] [facility] Heart rate 2019-06-09 20:30:00 56 /min Universi ty [facility] Body temperature 2019-06-09 20:30:00 36.56 Kaylen [facility] Respiratory rate 2019-06-09 20:30:00 18 /min [facility] O[facility] saturation in 2019-06-09 20:30:00 94 /min University Arterial blood by [facility] Pulse oximetry Branch Body height 2019-06-05 12:17:00 165.1 cm Universi [facility] Body weight 2019-06-05 12:17:00 65.772 kg [facility] BMI 2019-06-05 12:17:00 24.13 kg/m2 [facility] Systolic blood 2021-12-29 15:22:00 140 mm[Hg] Method [facility] pressure Diastolic blood 2021-12-29 15:22:00 60 mm[Hg] [facility] pressure Heart rate 2021-12-29 15:22:00 60 /min [facility] Body temperature 2021-12-29 15:22:00 36.56 Kaylen [facility] Body height 2021-12-29 15:22:00 165.1 cm [facility] Body weight 2021-12-29 15:22:00 75.32 kg [facility] BMI 2021-12-29 15:22:00 27.63 kg/m2 [facility] Oxygen saturation in 2021-12-29 15:22:00 97 /min [facility] Arterial blood by Pulse oximetry Systolic blood 2021-09-26 18:03:00 160 mm[Hg] Method [facility] pressure Diastolic blood 2021-09-26 18:03:00 60 mm[Hg] [facility] pressure Heart rate 2021-09-26 18:03:00 54 /min [facility] Body temperature 2021-09-26 18:03:00 35.89 Kaylen [facility] Body height 2021-09-26 18:03:00 165.1 cm [facility] Body weight 2021-09-26 18:03:00 74.118 kg [facility] BMI 2021-09-26 18:03:00 27.19 kg/m2 [facility] Oxygen saturation in 2021-09-26 18:03:00 97 /min [facility] Arterial blood by Pulse oximetry Respiratory rate 2021-07-17 18:36:00 18 /min [facility] Systolic (mm Hg) 2020-09-22 16:07:00 Madi [facility] [place] Diastolic (mm Hg) 2020-09-22 16:07:00 [facility] [place] Heart Rate 2020-09-22 16:07:00 [facility] [place] Temperature Oral (F) 2020-09-22 16:07:00 98.0 F [facility] Height 2020-09-22 16:07:00 165.1 cm [facility] [place] Weight 2020-09-22 16:07:00 [facility] BMI Calculated 2020-09-22 16:07:00 [facility] [place] Systolic (mm Hg) 2019-07-14 16:24:00 Madi [facility] [place] Diastolic (mm Hg) 2019-07-14 16:24:00 [facility] [place] Heart Rate 2019-07-14 16:24:00 [facility] Temperature Oral (F) 2019-07-14 16:24:00 97.8 F [facility] [place] Height 2019-07-14 16:24:00 165.1 cm [facility] [place] Weight 2019-07-14 16:24:00 [facility] [place] BMI Calculated 2019-07-14 16:24:00 [facility] [place] Systolic (mm Hg) 2019-04-13 16:35:00 Madi rial [place] Diastolic (mm Hg) 2019-04-13 16:35:00 Mem [facility] [place] Height 2019-04-13 15:46:00 165.1 cm [facility] [place] Weight 2019-04-13 15:46:00 [facility] [place] BMI Calculated 2019-04-13 15:46:00 [facility] [place] Systolic (mm Hg) 2019-04-13 15:46:00 Madi [facility] [place] Diastolic (mm Hg) 2019-04-13 15:46:00 Mem [facility] [place] Heart Rate 2019-04-13 15:46:00 [facility] [place] Procedures Procedure Date / Time Performing Clinician Source Performed LDH 2021-12-29 17:22:00 Buckley, [facility] HEPATIC FUNCTION PANEL 2021-12-29 17:22:00 Tanja Buckley [facility] SARS-COV-2 ANTIBODY IGG, 2021-12-29 17:22:00 Tanja Buckley [facility] SPIKE, QUANTITATIVE PHYSICIAN ORDERS 2021-10-18 05:01:00 Doctor Unassigned, No [facility] XR LUMBAR SPINE 4 VW 2021-10-10 20:02:43 Requisition, Paper [facility] ASSIGNMENT OF BENEFITS 2021-10-10 19:37:15 Doctor Unassigned, No [facility] LDH 2021-09-26 05:00:00 Marcio [facility] HEPATIC FUNCTION PANEL 2021-09-26 05:00:00 Tanja Buckley [facility] BASIC METABOLIC PANEL 2021-09-26 05:00:00 [facility] ZZCOVID-19 ANTI-SPIKE 2021-06-29 19:59:00 [facility] IGG ANTIBODY TITER HEPATIC FUNCTION PANEL 2021-06-29 05:00:00 Tanja Buckley [facility] LDH 2021-06-29 05:00:00 [facility] BASIC METABOLIC PANEL 2021-06-29 05:00:00 [facility] POCT MOLECULAR STREP 2021-06-17 16:01:00 Royal Barrios [facility] URINE CULTURE 2021-03-30 15:41:00 Chary Anand ospital POC URINALYSIS DIPSTICK 2021-03-30 15:40:00 Chary Anand [facility] BASIC METABOLIC PANEL 2021-03-30 06:00:00 [facility] LDH 2021-03-30 06:00:00 [facility] HEPATIC FUNCTION PANEL 2021-03-30 06:00:00 Tanja Buckley [facility] FERRITIN LEVEL 2021-03-30 06:00:00 [facility] TOTAL IRON BINDING 2021-03-30 06:00:00 [facility] CBC WITH PLATELET AND 2021-03-30 06:00:00 [facility] DIFFERENTIAL CBC WITH PLATELET AND 2021-03-03 19:09:00 [facility] DIFFERENTIAL LDH 2021-03-03 19:09:00 [facility] HEPATIC FUNCTION PANEL 2021-03-03 19:09:00 [facility] BASIC METABOLIC PANEL 2021-03-03 19:09:00 [facility] FERRITIN LEVEL 2021-03-03 19:09:00 [facility] TOTAL IRON BINDING 2021-03-03 19:09:00 [facility] POCT URINALYSIS 2021-01-30 17:30:00 [facility] ASSIGNMENT OF BENEFITS 2021-01-30 17:06:46 Doctor Unassigned, No [facility] [place] RESUPERF WND BODY 2021-01-13 05:14:11 Chrissy Negrete [facility] 2.5CM OR LESS [facility] NOTICE OF PRIVACY 2021-01-13 03:39:06 Doctor Unassigned, No [facility] PRACTICES [facility] CONSENT/REFUSAL FOR 2021-01-13 03:37:57 Doctor Unassigned, No [facility] DIAGNOSIS AND TREATMENT [facility] BASIC METABOLIC PANEL 2020-12-01 05:00:00 [facility] HEPATIC FUNCTION PANEL 2020-12-01 05:00:00 Buckley [facility] LDH 2020-12-01 05:00:00 [facility] US THYROID 2020-11-09 19:03:39 [facility] MAGNESIUM 2019-06-09 11:05:00 Jose A Hamm [facility] BASIC METABOLIC PANEL 2019-06-09 11:05:00 Mikhail Stockton [facility] (NA, K, CL, CO2, [facility] GLUCOSE, BUN, CREATININE, CA) CBC WITH DIFFERENTIAL 2019-06-09 11:05:00 Mahin Keshajesspelon Jerry versity [facility] XR CHEST 2 VW 2019-06-08 16:37:40 Jose A Hamm [facility] BASIC METABOLIC PANEL 2019-06-08 09:13:00 MahinKeshajesspelon Jerry versity [facility] (NA, K, CL, CO2, [facility] GLUCOSE, BUN, CREATININE, CA) CBC WITH DIFFERENTIAL 2019-06-08 09:13:00 [facility] / INR 2019-06-08 09:13:00 Omar Howard U [facility] ACTIVATED PARTIAL 2019-06-08 09:13:00 Adele Rodriguez Univers ity [facility] ACTIVATED PARTIAL 2019-06-08 02:07:00 Adele Rodriguez Univers ity [facility] ACTIVATED PARTIAL 2019-06-07 19:18:00 Adele Rodriguez Univers ity [facility] BASIC METABOLIC PANEL 2019-06-07 07:28:00 Mahin Keshajesspelon [facility] versity [facility] (NA, K, CL, CO2, [facility] GLUCOSE, BUN, CREATININE, CA) CBC WITH DIFFERENTIAL 2019-06-07 07:28:00 [facility]ail [facility] ACTIVATED PARTIAL 2019-06-07 07:28:00 ChristAdele guaman Univers ity [facility] ACTIVATED PARTIAL 2019-06-06 18:55:00 ChristAdele guaman Univers ity [facility] BASIC METABOLIC PANEL 2019-06-06 13:07:00 Omar Howard [facility] (NA, K, CL, CO2, Medical Branch GLUCOSE, BUN, CREATININE, CA) ACTIVATED PARTIAL 2019-06-06 10:23:00 Adele Rodriguez Univers ity [facility] ACTIVATED PARTIAL 2019-06-06 05:09:00 Adele Rodriguez Univers ity [facility] LACTATE DEHYDROGENASE 2019-06-05 17:34:00 Jose A Hamm [facility] FERRITIN SERUM 2019-06-05 17:34:00 Jose A Hamm [facility] CORTISOL PM SERUM 2019-06-05 17:34:00 Jose A Hamm [facility] C-REACTIVE PROTEIN 2019-06-05 17:34:00 Jose A Hamm ty [facility] BASIC METABOLIC PANEL 2019-06-05 17:34:00 Keri Prajapati [facility] (NA, K, CL, CO2, Medical Branch GLUCOSE, BUN, CREATININE, CA) PROTHROMBIN TIME / INR 2019-06-05 17:34:00 Martha Falcon [facility] ACTIVATED PARTIAL 2019-06-05 17:34:00 Martha Falcon [facility] PROCALCITONIN 2019-06-05 17:34:00 Jose A Hamm [facility] CORONAVIRUS COVID-19 2019-06-05 17:22:[address] [facility] CT THORAX WO CONTRAST 2019-06-05 06:25:39 [facility] SPUTUM CULTURE 2019-06-05 06:07:00 Chrissy Negrete [facility] XR CHEST 1 VW COVID 2019-06-05 05:08:57 Chrissy Negrete [facility] URINALYSIS 2019-06-05 04:56:00 Chrissy Negrete [facility] MAGNESIUM 2019-06-05 04:52:00 Jose A Hamm [facility] TROPONIN I 2019-06-05 04:52:00 Chrissy Negrete [facility] THYROID STIMULATING 2019-06-05 04:52:00 Jose A Hamm [facility] HORMONE [facility] COMP. METABOLIC PANEL 2019-06-05 04:52:00 Chrissy Negrete [facility] ([id number]) [facility] CBC WITH DIFFERENTIAL 2019-06-05 04:52:00 [facility] PROTHROMBIN TIME / INR 2019-06-05 04:52:00 Chrissy Negrete [facility] N-TERMINAL PRO-BNP 2019-06-05 04:52:00 Chirssy Negrete [facility] CORONAVIRUS COVID-19 2019-06-05 04:49:00 [facility]iss[facility]-12 LEAD 2019-06-05 04:46:32 Chrissy Negrete [facility] EKG-12 LEAD 2019-06-05 04:43:05 Chrissy Negrete [facility] Hysterectomy 1982-02-11 00:00:00 [facility] Plan of Care Planned Activity Planned Date Details Comments Source Future Scheduled 2022-04-18 65+ PNEUMOCOCCAL [facility] Test 16:57:46 VACCINE (2 - PPSV23 if available, else PCV20) [code = 65+ PNEUMOCOCCAL VACCINE (2 - PPSV23 if available, else PCV20)] Future Scheduled 2022-04-18 COVID-19 VACCINE (5 - [facility] Test 16:57:46 Booster for Pfizer series) [code = COVID-19 VACCINE (5 - Booster for Pfizer series)] Future Scheduled 2022-02-20 65+ PNEUMOCOCCAL [facility] Test 15:27:44 VACCINE (2 - PPSV23 if available, else PCV20) [code = 65+ PNEUMOCOCCAL VACCINE (2 - PPSV23 if available, else PCV20)] Future Scheduled 2022-02-20 COVID-19 VACCINE (5 - [facility] Test 15:27:44 Booster for Pfizer series) [code = COVID-19 VACCINE (5 - Booster for Pfizer series)] Future Scheduled 2022-02-20 65+ [facility]OCOCCAL [facility] Test 15:27:44 VACCINE (2 - PPSV23 if available, else PCV20) [code = 65+ PNEUMOCOCCAL VACCINE (2 - PPSV23 if available, else PCV20)] Future Scheduled 2022-02-20 COVID-19 VACCINE (5 - [facility] Test 15:27:44 Booster for Pfizer series) [code = COVID-19 VACCINE (5 - Booster for Pfizer series)] Future Scheduled 2021-10-19 HEPATITIS B VACCIN[facility] Test 10:18:16 (1 of 3 - 3-dose series) [code = HEPATITIS B VACCINES (1 of 3 - 3-dose series)] Future Scheduled 2021-10-19 65+ [facility] Test 10:18:16 VACCINE (2 - PPSV23 or PCV20) [code = 65+ PNEUMOCOCCAL VACCINE (2 - PPSV23 or PCV20)] Future Scheduled 2021-10-19 COVID-19 VACCINE (5 - [facility] Test 10:18:16 Booster for Pfizer series) [code = COVID-19 VACCINE (5 - Booster for Pfizer series)] Future Scheduled 2021-10-19 [facility]FLUENZA [facility]ACCINE [facility] Test 10:18:16 [code = INFLUENZA VACCINE] Encounters Start End Encounter Admission Attending Care Care Encounter Source Date/Time Date/Time Type Type Clinicians Facility Department ID 2022-04-05 2022-04-05 Telephone Mathew, 1.2.840.7 [id number] Methodi 00:00:00 00:00:[address] 3.430.2.7 Hospit a .3.585967 l .8 2021-12-29 2021-12-29 Office Marcio 1.2.840.4 [id number] Methodi 09:30:00 11:06:26 Visit Tanja Díaz 72086.1.1 793 s t 3.430.2.7 Hospit a .3.569775 l .8 2021-12-29 2021-12-29 Office Marcio 1.2.840.1 [id number] Methodi 09:30:00 11:06:26 Visit Tanja Daíz 92033.1.1 793 s t 3.430.2.7 Hospit a .3.421857 l .8 2021-12-29 2021-12-29 Nurse Only Marcio 1.2.840.1 [id number] Methodi 10:30:00 11:00:00 Tanja Díaz 23258.1.1 806 s t 3.430.2.7 Hospit a .3.377577 l .8 2021-12-29 2021-12-29 Nurse Only Buckley, 1.2.840.1 [id number] Methodi 10:30:00 11:00:00 Tanja Díaz 89963.1.1 806 s t 3.430.2.7 Hospit a .3.652814 l .8 2021-12-29 2021-12-29 Lab Marcio, 1.2.840.1 [id number] Methodi 07:00:00 07:05:00 Tanja Díaz 61730.1.1 481 s t 3.430.2.7 Hospit a .3.123880 l .8 2021-12-29 2021-12-29 Lab Marcio, 1.2.840.1 [id number] Methodi 07:00:00 07:05:00 Tanja Díaz 75959.1.1 481 s t 3.430.2.7 Hospit a .3.599032 l .8 2021-12-29 2021-12-29 Travel 1.2.840.1 1.2.095.573 [id number] Methodi 00:00:00 00:00:[address] 3.430.2.7 0.2.7.3.698 Ho spita .3.919274 084.8 l .8 2021-12-29 2021-12-29 Travel 1.2.840.1 1.2.343.266 [id number] Methodi 00:00:00 00:00:[address] 3.430.2.7 0.2.7.3.698 Ho spita .3.509970 084.8 l .8 2021-11-20 2021-11-20 Ancillary Andrade Cash [facility] 1.2.840. 114 [id number] [facility] 13:00:00 13:45:00 Visit Israel Pedraza 350.1.13.10 ity [facility] 4.2.7.2.686 [place] PROFESS[place] [phone] Ms dical [facility] [address] [facility] 2021-11-20 2021-11-20 Outpatient R MILO [facility] [id number] Univers 13:00:00 13:00:00 ISRAEL khanna [facility] 2021-11-15 2021-11-15 Ancillary Xenia Walker [facility] 1.2.84 0.114 [id number] Univers 09:30:00 10:10:30 Visit Israel Pedraza 350.1.13.10 ity [place].2.[place] [id number] Ms dical NAL [address] [facility] 2021-11-13 2021-11-13 Ancillary Andrade Cash [facility] 1.2.840. 114 [id number] Univers 13:45:00 14:30:00 Visit Israel Pedraza 350.1.13.10 ity [place] 4[place].2.[place] [id number] Ms dical NAL [address] [facility] 2021-11-08 2021-11-08 Ancillary Andrade Cash [facility] 1.2.840. 114 [id number] Univers 10:15:00 11:00:00 Visit Israel Pedraza 350.1.13.10 [place] 4[place].2.[place] [id number] Ms dical NAL [address] [facility] 2021-11-08 2021-11-08 Outpatient R MILO [facility] [id number] Univers 10:15:00 10:15:00 ISRAEL khanna [facility] 2021-11-07 2021-11-07 Orders Mathew, 1.2.840.8 [id number] Methodi 00:00:00 00:00:00 Only Miley 55397.1.[address] 3.430.2.7 Hospit a .3.218813 l .8 2021-11-07 2021-11-07 Orders Mathew, 1.2.840.4 [id number] Methodi 00:00:00 00:00:00 Only Miley 71828.1.[address] 3.430.2.7 Hospit a .3.804948 l .8 2021-11-06 2021-11-06 Ancillary Andrade Cash [facility] 1.2.840. 114 [id number] Univers 10:15:00 11:00:00 Visit Israel Pedraza 350.1.13.10 ity [place] 4[place].2.[place] [id number] Ms dical NAL [address] [facility] 2021-11-01 2021-11-01 Ancillary Hanna Cash [facility] 1.2.840 .114 [id number] Univers 09:30:00 10:09:18 Visit Israel Pedraza 350.1.13.10 ity [place] 4[place].2.[place] [id number] Ms dical NAL [address] [facility] 2021-10-30 2021-10-30 Ancillary Xenia Walker [facility] 1.2.84 0.114 [id number] [facility] 09:30:00 11:03:20 Visit Israel Pedraza 350.1.13.10 it[place] 4[place].2.[place] [id number] Ms dical NAL [address] [facility] 2021-10-25 2021-10-25 Ancillary Olena Salmeron [facility] 1 .2.840.114 [id number] [facility] 11:00:00 11:43:51 Visit Israel Pedraza 350.1.13.10 [place] 4[place].2.[place] [id number] Ms dical NAL [address] [facility] 2021-10-18 2021-10-18 Orders Doctor NARGIS 1.2.840.114 [id number] Univers 00:00:00 00:00:00 Only Unassigned, KOFFI 350.1.13.[address] [place] [facility] 4.2.7.2.686 Osbaldo as [id number] [address] 2021-10-10 2021-10-10 Outpatient R RADIOLOGY [facility] [id number] Univers 14:44:08 23:59:00 ity of [facility] 2021-10-10 2021-10-10 [facility] Radiology [facility] 1.2.840.114 [id number] [facility] 14:15:00 23:59:00 Encounter ANGLEAPPLE 350.1.13.10 ity [facility] 4.2.7.2.686 [place] [id number] [facility] [address] 2021-10-10 2021-10-10 Orders Doctor NARGIS 1.2.840.114 [id number] Univers 00:00:00 00:00:00 Only Unassigned, KOFFI 350.1.13.[address] [place] [facility] 4.2.7.2.686 Osbaldo [phone] [facility] [address] 2021-09-26 2021-09-26 Office Marcio 1.2.840.4 [id number] Methodi 13:00:00 13:50:26 Visit Tanja Díaz 32578.1.1 907 s t 3.430.2.7 Hospit a .3.042896 l .8 2021-09-26 2021-09-26 Office Marcio 1.2.840.9 [id number] Methodi 13:00:00 13:50:26 Visit Tanja Díaz 34699.1.1 907 s t 3.430.2.7 Hospit a .3.978015 l .8 2021-09-26 2021-09-26 Outpatient MHIE MHIE [id number] Memoria 11:00:00 11:00:00 05 curtis ValentinLiberty 2021-09-26 2021-09-26 Outpatient MHIE MHIE [id number] Memoria 11:00:00 11:00:00 05 l [place] 2021-09-26 2021-09-26 Travel 1.2.840.1 1.2.929.896 [id number] Methodi 00:00:00 00:00:[address] 3.430.2.7 0.2.7.3.698 Ho spita .3.784574 084.8 l .8 2021-09-26 2021-09-26 Travel 1.2.840.1 1.2.299.313 [id number] Methodi 00:00:00 00:00:[address] 3.430.2.7 0.2.7.3.698 Ho spita .3.636827 084.8 l .8 2021-07-28 2021-07-28 Telephone Iron, 1.2.840.0 [id number] Methodi 00:00:00 00:00:[address] 3.430.2.7 Hospit a .3.012941 l .8 2021-07-28 2021-07-28 Telephone Perdue, 1.2.840.0 [id number] Methodi 00:00:00 00:00:[address] 3.430.2.7 Hospit a .3.294330 l .8 2021-07-18 2021-07-18 Telephone Kennedy, 1.2.840.0 [id number] Methodi 00:00:00 00:00:00 Marilou R [address]55.1.[address] 3.430.2.7 Hospit a .3.748338 l .8 2021-07-18 2021-07-18 Telephone Kennedy, 1.2.840.0 [id number] Methodi 00:00:00 00:00:00 Marilou R [address]20.1.[address] 3.430.2.7 Hospit a .3.361390 l .8 2021-07-17 2021-07-17 Nurse Only Marcio, 1.2.840.1 [id number] Methodi 13:30:00 14:00:00 Tanja Díaz 87190.1.1 750 s t 3.430.2.7 Hospit a .3.106556 l .8 2021-07-17 2021-07-17 Nurse Only Marcio, 1.2.840.1 [id number] Methodi 13:30:00 14:00:00 Tanja Díaz 37445.1.1 750 s t 3.430.2.7 Hospit a .3.077680 l .8 2021-07-17 2021-07-17 Travel 1.2.840.1 1.2.971.594 2678 324286 Methodi 00:00:00 00:00:[address] 3.430.2.7 0.2.7.3.698 Ho spita .3.835168 084.8 l .8 2021-07-17 2021-07-17 Travel 1.2.840.1 1.2.338.767 6178 348518 Methodi 00:00:00 00:00:[address] 3.430.2.7 0.2.7.3.698 Ho spita .3.559757 084.8 l .8 2021-07-03 2021-07-03 Travel 1.2.840.1 1.2.878.156 1017 870310 Methodi 00:00:00 00:00:[address] 3.430.2.7 0.2.7.3.698 Ho spita .3.907719 084.8 l .8 2021-07-03 2021-07-03 Orders [place], 1.2.840.8 [id number] 2099 253525 Methodi 00:00:00 00:00:00 Only Miley 16750.1.[address] 3.430.2.7 Hospit a .3.411791 l .8 2021-07-03 2021-07-03 Telephone Mathew, 1.2.840.3 [id number] Methodi 00:00:00 00:00:[address] 3.430.2.7 Hospit a .3.422844 l .8 2021-07-03 2021-07-03 Travel 1.2.840.1 1.2.251.587 4572 046605 Methodi 00:00:00 00:00:[address] 3.430.2.7 0.2.7.3.698 Ho spita .3.132796 084.8 l .8 2021-07-03 2021-07-03 Orders Mathew, 1.2.840.1 [id number] 2100 943382 Methodi 00:00:00 00:00:00 Only Miley 05440.1.[address] 3.430.2.7 Hospit a .3.633031 l .8 2021-07-03 2021-07-03 Telephone Mathew, 1.2.840.8 [id number] Methodi 00:00:00 00:00:[address] 3.430.2.7 Hospit a .3.702267 l .8 2021-06-29 2021-06-29 Office Marcio, 1.2.840.2 [id number] Methodi 15:00:00 15:35:54 Visit Tanja Díaz 20536.1.1 749 s t 3.430.2.7 Hospit a .3.126981 l .8 2021-06-29 2021-06-29 Office Marcio, 1.2.840.8 [id number] Methodi 15:00:00 15:35:54 Visit Tanja Díaz 00750.1.1 749 s t 3.430.2.7 Hospit a .3.795537 l .8 2021-06-29 2021-06-29 Lab Marcio, 1.2.840.1 [id number] 927165 6103 Methodi 06:10:00 06:15:00 Tanja Díaz 57654.1.1 768 s t 3.430.2.7 Hospit a .3.758323 l .8 2021-06-29 2021-06-29 Lab Marcio, 1.2.840.1 [id number] 926630 4335 Methodi 06:10:00 06:15:00 Tanja Díaz 20180.1.1 768 s t 3.430.2.7 Hospit a .3.537914 l .8 2021-06-28 2021-06-28 Travel 1.2.840.1 1.2.671.989 5237 013683 Methodi 00:00:00 00:00:[address] 3.430.2.7 0.2.7.3.698 Ho spita .3.304537 084.8 l .8 2021-06-28 2021-06-28 Travel 1.2.840.1 1.2.703.869 5501 352144 Methodi 00:00:00 00:00:[address] 3.430.2.7 0.2.7.3.698 Ho spita .3.589726 084.8 l .8 2021-06-26 2021-06-26 Travel 1.2.840.1 1.2.399.886 7788 125201 Methodi 00:00:00 00:00:[address] 3.430.2.7 0.2.7.3.698 Ho spita .3.427986 084.8 l .8 2021-06-26 2021-06-26 Travel 1.2.840.1 1.2.144.837 7876 125201 Methodi 00:00:00 00:00:[address] 3.430.2.7 0.2.7.3.698 Ho spita .3.587572 084.8 l .8 2021-06-18 2021-06-18 Telephone NARGIS Suarez 1.2.141.870 5916 2556 Univers 00:00:00 00:00:00 Jenna KOFFI 350.1.13.10 it [facility] 4.2.7.2.686 Osbaldo as [phone] [address] 2021-06-17 2021-06-17 Outpatient Rosalia BARRIOS [facility] [id number] Univers 10:40:00 11:17:02 ROYAL khanna [facility] 2021-06-17 2021-06-17 Urgent Marybeth Taveras [facility] 1.2.840 .114 [id number] Univers 10:40:00 11:17:02 [facility] 350.1.13.10 itdede [facility] 4.2.7.2.686 Osbaldo as DANNIE?BLEA [phone] [address] MEDICAL OFFICE BUILDING 2021-03-30 2021-04-07 Office Anand, 1.2.840.1 [id number] 057108 6775 Methodi 10:00:00 15:59:50 Visit Chary Love 42998.1.[address] 3.430.2.7 Hospit a .3.633129 l .8 2021-03-30 2021-03-30 Office Buckley, 1.2.840.9 [id number] 81412 83074 Methodi 08:30:00 08:46:56 Visit Tanja Díaz 33488.1.1 493 s t 3.430.2.7 Hospit a .3.341129 l .8 2021-03-30 2021-03-30 Travel 1.2.840.1 1.2.937.588 0693 089824 Methodi 00:00:00 00:00:[address] 3.430.2.7 0.2.7.3.698 Ho spita .3.449524 084.8 l .8 2021-03-24 2021-03-24 Travel 1.2.840.1 1.2.253.166 8319 677204 Methodi 00:00:00 00:00:[address] 3.430.2.7 0.2.7.3.698 Ho spita .3.195186 084.8 l .8 2021-03-07 2021-03-07 Travel 1.2.840.1 1.2.090.209 2440 653765 Methodi 00:00:00 00:00:[address] 3.430.2.7 0.2.7.3.698 Ho spita .3.101486 084.8 l .8 2021-02-23 2021-02-23 Travel 1.2.840.1 1.2.709.347 9602 992831 Methodi 00:00:00 00:00:[address] 3.430.2.7 0.2.7.3.698 Ho spita .3.210443 084.8 l .8 2021-01-30 2021-01-30 Urgent [facility] 1.2.840.114 [id number] Univers 11:20:00 11:40:00 Care [facility] 350.1.13.10 it y [facility] 4.2.7.2.686 Osbaldo as DANNIE?BLEA [phone] [address] MEDICAL OFFICE [facility] 2021-01-30 2021-01-30 Outpatient [facility] [id number] Univers 11:20:00 11:20:00 [facility] 2021-01-30 2021-01-30 Orders Doctor NARGIS 1.2.840.114 [id number] Univers 00:00:00 00:00:00 Only Unassigned, KOFFI 350.1.13.[address] [place] [facility] 4.2.7.2.686 Osbaldo as [phone] [address] 2021-01-21 2021-01-21 [facility] 1.2.840.114 [id number] Univers 11:21:55 11:41:55 Care [facility] 350.1.13.10 it y of [facility] 4.2.7.2.686 Osbaldo as DANNIE?BLEA [phone] [address] MEDICAL OFFICE [facility] 2021-01-21 2021-01-21 [address] [facility] [id number] Univers 11:40:00 11:40:00 [facility] 2021-01-12 2021-01-13 Emergency X JEY [facility] [id number] Univers 21:49:00 00:47:00 CRHISSY ity of [facility] 2021-01-12 2021-01-13 Emergency ridc, [facility] 1.2.543.108 8168 [id number] Univers 21:49:00 00:47:00 Chrissy HAYNES 350.1.13.10 ity [facility] 4.2.7.2.686 [facility] [phone] [address] 2020-12-01 2020-12-06 Office Buckley, 1.2.840.3 [id number] 57500 Methodi 09:30:00 11:54:40 Visit Tanja Díaz 56132.1.1 743 s t 3.430.2.7 Hospit a .3.016727 l .8 2020-12-01 2020-12-01 Travel 1.2.840.1 1.2.328.964 9409 481531 Methodi 00:00:00 00:00:[address] 3.430.2.7 0.2.7.3.698 Ho spita .3.796041 084.8 l .8 2020-11-09 2020-11-09 Outpatient SHIVER, [facility] [id number] [address] [place] [address] 00:00:00 00:00:00 CHARLOTTE [address] [facility] 2020-09-22 2020-09-23 Outpatient nullFlavo [facility] [id number] Memoria 16:30:00 04:59:59 r Primary 04 l Care [facility] 2020-09-22 2020-09-23 Outpatient nullFlavo [facility] [id number] Memoria 16:30:00 04:59:59 r Primary 04 l Care [facility] 2020-09-22 2020-09-22 Outpatient Alka, [facility] [id number] 11:30:00 23:59:59 Charlotte Dooley 2020-09-22 2020-09-22 [place] [id number] Memoria 16:30:00 16:30:00 Pre-Reg r Primary 03 l Care [facility] 2020-09-22 2020-09-22 Ambulatory nullFlavo [facility] [id number] Memoria 16:30:00 16:30:00 Pre-Reg r Primary 03 l [facility] 2020-09-22 2020-09-22 Outpatient MHIE MHIE [id number] Memoria 11:30:00 11:30:00 04 curtis Phelan 2020-09-22 2020-09-22 Outpatient MHIE MHIE [id number] Memoria 11:30:00 11:30:00 03 curtis Phelan 2020-09-22 2020-09-22 Outpatient Shiver, [facility] [id number] 11:30:00 11:30:00 Charlotte Hoang 2020-09-13 2020-09-15 Phone nullFlavo [facility] [id number] Memoria 15:33:13 04:59:59 Message r Primary 05 l [facility] 2020-09-13 2020-09-15 Phone nullFlavo [facility] [id number] Memoria 15:33:13 04:59:59 Message r Primary 05 l [facility] 2020-09-13 2020-09-14 Outpatient MHMG [facility] [id number] 655 10:33:13 23:59:59 05 2020-09-07 2020-09-07 Outpatient MENA, [facility] [id number] 871 Blaine 00:00:00 00:00:00 KELSEY 622 [facility] 2020-08-31 2020-08-31 Outpatient BUCKLEY [facility] [id number] Blaine 00:00:00 00:00:00 KELTY 048 [facility] 2020-08-04 2020-08-06 Phone nullFlavo [facility] [id number] Memoria 15:40:35 04:59:59 Message r Primary 04 l [facility] 2020-08-04 2020-08-06 Phone nullFlavo [facility] [id number] Memoria 15:40:35 04:59:59 Message r Primary 04 l [facility] 2020-08-04 2020-08-05 Outpatient MHMG [facility] [id number] 655 10:40:35 23:59:59 04 2020-03-21 2020-03-21 Outpatient MENATHE [facility] [id number] 949 Blaine 00:00:00 00:00:00 KELSEY [address] 2020-03-17 2020-03-17 Outpatient MHIE MHIE [id number] Memoria 13:30:00 13:30:00 02 curtis Phelan 2020-03-17 2020-03-17 Outpatient MHIE MHIE [id number] Memoria 13:30:00 13:30:00 02 curtis Tapan 2020-03-17 2020-03-17 Outpatient MENA, [facility] [id number] 545 [place] 00:00:00 00:00:00 KELSEY [address] 2020-03-16 2020-03-16 Outpatient [facility] [id number] Bl[place] 00:00:00 00:00:[address] 2020-03-07 2020-03-07 Outpatient MARCIO, [facility] [id number] 297 [place] 00:00:00 00:00:00 TANJA [address] 2020-02-24 2020-02-24 Outpatient [facility] [id number] 304 [place] 00:00:00 00:00:[address] 2020-01-27 2020-01-27 Outpatient TANYA, [facility] [id number] [place] 00:00:00 00:00:00 TEJAS 977 Method i 2020-01-01 2020-01-01 Outpatient MARCIO, [facility] [id number] 543 [place] 00:00:00 00:00:00 TYLERTY [address] 2020-01-01 2020-01-01 Outpatient BUCKLEY, [facility] [id number] Bl[place] 00:00:00 00:00:00 TYELRTY [address] 2019-11-09 2019-11-09 Outpatient BUCKLEY, [facility] [id number] 387 [place] 00:00:00 00:00:00 TYLERTY [address] 2019-11-05 2019-11-05 Telephone GABRIEL Rico 1.2.840.114 [id number] [facility] 00:00:00 00:00:00 [facility] [address].1.13.[address] [facility] [phone] [facility] [address] [place] 2019-08-17 2019-08-17 Outpatient MARCIO [facility] [id number] [place] 00:00:00 00:00:00 TYLERTY [address] 2019-07-27 2019-07-29 Phone nullFlavo MG [id number] Memoria 15:04:00 04:59:59 Message r Internal 03 l [facility] 2019-07-27 2019-07-29 Phone nullFlavo MG [id number] Memoria 15:04:00 04:59:59 Message r Internal 03 [facility] 2019-07-27 2019-07-29 Phone nullFlavo MG [id number] Memoria 15:03:36 04:59:59 Message r Internal 02 l [facility] 2019-07-27 2019-07-29 Phone nullFlavo MG [id number] Memoria 15:03:36 04:59:59 Message r Internal 02 [facility] 2019-07-27 2019-07-28 Outpatient MHMG MG [id number] 10:04:00 23:59:59 03 2019-07-27 2019-07-28 Outpatient MHMG MG [id number] 10:03:36 23:59:59 02 2019-07-22 2019-07-22 Outpatient MARCIO [facility] [id number] 643 [place] 00:00:00 00:00:00 TANJA 716 Method i 2019-07-17 2019-07-18 Between nullFlavo MG [id number] Memoria 21:03:39 21:03:39 Visit r Internal 04 [facility] 2019-07-17 2019-07-18 Between nullFlavo MG [id number] Memoria 21:03:39 21:03:39 Visit r Internal 04 [facility] 2019-07-17 2019-07-18 Outpatient MHMG MG [id number] 16:03:39 16:03:39 04 2019-07-14 2019-07-15 [place] [id number] Memoria 16:20:00 04:59:59 r Internal 01 [facility] 2019-07-14 2019-07-15 [place] [id number] Memoria 16:20:00 04:59:59 r Internal 01 [facility] 2019-07-14 2019-07-14 Outpatient BREE Rucker MG [id number] 11:20:00 23:59:59 Charlotte M 2019-07-14 2019-07-14 Outpatient NATHANIE NATHANIE [id number] Memoria 11:20:00 11:20:00 01 curtis Phelan 2019-07-02 2019-07-02 Outpatient R LAWRENCE REBOLLEDO [facility] 10 [id number] Univers 14:00:00 14:00:00 LAWRENCE REBOLLEDO i [facility] 2019-06-25 2019-06-25 Outpatient RAJESH [facility] [id number] [place] 00:00:00 00:00:00 PURVI Kumar i 2019-06-24 2019-06-24 Telephone Fellow, GABRIEL 1.2.840.114 [id number] Univers 00:00:00 00:00:00 Pulmonary Y HEALTH 350.1.13.10 ity of [place] [phone] [facility] [address] 2019-06-10 2019-06-10 Transition Shantell Briajay 1.2.840.114 [id number] Univers 00:00:00 00:00:00 of Care Rudi Dolan 350.1.13.10 it[place] [phone] [facility] [address] 2019-06-04 2019-06-09 Hospital ClarajuarezcamilaChrissy 1.2.840. 114 [id number] Univers 23:37:35 16:50:00 Encounter Kimmy Trevizo 350.1.13. 10 [facility] 4.2.7.2 .686 [place] DamonJunior [phone] [address] 2019-06-04 2019-06-09 Inpatient X [facility]O [facility] [id number] Univers 23:37:35 16:50:00 ANTONIETTA jey [facility] 2019-04-28 2019-04-30 Phone nullDiogeneso [facility] [id number] Memoria 19:11:18 04:59:59 Message r Internal 01 l Kristi Phelan [facility] 2019-04-28 2019-04-30 Phone nullFlavo MG [id number] Memoria 19:11:18 04:59:59 Message r Internal 01 l Medicine [facility] 2019-04-28 2019-04-29 Outpatient MG MG [id number] 14:11:18 23:59:59 2019-04-29 2019-04-29 Outpatient MARCIO, [facility] [id number] [place] 00:00:00 00:00:00 TYLERTY [address] 2019-04-28 2019-04-28 Outpatient MARCIO [facility] [id number] [place] 00:00:00 00:00:00 TYLERTY 772 Method i 2019-04-28 2019-04-28 Outpatient ALKA [facility] [id number] 164 [place] 00:00:00 00:00:00 CHARLOTTE 666 Method i 2019-04-23 2019-04-24 Between nullFlavo MG [id number] Memoria 21:46:04 21:46:04 Visit r Internal 02 l [facility] 2019-04-23 2019-04-24 Between nullFlavo MG [id number] Memoria 21:46:04 21:46:04 Visit r Internal 02 l Medicine [facility] 2019-04-23 2019-04-24 Outpatient MG MG [id number] 16:46:04 16:46:04 02 2019-04-21 2019-04-23 Phone nullFlavo MG [id number] Memoria 16:23:04 04:59:59 Message r Internal 00 l [facility] 2019-04-21 2019-04-23 Phone nullFlavo MG [id number] Memoria 16:23:04 04:59:59 Message r Internal 00 l Medicine [facility] 2019-04-21 2019-04-22 Outpatient MHMG MG [id number] 11:23:04 23:59:59 00 2019-04-13 2019-04-14 [place] [id number] Memoria 16:00:00 05:59:59 r Internal 00 l Medicine [facility] 2019-04-13 2019-04-14 [place] [id number] Memoria 16:00:00 05:59:59 r Internal 00 l Medicine [facility] 2019-04-13 2019-04-13 Outpatient Alka, BREE [id number] 10:00:00 23:59:59 Charlotte Hoang 00 2019-04-13 2019-04-13 Outpatient AL MELENDEZ [id number] [facility] 10:00:00 10:00:00 00 l [place]apan 2019-03-26 2019-03-26 Outpatient MARCIO [facility] [id number] 161 [place] 00:00:00 00:00:00 KELTY [address] 2018-12-03 2018-12-03 Outpatient MARCIO [facility] [id number] 256 [place] 00:00:00 00:00:00 KELTY [address] Results Test Description Test Time Test Comments Results Result Comments Source Basic metabolic panel 2021-09-27 06:33:00 Test Item Value Reference Range Interpretation Comme nts Glucose (test code = 96 mg/dL 65-139 Non-fa sting reference 2345-7) interval BUN (test code = 3094-0) 15 mg/dL 7-25 Creatinine (test code = 0.92 mg/dL 0.60-0.95 2160-0) eGFR (test code = 8257) 62 See_Comment The eGFR is based on the CKD-EPI 202 1 equation. To ca lculate the new eGFR fr om a previous Creati nine or Cystatin Cresul t, go to https://www.kid mady.org /professionals/ kdoqi/g fr%5Fcalculator [Automated mess age] The system [facility] [employer] generated this result transmitted ref erence range: > OR = 6 0 mL/min/1.73m2. The reference range was not used to int erpret this result as normal/abnormal . BUN/creatinine ratio (test NOT APPLICABLE See_Comment [Automated message] code = 3097-3) The system [facility] generated this result transmitted ref erence range: 6 - 22 ( calc). The reference r delmy was not used to interpret this result as normal/abnor mal. Sodium (test code = 138 mmol/L 371-255 0701-2) Potassium (test code = 4.7 mmol/L 3.5-5.3 2823-3) Chloride (test code = 97 mmol/L 98-110 L 2075-0) CO2 (test code = 2027-10) 32 mmol/L - Calcium (test code = 9.9 mg/dL 8.6-10.4 21829-4) BETO (test code = BETO) FASTING:NO FASTING: NO RAC (test code = RAC) Performing Organization Information: Site ID: SHANTELA [facility]: [facility] Address: [address] [place] [phone] Director: Andrade Barron Lab Interpretation (test Abnormal code = 19113-2) [facility] metabolic [id number] 06:33:00 Test Item Value Reference Range Interpretation Comments Glucose (test code = 96 mg/dL 65-139 Non-fa sting 2345-7) reference interval BUN (test code = 15 mg/dL 7-25 3094-0) Creatinine (test 0.92 mg/dL 0.6-0.95 code = 2160-0) eGFR (test code = See_Comment The eGFR i s based 8257) on the CKD-EPI 2020 equation. To calculate the n ew eGFR from a previous Creatinine or Cystatin Cresul t, go to https://www.kid ne y.org/professio na ls/kdoqi/gfr%5F ca lculator [Automated message] The system which generated this result transmitted reference range : > OR = 60 mL/min/1.73m2. The reference range was not used to interpr et this result as normal/abnormal . BUN/creatinine ratio NOT APPLICABLE See_Comment [Aut omated (test code = 3097-3) message ] The system which generated this result transmitted reference range : 6 - 22 (calc). The reference range was not used to interpr et this result as normal/abnormal . Sodium (test code = 138 mmol/L 890-229 9108-2) Potassium (test code 4.7 mmol/L 3.5-5.3 = 2823-3) Chloride (test code 97 mmol/L 98-110 L = ) CO2 (test code = 32 mmol/L -32 2027-10) Calcium (test code = 9.9 mg/dL 8.6-10.4 27529-0) BETO (test code = FASTING:NO BETO) FASTING: NO RAC (test code = Performing RAC) Organization Information: Site ID: SHANTELA [facility] Address: [address] [place] [phone] Director: Andrade Barron Lab Interpretation Abnormal (test code = 98237-2) [facility] function [id number] 06:33:00 Test Item Value Reference Range Interpretation Comments Protein (test code 6.9 g/dL 6.1-8.1 = 2885-2) Albumin, S (test 4.5 g/dL 3.6-5.1 code = 175-7) Globulin, total See_Comment [Automated (test code = message] The ) system [...] = Performing RAC) Organization Information: Site ID: SHANTELA [facility] Address: [address] [place] [phone] Director: Andrade Barron [facility] [id number] 06:33:00 Test Item Value Reference Range Interpretation Comments LDH (test code = 125 U/L 120-250 39247-8) BETO (test code = FASTING:NO FASTING: NO BETO) RAC (test code = Performing Organization RAC) Information: Site ID: MINDY [facility] Address: [address] [place] [phone] Director: Andrade Barron [facility] metabolic [id number] 06:33:00 Test Item Value Reference Range Interpretation Comments Glucose (test code = 96 mg/dL 65-139 Non-fa sting 2345-7) reference interval BUN (test code = 15 mg/dL 7-25 3094-0) Creatinine (test 0.92 mg/dL 0.60-0.95 code = 2160-0) eGFR (test code = See_Comment The eGFR i s based 8257) on the CKD-EPI 2020 equation. To calculate the n ew eGFR from a previous Creatinine or Cystatin Cresul t, go to https://www.kid ne y.org/professio na roge/kdoqi/gfr%5F ca lculator [Automated message] The system which generated this result transmitted reference range : > OR = 60 mL/min/1.73m2. The reference range was not used to interpr et this result as normal/abnormal . BUN/creatinine ratio NOT APPLICABLE See_Comment [Aut omated (test code = 3097-3) message ] The system which generated this result transmitted reference range : 6 - 22 (calc). The reference range was not used to interpr et this result as normal/abnormal . Sodium (test code = 138 mmol/L 645-150 2070-2) Potassium (test code 4.7 mmol/L 3.5-5.3 = 2823-3) Chloride (test code 97 mmol/L 98-110 L = 2075-0) CO2 (test code = 32 mmol/L 20-32 2027-9) Calcium (test code = 9.9 mg/dL 8.6-10.4 52262-9) BETO (test code = FASTING:NO BETO) FASTING: NO RAC (test code = Performing RAC) Organization Information: Site ID: MINDY [facility] Address: [address] [place] [phone] Director: Andrade Barron Lab Interpretation Abnormal (test code = 06944-9) [facility] metabolic [id number] 06:33:00 Test Item Value Reference Range Interpretation Comments Glucose (test code = 96 mg/dL 65-139 Non-fa sting 2345-7) reference interval BUN (test code = 15 mg/dL 7-25 3094-0) Creatinine (test 0.92 mg/dL 0.60-0.95 code = 2160-0) eGFR (test code = See_Comment The eGFR i s based 8257) on the CKD-EPI 2020 equation. To calculate the n ew eGFR from a previous Creatinine or Cystatin Cresul t, go to https://www.kid ne y.org/profashish guan/kdoqi/gfr%5F ca lculator [Automated message] The system which generated this result transmitted reference range : > OR = 60 mL/min/1.73m2. The reference range was not used to interpr et this result as normal/abnormal . BUN/creatinine ratio NOT APPLICABLE See_Comment [Aut omated (test code = 3097-3) message ] The system which generated this result transmitted reference range : 6 - 22 (calc). The reference range was not used to interpr et this result as normal/abnormal . Sodium (test code = 138 mmol/L 238-943 9452-2) Potassium (test code 4.7 mmol/L 3.5-5.3 = 2823-3) Chloride (test code 97 mmol/L 98-110 L = 2075-0) CO2 (test code = 32 mmol/L 20-32 2027-9) Calcium (test code = 9.9 mg/dL 8.6-10.4 93861-6) BETO (test code = FASTING:NO BETO) FASTING: NO RAC (test code = Performing RAC) Organization Information: Site ID: [facility] Name: [facility] Address: [address] [place] [address] Director: Andrade Barron Lab Interpretation Abnormal (test code = 97647-8) [facility] MOLECULAR [id number] 16:08:58 Test Item Value Reference Range Interpretation Comments POCT Molecular Strep (test code = Negative Negative 74524-6) Lab Interpretation (test code = Normal 13045-9) [id number] 08:58:00 Test Item Value Reference Range Interpretation Comments Ferritin level (test 47 ng/mL 16-288 code = 2276-4) BETO (test code = BETO) FASTING:NO FASTING: NO RAC (test code = RAC) Performing Organization Information: Site ID: [facility] Address: [address] [place] [id number] Director: Andrade Barron [facility] with platelet and [id number] 08:58:00 Test Item Value Reference Range Interpretation Comments WBC (test code = See_Comment [Automated 7416-2) message] The system which generated this result transmitted reference range : 3.8 - 10.8 Thousand/uL. Th e reference range was not used to interpret this result as normal/abnormal . RBC (test code = See_Comment [Automated 222-8) message] The system which generated this result [...] [Automated absolute (test code message] The = 381-8) system which generated this result transmitted reference [...] RAC) Organization Information: Site ID: RGA Name: [facility] Address: [address] [place] [phone] Director: Andrade Barron Lab Interpretation Abnormal (test code = 19537-5) [facility] iron binding [id number] 08:58:00 Test Item Value Reference Range Interpretation [...] = Performing RAC) Organization Information: Site ID: [facility] Name: [facility] Lab Address: [address] [place] [address] [facility] [id number] 08:58:00 Test Item Value Reference Range Interpretation Comments Ferritin level (test 47 ng/mL 16-288 code = 2276-4) BETO (test code = BETO) FASTING:NO FASTING: NO RAC (test code = RAC) Performing Organization Information: Site ID: MINDY Name: [facility] Lab Address: [address] [place] [id number] Director: [facility] with platelet and avsacaxeclin2324-19-27 08:58:00 Test Item Value Reference Range Interpretation Comments WBC (test code = See_Comment [Automated 6690-2) message] The system which generated this result transmitted reference range : 3.8 - 10.8 Thousand/uL. Th e reference range was not used to interpret this result as normal/abnormal . RBC (test code = See_Comment [Automated 329-8) message] The system which generated this result transmitted reference range : 3.80 - 5.10 Million/uL. The reference range was not used to interpret this result as normal/abnormal . HGB (test code = 11.3 g/dL 11.7-15.5 L 718-7) HCT (test code = 33.9 % 35.0-45.0 L 4544-3) MCV (test code = 89.2 fL 80.0-100.0 787-2) MCH (test code = 29.7 pg 27.0-33.0 785-6) MCHC (test code = 33.3 g/dL 32.0-36.0 786-4) RDW (test code = 13.7 % 11.0-15.0 788-0) Platelet count (test See_Comment [Autom ated code = 777-3) message] The system which generated this result transmitted reference range : 140 - 400 Thousand/uL. Th e reference range was not used to interpret this result as normal/abnormal . MPV (test code = 9.0 fL 7.5-12.5 776-5) Neutrophils, See_Comment [Automated absolute (test code message] The = 751-8) system which generated this result transmitted reference [...] RAC) Organization Information: Site ID: RGA Name: [facility] Lab Address: [address] [place] [phone] Director: Andrade Braron Lab Interpretation Abnormal (test code = 47181-8) [facility] iron binding [id number] 08:58:00 Test Item Value Reference Range Interpretation [...] = Performing RAC) Organization Information: Site ID: A Name: [address] [facility] Lab Address: [address] [place] [address] [facility] [id number] 08:58:00 Test Item Value Reference Range Interpretation Comments Ferritin level (test 47 ng/mL 16-288 code = 2276-4) BETO (test code = BETO) FASTING:NO FASTING: NO RAC (test code = RAC) Performing Organization Information: Site ID: A [facility]: [facility] Address: [address] [place] [address] Director: [facility] with platelet and [id number] 08:58:00 Test Item Value Reference Range Interpretation Comments WBC (test code = See_Comment [Automated 8190-2) message] The system which generated this result transmitted reference range : 3.8 - 10.8 Thousand/uL. Th e reference range was not used to interpret this result as normal/abnormal . RBC (test code = See_Comment [Automated 819-8) message] The system which generated this result transmitted reference range : 3.80 - 5.10 Million/uL. The reference range was not used to interpret this result as normal/abnormal . HGB (test code = 11.3 g/dL 11.7-15.5 L 718-7) HCT (test code = 33.9 % 35.0-45.0 L 4544-3) MCV (test code = 89.2 fL 80.0-100.0 787-2) MCH (test code = 29.7 pg 27.0-33.0 785-6) MCHC (test code = 33.3 g/dL 32.0-36.0 786-4) RDW (test code = 13.7 % 11.0-15.0 788-0) Platelet count (test See_Comment [Autom ated code = 777-3) message] The system which generated this result transmitted reference range : 140 - 400 Thousand/uL. Th e reference range was not used to interpret this result as normal/abnormal . MPV (test code = 9.0 fL 7.5-12.5 776-5) Neutrophils, See_Comment [Automated absolute (test code message] The = 751-8) system which generated this result transmitted reference [...] = Performing RAC) Organization Information: Site ID: MINDY [facility] Address: [address] [place] [phone] Director: Andrade Barron Lab Interpretation Abnormal (test code = 00769-8) [facility] iron binding [id number] 08:58:00 Test Item Value Reference Range Interpretation [...] = Performing RAC) Organization Information: Site ID: MINDY [facility] Address: [address] [place] [phone] Director: Andrade Barron [facility] urinalysis [id number] 15:40:00 Test Item Value Reference Range Interpretation Comments Color urine, POC (test Yellow code = 5138261) Clarity urine, POC (test Cloudy code = 3733664) Glucose urine, POC (test Negative Negative code = 6520191) Bilirubin urine, POC Negative Negative (test code = 4599777) Ketones urine, POC (test Negative Negative code = 7620058) Specific gravity urine, 1.005-1.030 POC (test code = 6695007) Blood urine, POC (test Trace Negative A code = 1032600) pH urine, POC (test code See_Comment [A utomated message] = 9655264) The system [employer] h generated this result transmitted ref erence range: 5.0, 5.5 , 6.0, 6.5, 7.0, 7.5, 8.0, 8.5. The refere nce range was not u sed to interpret this result as normal/abnor mal. Protein urine, POC (test Negative Negative code = 5276637) Urobilinogen urine, POC <2.0 See_Comment [Au tomated message] (test code = 5967567) The sy stem which generated this result transmitted ref erence range: <=2.0. T he reference range was not used to int erpret this result as normal/abnormal . Nitrite urine, POC (test Positive Negative A code = 4648308) Leukocyte esterase Large Negative A urine, POC (test code = 7637344) Lab Interpretation (test Abnormal code = 91249-3) [facility] urinalysis [id number] 15:40:00 Test Item Value Reference Range Interpretation Comments Color urine, POC (test Yellow code = 9824296) Clarity urine, POC (test Cloudy code = 6847641) Glucose urine, POC (test Negative Negative code = 6025698) Bilirubin urine, POC Negative Negative (test code = 6491425) Ketones urine, POC (test Negative Negative code = 3968208) Specific gravity urine, 1.005-1.030 POC (test code = 7620995) Blood urine, POC (test Trace Negative A code = 1326825) pH urine, POC (test code See_Comment [A utomated message] = 9149471) The system [employer] generated this result transmitted ref erence range: 5.0, 5.5 , 6.0, 6.5, 7.0, 7.5, 8.0, 8.5. The refere nce range was not u sed to interpret this result as normal/abnor mal. Protein urine, POC (test Negative Negative code = 9352507) Urobilinogen urine, POC <2.0 See_Comment [Au tomated message] (test code = 9743821) The sy stem which generated this result transmitted ref erence range: <=2.0. T he reference range was not used to int erpret this result as normal/abnormal . Nitrite urine, POC (test Positive Negative A code = 3103601) Leukocyte esterase Large Negative A urine, POC (test code = 4128615) Lab Interpretation (test Abnormal code = 84116-6) [facility] urinalysis [id number] 15:40:00 Test Item Value Reference Range Interpretation Comments Color urine, POC (test Yellow code = 0559730) Clarity urine, POC (test Cloudy code = 4405771) Glucose urine, POC (test Negative Negative code = 9256347) Bilirubin urine, POC Negative Negative (test code = 1131027) Ketones urine, POC (test Negative Negative code = 0912209) Specific gravity urine, 1.005-1.030 POC (test code = 4949157) Blood urine, POC (test Trace Negative A code = 6945285) pH urine, POC (test code See_Comment [A utomated message] = 6563300) The system [employer] h generated this result transmitted ref erence range: 5.0, 5.5 , 6.0, 6.5, 7.0, 7.5, 8.0, 8.5. The refere nce range was not u sed to interpret this result as normal/abnor mal. Protein urine, POC (test Negative Negative code = 2463621) Urobilinogen urine, POC <2.0 See_Comment [Au tomated message] (test code = 4331583) The sy stem which generated this result transmitted ref erence range: <=2.0. T he reference range was not used to int erpret this result as normal/abnormal . Nitrite urine, POC (test Positive Negative A code = 9106874) Leukocyte esterase Large Negative A urine, POC (test code = 8254996) Lab Interpretation (test Abnormal code = 22574-2) [facility] URINALYSIS W SPECIFIC [id number] 18:10:00 Test Item Value Reference Range Interpretation [...] and BETO) interpretation of all internal controls [facility] RNA [Presence] in Respiratory specimen by JONN with probe [id number] 16:33:31 Test Item Value Reference Range Interpretation Comments SARS-CoV-2 (COVID-19) RNA Not detected Not-Detected [Presence] in Respiratory specimen by JONN with probe detection (test code = 61680-2) STACIE CORTES [id number] 12:34:00 Test Item Value Reference Range Interpretation Comments MAGNESIUM (test code = 8074557742) 1.5 mg/dL 1.7-2.4 L Lab Interpretation (test code = Abnormal 34780-0) [facility] [place] [place] METABOLIC PANEL (NA, K, CL, CO2, GLUCOSE, BUN, CREATININE, CA)2019-06-09 11:42:00 Test Item Value Reference Range Interpretation Comments NA (test code = 134 mmol/L 135-145 L 5803981218) K (test code = 3.9 mmol/L 3.5-5 3321149890) CL (test code = 98 mmol/L 98-108 3433773677) CO2 TOTAL (test code = 26 mmol/L 23-31 7409643310) AGAP (test code = 2-16 3416889775) BUN (test code = 8 mg/dL 7-23 7849910350) GLUCOSE (test code = 108 mg/dL 70-110 3379030455) CREATININE (test code = 0.67 mg/dL 0.5-1.04 3440238028) CALCIUM (test code = 9.4 mg/dL 8.6-10.6 4061661856) eGFR Calculation mL/min/1.73m2 (Non-) (test code = 8474635116) eGFR Calculation mL/min/1.73m2 () (test code = 5173026324) BETO (test code = BETO) Association of [...] tests). Lab Interpretation Abnormal (test code = 75029-1) [facility] WITH [id number] 11:20:00 Test Item Value Reference Range Interpretation Comments WBC (test code = See_Comment L [Automated 2390-2) message] The sy stem which generated this result transmitted reference range : 4.30 - 11.10 10*3/?L. The reference range was not used to interpret this result as normal/abnormal . RBC (test code = See_Comment L [Automated 929-8) message] The sy stem which generated this [...] RDW-SD (test code = 44.4 fL 39-49.9 95696-7) RDW-CV (test code = 12.9 % 12-15.5 788-0) PLT (test code = See_Comment [Automated 777-3) message] The sy stem which generated this result transmitted reference range : 166 - 358 10*3/ ?L. The reference r delmy was not used to interpret this result as normal/abnormal . MPV (test code = 8.7 fL 9.5-12.9 L 07627-1) NRBC/100 WBC (test See_Comment [Automat ed code = 4996047917) message] The system which generated this result transmitted reference range : 0.0 - 10.0 /100 WBCs. The refer ence range was not u sed to interpret th is result as normal/abnormal . NRBC x10^3 (test code <0.01 See_Comment [Auto mated = 3727807066) message] The s ystem which generated this result transmitted reference range : 10*3/?L. The reference range was not used to interpret this result as normal/abnormal . GRAN MAT (NEUT) % 54.8 % (test code = 770-8) IMM GRAN % (test code 0.80 % = 8396148257) LYMPH % (test code = 22.9 % 736-9) MONO % (test code = 14.8 % 5905-5) EOS % (test code = 6.2 % 713-8) BASO % (test code = 0.5 % 706-2) GRAN MAT x10^3(ANC) 2.03 10*3/uL 1.88-7.09 (test code = 7906181782) IMM GRAN x10^3 (test 0.03 10*3/uL 0-0.06 code = 4851020184) LYMPH x10^3 (test code 0.85 10*3/uL 1.32-3.29 L = 731-0) MONO x10^3 (test code 0.55 10*3/uL 0.33-0.92 = 742-7) EOS x10^3 (test code = 0.23 10*3/uL 0.03-0.39 711-2) BASO x10^3 (test code <0.03 0.01-0.07 = 704-7) Lab Interpretation Abnormal (test code = 50464-6) [facility] 2 [id number] 17:33:18 Blunting of the left costophrenic sinus [...] bony abnormality. The left hemidiaphragm is elevated. [facility], Radiant Results Inft User - 06/08/2019 12:34 [...] be consistent with atelectasis butinfectious processcannot be excluded.[facility] RenaissancePROTHROMBIN TIME / [id number] 12:00:00 Test Item Value Reference Range Interpretation [...] tions. Lab Interpretation (test Normal code = 61425-1) [facility] WITH [id number] 10:09:00 Test Item Value Reference Range Interpretation [...] RDW-SD (test code = 44.6 fL 39-49.9 22692-3) RDW-CV (test code = 13.0 % 12-15.5 788-0) PLT (test code = See_Comment [Automated 777-3) message] The sy stem which generated this result transmitted reference range : 166 - 358 10*3/ ?L. The reference r delmy was not used to interpret this result as normal/abnormal . MPV (test code = 8.9 fL 9.5-12.9 L 70278-9) NRBC/100 WBC (test See_Comment [Automat ed code = 9971680546) message] The system which generated this result transmitted reference range : 0.0 - 10.0 /100 WBCs. The refer ence range was not u sed to interpret th is result as normal/abnormal . NRBC x10^3 (test code <0.01 See_Comment [Auto mated = 6984091925) message] The s ystem which generated this result transmitted reference range : 10*3/?L. The reference range was not used to interpret this result as normal/abnormal . GRAN MAT (NEUT) % 46.8 % (test code = 770-8) IMM GRAN % (test code 1.00 % = 0391253767) LYMPH % (test code = 28.5 % 736-9) MONO % (test code = 15.4 % 5905-5) EOS % (test code = 7.8 % 713-8) BASO % (test code = 0.5 % 706-2) GRAN MAT x10^3(ANC) 1.79 10*3/uL 1.88-7.09 L (test code = 5912439974) IMM GRAN x10^3 (test 0.04 10*3/uL 0-0.06 code = 7420765921) LYMPH x10^3 (test code 1.09 10*3/uL 1.32-3.29 L = 731-0) MONO x10^3 (test code 0.59 10*3/uL 0.33-0.92 = 742-7) EOS x10^3 (test code = 0.30 10*3/uL 0.03-0.39 711-2) BASO x10^3 (test code <0.03 0.01-0.07 = 704-7) LG GRAN LYMPHS (test Rare Rare code = 3076032284) PROLYMPHS (test code = Rare 4914725882) Lab Interpretation Abnormal (test code = 68464-4) [facility] [place], [place] METABOLIC PANEL (NA, K, CL, CO2, GLUCOSE, BUN, CREATININE, CA)2019-06-08 09:53:00 Test Item Value Reference Range Interpretation Comments NA (test code = 133 mmol/L 135-145 L 6239252899) K (test code = 3.9 mmol/L 3.5-5 2545280355) CL (test code = 99 mmol/L 98-108 8684670435) CO2 TOTAL (test code = 25 mmol/L 23-31 4907120752) AGAP (test code = 2-16 7552680613) BUN (test code = 6 mg/dL 7-23 L 8470348367) GLUCOSE (test code = 95 mg/dL 70-110 2322016506) CREATININE (test code = 0.57 mg/dL 0.5-1.04 3977656461) CALCIUM (test code = 9.1 mg/dL 8.6-10.6 3761394743) eGFR Calculation mL/min/1.73m2 (Non-) (test code = 4739425682) eGFR Calculation mL/min/1.73m2 () (test code = 8379652246) BETO (test code = BETO) Association of [...] tests). Lab Interpretation Abnormal (test code = 64988-6) [facility]PTT2020-[facility] 09:33:00 Test Item Value Reference Range Interpretation Comments APTT Patient (test code See_Comment H [Au tomated message] = 3173-2) The system [employer] generated this result transmitted ref erence range: 26 - 36 Seconds. The reference range was not used to int erpret this result as normal/abnormal . Lab Interpretation (test Abnormal code = 34792-4) [facility]2020-04-27 02:44:00 Test Item Value Reference Range Interpretation Comments APTT Patient (test code See_Comment H [Au tomated message] = 3173-2) The system [employer] generated this result transmitted ref erence range: 26 - 36 Seconds. The reference range was not used to int erpret this result as normal/abnormal . Lab Interpretation (test Abnormal code = 91791-4) [place] [id number] 20:04:00 Test Item Value Reference Range Interpretation Comments APTT Patient (test code See_Comment H [Au tomated message] = 3173-2) The system [employer] generated this result transmitted ref erence range: 26 - 36 Seconds. The reference range was not used to int erpret this result as normal/abnormal . Lab Interpretation (test Abnormal code = 63619-2) [facility] RenaissanceSPUTUM [id number] 16:19:00 Test Item Value Reference Range Interpretation [...] aeruginosa and Staphylococcus aureus (MRSA or MSSA). [facility] (NA, K, CL, CO2, GLUCOSE, BUN, CREATININE, CA)2019-06-07 07:50:00 Test Item Value Reference Range Interpretation Comments NA (test code = 131 mmol/L 135-145 L 6829669413) K (test code = 4.2 mmol/L 3.5-5 0860480575) CL (test code = 97 mmol/L 98-108 L 2066706708) CO2 TOTAL (test code = 24 mmol/L 23-31 2493396769) AGAP (test code = 2-16 3453281191) BUN (test code = 8 mg/dL 7-23 8880027985) GLUCOSE (test code = 103 mg/dL 70-110 3557533433) CREATININE (test code = 0.59 mg/dL 0.5-1.04 1845219907) CALCIUM (test code = 8.7 mg/dL 8.6-10.6 0085162070) eGFR Calculation mL/min/1.73m2 (Non-) (test code = 1599408260) eGFR Calculation mL/min/1.73m2 () (test code = 5599566694) BETO (test code = BETO) Association of [...] tests). Lab Interpretation Abnormal (test code = 38027-6) [facility]2020-04-[facility] 07:47:00 Test Item Value Reference Range Interpretation Comments APTT Patient (test code See_Comment H [Au tomated message] = 3173-2) The system [employer] h generated this result transmitted ref erence range: 26 - 36 Seconds. The reference range was not used to int erpret this result as normal/abnormal . Lab Interpretation (test Abnormal code = 53384-2) [facility] WITH [id number] 07:42:00 Test Item Value Reference Range Interpretation [...] RDW-SD (test code = 43.9 fL 39-49.9 36582-4) RDW-CV (test code = 12.8 % 12-15.5 788-0) PLT (test code = See_Comment [Automated 777-3) message] The sy stem which generated this result transmitted reference range : 166 - 358 10*3/ ?L. The reference r delmy was not used to interpret this result as normal/abnormal . MPV (test code = 8.9 fL 9.5-12.9 L 88095-1) NRBC/100 WBC (test See_Comment [Automat ed code = 3366719235) message] The system which generated this result transmitted reference range : 0.0 - 10.0 /100 WBCs. The refer ence range was not u sed to interpret th is result as normal/abnormal . NRBC x10^3 (test code <0.01 See_Comment [Auto mated = 4817578121) message] The s ystem which generated this result transmitted reference range : 10*3/?L. The reference range was not used to interpret this result as normal/abnormal . GRAN MAT (NEUT) % 53.3 % (test code = 770-8) IMM GRAN % (test code 1.40 % = 3818907735) LYMPH % (test code = 26.0 % 736-9) MONO % (test code = 11.9 % 5905-5) EOS % (test code = 6.9 % 713-8) BASO % (test code = 0.5 % 706-2) GRAN MAT x10^3(ANC) 2.24 10*3/uL 1.88-7.09 (test code = 8443490076) IMM GRAN x10^3 (test 0.06 10*3/uL 0-0.06 code = 0446457965) LYMPH x10^3 (test code 1.09 10*3/uL 1.32-3.29 L = 731-0) MONO x10^3 (test code 0.50 10*3/uL 0.33-0.92 = 742-7) EOS x10^3 (test code = 0.29 10*3/uL 0.03-0.39 711-2) BASO x10^3 (test code <0.03 0.01-0.07 = 704-7) Lab Interpretation Abnormal (test code = 79872-4) [facility] 20:02:00 Test Item Value Reference Range Interpretation Comments APTT Patient (test code See_Comment H [Au tomated message] = 3173-2) The system [employer] generated this result transmitted ref erence range: 26 - 36 Seconds. The reference range was not used to int erpret this result as normal/abnormal . Lab Interpretation (test Abnormal code = 87751-7) [facility] RenaissanceC-REACTIVE [id number] 16:40:00 Test Item Value Reference Range Interpretation Comments CRP (test code = 5600132642) 9.0 mg/dL <0.8 H Lab Interpretation (test code = Abnormal 80709-5) [facility] [place], [place] METABOLIC PANEL (NA, K, CL, CO2, GLUCOSE, BUN, CREATININE, CA)2019-06-06 13:42:00 Test Item Value Reference Range Interpretation Comments NA (test code = 127 mmol/L 135-145 L 4137691362) K (test code = 3.9 mmol/L 3.5-5 2952291879) CL (test code = 93 mmol/L 98-108 L 6082018865) CO2 TOTAL (test code = 26 mmol/L 23-31 0369864828) AGAP (test code = 2-16 0916869452) BUN (test code = 8 mg/dL 7-23 5540721274) GLUCOSE (test code = 136 mg/dL 70-110 H 5599061658) CREATININE (test code = 0.68 mg/dL 0.5-1.04 3094257657) CALCIUM (test code = 8.6 mg/dL 8.6-10.6 0170414918) eGFR Calculation mL/min/1.73m2 (Non-) (test code = 8417297396) eGFR Calculation mL/min/1.73m2 () (test code = 9529204401) BETO (test code = BETO) Association of [...] tests). Lab Interpretation Abnormal (test code = 77916-1) [facility] 10:57:00 Test Item Value Reference Range Interpretation Comments APTT Patient (test code See_Comment H [Au tomated message] = 3173-2) The system [employer] generated this result transmitted ref erence range: 26 - 36 Seconds. The reference range was not used to int erpret this result as normal/abnormal . Lab Interpretation (test Abnormal code = 30347-1) [facility] 05:40:00 Test Item Value Reference Range Interpretation Comments APTT Patient (test code See_Comment H [Au tomated message] = 3173-2) The system [employer] generated this result transmitted ref erence range: 26 - 36 Seconds. The reference range was not used to int erpret this result as normal/abnormal . Lab Interpretation (test Abnormal code = 56003-8) [facility] Renaissance[facility]ONAVIRUS COVID-19 [id number] 01:05:00 Test Item Value Reference Range Interpretation Comments SARS-CoV-2 (test code = Not Detected Not Detected 54476-2) BETO (test code = BETO) [employer] SARS-CoV-2 Assay is a real-time RT-PCR test intended for the qualitative detection of RNA from SARS-CoV-2 from nasopharyngeal (DELIVERY MAN) specimens. It is used under Emergency Use [...] indicated. Lab Interpretation Normal (test code = 99004-9) [facility]ALCITONIN2020-04-24 20:47:00 Test Item Value Reference Range Interpretation Comments Procalcitonin (test 0.04 ng/mL <0.07 code = 4469409430) BETO (test code = BETO) INTERPRETATION OF [...] lung abscess/empyema. For further information please refer to:[email or web address] Lab Interpretation Normal (test code = 08246-0) [facility] (NA, K, CL, CO2, GLUCOSE, BUN, CREATININE, CA)2019-06-05 20:11:00 Test Item Value Reference Range Interpretation Comments NA (test code = 126 mmol/L 135-145 L 1779127741) K (test code = 4.4 mmol/L 3.5-5 8064329418) CL (test code = 90 mmol/L 98-108 L 8349444173) CO2 TOTAL (test code = 24 mmol/L 23-31 8549095696) AGAP (test code = 2-16 2815456618) BUN (test code = 9 mg/dL 7-23 2033146678) GLUCOSE (test code = 96 mg/dL 70-110 3866713540) CREATININE (test code = 0.59 mg/dL 0.5-1.04 0057089030) CALCIUM (test code = 9.3 mg/dL 8.6-10.6 1824813622) eGFR Calculation mL/min/1.73m2 (Non-) (test code = 5028431784) eGFR Calculation mL/min/1.73m2 () (test code = 5910063962) BETO (test code = BETO) Association of [...] tests). Lab Interpretation Abnormal (test code = 16031-9) [facility] RenaissanceFERRITIN [id number] 19:51:00 Test Item Value Reference Range Interpretation Comments FERRITIN (test code = 132.0 ng/mL 11-264 8497321532) BETO (test code = BETO) Biotin has been reported to cause a negative bias, interpret results relative to patient's use of biotin. Lab Interpretation (test Normal code = 72610-6) [facility] RenaissanceCORTISOL PM [id number] 19:17:00 Test Item Value Reference Range Interpretation Comments JAK PM (test code = 15.2 ug/dL 1.7-14 H 2152277635) BETO (test code = BETO) Biotin has been reported to cause a positive bias, interpret results relative to patient's use of biotin. Lab Interpretation (test Abnormal code = 07157-5) [facility] RenaissanceLACTATE [id number] 18:46:00 Test Item Value Reference Range Interpretation Comments LDH (test code = 5780831714) 475 U/L 300-600 Lab Interpretation (test code = Normal 52875-4) [facility] RenaissanceProthrombin Time (PT) / [id number] 17:56:00 Test Item Value Reference Range Interpretation Comments PROTIME PATIENT (test See_Comment H [Auto mated message] code = 5964-2) The system [employer] generated this result transmitted ref erence range: 10.1 - 1 2.6 Seconds. The reference range was not used to int erpret this result as normal/abnormal . INR (test code = 6301-6) Nor mal INR <1.1; Warfarin Therap eutic range 2.0 to 3. 0 or 2.5 to 3.5, dep ending upon the indica tions. Lab Interpretation (test Abnormal code = 17345-4) [facility] 17:56[facility]00 Test Item Value Reference Range Interpretation Comments APTT Patient (test code = See_Comment [ Automated message] 3173-2) The system [employer] generated this result transmitted ref erence range: 26 - 36 Seconds. The re ference range was not u sed to interpret this result as normal/abnor mal. Lab Interpretation (test Normal code = 75669-1) [facility] [id number] 15:53:00 Test Item Value Reference Range Interpretation Comments TSH (test code = See_Comment [Automated message] 6778810607) The system [employer] generated this result transmitted ref erence range: 0.45 - 4 .70 mIU/L. The refe rence range was not u sed to interpret this result as normal/abnor mal. Lab Interpretation (test Normal code = 89552-7) [facility]2020-[facility] 15:22:00 Test Item Value Reference Range Interpretation Comments MAGNESIUM (test code = 9092325764) 1.4 mg/dL 1.7-2.4 L Lab Interpretation (test code = Abnormal 52421-9) [facility]CT THORAX WO CONTRAST [id number] 13:10:38 Mucus plugging of the lobar and [...] Disease Control (CDC) and recent statement ofthe [employer], viral testing remains the [...] gy-cm DLP COMPARISON: Same day chest x-ray [facility], Radiant Results Inft User - 06/05/2019 8:11 [...] Disease Control (CDC) and recent statement ofthe [employer], viral testing remains the only specificmethod of diagnosis even if CXR or CT findings are suggestive of COVID-19.Preliminary Report Dictated by Resident: Jono Wiggins MD., have reviewed this study and agree with the abovereport.[facility]XR [facility] 1 VW [id number] 13:01:01 1. ?Retrocardiac opacities may be secondary to atelectasis or infection.These findings are atypicalfor COVID19 pneumonia. 2. ?Small bilateral pleural effusions, left more than right. Disclaimer: Generally, the findings on chest imaging in COVID-19 are notspecific, and overlap with other infections, including influenza, H1N1,SARS and MERS.According to the Centers for Disease Control (CDC) and the [employer], viral testing remains the only [...] Centers for Disease Control (CDC) and the [employer], viral testing remains theonly specific method of diagnosiseven if CXR or CT findings are suggestive of COVID-19. Preliminary Report Dictated by Resident: Sheila Rodriguez, Jono Campos MD., have reviewed this study and agree withthe abovereport.[facility] RenaissanceTROPONIN [id number] 05:28:00 Test Item Value Reference Range Interpretation Comments TROPONIN I (test <0.012 See_Comment [Automated code = 9718741215) message] The system which generated this result [...] ? Lab Interpretation Normal (test code = 10268-9) [facility]TERMINAL [id number] 05:25:00 Test Item Value Reference Range Interpretation Comments NT-proBNP (test code 345 pg/mL See_Comment [Autom ated = 7744681848) message] The system which generated this result transmitted reference range : <=450. The reference range was not used to interpret this result as normal/abnormal . BETO (test code = BETO) Biotin has been reported to cause a negative bias, interpret results relative to patient's use of biotin. Lab Interpretation Normal (test code = 26123-8) [facility] WITH [id number] 05:23:00 Test Item Value Reference Range Interpretation [...] RDW-SD (test code = 42.0 fL 39-49.9 40512-0) RDW-CV (test code = 12.5 % 12-15.5 788-0) PLT (test code = See_Comment [Automated 777-3) message] The sy stem which generated this result transmitted reference range : 166 - 358 10*3/ ?L. The reference r delmy was not used to interpret this result as normal/abnormal . MPV (test code = 8.8 fL 9.5-12.9 L 66550-5) NRBC/100 WBC (test See_Comment [Automat ed code = 1736438464) message] The system which generated this result transmitted reference range : 0.0 - 10.0 /100 WBCs. The refer ence range was not u sed to interpret th is result as normal/abnormal . NRBC x10^3 (test code <0.01 See_Comment [Auto mated = 8027609802) message] The s ystem which generated this result transmitted reference range : 10*3/?L. The reference range was not used to interpret this result as normal/abnormal . GRAN MAT (NEUT) % 63.5 % (test code = 770-8) IMM GRAN % (test code 2.10 % = 2939170202) LYMPH % (test code = 19.7 % 736-9) MONO % (test code = 10.8 % 5905-5) EOS % (test code = 3.6 % 713-8) BASO % (test code = 0.3 % 706-2) GRAN MAT x10^3(ANC) 5.50 10*3/uL 1.88-7.09 (test code = 8015137370) IMM GRAN x10^3 (test 0.18 10*3/uL 0-0.06 H code = 5039964998) LYMPH x10^3 (test code 1.70 10*3/uL 1.32-3.29 = 731-0) MONO x10^3 (test code 0.93 10*3/uL 0.33-0.92 H = 742-7) EOS x10^3 (test code = 0.31 10*3/uL 0.03-0.39 711-2) BASO x10^3 (test code 0.03 10*3/uL 0.01-0.07 = 704-7) Lab Interpretation Abnormal (test code = 71913-8) [facility] 05:21:00 Test Item Value Reference Range Interpretation Comments APPEARANCE (test code = Clear Clear 9885506508) COLOR (test code = Yellow Yellow 3452956404) PH (test code = 4.8-8.0 6007235439) SP GRAVITY (test code = 1.003-1.030 9088554178) GLU U QUAL (test code = Negative Negative 5925849180) BLOOD (test code = Negative Negative 6970266874) KETONES (test code = Negative Negative 5901098882) PROTEIN (test code = Negative Negative 2887-8) UROBILIN (test code = 0.2 mg/dL See_Comment [Auto mated message] 0254293678) The system [employer] generated this result transmit mahnaz reference range : 0-1.0 mg/dL. Th e reference range was not used to interpret this result as normal/abnormal . BILIRUBIN (test code = Negative Negative 6450139681) NITRITE (test code = Negative Negative 0170740801) LEUK VERENICE (test code = Negative Negative 6709981155) RBC/HPF (test code = See_Comment [Autom ated message] 2063340067) The system [employer] generated this result transmit mahnaz reference range : 0 - 3 HPF. The refe rence range was not u sed to interpret th is result as normal/abnormal . WBC/HPF (test code = See_Comment [Autom ated message] 8613458874) The system [employer] generated this result transmit mahnaz reference range : 0 - 5 HPF. The refe rence range was not u sed to interpret th is result as normal/abnormal . BACTERIA (test code = Few Negative A 8783547204) SQ EPITH (test code = HPF 4545734353) Lab Interpretation (test Abnormal code = 99888-6) [facility] COVID-19 [id number] 05:21:00 Test Item Value Reference Range Interpretation Comments SARS-CoV-2 (test code = Not Detected Not Detected 69461-5) BETO (test code = BETO) ID NOW COVID-19 Assay is an isothermal nucleic acid amplification test intended for the qualitative detection of nucleic acid from SARS-CoV-2 viral RNA in nasopharyngeal (DELIVERY MAN) specimens. It is used under Emergency Use [...] indicated. Lab Interpretation Normal (test code = 76672-6) [facility] RenaissancePROTHROMBIN TIME / [id number] 05:16:00 Test Item Value Reference Range Interpretation Comments PROTIME PATIENT (test See_Comment H [Auto mated message] code = 5964-2) The system [email or web address] generated this result transmitted ref erence range: 12.0 - 1 4.7 Seconds. The reference range was not used to int erpret this result as normal/abnormal . INR (test code = 6301-6) Nor mal INR <1.1; Warfarin Therap eutic range 2.0 to 3. 0 or 2.5 to 3.5, dep ending upon the indica tions. Lab Interpretation (test Abnormal code = 57442-0) [facility]. METABOLIC PANEL (33998)2019-06-05 05:16:00 Test Item Value Reference Range Interpretation Comments NA (test code = 125 mmol/L 135-145 L 6969033707) K (test code = 4.0 mmol/L 3.5-5 6357987774) CL (test code = 87 mmol/L 98-108 L 1636740782) CO2 TOTAL (test code = 24 mmol/L 23-31 4396706835) AGAP (test code = 2-16 9669250089) BUN (test code = 12 mg/dL 7-23 3236825702) GLUCOSE (test code = 123 mg/dL 70-110 H 2399119278) CREATININE (test code = 0.76 mg/dL 0.5-1.04 4878525561) TOTAL BILI (test code = 0.5 mg/dL 0.1-1.9 3995521404) CALCIUM (test code = 9.6 mg/dL 8.6-10.6 3139872236) T PROTEIN (test code = 7.6 g/dL 6.3-8.2 0877790112) ALBUMIN (test code = 4.5 g/dL 3.5-5 6343018679) ALK PHOS (test code = 96 U/L 34-122 8955494568) ALTv (test code = 13 U/L 5-35 1742-6) AST(SGOT) (test code = 26 U/L 13-40 3611312309) eGFR Calculation mL/min/1.73m2 (Non-) (test code = 6405709051) eGFR Calculation mL/min/1.73m2 () (test code = 5797116534) BETO (test code = BETO) Association of [...] tests). Lab Interpretation Abnormal (test code = 67972-8) [facility]"
[2022-04-18 18:09] LABS: Hematocrit 36.7 % (36.0-45.0); Lymphocytes % 38.2 % (15.3-44.8); MCV 91.3 fL (80-100); MPV 7.5 fL (7.6-11.3); Protime INR 2.13; RBC Red Blood Cell Count 4.02 M/uL (3.86-4.86)
[2022-04-18 18:25] LABS: Bilirubin Direct 0.1 mg/dL (0-0.2); Bilirubin Total 0.3 mg/dL (0.2-1.0); Magnesium 1.9 mg/dL (1.6-2.4); Potassium 3.9 mmol/L (3.5-5.1); Protein, Total 7.2 g/dL (6.4-8.2); Troponin High Sensitivity 14.9 pg/mL (<58.9)
--- NOTE | 2022-04-18 18:51 | RAD REPORT ---
EXAM DESCRIPTION: Radhat Single View04/18/2022 6:26 pm CLINICAL HISTORY: SOB COMPARISON: Chest Single View dated 12/31/2018; Chest Pa And Lat (2 Views) dated 12/11/2018 TECHNIQUE: Portable AP view of the chest. FINDINGS: The lungs are clear.Mild bibasilar atelectatic changes. No pneumothorax or effusion. The c ardiomediastinal contours are unremarkable. IMPRESSION: No acute cardiopulmonary process.
[2022-04-18] MEDS ORDERED: FUROSEMIDE 20 MG TABLET ONE (19:20)
[2022-04-18 21:28] VITALS: TEMP 98.2; O2SAT 99
[2022-04-18 21:32] VITALS: BP 143/86
--- NOTE | 2022-04-19 16:21 | EKG ---
Test Date: 2022-04-18 Test Time: 18:24:06 [employer]: LUIS MEASUREMENT RESULTS: Intervals: Rate: 98 SD: QRSD: 98 QT: 390 QTc: 497 [place]: P: SD: QRS: -55 T: 91 INTERPRETIVE STATEMENTS: Atrial fibrillation with premature ventricular or aberrantly conducted complexes Left axis deviation Low voltage QRS Cannot rule out Anterior infarct, age undetermined Abnormal ECG Compared to ECG 12/31/2018 20:15:22 Ventricular premature complex(es) now present Left-axis deviation now present Low QRS voltage now present Sinus bradycardia no longer present First degree AV block no longer present Myocardial infarct finding still present Electronically Signed On 04-19-22 16:19:43 [employer]
--- NOTE | 2022-05-04 15:26 | ER ---
Nurse's Notes [facility] Name: Bertha Connell Age: 81 yrs Sex: Female : 1940 Arrival Date: 04/18/2022 Time: 16:58 Bed 19 Private MD: ALAN ARAUZ Diagnosis: Chronic atrial fibrillation;Fluid overload, unspecified Presentation: 04/18 17:12 Chief complaint: Patient states: she has afib and is feeling short of breath, and has ap3 been for approx one month. however patient states that it "has been getting worse lately". Coronavirus screen: At this time, the client does not indicate any symptoms associated with coronavirus-19. Ebola Screen: No symptoms or risks identified at this time. Initial Sepsis Screen: Does the patient meet any 2 criteria? No. Patient's initial sepsis screen is negative. Does the patient have a suspected source of infection? No. Patient's initial sepsis screen is negative. Risk Assessment: Do you want to hurt yourself or someone else? Patient reports no desire to harm self or others. Onset of symptoms is unknown. 17:12 Method Of Arrival: Ambulatory ap3 17:12 Acuity: SUSY 3 ap3 Triage Assessment: 17:17 General: Appears in no apparent distress. Behavior is calm, cooperative. Pain: Denies ap3 pain. Neuro: Level of Consciousness is awake, alert, obeys commands, Oriented to person, place, time. Cardiovascular: Reports feeling like her A-FIB is acting up, along with feeling short of breath Patient's skin is warm and dry. Respiratory: Reports shortness of breath Onset: The symptoms/episode began/occurred over the last month, the patient has mild shortness of breath. Historical: - Allergies: 17:13 IV contrast; ap3 - Home Meds: 17:13 Advair Diskus 100-50 mcg/dose Inhl dsdv 1 puff 2 times per day [Active]; fenofibrate 40 ap3 mg Oral tab [Active]; hydrochlorothiazide 12.5 mg Oral tab 1 tab once daily [Active]; Bystolic 2.5 mg Oral tab 2 tabs once daily [Active]; losartan 100 mg Oral tab 1 tab once daily [Active]; Xarelto 15 mg Oral tab daily [Active]; Dexilant 30 mg Oral CpDB 1 cap once daily [Active]; Estradiol Patch [Active]; Unithroid 88 mcg oral tablet [Active]; flecainide 50 mg oral tablet [Active]; benzonatate 100 mg oral capsule [Active]; - PMHx: 17:13 Atrial Fib; Gout; Hyperlipidemia; Hypertension; Hypothyroidism; lymphocytic lymphoma; ap3 - Immunization history:: Client reports receiving the 2nd dose of the Covid vaccine, Flu vaccine is up to date. - Social history:: Smoking status: Patient denies any tobacco usage or history of. Screenin:18 Abuse screen: Denies threats or abuse. Nutritional screening: No deficits noted. ap3 Tuberculosis screening: No symptoms or risk factors identified. 18:17 [facility] ED Fall Risk Assessment (Adult) Score/Fall Risk Level 0 - 2 = Low Risk ll1 Oriented to surroundings, Maintained a safe environment, Educated pt \\T\\ family on fall prevention, incl call for assistance when getting out of bed, Hourly rounding (assess needs \\T\\ fall precautionary measures) done. Assessment: 17:18 Respiratory: Airway is patent Respiratory effort is even, unlabored, Respiratory ap3 pattern is regular, symmetrical. 18:00 Reassessment: No changes from previously documented assessment. Patient and/or family ll1 updated on plan of care and expected duration. Pain level reassessed. Patient is alert, oriented x 3, equal unlabored respirations, skin warm/dry/pink. 18:35 Reassessment: No changes from previously documented assessment. Patient and/or family ll1 updated on plan of care and expected duration. Pain level reassessed. Patient is alert, oriented x 3, equal unlabored respirations, skin warm/dry/pink. 20:13 Cardiovascular: Rhythm is regular. aa9 Vital Signs: 17:12 BP 138 / 83; Pulse 94; Resp 18; Temp 98.2; Pulse Ox 99% ; Weight 74.84 kg; Height 5 ft. ap3 4 in. ; 18:39 BP 120 / 77; Pulse 90; Resp 17; ll1 19:30 BP 133 / 87; Pulse 97; Resp 17 S; Pulse Ox 99% on R/A; aa9 20:12 BP 143 / 86; Pulse 98; Resp 16 S; Pulse Ox 99% on R/A; aa9 17:12 Body Mass Index 28.32 (74.84 kg, 162.56 cm) ap3 ED Course: 16:58 Patient arrived in ED. am2 16:58 ALAN ARAUZ is Private Physician. am2 17:13 Triage completed. ap3 17:18 Arm band placed on left wrist. ap3 17:20 [facility] snw 17:20 Geremias Horton DO is Attending Physician. snw 17:46 Cory Drew, RN is Primary Nurse. ll1 18:01 Inserted saline lock: 22 gauge in right antecubital area, using aseptic technique. ll1 Blood collected. 18:17 Patient has correct armband on for positive identification. Bed in low position. Call ll1 light in reach. Side rails up X2. Client placed on continuous cardiac and pulse oximetry monitoring. NIBP monitoring applied. youth specialist on. 18:28 XRAY Chest (1 view) In Process Unspecified. EDMS 18:40 No provider procedures requiring assistance completed. ll1 19:37 Shelley Lai MD is Referral Physician. snw 20:13 IV discontinued, intact, bleeding controlled, No redness/swelling at site. Pressure aa9 dressing applied. Administered Medications: 19:18 Drug: Furosemide PO 20 mg Route: PO; aa9 20:13 Follow up: Response: No adverse reaction aa9 Medication: 18:17 VIS not applicable for this client. ll1 Outcome: 19:38 Discharge ordered by . snw 20:13 Discharged to home ambulatory. aa9 20:13 Condition: stable 20:13 Discharge instructions given to patient, Instructed on discharge instructions, follow up and referral plans. medication usage, Demonstrated understanding of instructions, follow-up care, medications, Prescriptions given X 1. 20:17 Patient left the ED. aa9 Signatures: Dispatcher [employer] EDMS Lashawn Gentile FNP-C PANEL BEATER-Csnw Amita Briseno am2 Amita Velázquez RN RN ap3 Cory Drew, ADRIA RN ll1 Grazyna Nevarez RN RN aa9
--- NOTE | 2022-05-04 15:26 | EDPHYS ---
Physician Documentation [facility] Name: Bertha Connell Age: 81 yrs Sex: Female : 1940 Arrival Date: 04/18/2022 Time: 16:58 Bed 19 Private MD: ALAN ARAUZ ED Physician Geremias Horton HPI: 04/18 18:01 This 81 yrs old Female presents to ER via Ambulatory with complaints of Shortness Of snw Breath, afib. 18:01 The patient has shortness of breath at rest. Onset: The symptoms/episode began/occurred snw 1 month(s) ago, and became persistent. Duration: The symptoms are intermittent. Associated signs and symptoms: Pertinent positives: tingling in lower extremities, palpitations. Severity of symptoms: At their worst the symptoms were moderate. The patient has been recently seen by a physician: sees Dr. Arauz, Dr. Lai, and Dr. Jiménez. Historical: - Allergies: 17:13 IV contrast; ap3 - Home Meds: 17:13 Advair Diskus 100-50 mcg/dose Inhl dsdv 1 puff 2 times per day [Active]; fenofibrate 40 ap3 mg Oral tab [Active]; hydrochlorothiazide 12.5 mg Oral tab 1 tab once daily [Active]; Bystolic 2.5 mg Oral tab 2 tabs once daily [Active]; losartan 100 mg Oral tab 1 tab once daily [Active]; Xarelto 15 mg Oral tab daily [Active]; Dexilant 30 mg Oral CpDB 1 cap once daily [Active]; Estradiol Patch [Active]; Unithroid 88 mcg oral tablet [Active]; flecainide 50 mg oral tablet [Active]; benzonatate 100 mg oral capsule [Active]; - PMHx: 17:13 Atrial Fib; Gout; Hyperlipidemia; Hypertension; Hypothyroidism; lymphocytic lymphoma; ap3 - Immunization history:: Client reports receiving the 2nd dose of the Covid vaccine, Flu vaccine is up to date. - Social history:: Smoking status: Patient denies any tobacco usage or history of. ROS: 18:00 Constitutional: Negative for fever, chills, and weight loss, Eyes: Negative for injury, snw pain, redness, and discharge, ENT: Negative for injury, pain, and discharge, Neck: Negative for injury, pain, and swelling. 18:00 Abdomen/GI: Negative for abdominal pain, nausea, vomiting, diarrhea, and constipation, Back: Negative for injury and pain, : Negative for injury, bleeding, discharge, and swelling, MS/Extremity: Negative for injury and deformity, Skin: Negative for injury, rash, and discoloration. 18:00 Cardiovascular: Positive for palpitations. 18:00 Respiratory: Positive for shortness of breath, on exertion. 18:00 Neuro: Positive for tingling, of the right leg and left leg. Exam: 17:59 Constitutional: This is a well developed, well nourished patient who is awake, alert, snw and in no acute distress. Head/Face: Normocephalic, atraumatic. Eyes: Pupils equal round and reactive to light, extra-ocular motions intact. Lids and lashes normal. Conjunctiva and sclera are non-icteric and not injected. Cornea within normal limits. Periorbital areas with no swelling, redness, or edema. ENT: Nares patent. No nasal discharge, no septal abnormalities noted. Tympanic membranes are normal and external auditory canals are clear. Oropharynx with no redness, swelling, or masses, exudates, or evidence of obstruction, uvula midline. Mucous membranes moist. Neck: Trachea midline, no thyromegaly or masses palpated, and no cervical lymphadenopathy. Supple, full range of motion without nuchal rigidity, or vertebral point tenderness. No Meningismus. Chest/axilla: Normal chest wall appearance and motion. Nontender with no deformity. No lesions are appreciated. Respiratory: Lungs have equal breath sounds bilaterally, clear to auscultation and percussion. No rales, rhonchi or wheezes noted. No increased work of breathing, no retractions or nasal flaring. Abdomen/GI: Soft, non-tender, with normal bowel sounds. No distension or tympany. No guarding or rebound. No evidence of tenderness throughout. Back: No spinal tenderness. No costovertebral tenderness. Full range of motion. Skin: Warm, dry with normal turgor. Normal color with no rashes, no lesions, and no evidence of cellulitis. MS/ Extremity: Pulses equal, no cyanosis. Neurovascular intact. Full, normal range of motion. Neuro: Awake and alert, GCS 15, oriented to person, place, time, and situation. Cranial nerves II-XII grossly intact. Motor strength 5/5 in all extremities. Sensory grossly intact. Cerebellar exam normal. Normal gait. Psych: Awake, alert, with orientation to person, place and time. Behavior, mood, and affect are within normal limits. 17:59 Chest/axilla: Inspection: normal, Palpation: is normal. 17:59 Cardiovascular: Rate: tachycardic, Rhythm: regular, Pulses: no pulse deficits are appreciated, Heart sounds: normal, Edema: is not appreciated, JVD: is not appreciated. Vital Signs: 17:12 BP 138 / 83; Pulse 94; Resp 18; Temp 98.2; Pulse Ox 99% ; Weight 74.84 kg; Height 5 ft. ap3 4 in. ; 18:39 BP 120 / 77; Pulse 90; Resp 17; ll1 19:30 BP 133 / 87; Pulse 97; Resp 17 S; Pulse Ox 99% on R/A; aa9 20:12 BP 143 / 86; Pulse 98; Resp 16 S; Pulse Ox 99% on R/A; aa9 17:12 Body Mass Index 28.32 (74.84 kg, 162.56 cm) ap3 MDM: 17:22 Patient medically screened. snw 19:44 Data reviewed: vital signs, nurses notes, lab test result(s), EKG, radiologic studies. snw Historians other than the Patient: Spouse/Significant Other: . Counseling: I had a detailed discussion with the patient and/or guardian regarding: the historical points, exam findings, and any diagnostic results supporting the discharge/admit diagnosis, lab results, radiology results, the need for outpatient follow up, to return to the emergency department if symptoms worsen or persist or if there are any questions or concerns that arise at home. Response to treatment: the patient's symptoms have mildly improved after treatment. Special discussion: Based on the history and exam findings, there is no indication for further emergent testing or inpatient evaluation. I discussed with the patient/guardian the need to see the director of research for further evaluation of the symptoms. I discussed with the patient/guardian the need to see the primary care provider for further evaluation of the symptoms. 04/18 17:40 Order name: Basic Metabolic Panel; Complete Time: 18:33 snw 04/18 17:40 Order name: CBC with Diff; Complete Time: 18:15 snw 04/18 17:40 Order name: LFT's; Complete Time: 18:33 snw 04/18 17:40 Order name: Magnesium; Complete Time: 18:33 snw 04/18 17:40 Order name: NT PRO-BNP; Complete Time: 18:33 snw 04/18 17:40 Order name: PT-INR; Complete Time: 18:15 snw 04/18 17:40 Order name: Troponin HS; Complete Time: 18:33 snw 04/18 17:40 Order name: XRAY Chest (1 view); Complete Time: 18:57 snw 04/18 17:40 Order name: EKG; Complete Time: 17:41 snw 04/18 17:40 Order name: Cardiac monitoring; Complete Time: 18:17 snw 04/18 17:40 Order name: EKG - Nurse/Tech; Complete Time: 18:17 snw 04/18 17:40 Order name: IV Saline Lock; Complete Time: 18:01 snw 04/18 17:40 Order name: Labs collected and sent; Complete Time: 18:01 snw 04/18 17:40 Order name: O2 Per Protocol; Complete Time: 18:01 snw 04/18 17:40 Order name: O2 Sat Monitoring; Complete Time: 18:01 snw EC:30 Rate is 98 beats/min. Rhythm is irregularly irregular. QRS is positive in lead III. snw Clinical impression: Atrial Fibrillation. Administered Medications: 19:18 Drug: Furosemide PO 20 mg Route: PO; aa9 20:13 Follow up: Response: No adverse reaction aa9 Disposition: 18:13 Co-signature as Attending Physician, Geremias ELAM was immediately available on-site ms3 in the Emergency Department for consultation in the care of the patient. Disposition Summary: 04/18/22 19:38 Discharge Ordered Location: Home snw Condition: Stable snw Diagnosis - Chronic atrial fibrillation snw - Fluid overload, unspecified snw Followup: snw - With: Emergency Department - When: As needed - Reason: Trouble breathing, Worsening of condition Followup: snw - With: Shelley Lai MD - When: 5 - 6 days - Reason: Recheck today's complaints, Continuance of care Discharge Instructions: - Discharge Summary Sheet snw - Atrial Fibrillation snw - Potassium Content of Foods snw - Preventing Heart Failure snw - Living With Heart Failure snw - Heart Failure Eating Plan snw Forms: - Medication Reconciliation Form snw - Thank You Letter snw - Antibiotic Education snw - Prescription Opioid Use snw Prescriptions: - Lasix 20 mg Oral Tablet - take 1 tablet by ORAL route once daily; 20 tablet; Refills: 0, Product snw Selection Permitted Signatures: Dispatcher [employer] EDMS Lashawn Gentile, ASH COLLECTOR-C ASH COLLECTOR-Csnw Amita Velázquez, RN RN ap3 Geremias Horton DO DO ms3 Grazyna Nevarez RN RN aa9
== END 2022-04-18 20:17 | disposition home or self-care (01) ==
LOC: ER 16:54
DX: E87.70 Fluid overload, unspecified (principal); I48.20 Chronic atrial fibrillation, unspecified; Z79.01 Long term (current) use of anticoagulants; I10 Essential (primary) hypertension; E78.5 Hyperlipidemia, unspecified; E03.9 Hypothyroidism, unspecified; Z91.041 Radiographic dye allergy status
CPT/HCPCS: 36415; 71045; 80048; 80076; 83735; 83880; 84484; 85025; 85610; 93005; 99284

== ENCOUNTER 2022-04-20 15:09 | Emergency (ER) | payer OTHER, BC ==
--- OUTSIDE RECORDS SUMMARY | 2022-04-20 15:28 | XMS REPORT | Continuity of Care Document ---
:1940 Author Organization [facility] t Address [address] [place] [address] [place] [id number] Care Team Providers Name Role Phone Martín Burleson MD Primary Care Physician Emory Jiménez Attending Clinician Unavailable Miley Carmona NP Attending Clinician Nargis Andrade Attending Clinician Unavailable Tanja Calderon MD Attending Clinician Andrade Cash PTA Attending Clinician Unavailable Israel Pedraza MD Attending Clinician ISRAEL PEDRAZA Attending Clinician Unavailable Xenia Walker PT Attending Clinician Unavailable Hanna Cash PTA Attending Clinician Unavailable Olena Salmeron PT Attending Clinician Unavailable Doctor Unassigned, [place] Attending Clinician Unavailable RADIOLOGY Attending Clinician Unavailable [...] Unavailable Fellow, Pulmonary Attending Clinician Unavailable Shantell COVINGTON, Rudi Aguilar Attending Clinician Unavailable Joseline ZAVALETA, Kimmy Hollis Attending Clinician Edwardo ZAVALETA, Antonietta Cruz Attending Clinician [phone] Junior Munoz MD Attending Clinician ANTONIETTA BROOKE Attending Clinician Unavailable Nargis Andrade Admitting Clinician Unavailable MICHELLE DELEON II Admitting Clinician Unavailable KELSEY MENA Admitting Clinician Unavailable MD KELSEY MENA Admitting Clinician Unavailable Junior Munoz MD Admitting Clinician JUNIOR MUNOZ Admitting Clinician Unavailable [...] arrhythmia arrhythmia 4-24 it y of 00:00: [address] HTN HTN Disease Active Univers (hypertens (hypertens 4-24 it y of ion) ion) 00:00: Medical Branch Iron Iron Disease Active 2020-0 Univers deficiency deficiency 4-24 it y of anemia anemia 00:00: Medical Branch H/O blood H/O blood Disease Active 2020-0 Uni vers culture culture 4-24 ity of 00:00: Medical Branch Mucus Mucus Disease Active 2020-0 Overview: Univer s plugging plugging 4-24 Formattin ity of of bronchi of bronchi 00:00: g of this [place] note Medical might be Branch different from [...] Active 2020-0 Univers 4-24 ity of 00:00: Medical Branch Hyponatrem Hyponatrem Disease Active 2020-0 U nivers ia ia 4-24 ity of 00:00: [place] [facility] Bronchial Bronchial Disease Active 2020-0 Overview: Univers obstructio obstructio 4-23 Formattin ity of n n 00:00: g of this [place] 00 note Medical might be Branch different from the original. 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 Herm karrie (disorder) (disorder) Active Problem 09/25/2020 Medical Group Allergies, Adverse Reactions, Alerts Allergy Allergy Status Severity Reaction(s) Onset Inactive Treating Comm ents Source Name Type Date Date Clinician Iodine Propensi Active Rash Methodi ty to 2-20 st adverse 00:00: Hospita reaction 00 l [...] Univers INGREDI 03-11 ity of 00:00: [place] [address] [place] [address] Branch contrast contrast Active Memori a media media l (iodine- (iodine- [place] based) based) Social History Social Habit Start Date Stop Date Quantity Comments Source Alcohol intake 2021-12-29 2021-12-29 Current drinker [facility] 00:00:00 00:00:00 of alcohol (finding) Tobacco use and 2021-12-29 2021-12-29 Smokeless tobacco [facility] exposure 00:00:00 00:00:00 non-user Exposure to 2021-09-30 2021-10-10 Not sure University of SARS-CoV-2 00:00:00 14:43:00 [facility] (event) Branch Social History 2019-04-13 2019[facility]:56:44 Sex [birth year] [facility] 00:00:00 00:00:00 Smoking Status Start Date Stop Date Source Never smoked tobacco [facility] ospital Medications Ordered Filled Start Stop [...] tablet 16 times a l day. cyanocobala 2021- No Place Meth tushar min, 8-27 09-[address] vitamin 09:32: 00:00 tongue. Hospit a B-12, 25 :00 l (Vitamin B-12) 5,000 mcg/mL drops cyanocobala 2021- No Place Meth tushar min, 8-17 08-[address] vitamin 09:32: 00:00 tongue. Hospit a B-12, 25 :00 l (Vitamin B-12) 5,000 mcg/mL drops cyanocobala 2022-0 2021- No Place Meth tushar min, -27 09-[address] vitamin 09:32: 00:00 tongue. Hospit a B-12, 25 :00 l (Vitamin B-12) 5,000 mcg/mL drops cyanocobala 2-0 2- No Place Meth tushar min, 09-27- under the st vitamin 09:32: 00:00 tongue. Hospit a B-12, 25 :00 l (Vitamin B-12) 5,000 mcg/mL drops cyanocobala 2021-0 2021- No Place Meth tushar min, 09-27- under the st vitamin 09:32: 00:00 tongue. Hospit a B-12, 25 :00 l (Vitamin B-12) 5,000 mcg/mL drops cholecalcif 2021-0 Yes 1000U QD Take 1,000 Methodi chrissy, 8-[address] vitamin D3, 13:07: mouth Hospi ta 125 mcg 42 daily. l (5,000 unit) tablet turmeric 2021-0 Yes 500mg Q.5D Take 500 Meth tushar root 8-[address] extract 13:07: mouth 2 Hospita 1,053 mg 42 (two) l tablet times a day. Take 1000mg daily flecainide 2021-0 Yes 50mg Q.5D Take 50 mg M ethodi (TAMBOCOR) 8-[address] 50 MG 13:07: (two) Hospita tablet 42 times a l day. benzonatate 2021-0 Yes 100mg Q.5D Take 100 M ethodi (TESSALON) 8-[address] 100 MG 13:07: mouth 2 Hospita capsule 42 (two) l times a day as needed for cough. glucosamine 2-0 Yes Q.5D Take by Met hodi -chondroiti 8-[address] n 250-200 13:07: (two) Hospita mg tablet 42 times a l day. cholecalcif 2022-0 Yes 1000U QD Take 1,000 Methodi chrissy, 8-[address] vitamin D3, 13:07: mouth Hospi ta 125 mcg 42 daily. l (5,000 unit) tablet cholecalcif 2-0 Yes 1000U QD Take 1,000 Methodi chrissy, 8-[address] vitamin D3, 13:07: mouth Hospi ta 125 mcg 42 daily. l (5,000 unit) tablet cholecalcif 2021-0 Yes 1000U QD Take 1,000 [...] 13:07: daily. Hospit a 42 l hydroCHLORO 2021-0 Yes 12.5mg QD Take 12.5 Methodi thiazide [...] mouth Hospita tablet 42 daily. l dexlansopra 202-0 Yes 30mg QD Take 30 mg Methodi [...] l capsule glucosamine 2021- No Take by Ut thodi /D3/shalom 03-30 mouth. [facility] esme 09:46: 00:00 Hospita (OSTEO 56 :00 l BI-FLEX, 5-LOXIN, ORAL) glucosamine 2021- No Take by Ut thodi /D3/shalom 03-30 mouth. [facility] esme 09:46: 00:00 Hospita (OSTEO 56 :00 l BI-FLEX, 5-LOXIN, ORAL) glucosamine 2021- No Take by Ut thodi /D3/shalom 03-30 mouth. [facility] esme 09:46: 00:00 Hospita (OSTEO 56 :00 [...] 1{tbl} Q.5D Take 1 M ethodi azole-trime 2-17 -[address] thoprim 00:00: 05:59 mouth 2 Hospit a (BACTRIM 00 :00 (two) l DS) 800-160 times a mg per day for 7 tablet days. glucosamine 2020-02 Yes Take by Uni vers /D3/shalom 2-20 mouth. ity of ia esme 11:33: [place] (OSTEO 52 Medical BI-FLEX, Branch 5-LOXIN, ORAL) glucosamine 2020-02 Yes Take by Uni vers /D3/shalom 2-20 mouth. ity of ia esme 11:33: [place] (OSTEO 52 Medical BI-FLEX, Branch 5-LOXIN, ORAL) glucosamine 2020-02 Yes Take by Uni vers /D3/shalom 2-20 mouth. ity of ia esme 11:33: [place] (OSTEO 52 Medical BI-FLEX, Branch 5-LOXIN, ORAL) glucosamine 2020-02 Yes Take by Uni vers /D3/shalom 2-20 mouth. ity of ia esme 11:33: [place] (OSTEO 52 Medical BI-FLEX, Branch 5-LOXIN, ORAL) glucosamine 2020-02 Yes Take by Uni vers /D3/shalom 2-20 mouth. ity of ia esme 11:33: [place] (OSTEO 52 Medical BI-FLEX, Branch 5-LOXIN, ORAL) glucosamine 2020-02 Yes Take by Uni vers /D3/shalom 2-20 mouth. ity of ia esme 11:33: [place] (OSTEO 52 Medical BI-FLEX, Branch 5-LOXIN, ORAL) glucosamine 2020-02 Yes Take by Uni vers /D3/shalom 2-20 mouth. ity of ia seme 11:33: [place] (OSTEO 52 Medical BI-FLEX, Branch 5-LOXIN, ORAL) glucosamine 2020-02 Yes Take by Uni vers /D3/shalom 2-20 mouth. ity of ia esme 11:33: [place] (OSTEO 52 Medical BI-FLEX, Branch 5-LOXIN, ORAL) glucosamine 2020-02 Yes Take by Uni vers /D3/shalom 2-20 mouth. ity of ia esme 11:33: [place] (OSTEO 52 Medical BI-FLEX, Branch 5-LOXIN, ORAL) glucosamine 2020-02 Yes Take by Uni vers /D3/shalom 2-20 mouth. ity of ia esme 11:33: [place] (OSTEO 52 Medical BI-FLEX, Branch 5-LOXIN, ORAL) glucosamine 2020-02 Yes Take by Uni vers /D3/shalom 2-20 mouth. ity of ia esme 11:33: [place] (OSTEO 52 Medical BI-FLEX, Branch 5-LOXIN, ORAL) glucosamine 2020-02 Yes Take by Uni vers /D3/shalom 2-20 mouth. ity of ia esme 11:33: [place] (OSTEO 52 Medical BI-FLEX, Branch 5-LOXIN, ORAL) glucosamine 2020-02 Yes Take by Uni vers /D3/shalom 2-20 mouth. ity of ia esme 11:33: [place] (OSTEO 52 Medical BI-FLEX, Branch 5-LOXIN, ORAL) glucosamine 2020-02 Yes Take by Uni vers /D3/shalom 2-20 mouth. ity of ia esme 11:33: [place] (OSTEO 52 Medical BI-FLEX, Branch 5-LOXIN, ORAL) [place] 2020-02 Yes Take by Unive rs 400 mg Cap 2-20 mouth. ity of 11:33: [address] Branch [place] 2020-02 Yes Take by Unive rs 400 mg Cap 2-20 mouth. ity of 11:33: [address] Branch [place] 2020-02 Yes Take by Unive rs 400 mg Cap 2-20 mouth. ity of 11:33: [address] Branch [place] 2020-02 Yes Take by Unive rs 400 mg Cap 2-20 mouth. ity of 11:33: [address] Branch [place] 2020-02 Yes Take by Unive rs 400 mg Cap 2-20 mouth. ity of 11:33: [address] Branch [place] 2020-02 Yes Take by Unive rs 400 mg Cap 2-20 mouth. ity of 11:33: [address] Branch [place] 2020-02 Yes Take by Unive rs 400 mg Cap 2-20 mouth. ity of 11:33: [address] Branch [place] 2020-02 Yes Take by Unive rs 400 mg Cap 2-20 mouth. ity of 11:33: [place] 15 Medical Branch [place] 2020-02 Yes Take by Unive rs 400 mg Cap 2-20 mouth. ity of 11:33: [place] [address] Medical Branch Cran[place] 2020-02 Yes Take by Unive rs 400 mg Cap 2-20 mouth. ity of 11:33: [place] [address] Medical Branch [place] 2020-02 Yes Take by Unive rs 400 mg Cap 2-20 mouth. ity of 11:33: [place] [address] Medical Branch [place] 2020-02 Yes Take by Unive rs 400 mg Cap 2-20 mouth. ity of 11:33: [place] [address] Medical Branch [place] 2020-02 Yes Take by Unive rs 400 mg Cap 2-20 mouth. ity of 11:33: [place] [address] Medical [place] 2020-02 Yes Take by Unive rs 400 mg Cap 2-20 mouth. ity of 11:33: [address] Branch turmeric 2020-02 Yes 900mg Take 900 Univ ers root 2-20 mg by ity of extract 500 11:30: [place] mg [place] 08 [place] Branch Dexlansopra 2020-02 Yes 1{capsu Take [...] 2-20 mouth. ity of Vitamin D3, 11:30: [place] (VITAMIN 08 Medical D3) 5,000 Branch unit tablet MAGNESIUM 2020-02 Yes 500mg Take 500 Uni vers ORAL 2-20 mg by ity of 11:30: mouth. [place] [address] Medical Branch hydroCHLORO 2020-02 Yes 12.5mg Take 12.5 Univers thiazide 2-20 mg by ity of 12.5 mg 11:30: mouth. [place] capsule Medical Branch levothyroxi 2020-02 Yes 88ug Take 88 Uni vers ne 2-20 mcg by ity of (UNITHROID) 11:30: mouth [place] 88 mcg 08 every Medical tablet morning. Branch FLUTICASONE 2020-02 Yes Inhale. Uni vers /SALMETEROL 2-20 ity of (ADVAIR HFA 11:30: [place] INHALE) [address] [place] [address] Branch fenofibrate 2020-02 Yes 48mg Take 48 mg Univers (TRICOR) 48 2-20 by mouth ity of mg tablet 11:30: daily. [address] Biotin 10 2020-02 Yes Take by Unive rs mg Tab 2-20 mouth. ity of 11:30: [address] turmeric 2020-02 Yes 900mg Take 900 Univ ers root 2-20 mg by ity of extract 500 11:30: [place]. [place] [address] [place] [address] Dexlansopra 2020-02 Yes 1{capsu Take 1 U [...] 2-20 mouth. ity of Vitamin D3, 11:30: [place] (VITAMIN [address] [place] [address] D3) 5,000 Branch unit tablet MAGNESIUM 2020-02 Yes 500mg Take 500 Uni vers ORAL 2-20 mg by ity of 11:30: mouth. [address] hydroCHLORO 2020-02 Yes 12.5mg Take 12.5 Univers thiazide 2-20 mg by ity of 12.5 mg 11:30: mouth. [place] capsule [address] [place] [address] levothyroxi 2020-02 Yes 88ug Take 88 Uni vers ne 2-20 mcg by ity of (UNITHROID) 11:30: mouth [place] 88 mcg 08 every Medical tablet morning. Branch FLUTICASONE 2020-02 Yes Inhale. Uni vers /SALMETEROL 2-20 ity of (ADVAIR HFA 11:30: [place] INHALE) [address] [place] [address] fenofibrate 2020-02 Yes 48mg Take 48 mg Univers (TRICOR) 48 2-20 by mouth ity of mg tablet 11:30: daily. [address] Biotin 10 2020-02 Yes Take by Unive rs mg Tab 2-20 mouth. ity of 11:30: [address] turmeric 2020-02 Yes 900mg Take 900 Univ ers root 2-20 mg by ity of extract 500 11:30: [place]. [place] mg [place] Branch Dexlansopra 2020-02 Yes 1{capsu Take 1 U nivers zole 2-20 le} capsule by ity of (DEXILANT) 11:30: mouth. [place] 30 mg Medical capsule Branch vitamin C 2020-02 Yes 1000mg Take 1,000 Univers with james 2-20 mg by ity of hips 11:30: mouth [place] (VITAMIN C) 08 daily. Medica l 1,000 mg Branch tablet Cholecalcif 2020-02 Yes Take by Uni vers chrissy, 2-20 mouth. ity of Vitamin D3, 11:30: [place] (VITAMIN [address] [place] [address] D3) 5,000 Branch unit tablet MAGNESIUM 2020-02 Yes 500mg Take 500 Uni vers ORAL 2-20 mg by ity of 11:30: mouth. [address] Branch hydroCHLORO 2020-02 Yes 12.5mg Take 12.5 Univers thiazide 2-20 mg by ity of 12.5 mg 11:30: mouth. [place] capsule [address] [place] [address] Branch levothyroxi 2020-02 Yes 88ug Take 88 Uni vers ne 2-20 mcg by ity of (UNITHROID) 11:30: mouth [place] 88 mcg 08 every Medical tablet morning. Branch FLUTICASONE 2020-02 Yes Inhale. Uni vers /SALMETEROL 2-20 ity of (ADVAIR HFA 11:30: [place] INHALE) [address] [place] [address] Branch fenofibrate 2020-02 Yes 48mg Take 48 mg Univers (TRICOR) 48 2-20 by mouth ity of mg tablet 11:30: daily. [address] Biotin 10 2020-02 Yes Take by Unive rs mg Tab 2-20 mouth. ity of 11:30: [address] Branch turmeric 2020-02 Yes 900mg Take 900 Univ ers root 2-20 mg by ity of extract 500 11:30: [place]. [place] mg Cap [place] Branch Dexlansopra 2020-02 Yes 1{capsu Take 1 U nivers zole 2-20 le} capsule by ity of (DEXILANT) 11:30: mouth. [place] 30 mg Medical capsule Branch vitamin C 2020-02 Yes 1000mg Take 1,000 Univers with james 2-20 mg by ity of hips 11:30: mouth [place] (VITAMIN C) 08 daily. Medica l 1,000 mg Branch tablet Cholecalcif 2020-02 Yes Take by Uni vers chrissy, 2-20 mouth. ity of Vitamin D3, 11:30: [place] (VITAMIN Medical D3) 5,000 Branch unit tablet MAGNESIUM 2020-02 Yes 500mg Take 500 Uni vers ORAL 2-20 mg by ity of 11:30: mouth. [address] Branch hydroCHLORO 2020-02 Yes 12.5mg Take 12.5 Univers thiazide 2-20 mg by ity of 12.5 mg 11:30: mouth. [place] capsule [address] [place] [address] Branch levothyroxi 2020-02 Yes 88ug Take 88 Uni vers ne 2-20 mcg by ity of (UNITHROID) 11:30: mouth [place] 88 mcg 08 every Medical tablet morning. Branch FLUTICASONE 2020-02 Yes Inhale. Uni vers /SALMETEROL 2-20 ity of (ADVAIR HFA 11:30: [place] INHALE) [address] [place] [address] Branch fenofibrate 2020-02 Yes 48mg Take 48 mg Univers (TRICOR) 48 2-20 by mouth ity of mg tablet 11:30: daily. [address] Biotin 10 2020-02 Yes Take by Unive rs mg Tab 2-20 mouth. ity of 11:30: [address] turmeric 2020-02 Yes 900mg Take 900 Univ ers root 2-20 mg by ity of extract 500 11:30: [place]. [place] [address] [place] [address] Branch Dexlansopra 2020-02 Yes 1{capsu Take 1 [...] 2-20 mouth. ity of Vitamin D3, 11:30: [place] (VITAMIN Medical D3) 5,000 Branch unit tablet MAGNESIUM 2020-02 Yes 500mg Take 500 Uni vers ORAL 2-20 mg by ity of 11:30: mouth. [address] hydroCHLORO 2020-02 Yes 12.5mg Take 12.5 Univers thiazide 2-20 mg by ity of 12.5 mg 11:30: mouth. [place] capsule [address] [place] [address] levothyroxi 2020-02 Yes 88ug Take 88 Uni vers ne 2-20 mcg by ity of (UNITHROID) 11:30: mouth [place] 88 mcg 08 every Medical tablet morning. Branch FLUTICASONE 2020-02 Yes Inhale. Uni vers /SALMETEROL 2-20 ity of (ADVAIR HFA 11:30: [place] INHALE) [address] [place] [address] fenofibrate 2020-02 Yes 48mg Take 48 mg Univers (TRICOR) 48 2-20 by mouth ity of mg tablet 11:30: daily. [address] Biotin 10 2020-02 Yes Take by Unive rs mg Tab 2-20 mouth. ity of 11:30: [address] turmeric 2020-02 Yes 900mg Take 900 Univ ers root 2-20 mg by ity of extract 500 11:30: [place]. [place] mg [place] [address] [place] [address] Dexlansopra 2020-02 Yes 1{capsu Take 1 U nivers zole 2-20 le} capsule by ity of (DEXILANT) 11:30: mouth. [place] 30 mg Medical capsule Branch vitamin C 2020-02 Yes 1000mg Take 1,000 Univers with james 2-20 mg by ity of hips 11:30: mouth [place] (VITAMIN C) 08 daily. Medica l 1,000 mg Branch tablet Cholecalcif 2020-02 Yes Take by Uni vers chrissy, 2-20 mouth. ity of Vitamin D3, 11:30: [place] (VITAMIN [address] [place] [address] D3) 5,000 [place] unit tablet MAGNESIUM 2020-02 Yes 500mg Take 500 Uni vers ORAL 2-20 mg by ity of 11:30: mouth. [address] hydroCHLORO 2020-02 Yes 12.5mg Take 12.5 Univers thiazide 2-20 mg by ity of 12.5 mg 11:30: mouth. [place] capsule [address] [place] [address] levothyroxi 2020-02 Yes 88ug Take 88 Uni vers ne 2-20 mcg by ity of (UNITHROID) 11:30: mouth [place] 88 mcg 08 every Medical tablet morning. Branch FLUTICASONE 2020-02 Yes Inhale. Uni vers /SALMETEROL 2-20 ity of (ADVAIR HFA 11:30: [place] INHALE) [address] [place] [address] Branch fenofibrate 2020-02 Yes 48mg Take 48 mg Univers (TRICOR) 48 2-20 by mouth ity of mg tablet 11:30: daily. [address] Biotin 10 2020-02 Yes Take by Unive rs mg Tab 2-20 mouth. ity of 11:30: [address] Branch turmeric 2020-02 Yes 900mg Take 900 Univ ers root 2-20 mg by ity of extract 500 11:30: [place]. [place] [address] [place] [address] Branch Dexlansopra 2020-02 Yes 1{capsu Take 1 U nivers zole 2-20 le} capsule by ity of (DEXILANT) 11:30: mouth. [place] 30 mg Medical capsule Branch vitamin C 2020-02 Yes 1000mg Take 1,000 Univers with james 2-20 mg by ity of hips 11:30: mouth [place] (VITAMIN C) 08 daily. Medica l 1,000 mg Branch tablet Cholecalcif 2020-02 Yes Take by Uni vers chrissy, 2-20 mouth. ity of Vitamin D3, 11:30: [place] (VITAMIN [address] [place] [address] D3) 5,000 Branch unit tablet MAGNESIUM 2020-02 Yes 500mg Take 500 Uni vers ORAL 2-20 mg by ity of 11:30: mouth. [address] hydroCHLORO 2020-02 Yes 12.5mg Take 12.5 Univers thiazide 2-20 mg by ity of 12.5 mg 11:30: mouth. [place] capsule [address] [place] [address] levothyroxi 2020-02 Yes 88ug Take 88 Uni vers ne 2-20 mcg by ity of (UNITHROID) 11:30: mouth [place] 88 mcg 08 every Medical tablet morning. Branch FLUTICASONE 2020-02 Yes Inhale. Uni vers /SALMETEROL 2-20 ity of (ADVAIR HFA 11:30: [place] INHALE) [address] [place] [address] fenofibrate 2020-02 Yes 48mg Take 48 mg Univers (TRICOR) 48 2-20 by mouth ity of mg tablet 11:30: daily. [address] Biotin 10 2020-02 Yes Take by Univ ers mg Tab 2-20 mouth. ity of 11:30: [address] turmeric 2020-02 Yes 900mg Take 900 Univ ers root 2-20 mg by ity of extract 500 11:30: [place]. [place] mg [place] [address] [place] [address] Branch Dexlansopra 2020-02 Yes 1{capsu Take 1 U nivers zole 2-20 le} capsule by ity of (DEXILANT) 11:30: mouth. [place] 30 mg Medical capsule Branch vitamin C 2020-02 Yes 1000mg Take 1,000 Univers with james 2-20 mg by ity of hips 11:30: mouth [place] (VITAMIN C) 08 daily. Medica l 1,000 mg Branch tablet Cholecalcif 2020-02 Yes Take by Uni vers chrissy, 2-20 mouth. ity of Vitamin D3, 11:30: [place] (VITAMIN [address] [place] [address] D3) 5,000 Branch unit tablet MAGNESIUM 2020-02 Yes 500mg Take 500 Uni vers ORAL 2-20 mg by ity of 11:30: mouth. [address] hydroCHLORO 2020-02 Yes 12.5mg Take 12.5 Univers thiazide 2-20 mg by ity of 12.5 mg 11:30: mouth. [place] capsule [address] [place] [address] levothyroxi 2020-02 Yes 88ug Take 88 Uni vers ne 2-20 mcg by ity of (UNITHROID) 11:30: mouth [place] 88 mcg 08 every Medical tablet morning. Branch FLUTICASONE 2020-02 Yes Inhale. Uni vers /SALMETEROL 2-20 ity of (ADVAIR HFA 11:30: [place] INHALE) [address] [place] [address] fenofibrate 2020-02 Yes 48mg Take 48 mg Univers (TRICOR) 48 2-20 by mouth ity of mg tablet 11:30: daily. [address] Biotin 10 2020-02 Yes Take by Unive rs mg Tab 2-20 mouth. ity of 11:30: [address] turmeric 2020-02 Yes 900mg Take 900 Univ ers root 2-20 mg by ity of extract 500 11:30: [place]. [place] mg [place] [address] [place] [address] Branch Dexlansopra 2020-02 Yes 1{capsu Take 1 U nivers zole 2-20 le} capsule by ity of (DEXILANT) 11:30: mouth. [place] 30 mg Medical capsule Branch vitamin C 2020-02 Yes 1000mg Take 1,000 Univers with james 2-20 mg by ity of hips 11:30: mouth [place] (VITAMIN C) 08 daily. Medica l 1,000 mg Branch tablet Cholecalcif 2020-02 Yes Take by Uni vers chrissy, 2-20 mouth. ity of Vitamin D3, 11:30: [place] (VITAMIN Medical D3) 5,000 Branch unit tablet MAGNESIUM 2020-02 Yes 500mg Take 500 Uni vers ORAL 2-20 mg by ity of 11:30: mouth. [address] hydroCHLORO 2020-02 Yes 12.5mg Take 12.5 Univers thiazide 2-20 mg by ity of 12.5 mg 11:30: mouth. [place] capsule [address] [place] [address] levothyroxi 2020-02 Yes 88ug Take 88 Uni vers ne 2-20 mcg by ity of (UNITHROID) 11:30: mouth [place] 88 mcg 08 every Medical tablet morning. Branch FLUTICASONE 2020-02 Yes Inhale. Uni vers /SALMETEROL 2-20 ity of (ADVAIR HFA 11:30: [place] INHALE) [address] [place] [address] Branch fenofibrate 2020-02 Yes 48mg Take 48 mg Univers (TRICOR) 48 2-20 by mouth ity of mg tablet 11:30: daily. [address] Biotin 10 2020-02 Yes Take by Unive rs mg Tab 2-20 mouth. ity of 11:30: [address] turmeric 2020-02 Yes 900mg Take 900 Univ ers root 2-20 mg by ity of extract 500 11:30: [place]. [place] mg [place] [address] [place] [address] Branch Dexlansopra 2020-02 Yes 1{capsu Take 1 U nivers zole 2-20 le} capsule by ity of (DEXILANT) 11:30: mouth. [place] 30 mg Medical capsule Branch vitamin C 2020-02 Yes 1000mg Take 1,000 Univers with james 2-20 mg by ity of hips 11:30: mouth [place] (VITAMIN C) 08 daily. Medica l 1,000 mg Branch tablet Cholecalcif 2020-02 Yes Take by Uni vers crhissy, 2-20 mouth. ity of Vitamin D3, 11:30: [place] (VITAMIN [address] [place] [address] D3) 5,000 Branch unit tablet MAGNESIUM 2020-02 Yes 500mg Take 500 Uni vers ORAL 2-20 mg by ity of 11:30: mouth. [address] Branch hydroCHLORO 2020-02 Yes 12.5mg Take 12.5 Univers thiazide 2-20 mg by ity of 12.5 mg 11:30: mouth. [place] capsule [address] [place] [address] levothyroxi 2020-02 Yes 88ug Take 88 Uni vers ne 2-20 mcg by ity of (UNITHROID) 11:30: mouth [place] 88 mcg 08 every Medical tablet morning. Branch FLUTICASONE 2020-02 Yes Inhale. Uni vers /SALMETEROL 2-20 ity of (ADVAIR HFA 11:30: [place] INHALE) [address] [place] [address] Branch fenofibrate 2020-02 Yes 48mg Take 48 mg Univers (TRICOR) 48 2-20 by mouth ity of mg tablet 11:30: daily. [address] Biotin 10 2020-02 Yes Take by Unive rs mg Tab 2-20 mouth. ity of 11:30: [address] turmeric 2020-02 Yes 900mg Take 900 Univ ers root 2-20 mg by ity of extract 500 11:30: [place]. [place] mg [place] [address] [place] [address] Dexlansopra 2020-02 Yes 1{capsu Take 1 U nivers zole 2-20 le} capsule by ity of (DEXILANT) 11:30: mouth. [place] 30 mg Medical capsule Branch vitamin C 2020-02 Yes 1000mg Take 1,000 Univers with james 2-20 mg by ity of hips 11:30: mouth [place] (VITAMIN C) 08 daily. Medica l 1,000 mg Branch tablet Cholecalcif 2020-02 Yes Take by Uni vers chrissy, 2-20 mouth. ity of Vitamin D3, 11:30: [place] (VITAMIN [address] [place] [address] D3) 5,000 Branch unit tablet MAGNESIUM 2020-02 Yes 500mg Take 500 Uni vers ORAL 2-20 mg by ity of 11:30: mouth. [address] hydroCHLORO 2020-02 Yes 12.5mg Take 12.5 Univers thiazide 2-20 mg by ity of 12.5 mg 11:30: mouth. [place] capsule [address] [place] [address] levothyroxi 2020-02 Yes 88ug Take 88 Uni vers ne 2-20 mcg by ity of (UNITHROID) 11:30: mouth [place] 88 mcg 08 every Medical tablet morning. Branch FLUTICASONE 2020-02 Yes Inhale. Uni vers /SALMETEROL 2-20 ity of (ADVAIR HFA 11:30: [place] INHALE) [address] [place] [address] fenofibrate 2020-02 Yes 48mg Take 48 mg Univers (TRICOR) 48 2-20 by mouth ity of mg tablet 11:30: daily. [address] Biotin 10 2020-02 Yes Take by Unive rs mg Tab 2-20 mouth. ity of 11:30: [address] turmeric 2020-02 Yes 900mg Take 900 Univ ers root 2-20 mg by [place] extract 500 11:30: [place]. [place] Cap [address] [place] [address] Dexlansopra 2020-02 Yes 1{capsu Take 1 U [...] 2-20 mouth. ity of Vitamin D3, 11:30: [place] (VITAMIN [address] [place] [address] D3) 5,000 [place] unit tablet MAGNESIUM 2020-02 Yes 500mg Take 500 Uni vers ORAL 2-20 mg by ity of 11:30: mouth. [address] hydroCHLORO 2020-02 Yes 12.5mg Take 12.5 Univers thiazide 2-20 mg by ity of 12.5 mg 11:30: mouth. [place] capsule [address] [place] [address] levothyroxi 2020-02 Yes 88ug Take 88 Uni vers ne 2-20 mcg by ity of (UNITHROID) 11:30: mouth [place] 88 mcg 08 every Medical tablet morning. Branch FLUTICASONE 2020-02 Yes Inhale. Uni vers /SALMETEROL 2-20 ity of (ADVAIR HFA 11:30: [place] INHALE) [address] [place] [address] fenofibrate 2020-02 Yes 48mg Take 48 mg Univers (TRICOR) 48 2-20 by mouth ity of mg tablet 11:30: daily. [address] Biotin 10 2020-02 Yes Take by Unive rs mg Tab 2-20 mouth. ity of 11:30: [address] turmeric 2020-02 Yes 900mg Take 900 Univ ers root 2-20 mg by [place] of extract 500 11:30: [place]. [place] [address] [place] [address] Dexlansopra 2020-02 Yes 1{capsu Take 1 U nivers zole 2-20 le} capsule by ity of (DEXILANT) 11:30: mouth. [place] 30 mg Medical capsule Branch vitamin C 2020-02 Yes 1000mg Take 1,000 [facility] with james 2-20 mg by ity of hips 11:30: mouth [place] (VITAMIN C) 08 daily. Medica l 1,000 mg Branch tablet Cholecalcif 2020-02 Yes Take by Uni vers chrissy, 2-20 mouth. ity of Vitamin D3, 11:30: [place] (VITAMIN [address] [place] [address] D3) 5,000 Branch unit tablet MAGNESIUM 2020-02 Yes 500mg Take 500 Uni vers ORAL 2-20 mg by ity of 11:30: mouth. [address] hydroCHLORO 2020-02 Yes 12.5mg Take 12.5 Univers thiazide 2-20 mg by ity of 12.5 mg 11:30: mouth. [place] capsule [address] [place] [address] levothyroxi 2020-02 Yes 88ug Take 88 Uni vers ne 2-20 mcg by ity of (UNITHROID) 11:30: mouth [place] 88 mcg 08 every Medical tablet morning. Branch FLUTICASONE 2020-02 Yes Inhale. Uni vers /SALMETEROL 2-20 ity of (ADVAIR HFA 11:30: [place] INHALE) [address] [place] [address] fenofibrate 2020-02 Yes 48mg Take 48 mg Univers (TRICOR) 48 2-20 by mouth ity of mg tablet 11:30: daily. [address] Biotin 10 2020-02 Yes Take by Unive rs mg Tab 2-20 mouth. ity of 11:30: [address] turmeric 2020-02 Yes 900mg Take 900 Univ ers root 2-20 mg by [place]y of extract 500 11:30: [place]. [place] [address] [place] [address] Dexlansopra 2020-02 Yes 1{capsu Take 1 U nivers zole 2-20 le} capsule by ity of (DEXILANT) 11:30: mouth. [place] 30 mg 08 Medical capsule Branch vitamin C 2020-02 Yes 1000mg Take 1,000 [facility] with james 2-20 mg by ity of hips 11:30: mouth [place] (VITAMIN C) 08 daily. Medica l 1,000 mg Branch tablet Cholecalcif 2020-02 Yes Take by Uni vers chrissy, 2-20 mouth. ity of Vitamin D3, 11:30: [place] (VITAMIN [address] [place] [address] D3) 5,000 Branch unit tablet MAGNESIUM 2020-02 Yes 500mg Take 500 Uni vers ORAL 2-20 mg by ity of 11:30: mouth. [address] hydroCHLORO 2020-02 Yes 12.5mg Take 12.5 Univers thiazide 2-20 mg by ity of 12.5 mg 11:30: mouth. [place] capsule [address] [place] [address] levothyroxi 2020-02 Yes 88ug Take 88 Uni vers ne 2-20 mcg by ity of (UNITHROID) 11:30: mouth [place] 88 mcg 08 every Medical tablet morning. Branch FLUTICASONE 2020-02 Yes Inhale. Uni vers /SALMETEROL 2-20 ity of (ADVAIR HFA 11:30: [place] INHALE) [address] [place] [address] fenofibrate 2020-02 Yes 48mg Take 48 mg Univers (TRICOR) 48 2-20 by mouth ity of mg tablet 11:30: daily. [address] Biotin 10 2020-02 Yes Take by Unive rs mg Tab 2-20 mouth. ity of 11:30: [address] ciprofloxac 2020-02- No [id number] 500mg Take 1 Univers in HCl 2-20 12-28 tablet by ity of (CIPRO) 500 00:00: 05:59 [place] mg tablet 00 :00 every 12 Medica l (twelve) Branch hours for 7 days. acetylcyste 2020-02 Yes Univer s ine 200 2-08 ity of mg/mL (20 00:00: [place] %) solution [facility] acetylcyste 2020-02 Yes Univer s ine 200 2-08 ity of mg/mL (20 00:00: [place] %) solution [facility] acetylcyste 2020-02 Yes Univer s ine 200 2-08 ity of mg/mL (20 00:00: [place] %) solution 00 [facility] acetylcyste 2020-02 Yes Univer s ine [...] mcg/actuati 00:00: on inhaler Medical Branch thyroid, 2020-02- No 75mg QD Take 75 mg Me thodi pork, 0-21 10-[address] (CHERRY 09:42: 00:00 daily. Hospita THYROID) 60 12 :00 l mg tablet tizanidine Yes 4 mg = 1 Mem oria 4 mg oral 8-12 cap, PO, l capsule 16:14: Q8H, PRN Luca n 00 for muscle spasms, # 90 cap, 0 Refill(s) NAC 0 Yes NAC, See Memoria 8-12 Instructio l 16:14: ns, 1 po [place] 00 bid, Refill(s) 0 tizanidine Yes 4 mg = 1 Mem oria 4 mg oral 8-12 cap, PO, l capsule 16:14: Q8H, PRN [place] n 00 for muscle spasms, # 90 cap, 0 Refill(s) NAC 2020-0 Yes NAC, See Memoria 812 Instructio l 16:14: ns, 1 po [place] 00 bid, Refill(s) 0 tizanidine 202-0 Yes 4 mg = 1 Mem oria 4 mg oral 8-12 cap, PO, l capsule 16:14: Q8H, PRN [place] n 00 for muscle spasms, # 90 cap, 0 Refill(s) NAC 2020-0 Yes NAC, See Memoria 812 Instructio l 16:14: ns, 1 po [place] 00 bid, Refill(s) 0 tizanidine 2020-0 Yes 4 mg = 1 Mem oria 4 mg oral 8-12 cap, PO, l capsule 16:14: Q8H, PRN [place] n 00 for muscle spasms, # 90 cap, 0 Refill(s) NAC 2020-0 Yes NAC, See Memoria 812 Instructio l 16:14: ns, 1 po [place] 00 bid, Refill(s) 0 tizanidine 2020-0 Yes 4 mg = 1 Mem oria 4 mg oral 8-12 cap, PO, l capsule 16:14: Q8H, PRN [place] 00 for muscle spasms, # 90 cap, 0 Refill(s) NAC 2020-0 Yes NAC, See Memoria 812 Instructio l 16:14: ns, 1 po [place] 00 bid, Refill(s) 0 tizanidine 2020-0 Yes 4 mg = 1 Mem oria 4 mg oral 8-12 cap, PO, l capsule 16:14: Q8H, PRN [place] 00 for muscle spasms, # 90 cap, 0 Refill(s) NAC 2020-0 Yes NAC, See Memoria 812 Instructio l 16:14: ns, 1 po [place] 00 bid, Refill(s) 0 Levothyroxi 2020-0 Yes = 1 tab, Me moria ne Sodium 6-24 PO, Daily, l 0.088 MG 21:52: # 90 tab, Herm karrie Oral Tablet 00 1 [Unithroid] Refill(s), [place], Pharmacy: [facility], 165.1, cm, 03/17/20 13:22:00 [employer], Height, 74.591, kg, 03/17/20 13:22:00 [employer], Weight Levothyroxi 2020-0 Yes = 1 tab, Me moria ne Sodium 6-24 PO, Daily, l 0.088 MG 21:52: # 90 tab, Herm karrie Oral Tablet 00 1 [Unithroid] Refill(s), [facility], Pharmacy: [facility], 165.1, cm, 03/17/20 13:22:00 [employer], Height, 74.591, kg, 03/17/20 13:22:00 [employer], Weight Levothyroxi 2020-0 Yes = 1 tab, Me moria ne Sodium 6-24 PO, Daily, l 0.088 MG 21:52: # 90 tab, Herm karrie Oral Tablet 00 1 [Unithroid] Refill(s), [facility], Pharmacy: [facility], 165.1, cm, 03/17/20 13:22:00 [employer], Height, 74.591, kg, 03/17/20 13:22:00 [employer], Weight Levothyroxi 2020-0 Yes = 1 tab, Me moria ne Sodium 6-24 PO, Daily, l 0.088 MG 21:52: # 90 tab, Herm karrie Oral Tablet 00 1 [Unithroid] Refill(s), [facility], Pharmacy: [facility], 165.1, cm, 03/17/20 13:22:00 [employer], Height, 74.591, kg, 03/17/20 13:22:00 [employer], Weight Levothyroxi 2020-0 Yes = 1 tab, Me moria ne Sodium 6-24 PO, Daily, l 0.088 MG 21:52: # 90 tab, Herm karrie Oral Tablet 00 1 [Unithroid] Refill(s), [facility], Pharmacy: [facility], 165.1, cm, 03/17/20 13:22:00 [employer], Height, 74.591, kg, 03/17/20 13:22:00 [employer], Weight Levothyroxi 2020-0 Yes = 1 tab, Me moria ne Sodium 6-24 PO, Daily, l 0.088 MG 21:52: # 90 tab, Herm karrie Oral Tablet 00 1 [Unithroid] Refill(s), [place], Pharmacy: [facility], 165.1, cm, 03/17/20 13:22:00 [employer], Height, 74.591, kg, 03/17/20 13:22:00 [employer], Weight methylPREDN 2019-02- No Take by Me contreras ISolone 03-[address] (MEDROL 00:00: 00:00 Hospita DOSEPAK) [...] Medi mk on nasal Branch spray fluticasone 2020- Yes 2{spray Use 2 Un jignesh propionate 1-18 } Sprays in ity of 50 00:00: each [place] mcg/actuati 00 nostril. Medi mk on nasal [...] on nasal Branch spray fluticasone 2019- Yes 100ug QD 2 [...] daily. l mcg/actuati on nasal spray fluticasone 2020-1 Yes 100ug QD 2 sprays M ethodi [...] %) DAILY solution NEEDED FOR CONGESTION azelastine 2020-1 Yes USE 2 Univer s 137 mcg 1-03 SPRAY(S) ity of (0.1 %) 00:00: IN EACH [place] nasal spray 00 NOSTRIL Medic al TWICE Branch DAILY azelastine 2020- Yes USE 2 Univer s 137 mcg 1-03 SPRAY(S) ity of (0.1 %) 00:00: IN EACH [place] nasal spray 00 NOSTRIL Medic al TWICE Branch DAILY azelastine 2020- Yes USE 2 Univer s 137 mcg 1-03 SPRAY(S) ity of (0.1 %) 00:00: IN EACH [place] nasal spray 00 NOSTRIL Medic al TWICE Branch DAILY azelastine 2020- Yes USE 2 Univer s 137 mcg 1-03 SPRAY(S) ity of (0.1 %) 00:00: IN EACH [place] nasal spray 00 NOSTRIL Medic al TWICE Branch DAILY azelastine 2020- Yes USE 2 Univer s 137 mcg 1-03 SPRAY(S) ity of (0.1 %) 00:00: IN EACH [place] nasal spray 00 NOSTRIL Medic al TWICE Branch DAILY azelastine 2019- Yes USE 2 Univer s 137 mcg 1-03 SPRAY(S) ity of (0.1 %) 00:00: IN EACH [place] nasal spray 00 NOSTRIL Medic al TWICE Branch DAILY azelastine 2020- Yes USE 2 Univer s 137 mcg 1-03 SPRAY(S) ity of (0.1 %) 00:00: IN EACH [place] nasal spray 00 NOSTRIL Medic al TWICE Branch DAILY azelastine 2020- Yes USE 2 Univer s 137 mcg 1-03 SPRAY(S) ity of (0.1 %) 00:00: IN EACH [place] nasal spray 00 NOSTRIL Medic al TWICE Branch DAILY azelastine 2020- Yes USE 2 Univer s 137 mcg 1-03 SPRAY(S) ity of (0.1 %) 00:00: IN EACH [place] nasal spray 00 NOSTRIL Medic al TWICE Branch DAILY azelastine 2020- Yes USE 2 Univer s 137 mcg 1-03 SPRAY(S) ity of (0.1 %) 00:00: IN EACH [place] nasal spray 00 NOSTRIL Medic al TWICE Branch DAILY azelastine 2020- Yes USE 2 Univer s 137 mcg 1-03 SPRAY(S) ity of (0.1 %) 00:00: IN EACH [place] nasal spray 00 NOSTRIL Medic al TWICE Branch DAILY azelastine 2019- Yes USE 2 Univer s 137 mcg 1-03 SPRAY(S) ity of (0.1 %) 00:00: IN EACH [place] nasal spray 00 NOSTRIL Medic al TWICE Branch DAILY azelastine 2019-02 Yes USE 2 Univer s 137 mcg 1-03 SPRAY(S) ity of (0.1 %) 00:00: IN EACH [place] nasal spray 00 NOSTRIL Medic al TWICE Branch DAILY azelastine 2019-02 Yes USE 2 Univer s 137 mcg 1-03 SPRAY(S) ity of (0.1 %) 00:00: IN EACH [place] nasal spray 00 NOSTRIL Medic al TWICE Branch DAILY azelastine 2019-02 Yes USE 2 Method i (ASTELIN) 1-03 SPRAY(S) st 137 mcg 00:00: IN EACH Hospita (0.1 %) 00 NOSTRIL l nasal spray TWICE DAILY azelastine 2019- Yes USE 2 Method i (ASTELIN) 1-03 SPRAY(S) st 137 mcg 00:00: IN EACH Hospita (0.1 %) 00 NOSTRIL l nasal spray TWICE DAILY azelastine 2019-02 Yes USE 2 Method i (ASTELIN) 1-03 SPRAY(S) st 137 mcg 00:00: IN EACH Hospita (0.1 %) 00 NOSTRIL l nasal spray TWICE DAILY azelastine 2019- Yes USE 2 Method i (ASTELIN) 1-03 SPRAY(S) st 137 mcg 00:00: IN EACH Hospita (0.1 %) 00 NOSTRIL l nasal spray TWICE DAILY azelastine 2019- Yes USE 2 Method i (ASTELIN) 1-03 SPRAY(S) st 137 mcg 00:00: IN EACH Hospita (0.1 %) 00 NOSTRIL l nasal spray TWICE DAILY ipratropium 2019- Yes USE 1 Metho di -albuteroL 0-[address] (DUO-NEB) 00:00: NEBULIZER Hos [facility]isa 0.5-2.5 00 THREE l mg/3 mL TIMES nebulizer DAILY NEEDED ipratropium 2019-02 Yes USE 1 Metho di -albuteroL 0-[address] (DUO-NEB) 00:00: NEBULIZER Hos [place] 0.5-2.5 00 THREE l mg/3 mL TIMES nebulizer DAILY NEEDED ipratropium 2020-1 Yes USE 1 Metho di -albuteroL 0-[address] (DUO-NEB) 00:00: NEBULIZER Hos [place] 0.5-2.5 00 THREE l mg/3 mL TIMES nebulizer DAILY NEEDED ipratropium 2020-1 Yes USE 1 Metho di -albuteroL 0-[address] (DUO-NEB) 00:00: NEBULIZER Hos [place] 0.5-2.5 00 THREE l mg/3 mL TIMES nebulizer DAILY NEEDED ipratropium 2020-1 Yes USE 1 Metho di -albuteroL 0-[address] (DUO-NEB) 00:00: NEBULIZER Hos [place] 0.5-2.5 00 THREE l mg/3 mL TIMES nebulizer DAILY NEEDED Levothyroxi 2020-0 Yes 88 Memori a ne Sodium 6-15 microgram l 0.088 MG 22:52: = 1 tab, Petty nn Oral Tablet 00 PO, Daily, [Unithroid] brand medically necessary, # 90 tab, 1 Refill(s), [facility], Pharmacy: [facility], 165.1, cm, 07/14/19 11:24:00 CDT, Height, 68.182, kg, 07/14/19 11:24:00 CDT, Weight Levothyroxi 2020-0 Yes 88 Memori a ne Sodium 6-15 microgram l 0.088 MG 22:52: = 1 tab, Petty nn Oral Tablet 00 PO, Daily, [Unithroid] brand medically necessary, # 90 tab, 1 Refill(s), [facility], Pharmacy: [facility], 165.1, cm, 07/14/19 11:24:00 CDT, Height, 68.182, kg, 07/14/19 11:24:00 CDT, Weight Levothyroxi 2020-0 Yes 88 Memori a ne Sodium 6-15 microgram l 0.088 MG 22:52: = 1 tab, [place] nn Oral Tablet 00 PO, Daily, [Unithroid] brand medically necessary, # 90 tab, 1 Refill(s), [facility], Pharmacy: [facility], 165.1, cm, 07/14/19 11:24:00 CDT, Height, 68.182, kg, 07/14/19 11:24:00 CDT, Weight Levothyroxi 2020-0 Yes 88 Memori a ne Sodium 6-15 microgram l 0.088 MG 22:52: = 1 tab, [place] nn Oral Tablet 00 PO, Daily, [Unithroid] brand medically necessary, # 90 tab, 1 Refill(s), [facility], Pharmacy: [facility], 165.1, cm, 07/14/19 11:24:00 CDT, Height, 68.182, kg, 07/14/19 11:24:00 CDT, Weight Levothyroxi 2020-0 Yes 88 Memori a ne Sodium 6-15 microgram l 0.088 MG 22:52: = 1 tab, [place] nn Oral Tablet 00 PO, Daily, [Unithroid] brand medically necessary, # 90 tab, 1 Refill(s), [facility], Pharmacy: [facility], 165.1, cm, 07/14/19 11:24:00 CDT, Height, 68.182, kg, 07/14/19 11:24:00 CDT, Weight Levothyroxi 2020-0 Yes 88 Memori a ne Sodium 6-15 microgram l 0.088 MG 22:52: = 1 tab, [place] nn Oral Tablet 00 PO, Daily, [Unithroid] brand medically necessary, # 90 tab, 1 Refill(s), [facility], Pharmacy: [facility], 165.1, cm, 07/14/19 11:24:00 CDT, Height, 68.182, kg, 07/14/19 11:24:00 CDT, Weight MAGNESIUM 2020-0 2022- No Take by Meth tushar ORAL 5-14 02-[address] 00:00: 00:00 Hospita 00 :00 l MAGNESIUM 2020-0 2- No Take by Meth tushar ORAL 5-14 02-[address] 00:00: 00:00 Hospita 00 :00 l MAGNESIUM 2020-0 2022- No Take by Meth tushar ORAL 5-14 02-[address] 00:00: 00:00 Hospita 00 :00 l FLUTICASONE 2020-0 Yes Inhale. Uni vers /SALMETEROL 4-28 ity of (ADVAIR HFA 21:53: [place] INHALE) 45 Medical Branch fenofibrate 2019-0 Yes 48mg Take 48 mg Univers (TRICOR) 48 4-28 by mouth ity of mg tablet 21:53: daily. [place] [address] Medical Branch Biotin 10 2019-0 Yes Take by Unive rs mg Tab 4-28 mouth. ity of 21:53: [place] [address] Medical Branch turmeric 2019-0 Yes 900mg Take 900 Univ ers root 4-28 mg by [place]y of extract 500 21:53: [place]. [place] mg Cap 45 [facility] Branch Dexlansopra 2020-0 Yes 1{capsu Take 1 U nivers zole 4-28 le} capsule by ity of (DEXILANT) 21:53: mouth. [place] 30 mg 45 Medical capsule Branch vitamin C 2019-0 Yes 1000mg Take 1,000 Univers with james 4-28 mg by ity of hips 21:53: mouth [place] (VITAMIN C) 45 daily. Medica l 1,000 mg Branch tablet Cholecalcif 0 Yes Take by Uni vers chrissy, 4-28 mouth. ity of Vitamin D3, 21:53: [place] (VITAMIN Medical D3) 5,000 Branch unit tablet MAGNESIUM 2019-0 Yes 500mg Take 500 Uni vers ORAL 4-28 mg by ity of 21:53: mouth. [place] [address] Medical Branch hydroCHLORO 2019-0 Yes 12.5mg Take 12.5 Univers thiazide 4-28 mg by ity of 12.5 mg 21:53: mouth. [place] capsule Medical Branch levothyroxi 2019-0 Yes 88ug Take 88 Uni vers ne 4-28 mcg by ity of (UNITHROID) 21:53: mouth [place] 88 mcg 45 every Medical tablet morning. Branch FLUTICASONE 2020-0 Yes Inhale. Uni vers /SALMETEROL 4-28 ity of (ADVAIR HFA 21:53: [place] INHALE) 45 Medical Branch fenofibrate 2019-0 Yes 48mg Take 48 mg Univers (TRICOR) 48 4-28 by mouth ity of mg tablet 21:53: daily. [place] [address] Medical Branch Biotin 10 2019-0 Yes Take by Unive rs mg Tab 4-28 mouth. ity of 21:53: [place] [address] Medical Branch turmeric 2020-0 Yes 900mg Take 900 Univ ers root 4-28 mg by ity of extract 500 21:53: mouth. [place] mg Cap 45 [facility] Branch Dexlansopra 2020-0 Yes 1{capsu Take 1 U nivers zole 4-28 le} capsule by ity of (DEXILANT) 21:53: mouth. [place] 30 mg 45 Medical capsule Branch vitamin C 2020-0 Yes 1000mg Take 1,000 Univers with james 4-28 mg by ity of hips 21:53: mouth [place] (VITAMIN C) 45 daily. Medica l 1,000 mg Branch tablet Cholecalcif 2020-0 Yes Take by Uni vers chrissy, 4-28 mouth. ity of Vitamin D3, 21:53: [place] (VITAMIN 45 Medical D3) 5,000 Branch unit tablet MAGNESIUM 2020-0 Yes 500mg Take 500 Uni vers ORAL 4-28 mg by ity of 21:53: mouth. [place] [address] Medical Branch hydroCHLORO 2020-0 Yes 12.5mg Take 12.5 Univers thiazide 4-28 mg by ity of 12.5 mg 21:53: mouth. [place] capsule 45 Medical Branch levothyroxi 2020-0 Yes [...] mouth ity of mg tablet 21:53: daily. [place] [address] Medical Branch Biotin 10 2020-0 Yes Take by Unive rs mg Tab 4-28 mouth. ity of 21:53: [place] [address] Medical Branch turmeric 2020-0 Yes 900mg Take 900 Univ ers root 4-28 mg by ity of extract 500 21:53: [place]. [place] mg Cap 45 [facility] Dexlansopra 2020-0 Yes 1{capsu Take 1 U nivers zole 4-28 le} capsule by ity of (DEXILANT) 21:53: mouth. [place] 30 mg 45 Medical capsule Branch vitamin C 2020-0 Yes 1000mg Take 1,000 Univers with james 4-28 mg by ity of hips 21:53: mouth [place] (VITAMIN C) 45 daily. Medica l 1,000 mg Branch tablet Cholecalcif 2020-0 Yes Take by Uni vers chrissy, 4-28 mouth. ity of Vitamin D3, 21:53: [place] (VITAMIN 45 Medical D3) 5,000 Branch unit tablet MAGNESIUM 2020-0 Yes 500mg Take 500 Uni vers ORAL 4-28 mg by ity of 21:53: mouth. [place] [address] Medical Branch hydroCHLORO 2020-0 Yes 12.5mg Take 12.5 Univers thiazide 4-28 mg by ity of 12.5 mg 21:53: mouth. [place] capsule 45 Medical Branch levothyroxi 2020-0 Yes [...] mouth ity of mg tablet 21:53: daily. [address] Branch Biotin 10 2020-0 Yes Take by Unive rs mg Tab 4-28 mouth. ity of 21:53: [place] [address] Medical Branch turmeric 2020-0 Yes 900mg Take 900 Univ ers root 4-28 mg by ity of extract 500 21:53: [place]. [place] mg Cap [place] Branch Dexlansopra 2020-0 Yes 1{capsu Take 1 U nivers zole 4-28 le} capsule by ity of (DEXILANT) 21:53: mouth. [place] 30 mg 45 Medical capsule Branch vitamin C 2020-0 Yes 1000mg Take 1,000 Univers with james 4-28 mg by ity of hips 21:53: mouth [place] (VITAMIN C) 45 daily. Medica l 1,000 mg Branch tablet Cholecalcif 2020-0 Yes Take by Uni vers chrissy, 4-28 mouth. ity of Vitamin D3, 21:53: [place] (VITAMIN 45 Medical D3) 5,000 Branch unit tablet MAGNESIUM 2020-0 Yes 500mg Take 500 Uni vers ORAL 4-28 mg by ity of 21:53: mouth. [place] [address] Medical Branch hydroCHLORO 2020-0 Yes 12.5mg Take 12.5 Univers thiazide 4-28 mg by ity of 12.5 mg 21:53: mouth. [place] capsule 45 Medical Branch levothyroxi 2020-0 Yes [...] FLUTICASONE 2020-0 Yes Inhale. Uni vers /SALMETEROL 06-08 ity of (ADVAIR HFA 16:53: [place] INHALE) 45 Medical Branch fenofibrate 2019-0 Yes 48mg Take 48 mg Univers (TRICOR) 48 06-08 by mouth ity of mg tablet 16:53: daily. [place] [address] Medical Branch Biotin 10 2019-0 Yes Take by Unive rs mg Tab - mouth. ity of 16:53: [place] [address] Medical Branch turmeric 2019-0 Yes 900mg Take 900 Univ ers root 4-28 mg by ity of extract 500 16:53: [place]. [place] mg Cap 45 [facility] Branch Dexlansopra 2019-0 Yes 1{capsu Take 1 U nivers zole -28 le} capsule by ity of (DEXILANT) 16:53: mouth. [place] 30 mg 45 Medical capsule Branch vitamin C 2019-0 Yes 1000mg Take 1,000 Univers with james 4-28 mg by ity of hips 16:53: mouth [place] (VITAMIN C) 45 daily. Medica l 1,000 mg Branch tablet Cholecalcif 2019-0 Yes Take by Uni vers chrissy, - mouth. ity of Vitamin D3, 16:53: [place] (VITAMIN 45 Medical D3) 5,000 Branch unit tablet MAGNESIUM 2020-0 Yes 500mg Take 500 Uni vers ORAL 4-28 mg by ity of 16:53: mouth. [place] [address] Medical Branch hydroCHLORO 2019-0 Yes 12.5mg Take 12.5 Univers thiazide 4-28 mg by ity of 12.5 mg 16:53: mouth. [place] capsule 45 Medical Branch levothyroxi 2020-0 Yes 88ug Take 88 Uni vers ne 4-28 mcg by ity of (UNITHROID) 16:53: mouth [place] 88 mcg 45 every Medical tablet morning. Branch FLUTICASONE 2020-0 Yes Inhale. Uni vers /SALMETEROL 4-28 ity of (ADVAIR HFA 16:53: [place] INHALE) 45 Medical Branch fenofibrate 2020-0 Yes 48mg Take 48 mg Univers (TRICOR) 48 4-28 by mouth ity of mg tablet 16:53: daily. [place] [address] Medical Branch Biotin 10 2019-0 Yes Take by Unive rs mg Tab 4-28 mouth. ity of 16:53: [place] [address] Medical Branch turmeric 2020-0 Yes 900mg Take [...] Medica l 1,000 mg Branch tablet Cholecalcif 0 Yes Take by Uni vers chrissy, 4-28 mouth. ity of Vitamin D3, 16:53: [place] (VITAMIN 45 Medical D3) 5,000 Branch unit tablet MAGNESIUM 2019-0 Yes 500mg Take 500 Uni vers ORAL 4-28 mg by ity of 16:53: mouth. [place] [address] Medical Branch hydroCHLORO 2020-0 Yes 12.5mg Take 12.5 Univers thiazide 4-28 mg by ity of 12.5 mg 16:53: mouth. [place] capsule 45 Medical Branch levothyroxi 2019-0 Yes 88ug Take 88 Uni vers ne 4-28 mcg by ity of (UNITHROID) 16:53: mouth [place] 88 mcg 45 every Medical tablet morning. Branch FLUTICASONE 2020-0 Yes Inhale. Uni vers /SALMETEROL 4-28 ity of (ADVAIR HFA 16:53: [place] INHALE) 45 Medical Branch fenofibrate 2019-0 Yes 48mg Take 48 mg Univers (TRICOR) 48 4-28 by mouth ity of mg tablet 16:53: daily. [place] [address] Medical Branch Biotin 10 2019-0 Yes Take by Unive rs mg Tab 4-28 mouth. ity of 16:53: [address] Branch turmeric 2020-0 Yes 900mg Take 900 Univ ers root 4-28 mg by ity of extract 500 16:53: [place]. [place] Cap [address] [place] [address] Branch Dexlansopra 2020-0 Yes 1{capsu Take 1 U nivers zole 4-28 le} capsule by ity of (DEXILANT) 16:53: mouth. [place] 30 mg 45 Medical capsule Branch vitamin C 2020-0 Yes 1000mg Take 1,000 Univers with james 4-28 mg by ity of hips 16:53: mouth [place] (VITAMIN C) 45 daily. Medica l 1,000 mg Branch tablet Cholecalcif 2020-0 Yes Take by Uni vers chrissy, 06-08 mouth. ity of Vitamin D3, 16:53: [place] (VITAMIN 45 Medical D3) 5,000 Branch unit tablet MAGNESIUM 2020-0 Yes 500mg Take 500 Uni vers ORAL 4-28 mg by ity of 16:53: mouth. [address] Branch hydroCHLORO 2020-0 Yes 12.5mg Take 12.5 Univers thiazide 4-28 mg by ity of 12.5 mg 16:53: mouth. [place] capsule [address] [place] [address] Branch levothyroxi 2020-0 Yes 88ug Take 88 Uni vers ne 4-28 mcg by ity of (UNITHROID) 16:53: mouth [place] 88 mcg 45 every Medical tablet morning. [place] rivaroxaban 2020-0 Yes 15mg 15 mg, Univ ers (XARELTO) 06-08 Oral, ity of tablet 15 14:00: DAILY, [place] mg 00 First dose Medical on [facility] 06/09/19 at 0900, Until Discontinu ed, Routine magnesium 2020-0 2020- No 4g 4 g, IV Univ ers sulfate in 06-08 04-28 Piggyback, it y of water 4 13:45: 14:20 ONCE, 1 [place] gram/50 mL 00 :00 dose, [facility] mk (8 %) IV 06/09/19 at Branc h Piggyback 4 0845, g Routine nebivolol 2020-0 Yes [id number] 2.5mg Take 0.5 Univers (BYSTOLIC) - tablets by ity of 5 mg tablet 00:00: mouth 2 [place] as 00 (two) Medical times Branch daily. rivaroxaban 2020-0 Yes [id number] 15mg Take 1 Univ ers (XARELTO) 4-28 tablet by ity o f 15 mg 00:00: mouth [place] tablet 00 daily. Medical Indication Branch s: prevention of thromboemb olism in paroxysmal atrial fibrillati on nebivolol 2020-0 Yes [id number] 2.5mg Take 0.5 [facility] (BYSTOLIC) 4-28 tablets [...] paroxysmal atrial fibrillati on nebivolol 2020-0 Yes [id number] 2.5mg Take 0.5 [facility] (BYSTOLIC) 4-28 tablets [...] paroxysmal atrial fibrillati on nebivolol 2020-0 Yes [id number] 2.5mg Take 0.5 [facility] (BYSTOLIC) 4-28 tablets [...] paroxysmal atrial fibrillati on nebivolol 2020-0 Yes [id number] 2.5mg Take 0.5 [facility] (BYSTOLIC) 4-28 tablets [...] paroxysmal atrial fibrillati on nebivolol 2020-0 Yes [id number] 2.5mg Take 0.5 [facility] (BYSTOLIC) 4-28 tablets [...] paroxysmal atrial fibrillati on nebivolol 2020-0 Yes [id number] 2.5mg Take 0.5 [facility] (BYSTOLIC) 4-28 tablets [...] paroxysmal atrial fibrillati on nebivolol 2020-0 Yes [id number] 2.5mg Take 0.5 [facility] (BYSTOLIC) 4-28 tablets [...] paroxysmal atrial fibrillati on nebivolol 2020-0 Yes [id number] 2.5mg Take 0.5 [facility] (BYSTOLIC) 4-28 tablets [...] paroxysmal atrial fibrillati on nebivolol 2020-0 Yes [id number] 2.5mg Take 0.5 [facility] (BYSTOLIC) 4-28 tablets [...] paroxysmal atrial fibrillati on nebivolol 2020-0 Yes [id number] 2.5mg Take 0.5 [facility] (BYSTOLIC) 4-28 tablets by ity of 5 mg tablet 00:00: mouth 2 [place] as 00 (two) Medical times Branch daily. rivaroxaban 2020-0 Yes [id number] 15mg Take 1 Univ ers (XARELTO) 4-28 tablet by ity o f 15 mg 00:00: mouth [place] tablet 00 daily. Medical Indication Branch s: prevention of thromboemb olism in paroxysmal atrial fibrillati on nebivolol 2020-0 Yes [id number] 2.5mg Take 0.5 [facility] (BYSTOLIC) 4-28 tablets [...] paroxysmal atrial fibrillati on nebivolol 2020-0 Yes [id number] 2.5mg Take 0.5 [facility] (BYSTOLIC) 4-28 tablets [...] paroxysmal atrial fibrillati on nebivolol 2020-0 Yes [id number] 2.5mg Take 0.5 [facility] (BYSTOLIC) 4-28 tablets [...] paroxysmal atrial fibrillati on nebivolol 2020-0 Yes [id number] 2.5mg Take 0.5 [facility] (BYSTOLIC) 4-28 tablets [...] paroxysmal atrial fibrillati on nebivolol 2020-0 Yes [id number] 2.5mg Take 0.5 [facility] (BYSTOLIC) 4-28 tablets [...] paroxysmal atrial fibrillati on nebivolol 2020-0 Yes [id number] 2.5mg Take 0.5 [facility] (BYSTOLIC) 4-28 tablets [...] paroxysmal atrial fibrillati on nebivolol 2020-0 Yes [id number] 2.5mg Take 0.5 [facility] (BYSTOLIC) 4-28 tablets [...] paroxysmal atrial fibrillati on nebivolol 2020-0 Yes [id number] 2.5mg Take 0.5 [facility] (BYSTOLIC) 4-28 tablets [...] paroxysmal atrial fibrillati on nebivolol 2020-0 Yes [id number] 2.5mg Take 0.5 [facility] (BYSTOLIC) 4-28 tablets by ity of 5 mg tablet 00:00: mouth 2 Osbal[place] as 00 (two) Medical times Branch daily. rivaroxaban 2020-0 Yes [id number] 15mg Take 1 Univ ers (XARELTO) 4-28 tablet by ity o f 15 mg 00:00: mouth [place] tablet 00 daily. Medical Indication Branch s: prevention of thromboemb olism in paroxysmal atrial fibrillati on nebivolol 2019-0 Yes [id number] 2.5mg Take 0.5 [facility] (BYSTOLIC) 4-28 tablets by ity of 5 mg tablet 00:00: mouth 2 [place]bal[place] as 00 (two) Medical times Branch daily. rivaroxaban 2020-0 Yes [id number] 15mg Take 1 Univ ers (XARELTO) 4-28 tablet by ity o f 15 mg 00:00: mouth [place] tablet 00 daily. Medical Indication Branch s: prevention of thromboemb olism in paroxysmal atrial fibrillati on venetoclax 2019-0 2020- No [id number] 400mg Take 4 [facility] 100 mg 4-28 06-28 tablets by ity of tablet 00:00: 04:59 mouth [place] 00 :00 every Medical evening Branch venetoclax 2020-0 2020- No [id number] 400mg Take 4 [facility] 100 mg 4-28 06-28 tablets by ity of tablet 00:00: 04:59 mouth [place] 00 :00 every Medical evening Branch venetoclax 2020-0 2020- No [id number] 400mg Take 4 [facility] 100 mg 4-28 06-28 tablets by ity of tablet 00:00: 04:59 mouth [place] 00 :00 every Medical evening Branch sodium 2019-0 2020- No [id number] 4mL Inhale 4 Un jignesh chloride 7% - 05-13 mL 3 ity of nebulizer 00:00: 04:59 (three) [place] solution 00 :00 times Medical daily for Branch 14 days. ipratropium 2019-0 2020- No [id number] 3mL Inhale 3 Univers -albuterol 4-28 05-13 mL 3 ity of 0.5 mg-3 00:00: 04:59 (three) [place] mg(2.5 mg 00 :00 times Medical base)/3 mL daily as Branc h nebulizer needed for solution Wheezing for up to 14 days. sodium 2019- 2020- No [id number] 4mL Inhale 4 Un jignesh chloride 7% 06-08 05-13 mL 3 ity of nebulizer 00:00: 04:59 (three) [place] solution 00 :00 times Medical daily for Branch 14 days. ipratropium 2020- No [id number] 3mL Inhale 3 Univers -albuterol 06-08 05-13 mL 3 ity of 0.5 mg-3 00:00: 04:59 (three) [place] mg(2.5 mg 00 :00 times Medical base)/3 mL daily as Branc h nebulizer needed for solution Wheezing for up to 14 days. amoxicillin 2019- 2020- No [id number] 1{tbl} Take 1 Univers -clavulanat 06-08- tablet by it y of e 00:00: 04:59 mouth 2 [place] (AUGMENTIN) 00 :00 (two) Medical 875-125 mg times Branch per tablet daily for 2 days. azithromyci 2019- 2020- No [id number] 250mg Take 1 Univers n 250 mg 06-08 tablet by ity o f tablet 00:00: 04:59 mouth [place] 00 :00 daily for Medical 2 days. Branch Take 500 mg day 1, then 250 mg days 2 to 5. amoxicillin 2020- No [id number] 1{tbl} Take 1 [facility] -clavulanat 06-08- tablet by it y of e 00:00: 04:59 mouth 2 [place] (AUGMENTIN) 00 :00 (two) Medical 875-125 mg times Branch per tablet daily for 2 days. azithromyci 2020- No [id number] 250mg Take 1 Univers n 250 mg 06-08- tablet by ity o f tablet 00:00: 04:59 mouth [place] 00 :00 daily for Medical 2 days. Branch Take 500 mg day 1, then 250 mg days 2 to 5. estradiol 2020-0 Yes 1{patch 1 Patch, U nivers (SIMON) 06-06 } Transderma ity of 0.05 mg/24 03:45: [...] 5,000 Units First dose Br anch on [facility] 06/06/19 at 0900, Until Discontinu ed, Routine
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
Reason for Non-Formul chuck Use: SPECIFIC INDICATION FOR NONFORMULA RY PRODUCT sodium 2019-0 Yes 4mL 4 mL, Univers chloride 7% -25 Inhalation it y of (HYPER-JARROD) 13:00: , TID, [place] nebulizer 00 First dose Medi mk solution 4 on [facility] Branch mL 06/06/19 at 0800, Until Discontinu ed, Routine levothyroxi 2019-0 Yes 88ug 88 mcg, Uni vers ne [...] Branch dose, Sat06/05/19 at 1645, STAT THYROID,POR 2020-0 2020- No 45mg Take 45 mg Univers K (ARMOUR 06-04-24 by mouth. ity of THYROID 21:43: 00:00 [place] ORAL) 55 :00 Medical Branch nebivolol 2019-0 2020- No 2.5mg Take 2.5 Un jignesh (BYSTOLIC) 4-24 04-24 mg by ity of 2.5 mg [...] 2019-0 2020- No Take by Univers ACID/MULTIV -24 04-24 mouth. ity o f IT-MIN/LUTE 21:42: 00:00 [place] IN (CENTRUM 30 :00 Medical SILVER Branch ORAL) Fenofibrate 2019-0 2020- No Take by Un jignesh 40 mg Tab -24 04-24 mouth. ity of 21:42: 00:00 [place] 15 :00 Medical Branch famotidine 2019-0 2020- No 20mg Take 20 mg Univers (PEPCID) 20 -24 04-24 by mouth 2 i ty of mg tablet 21:42: 00:00 (two) [place] 03 :00 times Medical daily. Branch estradiol 2019-0 2020- No 1mg Take 1 mg Un jignesh (ESTRACE) 1 4-24 04-24 by mouth ity of mg tablet 21:41: 00:00 daily. [place] 54 :00 Medical Branch CRANBERRY 2020-0 2020- No 84mg Take 84 mg U nivers FRUIT 06-0424 by mouth. ity of EXTRACT 21:41: 00:00 [place] (CRANBERRY 45 :00 Medical ORAL) Branch CRANBERRY 2019- No 84mg Take 84 mg U nivers FRUIT 06-0424 by mouth. ity of EXTRACT 21:41: 00:00 [place] (CRANBERRY 42 :00 Medical CONCENTRATE Branch ORAL) codeine-gua 2020-0 Yes 5mL 5 mL, Unive rs ifenesin -24 Oral, ity of (ROBITUSSIN 20:56: Q6HPRN, [place] as AC) 10-100 49 Starting Medic al mg/5 mL Fri Branch solution 5 06/05/19 at mL 1556, Until Discontinu ed, Routine, Cough hydrochloro 2019-2019- No 12.5mg Take 12.5 Univers thiazide 06-04-24 mg by ity of (ESIDRIX) 18:54: 00:00 mouth [place] 12.5 mg 48 :00 daily. Medical capsule Branch LOSARTAN 2019- No 100mg Take 100 Uni vers POTASSIUM 06-04-24 mg by ity of (LOSARTAN 18:54: 00:00 mouth [place] ORAL) 39 :00 daily. Medical Branch pantoprazol 2019-0 Yes 40mg 40 mg, Univ ers e 06-04 Oral, ity of (PROTONIX) 18:45: DAILY, [place] EC tablet 00 First dose Medi mk 40 mg on Sat Branch 06/05/19 at 1345, Until Discontinu ed, Routine valACYclovi 2019- No 500mg 500 mg, U nivers r (VALTREX) 06-04 Oral, BID, i ty of tablet 500 18:45: 20:26 First dose [place] mg 00 :34 on Sat Medical 06/05/19 at Branch 1345, Until Discontinu ed, CHLEY heparin 2019- 2020- No 12U/kg/ 12 Univer s 25,000 06-04-27 h Units/kg/h ity of unit/250 mL 18:00: 20:38 r ?65.8 kg [place] (Premixed 00 :27 (7.896 Medical Bag) in D5W mL/hr, Branch weight rounded to based 7.9 dosing ACS mL/hr), IV protocol Infusion, CONTINUOUS , Starting Sat06/05/19 at 1300, Until 06/08/19 at 1538 heparin 2020-0 2020- No 60U/kg 3,948 Univer s 1000 06-04 Units (60 ity of unit/mL 17:00: 23:12 Units/kg [place] injection 00 :00 ?65.8 kg), Medi mk Soln 3,948 IV Push, Branc h Units ONCE, 1 dose, 06/05/19 at 1200, Routine magnesium 2019-0 2020- No 4g 4 g, IV Univ ers sulfate in 06-04 Piggyback, it y of water 4 16:30: 19:23 ONCE, 1 [place] gram/50 mL 00 :00 dose, Fri Medi mk (8 %) IV 06/05/19 at Branc h Piggyback 4 1130, g Routine cefTRIAXone 2019-0 Yes 1000mg 1,000 mg, Univers (ROCEPHIN) 06-04 IV ity of 1,000 mg in 15:45: Piggyback, [place] NaCl 0.9% 00 Q24H ABX, Medic al (NS) 50 mL First dose Bra [facility] MINI-BAG on Sat06/05/19 at 1045, Until Discontinu ed, 50 mL
R moi for Anti-Infec tive: Empiric Therapy for Suspected Infection< br>Empiric Therapy Site: Respirator y
Durat ion of therapy: 7 days acetaminoph 2019-0 Yes 650mg 650 mg, Un jignesh en 06-04 Oral, ity of (TYLENOL) 15:17: Q6HPRN, [place] tablet 650 59 Starting Medic al mg Fri Branch 06/05/19 at 1017, Until Discontinu ed, Routine, Pain (scale 4-6), Please schedule with Hypersal and duonebs azithromyci 2019-0 2020- No 500mg 500 mg, IV Univers n 06-04 Piggyback, ity of (ZITHROMAX) 15:00: 12:56 Q24H ABX, [place] 500 mg in 00 :38 7 doses, Medica l NaCl 0.9% First dose Bran ch (NS) 250 mL on Sat VIAL-MATE 06/05/19 at IV 1000, Last piggyback dose on Janell 4/30/20 at 1000, 250 mL
Reas on for Anti-Infec tive: Empiric Therapy for Suspected Infection< br>Empiric Therapy Site: Respirator y
Durat ion of therapy: 7 days ascorbic 2020-0 Yes 1000mg 1,000 mg, Un jignesh acid 4-24 Oral, ity of (vitamin C) 14:45: DAILY, [place] (VITAMIN C) 00 First dose Me dical tablet on Sat 1,000 mg 06/05/19 at 0945, Until Discontinu ed, Routine losartan 2020-0 Yes 25mg 25 mg, Univers (COZAAR) 4-24 [...] No 200mg 200 mg, U nivers (TESSALON 4-24 04-24 Oral, ity of PERLES) 07:15: 06:06 ONCE, 1 [place] capsule 200 00 :00 dose, Sat Med ical mg 06/05/19 at Branch 0215, Routine Levothyroxi 2019-0 Yes 88 Memori a ne Sodium 3-12 microgram l 0.088 MG 21:49: = 1 tab, Petty nn Oral Tablet 00 PO, Daily, [Unithroid] brand medically necessary, # 90 tab, 0 Refill(s), [place], Pharmacy: [facility] 527 Levothyroxi 2020-0 Yes 88 Memori a ne Sodium 3-12 microgram l 0.088 MG 21:49: = 1 tab, Pet[place] nn Oral Tablet 00 PO, Daily, [Unithroid] brand medically necessary, # 90 tab, 0 Refill(s), [place], Pharmacy: [place] [address] Levothyroxi Yes 88 Memori a ne Sodium 3-12 microgram l 0.088 MG 21:49: = 1 tab, Petty nn Oral Tablet 00 PO, Daily, [Unithroid] brand medically necessary, # 90 tab, 0 Refill(s), [facility], Pharmacy: [place] [address] Levothyroxi Yes 88 Memori a ne Sodium 3-12 microgram l 0.088 MG 21:49: = 1 tab, Petty nn Oral Tablet 00 PO, Daily, [Unithroid] brand medically necessary, # 90 tab, 0 Refill(s), [facility], Pharmacy: [place] [address] Levothyroxi Yes 88 Memori a ne Sodium 3-12 microgram l 0.088 MG 21:49: = 1 tab, Petty nn Oral Tablet 00 PO, Daily, [Unithroid] brand medically necessary, # 90 tab, 0 Refill(s), [facility], Pharmacy: [place] [address] Levothyroxi Yes 88 Memori a ne Sodium 3-12 microgram l 0.088 MG 21:49: = 1 tab, Pet[place] nn Oral Tablet 00 PO, Daily, [Unithroid] brand medically necessary, # 90 tab, 0 Refill(s), [facility], Pharmacy: [place] [address] levothyroxi Yes 88 Method i ne 3-[address] (SYNTHROID) 00:00: = 1 tab, Ho spita 88 mcg 00 PO, Daily, l tablet brand medically necessary, # 90 tab, 1 Refill(s), [facility], Pharmacy: [place] [address], 165.1, cm, 07/14/19 11:24:00 CDT, Height, 68.182, kg, 07/14/19 11:24:00 CDT, Weight levothyroxi Yes 88 Method i ne 3-[address] (SYNTHROID) 00:00: = 1 tab, Ho spita 88 mcg 00 PO, Daily, l tablet brand medically necessary, # 90 tab, 1 Refill(s), [facility], Pharmacy: [place] [address], 165.1, cm, 07/14/19 11:24:00 CDT, Height, 68.182, kg, 07/14/19 11:24:00 CDT, Weight levothyroxi 2020-0 Yes 88 Method i ne 3-[address] (SYNTHROID) 00:00: = 1 tab, Ho spita 88 mcg 00 PO, Daily, l tablet brand medically necessary, # 90 tab, 1 Refill(s), [place], Pharmacy: [facility], 165.1, cm, 07/14/19 11:24:00 CDT, Height, 68.182, kg, 07/14/19 11:24:00 CDT, Weight levothyroxi 2019-0 Yes 88 Method i ne 3-[address] (SYNTHROID) 00:00: = 1 tab, Ho spita 88 mcg 00 PO, Daily, l tablet brand medically necessary, # 90 tab, 1 Refill(s), [place], Pharmacy: [facility], 165.1, cm, 07/14/19 11:24:00 CDT, Height, 68.182, kg, 07/14/19 11:24:00 CDT, Weight levothyroxi 2019-0 Yes 88 Method i ne 3-[address] (SYNTHROID) 00:00: = 1 tab, Ho spita 88 mcg 00 PO, Daily, l tablet brand medically necessary, # 90 tab, 1 Refill(s), [place], Pharmacy: [facility], 165.1, cm, 07/14/19 11:24:00 CDT, Height, 68.182, kg, 07/14/19 11:24:00 CDT, Weight nebivolol 2019-0 Yes 5 mg = 2 Madi oli 2.5 MG Oral 3-02 tab, PO, l Tablet 15:59: Daily, # [place] [Bystolic] 00 60 tab, 0 Refill(s) losartan 2019-0 Yes 100 mg = 1 Mem oria 100 mg oral 3-02 tab, PO, l tablet 15:59: Daily, # [place] 00 30 tab, 0 Refill(s) Carmel 2019-0 Yes 60 mg, PO, Memor ia Thyroid 3-02 Daily, 0 l 15:59: Refill(s) [place] 00 thyroid 2020-0 Yes 15 mg = 1 Memor ia (GROUP HOME) 15 MG 3-02 tab, PO, l Oral Tablet 15:59: Daily, # Cosme jin [Carmel 00 30 tab, 0 Thyroid] Refill(s) rivaroxaban [...] l oral tablet 15:59: Daily, # Cosme rmann 00 30 tab, 0 Refill(s) Cranberry 2020-0 Yes 0 Memoria preparation 04-12 Refill(s) l 15:59: [place] 00 Vitamin D3 2020-0 Yes 5,000 Memori a 5000 intl 04-12 IntlUnit = l units oral 15:59: 1 cap, PO, H ermann capsule 00 Daily, # 30 cap, 1 Refill(s) biotin 2020-0 Yes See Memoria 04-12 Instructio l 15:59: ns, 7500 Z[place]ki 00 PO Daily, 0 Refill(s) Turmeric 2020-0 Yes Turmeric, Madi oli 04-12 See l 15:59: [place], [id number] 1 PO daily, Refill(s) 0 B-12 2020-0 Yes 0 Memoria 3-02 Refill(s) l 15:59: [place] 00 Magnesium 2020-0 Yes Magnesium, Me moria 3-02 500 1 PO l 15:59: daily, [place] [...] l 15:59: 0 [place] 00 Refill(s) nebivolol 2019-0 Yes 5 mg = 2 Madi oli 2.5 MG Oral 3-02 tab, PO, l Tablet 15:59: Daily, # [place] [Bystolic] 00 60 tab, 0 Refill(s) losartan 2019-0 Yes 100 mg = 1 Mem oria 100 mg oral 3-02 tab, PO, l tablet 15:59: Daily, # [place] 00 30 tab, 0 Refill(s) Carmel 2020-0 Yes 60 mg, PO, Memor ia Thyroid 3-02 Daily, 0 l 15:59: Refill(s) Zaleski 00 thyroid 2019-0 Yes 15 mg = 1 Memor ia (GROUP HOME) 15 MG 3-02 tab, PO, l Oral Tablet 15:59: Daily, # Cosme rmkarrie [Carmel 00 30 tab, 0 Thyroid] Refill(s) rivaroxaban [...] tab, PO, l tablet 15:59: Daily, # [place] 00 90 tab, 1 Refill(s) obinutuzuma 2020-0 Yes IV, q4wk, M emoria b 25 MG/ML 02 0 l Injectable 15:59: Refill(s) He rmann Solution 00 [Gazyva] Venclexta 2019-0 Yes 400 mg, Memor ia -02 PO, [...] Memoria 04-12 Instructio l 15:59: ns, 7500 [place]ki 00 PO Daily, 0 Refill(s) Turmeric 2020-0 Yes Turmeric, Madi oli 04-12 See l 15:59: [place], [id number] 1 PO daily, Refill(s) 0 B-12 2020-0 [...] TOP, 0 l mg/24 hours 15:59: Refill(s) Fadia mendiola twice 00 weekly transdermal film, extended release [...] # [place] 00 30 tab, 0 Refill(s) Carmel 2020-0 Yes 60 mg, PO, Memor ia Thyroid 3-02 Daily, 0 l 15:59: Refill(s) Zaleski 00 thyroid 2020-0 Yes 15 mg = 1 Memor ia (GROUP HOME) 15 MG 3-02 tab, PO, l Oral Tablet 15:59: Daily, Kishan jin [Carmel 00 30 tab, 0 Thyroid] Refill(s) rivaroxaban 2020-0 Yes 15 mg = 1 M emoria 15 MG Oral 3-02 tab, PO, l Tablet 15:59: Daily, Kishan Phelan [Xarelto] 00 90 tab, 3 Refill(s) dexlansopra 2020-0 Yes 30 mg = 1 M emoria zole 30 MG 3-02 cap, PO, l Enteric 15:59: Daily, # [place] n Coated 00 30 cap, 0 Capsule Refill(s) [Dexilant] valacyclovi 2020-0 Yes 500 mg = 1 Memoria r 500 MG 3-02 tab, PO, l Oral Tablet 15:59: Daily, Kishan jin [Valtrex] 00 30 tab, 0 Refill(s) allopurinol 2020-0 Yes 300 mg = 1 Memoria 300 mg oral 3-02 tab, PO, l tablet 15:59: Daily, Kishan Phelan 00 90 tab, 1 Refill(s) obinutuzuma 2020-0 Yes IV, q4wk, M emoria b 25 MG/ML 3-02 0 l Injectable 15:59: Refill(s) He rmann [...] Daily, # 30 cap, 1 Refill(s) biotin 2019-0 Yes See Memoria 04-12 Instructio l 15:59: ns, 7500 [place] 00 PO Daily, 0 Refill(s) Turmeric 2020-0 Yes Turmeric, Madi oli 04-12 See l 15:59: [place], [address] 1 PO daily, Refill(s) 0 B-12 2019-0 Yes 0 Memoria 04-12 Refill(s) l 15:59: Zaleski 00 Magnesium 2020-0 Yes Magnesium, Me moria 04-12 500 1 PO l 15:59: daily, [place] 00 Refill(s) 0 Advair 2020-0 Yes 1 puff, Memoria Diskus 250 02 INHALATION l mcg-50 mcg 15:59: , BID, # 1 H ermann inhalation 00 ea, 3 powder Refill(s) Estradiol 2020-0 Yes 1 patch, Madi oli Patch 0.05 02 TOP, 0 l mg/24 hours 15:59: Refill(s) [...] # [place] 00 30 tab, 0 Refill(s) [place]el 2020-0 Yes 60 mg, PO, Memor ia Thyroid 3-02 Daily, 0 l 15:59: Refill(s) Zaleski 00 Advair 2020-0 Yes 1 puff, Memoria Diskus [...] thiazide 3-02 PO, Daily, l 15:59: 0 00 Refill(s) nebivolol 2020-0 Yes 5 mg = 2 Madi oli 2.5 MG Oral 3-02 tab, PO, l Tablet 15:59: Daily, # [place] [Bystolic] 00 60 tab, 0 Refill(s) thyroid 2020-0 Yes 15 mg = 1 Memor ia (GROUP HOME) 15 MG 3-02 tab, PO, l Oral Tablet 15:59: Daily, # He rmann [Carmel 00 30 tab, 0 Thyroid] Refill(s) losartan 2020-0 Yes 100 mg = 1 Mem oria 100 mg oral 3-02 tab, PO, l tablet 15:59: Daily, # [place] 00 30 tab, 0 Refill(s) [place]el 2020-0 Yes 60 mg, PO, Memor ia Thyroid 3-02 Daily, 0 l 15:59: Refill(s) Zaleski 00 thyroid 2020-0 Yes 15 mg = 1 Memor ia (GROUP HOME) 15 MG 3-02 tab, PO, l Oral Tablet 15:59: Daily, # Cosme annabel [Carmel 00 30 tab, 0 Thyroid] Refill(s) rivaroxaban [...] l Oral Tablet 15:59: Daily, # Cosme annabel [Valtrex] 00 30 tab, 0 Refill(s) allopurinol 2020-0 Yes 300 mg = 1 Memoria 300 mg oral 3-02 tab, PO, l tablet 15:59: Daily, # [place] 00 90 tab, 1 Refill(s) obinutuzuma 2020-0 Yes IV, q4wk, M emoria b 25 MG/ML 02 0 l Injectable 15:59: Refill(s) Cosme jin Solution 00 [Gazyva] Venclexta 2020-0 Yes 400 mg, Memor ia -02 PO, Daily, l 15:59: 0 [place] 00 Refill(s) Vitamin C 2020-0 Yes 1,000 mg = Me moria 1000 mg -02 1 tab, PO, l oral tablet 15:59: Daily, # Cosme rmkarrie 00 30 tab, 0 Refill(s) rivaroxaban 2020-0 Yes 15 mg = 1 M emoria 15 MG Oral 3-02 tab, PO, l Tablet 15:59: Daily, # [place] [Xarelto] 00 90 tab, 3 Refill(s) Cranberry 2020-0 Yes 0 Memoria preparation 02 Refill(s) l 15:59: Zaleski 00 Vitamin D3 2020-0 Yes 5,000 Memori a 5000 intl 04-12 IntlUnit = l units oral 15:59: 1 cap, PO, H ermann capsule 00 Daily, # 30 cap, 1 Refill(s) biotin 2020-0 Yes See Memoria 04-12 Instructio l 15:59: ns, 7500 Tpaan 00 PO Daily, 0 Refill(s) Turmeric 2020-0 Yes Turmeric, Madi oli 02 See l 15:59: [place], [address] 1 PO daily, Refill(s) 0 B-12 2020-0 Yes 0 Memoria 04-12 Refill(s) l 15:59: Zaleski 00 Magnesium 2020-0 Yes Magnesium, Me moria 02 500 1 PO l 15:59: daily, [place] 00 Refill(s) 0 dexlansopra 2019-0 Yes 30 mg = 1 M emoria zole 30 MG 02 cap, PO, l Enteric 15:59: Daily, # [place] n Coated 00 30 cap, 0 Capsule Refill(s) [Dexilant] valacyclovi 2019-0 Yes 500 mg = 1 Memoria r 500 MG -02 tab, PO, l Oral Tablet 15:59: Daily, # He rmann [Valtrex] 00 30 tab, 0 Refill(s) allopurinol 2019-0 Yes 300 mg = 1 Memoria 300 mg oral 3-02 tab, PO, l tablet 15:59: Daily, # Zaleski 00 90 tab, 1 Refill(s) obinutuzuma 2019-0 Yes IV, q4wk, M emoria b 25 MG/ML 02 0 l Injectable 15:59: Refill(s) He rmann Solution 00 [Gazyva] Venclexta 2019-0 Yes 400 mg, Memor ia -02 PO, [...] Memoria 04-12 Instructio l 15:59: ns, 7500 Zaleski 00 PO Daily, 0 Refill(s) Turmeric 2020-0 Yes Turmeric, Madi oli -02 See l 15:59: [place], [address] 1 PO daily, Refill(s) 0 B-12 2020-0 Yes 0 Memoria -02 Refill(s) l 15:59: [place] 00 Magnesium 2020-0 Yes Magnesium, Me moria 3-02 500 1 PO l 15:59: daily, [place] [...] tab, PO, l Tablet 15:59: Daily, # [place] [Bystolic] 00 60 tab, 0 Refill(s) losartan 2020-0 Yes 100 mg = 1 Mem oria 100 mg oral 3-02 tab, PO, l tablet 15:59: Daily, # Zaleski 00 30 tab, 0 Refill(s) Carmel 2020-0 Yes 60 mg, PO, Memor ia Thyroid 3-02 Daily, 0 l 15:59: Refill(s) Zaleski 00 thyroid 2020-0 Yes 15 mg = 1 Memor ia (GROUP HOME) 15 MG 3-02 tab, PO, l Oral Tablet 15:59: Daily, # He rmann [Carmel 00 30 tab, 0 Thyroid] Refill(s) rivaroxaban 2019-0 Yes 15 mg = 1 M emoria 15 MG Oral 3-02 tab, PO, l Tablet 15:59: Daily, # [place] [Xarelto] 00 90 tab, 3 Refill(s) dexlansopra [...] IV, q4wk, M emoria b 25 MG/ML 302 0 l Injectable 15:59: Refill(s) He rmann Solution 00 [Gazyva] Venclexta 2020-0 Yes 400 mg, Memor ia 3-02 PO, Daily, l 15:59: 0 [place] 00 Refill(s) Vitamin C 2020-0 Yes 1,000 mg = Me moria 1000 mg 3-02 1 tab, PO, l oral tablet 15:59: Daily, # Cosme rmann 00 30 tab, 0 Refill(s) Cranberry 2020-0 Yes 0 Memoria preparation 04-12 Refill(s) l 15:59: Z[place]ki 00 Vitamin D3 2020-0 Yes 5,000 Memori a 5000 intl 04-12 IntlUnit = l units oral 15:59: 1 cap, PO, H ermann capsule 00 Daily, # 30 cap, 1 Refill(s) biotin 2020-0 Yes See Memoria 04-12 Instructio l 15:59: ns, 7500 Zaleski 00 PO Daily, 0 Refill(s) Turmeric 2020-0 Yes Turmeric, Madi oli 04-12 See l 15:59: [place], [address] 1 PO daily, Refill(s) 0 B-12 2020-0 Yes 0 Memoria 04-12 Refill(s) l 15:59: Zaleski 00 Magnesium 2020-0 Yes Magnesium, Me moria 3-02 500 1 PO l 15:59: daily, [place] [...] thiazide 3-02 PO, Daily, l 15:59: 0 Zaleski 00 Refill(s) estradioL 2020-0 Yes 1 patch, Meth tushar (CLIMARA) 3-02 TOP, 0 st 0.05 mg/24 00:00: Refill(s) Ho spita hr 00 l fluticasone 2020-0 Yes 1 puff, Met hodi propion-jarrod 3-[address] meteroL 00:00: , BID, # 1 Hosp topher (ADVAIR/ ea, 3 l WIXELA Refill(s) INHUB) 250-50 [...] A,C and No 1,000 mg = Methodi E-lutein-ia 04-12 1 tab, PO, s t nerals [...] A,C and No 1,000 mg = Methodi E-lutein-ia 04-12 1 tab, PO, s t nerals 00:00: 00:00 Daily, # Hospit a (OCUVITE 00 :00 30 tab, 0 l WITH Refill(s) LUTEIN) 1,000 unit-200 mg-60 unit-2 mg tablet per tablet fenofibrate 2021- No = 1 cap, M ethodi (Tricor) 48 04-12 PO, Daily, s t MG tablet 00:00: 00:00 # 30 cap, Ho [facility] 00 :00 0 l Refill(s) mecobalamin 2020-0 2022- No 0 Metho di (B12 ACTIVE 04-12 Refill(s) st ORAL) 00:00: 00:00 Hospita 00 :00 l methylPREDN 2019- No [id number] 84mg Take 21 [facility] ISolone 06-23 9102 tablets by ity o f (MEDROL, 00:00: 00:00 mouth [place] BRIAN,) 4 mg 00 :00 SEE-INSTRU Med ical tablets [facility]. Branch follow package directions XARELTO 15 2019- No Univer s mg tablet 06-20 ity of 00:00: 00:00 [place] 00 :00 Medical Branch estradiol 2018- Yes Univers 0.05 mg/24 4-30 ity of hr twice 00:00: Medical patch Branch estradiol 2018- Yes Univers 0.05 mg/24 4-30 ity of hr twice 00:00: [facility] patch Branch estradiol 2018- Yes Univers 0.05 mg/24 4-30 ity of hr twice 00:00: Medical patch Branch estradiol 2018-0 Yes Univers 0.05 mg/24 4-30 ity of hr twice 00:00: [facility] patch Branch estradiol 2018-0 Yes Univers 0.05 mg/24 4-30 ity of hr twice 00:00: Medical patch Branch estradiol 2018-0 Yes Univers 0.05 mg/24 4-30 ity of hr twice 00:00: [facility] patch Branch estradiol 2018- Yes Univers 0.05 mg/24 4-30 ity of hr twice 00:00: [facility] patch Branch estradiol 2018-0 Yes Univers 0.05 mg/24 4-30 ity of hr twice 00:00: [facility] patch Branch estradiol 2018-0 Yes Univers 0.05 mg/24 4-30 ity of hr twice 00:00: Medical patch Branch estradiol 2018-0 Yes Univers 0.05 mg/24 4-30 ity of hr twice 00:00: [facility] patch Branch estradiol 2018-0 Yes Univers 0.05 [...] mg/24 4-30 ity of hr twice 00:00: [facility] patch Branch BYSTOLIC 5 2019-0 2020- No Univer s mg tablet 16 -28 ity of 00:00: 00:00 [place] 00 :00 Medical Branch losartan 2019-0 Yes [facility] 100 mg 2-28 ity of tablet 00:00: Medical Branch losartan 2019-0 Yes Univers 100 mg 2-28 ity of tablet 00:00: Medical Branch losartan 2019-0 Yes Univers 100 mg 2-28 ity of tablet 00:00: Medical Branch losartan 2019-0 Yes Univers 100 mg 2-28 ity of tablet 00:00: Medical Branch losartan 2019-0 Yes Univers 100 mg 2-28 ity of tablet 00:00: Medical Branch losartan 2019-0 Yes Univers 100 mg 2-28 ity of tablet 00:00: Medical Branch losartan 2019-0 Yes 100mg Take 100 Univ ers 100 mg 2-28 mg by ity of tablet 00:00: mouth [place] 00 daily. Medical Branch losartan 2019-0 Yes [...] mouth [place] 00 daily. Medical Branch naproxen 2017- 2020- No [id number] 500mg Take 1 U nivers 500 mg 5- 04-24 tablet by ity of tablet 00:00: 00:00 mouth 2 [place] 00 :00 (two) Medical times Branch daily with meals. codeine-gua 2017-0 2020- No [id number] 5mL Take 5 mL Univers ifenesin 07-03-24 by mouth ity of 10-100 mg/5 00:00: 00:00 every 6 [place] mL solution 00 :00 (six) Medical hours as Branch needed for Cough. albuterol 2020- No 2{puff} Inhale 2 Univers 90 1-29 04-24 Puffs ity of mcg/actuati 00:00: 00:00 every 4 [place] on inhaler 00 :00 (four) Medical hours as Branch needed for Wheezing or Shortness of Breath. traMADOL 50 2019- No [id number] 50mg Take 1 Univers mg tablet 07-07-24 tablet by ity of 00:00: 00:00 mouth [place] 00 :00 every 4 Medical (four) Branch hours as needed (pain requiring narcotic). amitriptyli 2019- No [id number] 25mg Take 1 Univers ne 25 mg 07-07-24 tablet by ity o f tablet 00:00: 00:00 mouth at [place] 00 :00 bedtime. Medical 1-2 tab at Branch bedtime for neuropathi c pain Immunizations Ordered Filled Immunization Date Status Comments [facility] e Immunization Name Name Td 2021-01-12 Completed University of 00:00:00 [facility] Td 2021-01-12 Completed University of 00:00:00 [facility] Td 2021-01-12 Completed University of 00:00:00 [facility] Td 2021-01-12 Completed University of 00:00:00 [facility] Td 2021-01-12 Completed University of 00:00:00 [facility] Td 2021-01-12 Completed University of 00:00:00 [facility] Td 2021-01-12 Completed University of 00:00:00 [facility] Td 2021-01-12 Completed University of 00:00:00 [facility] Td 2021-01-12 Completed University of 00:00:00 [facility] Td 2021-01-12 Completed University of 00:00:00 [facility] Td 2021-01-12 Completed University of 00:00:00 [facility] Td 2021-01-12 Completed University of 00:00:00 [facility] Td 2021-01-12 Completed University of 00:00:00 [facility] Td 2021-01-12 Completed University of 00:00:00 [facility] Td 2021-01-12 Completed University of 00:00:00 [facility] Td 2021-01-12 Completed University of 00:00:00 [facility] Td 2021-01-12 Completed University of 00:00:00 [facility] PFIZER COVID-19 2020-10-04 Completed [facility] MRNA VACCINATION 00:00:00 [facility] PFIZER COVID-19 2020-10-04 Completed [facility] MRNA VACCINATION 00:00:00 [facility] PFIZER COVID-19 2020-10-04 Completed [facility] MRNA VACCINATION 00:00:00 [facility] PFIZER COVID-19 2020-10-04 Completed [facility] MRNA VACCINATION 00:00:00 [facility] PFIZER COVID-19 2020-10-04 Completed [facility] MRNA VACCINATION 00:00:00 [facility] PFIZER COVID-19 2020-03-16 Completed [facility] MRNA VACCINATION 00:00:00 [facility] PFIZER COVID-19 2020-03-16 Completed [facility] MRNA VACCINATION 00:00:00 [facility] PFIZER COVID-19 2020-03-16 Completed [facility] MRNA VACCINATION 00:00:00 [facility] PFIZER COVID-19 2020-03-16 Completed [facility] MRNA VACCINATION 00:00:00 [facility] PFIZER COVID-19 2020-03-16 Completed [facility] MRNA VACCINATION 00:00:00 [facility] [id number] 2020-03-15 Completed [facility] [place] [id number]-[id number] 00:00:00 [id number] 2020-03-15 Completed [facility] [place] RNABNT-[id number] 00:00:00 [id number] 2020-03-15 Completed [facility] [place] RNABNT-[id number] 00:00:00 ER [id number]-[id number]-19m 2020-03-15 Completed [facility] [place] RNABNT-[id number] 00:00:00 [id number] 2020-03-15 Completed [facility] [place] RNABNT-[id number] 00:00:00 ER [id number]-19m 2020-03-15 Completed [facility] [place] RNABNT-[id number] 00:00:00 ER [id number] 2020-03-02 Completed [facility] [place] RNABNT-[id number] 00:00:00 ER [id number] 2020-03-02 Completed [facility] [place] RNABNT-[id number] 00:00:00 ER [id number] 2020-03-02 Completed [facility] [place] RNABNT-[id number] 00:00:00 ER [id number] 2020-03-02 Completed [facility] [place] RNABNT-[id number] 00:00:00 ER [id number] 2020-03-02 Completed [facility] [place] RNABNT-[id number] 00:00:00 ER [id number]-[id number] 2020-03-02 Completed [facility] [place] RNABNT-[id number] 00:00:00 PFIZER COVID-19 2020-02-24 Completed [facility] MRNA VACCINATION 00:00:00 [facility] PFIZER COVID-19 2020-02-24 Completed [facility] MRNA VACCINATION 00:00:00 [facility] PFIZER COVID-19 2020-02-24 Completed [facility] MRNA VACCINATION 00:00:00 [facility] PFIZER COVID-19 2020-02-24 Completed [facility] MRNA VACCINATION 00:00:00 [facility] PFIZER COVID-19 2020-02-24 Completed [facility] MRNA VACCINATION 00:00:00 Hospital Influenza Trivalent 2019-10-13 Completed [facility] 00:00:00 Hospital Influenza Trivalent 2019-10-13 Completed [facility] 00:00:00 Hospital Influenza Trivalent 2019-10-13 Completed [facility] 00:00:00 Hospital Influenza Trivalent 2019-10-13 Completed [facility] 00:00:00 Hospital Influenza Trivalent 2019-10-13 Completed [facility] 00:00:00 Hospital influenza virus 2019-09-12 Completed [facility] vaccine, 00:00:00 inactivated influenza virus 2019-09-12 Completed [facility] vaccine, 00:00:00 inactivated influenza virus 2019-09-12 Completed [facility] [place] vaccine, 00:00:00 inactivated influenza virus 2019-09-12 Completed [facility] [place] vaccine, 00:00:00 inactivated influenza virus 2019-09-12 Completed [facility] [place] vaccine, 00:00:00 inactivated influenza virus 2019-09-12 Completed [facility] vaccine, 00:00:00 inactivated Pneumococcal 2018-07-12 Completed [facility] Conjugate 00:00:00 Hospital Zoster Vaccine 2018-07-12 Completed [facility] Recombinant 00:00:00 Hospital Pneumococcal 2018-07-12 Completed [facility] Conjugate 00:00:00 Hospital Zoster Vaccine 2018-07-12 Completed [facility] Recombinant 00:00:00 Hospital Pneumococcal 2018-07-12 Completed [facility] Conjugate 00:00:00 Hospital Zoster Vaccine 2018-07-12 Completed [facility] Recombinant 00:00:00 Hospital Pneumococcal 2018-07-12 Completed [facility] Conjugate 00:00:00 Hospital Zoster Vaccine 2018-07-12 Completed [facility] Recombinant 00:00:00 Hospital Pneumococcal 2018-07-12 Completed [facility] Conjugate 00:00:00 Hospital Zoster Vaccine 2018-07-12 Completed [facility] Recombinant 00:00:00 Hospital Zoster Vaccine 2018-04-11 Completed [facility] Recombinant 00:00:00 Hospital Zoster Vaccine 2018-04-11 Completed [facility] Recombinant 00:00:00 Hospital Zoster Vaccine 2018-04-11 Completed [facility] Recombinant 00:00:00 Hospital Zoster Vaccine 2018-04-11 Completed [facility] Recombinant 00:00:00 Hospital Zoster Vaccine 2018-04-11 Completed [facility] Recombinant 00:00:00 Hospital Pneumococcal 2017-11-11 Completed [facility] Conjugate 13-Valent 00:00:00 Hospi jon Pneumococcal 2017-11-11 Completed [facility] Conjugate 13-Valent 00:00:00 Hospi jon Pneumococcal 2017-11-11 Completed [facility] Conjugate 13-Valent 00:00:00 Hospi jon Pneumococcal 2017-11-11 Completed [facility] Conjugate 13-Valent 00:00:00 Hospi jon Pneumococcal 2017-11-11 Completed [facility] Conjugate 13-Valent 00:00:00 Hospi jon Vital Signs Vital Name Observation Time Observation Value Comments Source Systolic blood 2021-06-17 15:41:00 147 mm[Hg] Univer sity of pressure [facility] Diastolic blood 2021-06-17 15:41:00 63 mm[Hg] Unive rsity of pressure [place] [facility] Heart rate 2021-06-17 15:40:00 59 /min Universi ty [facility] [place] [facility] Body temperature 2021-06-17 15:40:00 36.56 Kaylen Univ ersity of [place] [facility] Respiratory rate 2021-06-17 15:40:00 18 /min Univ ersity of [place] [facility] Body height 2021-06-17 15:40:00 165.1 cm [facility]i ty [facility] [place] [facility] Body weight 2021-06-17 15:40:00 74.118 kg Universi ty [facility] [place] [facility] BMI 2021-06-17 15:40:00 27.19 kg/m2 Universi ty of [place] [facility] Oxygen saturation in 2021-06-17 15:40:00 97 /min University of Arterial blood by [email or web address] [facility] Pulse oximetry Branch Systolic blood 2021-01-30 17:26:00 146 mm[Hg] Univer sity of pressure [place] [facility] Diastolic blood 2021-01-30 17:26:00 69 mm[Hg] Unive rsity of pressure [place] [facility] Heart rate 2021-01-30 17:26:00 56 /min Universi ty [facility] [place] [facility] Body temperature 2021-01-30 17:26:00 36.78 Kaylen Univ ersity of [place] [facility] Respiratory rate 2021-01-30 17:26:00 18 /min Univ ersity of [place] [facility] Body height 2021-01-30 17:26:00 165.1 cm Universi ty [facility] [place] [facility] Body weight 2021-01-30 17:26:00 78.586 kg Universi ty [facility] [place] [facility] BMI 2021-01-30 17:26:00 28.83 kg/m2 Universi ty [facility] [place] [facility] Oxygen saturation in 2021-01-30 17:26:00 98 /min University of Arterial blood by [email or web address] mk Pulse oximetry Branch Systolic blood 2021-01-21 17:39:00 138 mm[Hg] Univer sity of pressure [place] [facility] Diastolic blood 2021-01-21 17:39:00 63 mm[Hg] Unive rsity of pressure [place] [facility] Heart rate 2021-01-21 17:39:00 50 /min [facility]i ty [facility] [place] [facility] Body temperature 2021-01-21 17:39:00 36.11 Kaylen Univ ersity of [place] [facility] Respiratory rate 2021-01-21 17:39:00 19 /min Univ ersity of [place] [facility] Body height 2021-01-21 17:39:00 165.1 cm Universi ty [facility] [place] [facility] Body weight 2021-01-21 17:39:00 76.658 kg Universi ty [facility] [place] [facility] BMI 2021-01-21 17:39:00 28.12 kg/m2 Universi ty of [facility] Oxygen saturation in 2021-01-21 17:39:00 98 /min University of Arterial blood by [facility] Pulse oximetry Branch Respiratory rate 2021-01-13 06:30:00 20 /min Univ ersity of [facility] Oxygen saturation in 2021-01-13 06:30:00 96 /min University of Arterial blood by [facility] Pulse oximetry Branch Systolic blood 2021-01-13 03:42:00 145 mm[Hg] Univer sity of pressure [place] [facility] [place] Diastolic blood 2021-01-13 03:42:00 74 mm[Hg] Unive rsity of pressure [place] [facility] Heart rate 2021-01-13 03:42:00 51 /min Universi ty [facility] [place] [facility] Body temperature 2021-01-13 03:42:00 36.44 Kaylen Univ ersity of [place] [facility] Body height 2021-01-13 03:42:00 165.1 cm Universi ty [facility] [place] [facility] Body weight 2021-01-13 03:42:00 74.844 kg Universi ty [facility] [place] [facility] BMI 2021-01-13 03:42:00 27.46 kg/m2 [facility]i [facility] [place] [facility] Systolic blood 2019-06-09 20:30:00 139 mm[Hg] Univer sity of pressure [place] [facility] Diastolic blood 2019-06-09 20:30:00 49 mm[Hg] Unive rsity of pressure [place] [facility] Heart rate 2019-06-09 20:30:00 56 /min Universi ty [facility] [place] [facility] Body temperature 2019-06-09 20:30:00 36.56 Kaylen Univ ersity of [place] [facility] Respiratory rate 2019-06-09 20:30:00 18 /min Univ ersity of [place] [facility] Oxygen saturation in 2019-06-09 20:30:00 94 /min University of Arterial blood by [facility] Pulse oximetry Branch Body height 2019-06-05 12:17:00 165.1 cm [facility] Body weight 2019-06-05 12:17:00 65.772 kg [facility] BMI 2019-06-05 12:17:00 24.13 kg/m2 [facility] Systolic blood 2021-12-29 15:22:00 140 mm[Hg] [facility] pressure Diastolic blood 2021-12-29 15:22:00 60 mm[Hg] [facility] pressure Heart rate 2021-12-29 15:22:00 60 /min [facility] Body temperature 2021-12-29 15:22:[address] [facility] Body height 2021-12-29 15:22:00 165.1 cm [facility] Body weight 2021-12-29 15:22:00 75.32 kg [facility] BMI 2021-12-29 15:22:00 27.63 kg/m2 [facility] Oxygen saturation in 2021-12-29 15:22:00 97 /min [facility] Arterial blood by Pulse oximetry Systolic blood 2021-09-26 18:03:00 160 mm[Hg] [facility] pressure Diastolic blood 2021-09-26 18:03:00 60 mm[Hg] [facility] pressure Heart rate 2021-09-26 18:03:00 54 /min [facility] Body temperature 2021-09-26 18:03:[address] [facility] Body height 2021-09-26 18:03:00 165.1 cm [facility] Body weight 2021-09-26 18:03:00 74.118 kg [facility] BMI 2021-09-26 18:03:00 27.19 kg/m2 [facility] Oxygen saturation in 2021-09-26 18:03:00 97 /min [facility] Arterial blood by Pulse oximetry Respiratory rate 2021-07-17 18:36:00 18 /min [facility] Systolic (mm Hg) 2020-09-22 16:07:00 Madi rial [place] Diastolic (mm Hg) 2020-09-22 16:07:00 Mem o[facility] [place] Heart Rate 2020-09-22 16:07:00 [facility] Temperature Oral (F) 2020-09-22 16:07:00 98.0 F [facility] Height 2020-09-22 16:07:00 165.1 cm [facility] Weight 2020-09-22 16:07:00 [facility] BMI Calculated 2020-09-22 16:07:00 [facility] [place] Systolic (mm Hg) 2019-07-14 16:24:00 Madi [facility] [place] Diastolic (mm Hg) 2019-07-14 16:24:00 Mem [facility] [place] Heart Rate 2019-07-14 16:24:00 [facility] Temperature Oral (F) 2019-07-14 16:24:00 97.8 F [facility] Height 2019-07-14 16:24:00 165.1 cm [facility] Weight 2019-07-14 16:24:00 [facility] BMI Calculated 2019-07-14 16:24:00 [facility] [place] Systolic (mm Hg) 2019-04-13 16:35:00 Madi [facility] [place] Diastolic (mm Hg) 2019-04-13 16:35:00 Mem [facility] [place] Height 2019-04-13 15:46:00 165.1 cm [facility] Weight 2019-04-13 15:46:00 [facility] BMI Calculated 2019-04-13 15:46:00 [facility] [place] Systolic (mm Hg) 2019-04-13 15:46:00 Madi [facility] [place] Diastolic (mm Hg) 2019-04-13 15:46:00 Mem orial [place] Heart Rate 2019-04-13 15:46:00 [facility] Procedures Procedure Date / Time Performing Clinician Source Performed LDH 2021-12-29 17:22:00 [facility] HEPATIC FUNCTION PANEL 2021-12-29 17:22:00 [facility] SARS-COV-2 ANTIBODY IGG, 2021-12-29 17:22:00 [facility] SPIKE, QUANTITATIVE PHYSICIAN ORDERS 2021-10-18 05:01:00 Doctor Unassigned, No Unive [facility] Medical Branch XR LUMBAR SPINE 4 VW 2021-10-10 20:02:43 Requisition, [facility] ASSIGNMENT OF BENEFITS 2021-10-10 19:37:15 Doctor Unassigned, No [facility] LDH 2021-09-26 05:00:00 [facility] HEPATIC FUNCTION PANEL 2021-09-26 05:00:00 Tanja Calderon [facility] BASIC METABOLIC PANEL 2021-09-26 05:00:00 [facility] ZZCOVID-19 ANTI-SPIKE 2021-06-29 19:59:00 [facility] IGG ANTIBODY TITER HEPATIC FUNCTION PANEL 2021-06-29 05:00:00 Tanja Calderon [facility] LDH 2021-06-29 05:00:00 [facility] BASIC METABOLIC PANEL 2021-06-29 05:00:00 [facility] POCT MOLECULAR STREP 2021-06-17 16:01:00 Royal Barrios [facility] URINE CULTURE 2021-03-30 15:41:00 Chary Anand [facility] POC URINALYSIS DIPSTICK 2021-03-30 15:40:00 Chary Anand [facility] BASIC METABOLIC PANEL 2021-03-30 06:00:00 [facility] LDH 2021-03-30 06:00:00 [facility] HEPATIC FUNCTION PANEL 2021-03-30 06:00:00 [facility] FERRITIN LEVEL 2021-03-30 06:00:00 [facility] TOTAL IRON BINDING 2021-03-30 06:00:00 [facility] CAPACITY CBC WITH PLATELET AND 2021-03-30 06:00:00 [facility] DIFFERENTIAL CBC WITH PLATELET AND 2021-03-03 19:09:00 [facility] DIFFERENTIAL LDH 2021-03-03 19:09:00 [facility] HEPATIC FUNCTION PANEL 2021-03-03 19:09:00 [facility] [place] [facility] BASIC METABOLIC PANEL 2021-03-03 19:09:00 [facility] FERRITIN LEVEL 2021-03-03 19:09:00 [place] [facility] TOTAL IRON BINDING 2021-03-03 19:09:00 Tanja Calderon [facility] POCT URINALYSIS 2021-01-30 17:30:00 Royal Barrios Lund maricarmen sanches [facility] ASSIGNMENT OF BENEFITS 2021-01-30 17:06:46 Doctor Unassigned, No [facility] [place] RESUPERF WND BODY 2021-01-13 05:14:11 Chrissy Negrete [facility] 2.5CM OR LESS [facility] NOTICE OF PRIVACY 2021-01-13 03:39:06 Doctor Unassigned, No [facility] PRACTICES Name [facility] CONSENT/REFUSAL FOR 2021-01-13 03:37:57 Doctor Unassigned, No [facility] DIAGNOSIS AND TREATMENT [facility] BASIC METABOLIC PANEL 2020-12-01 05:00:00 Marcio [facility] HEPATIC FUNCTION PANEL 2020-12-01 05:00:00 Tanja Calderon [facility] LDH 2020-12-01 05:00:00 [facility] US THYROID 2020-11-09 19:03:39 Charlotte Rucker H [facility]spital MAGNESIUM 2019-06-09 11:05:00 Jose A Hamm [facility] BASIC METABOLIC PANEL 2019-06-09 11:05:00 Mikhail [place] [facility] (NA, K, CL, CO2, [facility] GLUCOSE, BUN, CREATININE, CA) CBC WITH DIFFERENTIAL 2019-06-09 11:05:00 Mikhail [place] [facility] XR CHEST 2 VW 2019-06-08 16:37:40 Jose A Hamm [facility] BASIC METABOLIC PANEL 2019-06-08 09:13:00 Mikhail [place] [facility] (NA, K, CL, CO2, [facility] GLUCOSE, BUN, CREATININE, CA) CBC WITH DIFFERENTIAL 2019-06-08 09:13:00 Mikhail [place] [facility] PROTHROMBIN TIME / INR 2019-06-08 09:13:00 Omar Howard [facility] ACTIVATED PARTIAL 2019-06-08 09:13:00 Adele Rodriguez [facility] ACTIVATED PARTIAL 2019-06-08 02:07:00 Adele Rodriguez [facility] ACTIVATED PARTIAL 2019-06-07 19:18:00 Adele Rodriguez [facility] BASIC METABOLIC PANEL 2019-06-07 07:28:00 Mikhail [place] [facility] (NA, K, CL, CO2, [facility] GLUCOSE, BUN, CREATININE, CA) CBC WITH DIFFERENTIAL 2019-06-07 07:28:00 Mikhail [place] [facility] ACTIVATED PARTIAL 2019-06-07 07:28:00 Adele Rodriguez [facility] ACTIVATED PARTIAL 2019-06-06 18:55:00 Adele Rodriguez [facility] BASIC METABOLIC PANEL 2019-06-06 13:07:00 Omar Howard [facility] (NA, K, CL, CO2, Medical Branch GLUCOSE, BUN, CREATININE, CA) ACTIVATED PARTIAL 2019-06-06 10:23:00 Adele Rodriguez [facility] ACTIVATED PARTIAL 2019-06-06 05:09:00 Adele Rodriguez [facility] LACTATE DEHYDROGENASE 2019-06-05 17:34:00 Jose A Hamm [facility] FERRITIN SERUM 2019-06-05 17:34:00 Jose A Hamm [facility] CORTISOL PM SERUM 2019-06-05 17:34:00 Jose A Hamm [facility] C-REACTIVE PROTEIN 2019-06-05 17:34:00 Jose A Hamm [facility] BASIC METABOLIC PANEL 2019-06-05 17:34:00 Keri Prajapati [facility] (NA, K, CL, CO2, Medical Branch GLUCOSE, BUN, CREATININE, CA) PROTHROMBIN TIME / INR 2019-06-05 17:34:00 Martha Falcon [facility] ACTIVATED PARTIAL 2019-06-05 17:34:00 Martha Falcon [facility] PROCALCITONIN 2019-06-05 17:34:00 [facility]ONAVIRUS COVID-19 2019-06-05 17:22:00 Martha Falcon [facility] CT THORAX WO CONTRAST 2019-06-05 06:25:39 Chrissy Negrete [facility] SPUTUM CULTURE 2019-06-05 06:07:00 Chrissy Negrete [facility] XR CHEST 1 VW COVID 2019-06-05 05:08:57 Chrissy Negrete [facility] URINALYSIS 2019-06-05 04:56:00 Chrissy Negrete [facility] MAGNESIUM 2019-06-05 04:52:00 Hansel [facility] TROPONIN I 2019-06-05 04:52:00 Chrissy Negrete [facility] THYROID STIMULATING 2019-06-05 04:52:00 Jose A Hamm [facility] HORMONE [facility] COMP. METABOLIC PANEL 2019-06-05 04:52:00 Chrissy Negrete [facility] ([id number]) [facility] CBC WITH DIFFERENTIAL 2019-06-05 04:52:00 Chrissy Negrete [facility] PROTHROMBIN TIME / INR 2019-06-05 04:52:00 Chrissy Negrete [facility] N-TERMINAL PRO-BNP 2019-06-05 04:52:00 Chrissy Negrete [facility] CORONAVIRUS COVID-19 2019-06-05 04:49:00 Chrissy Negrete [facility] EKG-12 LEAD 2019-06-05 04:46:32 Chrissy Negrete [facility] EKG-12 LEAD 2019-06-05 04:43:05 Chrissy Negrete [facility] Hysterectomy 1982-02-11 00:00:00 [facility] Plan of Care Planned Activity Planned Date Details Comments Source Future Scheduled 2022-04-18 65+ [facility]CCAL [facility] Test 16:57:46 VACCINE (2 - PPSV23 if available, else PCV20) [code = 65+ PNEUMOCOCCAL VACCINE (2 - PPSV23 if available, else PCV20)] Future Scheduled 2022-04-18 COVID-19 VACCINE (5 - [facility] Hospital Test 16:57:46 Booster for Pfizer series) [code = COVID-19 VACCINE (5 - Booster for Pfizer series)] Future Scheduled 2022-04-18 65+ [facility]OCOCCAL [facility] Test 16:57:46 VACCINE (2 - PPSV23 if available, else PCV20) [code = 65+ PNEUMOCOCCAL VACCINE (2 - PPSV23 if available, else PCV20)] Future Scheduled 2022-04-18 COVID-19 VACCINE (5 - [facility] Hospital Test 16:57:46 Booster for Pfizer series) [code = COVID-19 VACCINE (5 - Booster for Pfizer series)] Future Scheduled 2022-02-20 65+ [facility]OCCAL [facility] Test 15:27:44 VACCINE (2 - PPSV23 if available, else PCV20) [code = 65+ PNEUMOCOCCAL VACCINE (2 - PPSV23 if available, else PCV20)] Future Scheduled 2022-02-20 COVID-19 VACCINE (5 - [facility] Hospital Test 15:27:44 Booster for Pfizer series) [code = COVID-19 VACCINE (5 - Booster for Pfizer series)] Future Scheduled 2022-02-20 65+ [facility]OCOCCAL [facility] Test 15:27:44 VACCINE (2 - PPSV23 if available, else PCV20) [code = 65+ PNEUMOCOCCAL VACCINE (2 - PPSV23 if available, else PCV20)] Future Scheduled 2022-02-20 COVID-19 VACCINE (5 - [facility] Hospital Test 15:27:44 Booster for Pfizer series) [code = COVID-19 VACCINE (5 - Booster for Pfizer series)] Future Scheduled 2021-10-19 HEPATITIS B VACCINES Met [facility] Test 10:18:16 (1 of 3 - 3-dose series) [code = HEPATITIS B VACCINES (1 of 3 - 3-dose series)] Future Scheduled 2021-10-19 65+ P[facility]UMOCOCCAL [facility] Test 10:18:16 VACCINE (2 - PPSV23 or PCV20) [code = 65+ PNEUMOCOCCAL VACCINE (2 - PPSV23 or PCV20)] Future Scheduled 2021-10-19 COVID-19 VACCINE (5 - Me [facility] Test 10:18:16 Booster for Pfizer series) [code = COVID-19 VACCINE (5 - Booster for Pfizer series)] Future Scheduled 2021-10-19 INFLUENZA VACCINE [facility] Test 10:18:16 [code = INFLUENZA VACCINE] Encounters Start End Encounter Admission Attending Care Care Encounter Source Date/Time Date/Time Type Type Clinicians Facility Department ID 2022-04-30 2022-04-30 Outpatient Jessy, KEITHWU SURG [id number] [facility] 11:45:00 11:45:[address] 2022-04-05 2022-04-05 Telephone Mathew, 1.2.840.2 [id number] [facility]i 00:00:00 00:00:[address] 3.430.2.7 Hospit a .3.309678 l .8 2022-04-05 2022-04-05 Telephone Mathew, 1.2.840.8 [id number] Methodi 00:00:00 00:00:[address] 3.430.2.7 Hospit a .3.850595 l .8 2022-03-07 2022-03-07 Outpatient Nargis Rod [facility] [place] [id number] [facility] 14:41:00 14:41:00 08 [facility] 2022-02-16 2022-02-16 Outpatient Nargis Rod [facility] [place] [id number] [facility] 12:00:00 12:00:00 37 [facility] 2022-02-16 2022-02-16 Outpatient Nargis Rod [facility] [place]0 [id number] [facility] 12:00:00 12:00:00 68 [facility] 2021-12-29 2021-12-29 Office Calderon, 1.2.840.6 [id number] [id number] [facility] 09:30:00 11:06:26 Visit Tanja Díaz 43954.1.1 793 s t 3.430.2.7 Hospit a .3.477532 l .8 2021-12-29 2021-12-29 Office Calderon, 1.2.840.9 [id number] 21001 43569 [facility] 09:30:00 11:06:26 Visit Tanja Díaz 74422.1.1 793 s t 3.430.2.7 Hospit a .3.797984 l .8 2021-12-29 2021-12-29 Nurse Only Calderon, 1.2.840.1 [id number] 572 [id number] [facility] 10:30:00 11:00:00 Tanja Díaz 64404.1.1 806 s t 3.430.2.7 Hospit a .3.813862 l .8 2021-12-29 2021-12-29 Nurse Only Calderon, 1.2.840.1 [id number] 062 [id number] [facility] 10:30:00 11:00:00 Tanja Díaz 92510.1.1 806 s t 3.430.2.7 Hospit a .3.516505 l .8 2021-12-29 2021-12-29 Lab Calderon, 1.2.840.1 [id number] 3685 [facility]i 07:00:00 07:05:00 Tanja Díaz 15285.1.1 481 s t 3.430.2.7 Hospit a .3.225618 l .8 2021-12-29 2021-12-29 Lab Calderon, 1.2.840.1 [id number] 1651 [facility]i 07:00:00 07:05:00 Tanja Díaz 29355.1.1 481 s t 3.430.2.7 Hospit a .3.528578 l .8 2021-12-29 2021-12-29 Travel 1.2.840.1 1.2.089.199 5341 [id number] Methodi 00:00:00 00:00:[address] 3.430.2.7 0.2.7.3.698 Ho spita .3.283944 084.8 l .8 2021-12-29 2021-12-29 Travel 1.2.840.1 1.2.078.208 6440 001847 Methodi 00:00:00 00:00:[address] 3.430.2.7 0.2.7.3.698 Ho spita .3.533963 084.8 l .8 2021-11-20 2021-11-20 Ancillary Andrade Cash [facility] 1.2.840. 114 [id number] Univers 13:00:00 13:45:00 Visit Israel Pedrzaa 350.1.13.10 ity of [facility] [place] [phone] Ut dical NAL 179 [facility] 2021-11-20 2021-11-20 Outpatient R MILO [facility] [id number] [facility] 13:00:00 13:00:00 ISRAEL ity of [facility] 2021-11-15 2021-11-15 Ancillary Xenia Walker [facility] 1.2.84 0.114 [id number] Univers 09:30:00 10:10:30 Visit Israel Pedraza 350.1.13.10 ity of [facility] 4.2.7.2.[place] [phone] Ut dical NAL 179 [facility] 2021-11-13 2021-11-13 Ancillary Andrade Cash [facility] 1.2.840. 114 [id number] [facility] 13:45:00 14:30:00 Visit Israel Pedraza 350.1.13.10 ity of [facility] 4.2.7.2.[place] [phone] Ut dical NAL 179 [facility] 2021-11-08 2021-11-08 Ancillary Andrade Cash [facility] 1.2.840. 114 [id number] [facility] 10:15:00 11:00:00 Visit Israel Pedraza 350.1.13.10 ity of [place] 4[place].2.[place] [phone] Ut dical NAL 179 [facility] 2021-11-08 2021-11-08 Outpatient R MILO [facility] [id number] [facility] 10:15:00 10:15:00 ISRAEL ity of [facility] 2021-11-07 2021-11-07 Orders Mathew, 1.2.840.8 [id number] 2099 [id number] Methodi 00:00:00 00:00:00 Only Miley 20352.1.[address] 3.430.2.7 Hospit a .3.724652 l .8 2021-11-07 2021-11-07 Orders Mathew, 1.2.840.9 [id number] 2099 096879 Methodi 00:00:00 00:00:00 Only Miley 05396.1.[address] 3.430.2.7 Hospit a .3.171764 l .8 2021-11-06 2021-11-06 Ancillary Andrade Cash [facility] 1.2.840. 114 [id number] [facility] 10:15:00 11:00:00 Visit Israel Pedraza 350.1.13.10 ity of [place] [phone] Ut dical NAL 179 [facility] 2021-11-01 2021-11-01 Ancillary Hanna Cash [facility] 1.2.840 .114 [id number] [facility] 09:30:00 10:09:18 Visit Israel Pedraza 350.1.13.10 ity of [place] [phone] Ut dical NAL 179 [facility] 2021-10-30 2021-10-30 Ancillary Xenia Walker [facility] 1.2.84 0.114 [id number] [facility] 09:30:00 11:03:20 Visit Israel Pedraza 350.1.13.10 ity of [place] 4[place].7.2.[place] [phone] Ut dical NAL 179 [facility] 2021-10-25 2021-10-25 Ancillary Tyree Olena Santos [facility] 1 .2.840.114 [id number] Univers 11:00:00 11:43:51 Visit Israel Pedraza IVY 350.1.13.10 ity of [place] 4.2.7.2.[place] [facility] [phone] Ut dical NAL 179 [facility] 2021-10-18 2021-10-18 Orders Doctor NARGIS 1.2.840.114 [id number] Univers 00:00:00 00:00:00 Only Unassigned, KOFFI 350.1.13.10 ity of [place] [facility] 4.2.7.2.686 [place] as [phone] [facility] 009 [place] 2021-10-10 2021-10-10 Outpatient R RADIOLOGY [facility] [id number] Univers 14:44:08 23:59:00 ity of [facility] 2021-10-10 2021-10-10 Hospital Radiology [facility] 1.2.840.114 [id number] Univers 14:15:00 23:59:00 Encounter IVY 350.1.13.10 ity of [place] 4.2.7.2.[place] ALPHA [phone] [facility] 807 [place] 2021-10-10 2021-10-10 Orders Doctor NARGIS 1.2.840.114 [id number] Univers 00:00:00 00:00:00 Only Unassigned, KOFFI 350.1.13.10 ity of [place] [facility] 4.2.7.2.686 [place] as [phone] [facility] 009 [place] 2021-09-26 2021-09-26 Office Marcio 1.2.840.9 [id number] 87685 02649 Syl 13:00:00 13:50:26 Visit Tylerbri Bre 55002.1.1 907 s t 3.430.2.7 Hospit a .3.618364 l .8 2021-09-26 2021-09-26 Office Marcio 1.2.840.1 [id number] 48804 01276 Methodi 13:00:00 13:50:26 Visit Tanja Díaz 69021.1.1 907 s t 3.430.2.7 Hospit a .3.373786 l .8 2021-09-26 2021-09-26 Outpatient MHIE MHIE [id number] [facility] 11:00:00 11:00:00 05 l [place] 2021-09-26 2021-09-26 Outpatient MHIE MHIE [id number] [facility] 11:00:00 11:00:00 05 l [place] 2021-09-26 2021-09-26 Travel 1.2.840.1 1.2.005.138 2212 074091 Methodi 00:00:00 00:00:[address] 3.430.2.7 0.2.7.3.698 Ho spita .3.116310 084.8 l .8 2021-09-26 2021-09-26 Travel 1.2.840.1 1.2.402.599 1839 178612 Methodi 00:00:00 00:00:[address] 3.430.2.7 0.2.7.3.698 Ho spita .3.089503 084.8 l .8 2021-07-28 2021-07-28 Telephone Iron, 1.2.840.2 [id number] 346 1779073 Methodi 00:00:00 00:00:[address] 3.430.2.7 Hospit a .3.713429 l .8 2021-07-28 2021-07-28 Telephone Iron, 1.2.840.4 [id number] 105 9228514 Methodi 00:00:00 00:00:[address] 3.430.2.7 Hospit a .3.005953 l .8 2021-07-18 2021-07-18 Telephone Brent, 1.2.840.8 [id number] 837 [id number] Methodi 00:00:00 00:00:00 Marilou R [address].1.[address] 3.430.2.7 Hospit a .3.219137 l .8 2021-07-18 2021-07-18 Telephone Kennedy, 1.2.840.0 [id number] 673 [id number] Methodi 00:00:00 00:00:00 Marilou R [address].1.[address] 3.430.2.7 Hospit a .3.921838 l .8 2021-07-17 2021-07-17 Nurse Only Calderon, 1.2.840.1 [id number] 577 [id number] Methodi 13:30:00 14:00:00 Tanja Díaz 70163.1.1 750 s t 3.430.2.7 Hospit a .3.186773 l .8 2021-07-17 2021-07-17 Nurse Only Marcio, 1.2.840.1 [id number] 183 [id number] Methodi 13:30:00 14:00:00 Tanja Díaz 49738.1.1 750 s t 3.430.2.7 Hospit a .3.388624 l .8 2021-07-17 2021-07-17 Travel 1.2.840.1 1.2.068.615 8869 996408 Methodi 00:00:00 00:00:[address] 3.430.2.7 0.2.7.3.698 Ho spita .3.197779 084.8 l .8 2021-07-17 2021-07-17 Travel 1.2.840.1 1.2.903.830 5025 913766 Methodi 00:00:00 00:00:[address] 3.430.2.7 0.2.7.3.698 Ho spita .3.532135 084.8 l .8 2021-07-03 2021-07-03 Travel 1.2.840.1 1.2.191.283 7131 608185 Methodi 00:00:00 00:00:[address] 3.430.2.7 0.2.7.3.698 Ho spita .3.602574 084.8 l .8 2021-07-03 2021-07-03 Orders Mathew, 1.2.840.1 [id number] 2099 916014 Methodi 00:00:00 00:00:00 Only Miley 42011.1.[address] 3.430.2.7 Hospit a .3.317158 l .8 2021-07-03 2021-07-03 Telephone [place], 1.2.840.8 [id number] Methodi 00:00:00 00:00:[address] 3.430.2.7 Hospit a .3.512149 l .8 2021-07-03 2021-07-03 Travel 1.2.840.1 1.2.173.973 7327 834666 Methodi 00:00:00 00:00:[address] 3.430.2.7 0.2.7.3.698 Ho spita .3.312997 084.8 l .8 2021-07-03 2021-07-03 Orders [place], 1.2.840.6 [id number] 2100 043316 Methodi 00:00:00 00:00:00 Only Miley 07078.1.[address] 3.430.2.7 Hospit a .3.180225 l .8 2021-07-03 2021-07-03 Telephone [place], 1.2.840.5 [id number] [id number] Methodi 00:00:00 00:00:[address] 3.430.2.7 Hospit a .3.696586 l .8 2021-06-29 2021-06-29 Office Calderon, 1.2.840.5 [id number] 58127 95898 Methodi 15:00:00 15:35:54 Visit Tanja Díaz 51439.1.1 749 s t 3.430.2.7 Hospit a .3.370124 l .8 2021-06-29 2021-06-29 Office Marcio, 1.2.840.4 [id number] 63960 44461 Methodi 15:00:00 15:35:54 Visit Tanja Díaz 13033.1.1 749 s t 3.430.2.7 Hospit a .3.076218 l .8 2021-06-29 2021-06-29 Lab Marcio, 1.2.840.1 [id number] 560209 2513 Methodi 06:10:00 06:15:00 Tanja Díaz 05070.1.1 768 s t 3.430.2.7 Hospit a .3.069732 l .8 2021-06-29 2021-06-29 Lab Marcio, 1.2.840.1 [id number] 316153 7878 Methodi 06:10:00 06:15:00 Tanja Díaz 61795.1.1 768 s t 3.430.2.7 Hospit a .3.741108 l .8 2021-06-28 2021-06-28 Travel 1.2.840.1 1.2.745.137 5629 454354 Methodi 00:00:00 00:00:[address] 3.430.2.7 0.2.7.3.698 Ho spita .3.103222 084.8 l .8 2021-06-28 2021-06-28 Travel 1.2.840.1 1.2.222.272 0595 217111 Methodi 00:00:00 00:00:[address] 3.430.2.7 0.2.7.3.698 Ho spita .3.044248 084.8 l .8 2021-06-26 2021-06-26 Travel 1.2.840.1 1.2.035.073 2670 916923 Methodi 00:00:00 00:00:[address] 3.430.2.7 0.2.7.3.698 Ho spita .3.237389 084.8 l .8 2021-06-26 2021-06-26 Travel 1.2.840.1 1.2.975.228 9433 585215 Methodi 00:00:00 00:00:[address] 3.430.2.7 0.2.7.3.698 Ho spita .3.640648 084.8 l .8 2021-06-18 2021-06-18 Telephone NARGIS Suarez 1.2.806.691 8662 2556 Univers 00:00:00 00:00:00 Jenna RAIN 350.1.13.10 it y of [facility] 4.2.7.2.686 Osbaldo as [phone] [address] 2021-06-17 2021-06-17 [facility] [id number] Univers 10:40:00 11:17:02 [facility] 2021-06-17 2021-06-17 Urgent Marybeth Taveras [facility] 1.2.840 .114 [id number] Univers 10:40:00 11:17:02 Care Royal Barrios [facility] 350.1.13.10 ity [facility] 4.2.7.2.686 [place] as DANNIE?BLEA [phone] [address] MEDICAL OFFICE BUILDING 2021-03-30 2021-04-07 Office Cheng 1.2.840.1 [id number] 1523 Methodi 10:00:00 15:59:50 Visit Chary Love 19133.1.[address] 3.430.2.7 Hospit a .3.591688 l .8 2021-03-30 2021-03-30 Office Marcio 1.2.840.3 [id number] 88500 17642 Methodi 08:30:00 08:46:56 Visit Tanja Díaz 93817.1.1 493 s t 3.430.2.7 Hospit a .3.749554 l .8 2021-03-30 2021-03-30 Travel 1.2.840.1 1.2.920.392 7244 921824 Methodi 00:00:00 00:00:[address] 3.430.2.7 0.2.7.3.698 Ho spita .3.268352 084.8 l .8 2021-03-24 2021-03-24 Travel 1.2.840.1 1.2.958.287 6327 033075 Methodi 00:00:00 00:00:[address] 3.430.2.7 0.2.7.3.698 Ho spita .3.177275 084.8 l .8 2021-03-07 2021-03-07 Travel 1.2.840.1 1.2.111.293 7057 768652 Methodi 00:00:00 00:00:[address] 3.430.2.7 0.2.7.3.698 Ho spita .3.114607 084.8 l .8 2021-02-23 2021-02-23 Travel 1.2.840.1 1.2.949.845 0735 161533 Methodi 00:00:00 00:00:[address] 3.430.2.7 0.2.7.3.698 Ho spita .3.027914 084.8 l .8 2021-01-30 2021-01-30 Urgent Sophie [facility] 1.2.840.114 [id number] Univers 11:20:00 11:40:00 Care [facility] 350.1.13.10 it y of [place] 4.2.7.2.686 Osbaldo as DANNIE?BLEA [phone] Ut claire [address] MEDICAL OFFICE BUILDING 2021-01-30 2021-01-30 Outpatient R SOPHIE [facility] [id number] Univers 11:20:00 11:20:00 ROYAL khanna [facility] 2021-01-30 2021-01-30 Orders Doctor NARGIS 1.2.840.114 [id number] Univers 00:00:00 00:00:00 Only Unassigned, KOFFI 350.1.13.10 ity of [place] [facility] 4.2.7.2.686 Osbaldo as [phone] [facility] [address] [place] 2021-01-21 2021-01-21 Urgent [facility] 1.2.840.114 [id number] Univers 11:21:55 11:41:55 Care [facility] 350.1.13.10 it y of [place] 4.2.7.2.686 [place] as DANNIE?BLEA [phone] [address] MEDICAL OFFICE BUILDING 2021-01-21 2021-01-21 [facility] [id number] Univers 11:40:00 11:40:00 AMITA [facility] 2021-01-12 2021-01-13 Emergency X [facility] ERT [id number] Univers 21:49:00 00:47:00 General acute hospital 2021-01-12 2021-01-13 Emergency [facility] 1.2.325.247 [id number] [id number] Univers 21:49:00 00:47:00 Chrissy HAYNES 350.1.13.10 ity of [place] 4.2.7.2.686 [place] [facility] [phone] [facility] 0[address] [place] 2020-12-01 2020-12-06 Office Marcio, 1.2.840.5 [id number] 37817 Methodi 09:30:00 11:54:40 Visit Tanja Díaz 72318.1.1 743 s t 3.430.2.7 Hospit a .3.370824 l .8 2020-12-01 2020-12-01 Travel 1.2.840.1 1.2.261.983 6915 565032 Methodi 00:00:00 00:00:[address] 3.430.2.7 0.2.7.3.698 Ho spita .3.430589 084.8 l .8 2020-11-09 2020-11-09 Outpatient SHIVER, [facility] [id number] [place] 00:00:00 00:00:00 [place] [address] 2020-09-22 2020-09-23 Outpatient nullFlavo [facility] [id number] Memoria 16:30:00 04:59:59 r Primary 04 l [facility] 2020-09-22 2020-09-23 Outpatient nullFlavo [facility] [id number] Memoria 16:30:00 04:59:59 r Primary 04 l [facility] 2020-09-22 2020-09-22 Outpatient Shiver, [facility] [id number] 11:30:00 23:59:59 Charlotte Hoang 2020-09-22 2020-09-22 Ambulatory nullFlavo [facility] [id number] Memoria 16:30:00 16:30:00 Pre-Reg r Primary 03 l Care [facility] 2020-09-22 2020-09-22 Ambulatory nullFlavo [facility] [id number] Memoria 16:30:00 16:30:00 Pre-Reg r Primary 03 l [facility] 2020-09-22 2020-09-22 Outpatient MHIE [facility] [id number] Memoria 11:30:00 11:30:00 04 curtis Zaleski 2020-09-22 2020-09-22 Outpatient MHIE [facility] [id number] Memoria 11:30:00 11:30:00 03 curtis Zaleski 2020-09-22 2020-09-22 Outpatient Shiver, [facility] [id number] 11:30:00 11:30:00 Charlotte Hoang 2020-09-13 2020-09-15 Phone nullFlavo [facility] [id number] Memoria 15:33:13 04:59:59 Message r Primary 05 l [facility] 2020-09-13 2020-09-15 Phone nullFlavo [facility] [id number] Memoria 15:33:13 04:59:59 Message r Primary 05 l [facility] 2020-09-13 2020-09-14 Outpatient [facility] [id number] 655 10:33:13 23:59:59 05 2020-09-07 2020-09-07 Outpatient RAJESH [facility] [id number] [place] 00:00:00 00:00:00 KELSEY 622 Method i 2020-08-31 2020-08-31 Outpatient MARCIO [facility] [id number] [place] 00:00:00 00:00:00 KELTY 048 Method i 2020-08-04 2020-08-06 Phone nullFlavo [facility] [id number] Memoria 15:40:35 04:59:59 Message r Primary 04 [facility] 2020-08-04 2020-08-06 Phone nullFlavo [facility] [id number] Memoria 15:40:35 04:59:59 Message r Primary 04 [facility] 2020-08-04 2020-08-05 Outpatient [facility] [id number] 655 10:40:35 23:59:59 04 2020-03-21 2020-03-21 Outpatient RAJESH [facility] 300 [id number] [place] 00:00:00 00:00:00 KELSEY 622 Method i 2020-03-17 2020-03-17 Outpatient MHIE [facility] [id number] Memoria 13:30:00 13:30:00 02 curtis Zaleski 2020-03-17 2020-03-17 Outpatient MHIE [facility] [id number] Memoria 13:30:00 13:30:00 02 curtis Zaleski 2020-03-17 2020-03-17 Outpatient RAJESH [facility] [id number] [place] 00:00:00 00:00:00 KELSEY 093 Method i 2020-03-16 2020-03-16 Outpatient [facility] [id number] [place] 00:00:00 00:00:00 692 Method i 2020-03-07 2020-03-07 Outpatient MARCIO [facility] [id number] [place] 00:00:00 00:00:00 KELTY 414 Method i 2020-02-24 2020-02-24 Outpatient [facility] [id number] [place] 00:00:00 00:00:00 941 Method i 2020-01-27 2020-01-27 Outpatient TANYA, [facility] [id number] [place] 00:00:00 00:00:00 TEJAS 977 Method i 2020-01-01 2020-01-01 Outpatient MARCIO, [facility] [id number] [place] 00:00:00 00:00:00 TYLERTY 197 Method i 2020-01-01 2020-01-01 Outpatient MARCIO, [facility] [id number] [place] 00:00:00 00:00:00 TANJA 036 Method i 2019-11-09 2019-11-09 Outpatient MARCIO, [facility] [id number] [place] 00:00:00 00:00:00 TANJA 569 Method i 2019-11-05 2019-11-05 Telephone GABRIEL Rico 1.2.840.114 [id number] [facility] 00:00:00 00:00:00 [facility] 350.1.13.10 i [facility] 4.2.7.2.[place] [phone] [facility] [address] [place] 2019-08-17 2019-08-17 Outpatient MARCIO, [facility] [id number] [place] 00:00:00 00:00:00 TANJA 919 Method i 2019-07-27 2019-07-29 Phone nullFlavo [facility] [id number] Memoria 15:04:00 04:59:59 Message r Internal 03 l [facility] 2019-07-27 2019-07-29 Phone nullFlavo [facility] [id number] Memoria 15:04:00 04:59:59 Message r Internal 03 l [facility] 2019-07-27 2019-07-29 Phone nullFlavo [facility] [id number] Memoria 15:03:36 04:59:59 Message r Internal 02 l [facility] 2019-07-27 2019-07-29 Phone nullFlavo [facility] [id number] Memoria 15:03:36 04:59:59 Message r Internal 02 l [facility] 2019-07-27 2019-07-28 Outpatient [facility] [id number] 655 10:04:00 23:59:59 03 2019-07-27 2019-07-28 Outpatient [facility] [id number] 655 10:03:36 23:59:59 02 2019-07-22 2019-07-22 Outpatient MARCIO [facility] [id number] [place] 00:00:00 00:00:00 TANJA [address] 2019-07-17 2019-07-18 Between nullFlavo [facility] [id number] Memoria 21:03:39 21:03:39 Visit r Internal 04 l [facility] 2019-07-17 2019-07-18 Between nullFlavo [facility] [id number] Memoria 21:03:39 21:03:39 Visit r Internal 04 [facility] 2019-07-17 2019-07-18 Outpatient [facility] [id number] 16:03:39 16:03:39 04 2019-07-14 2019-07-15 Outpatient nullFlavo [facility] [id number] Memoria 16:20:00 04:59:59 r Internal 01 [facility] 2019-07-14 2019-07-15 Outpatient nullFlavo [facility] [id number] Memoria 16:20:00 04:59:59 r Internal 01 [facility] 2019-07-14 2019-07-14 Outpatient Shiclaudine, MHMG MH[facility] [id number] 11:20:00 23:59:59 [place] M 2019-07-14 2019-07-14 Outpatient MHIE MHIE [id number] Memoria 11:20:00 11:20:00 01 [facility] 2019-07-02 2019-07-02 Outpatient LAWRENCE GREENBERG [facility] [id number] [facility] 14:00:00 14:00:00 LAWRENCE REBOLLEDO i [facility] 2019-06-25 2019-06-25 Outpatient RAJESH [facility] [id number] [place] 00:00:00 00:00:00 [address]VI [address] 2019-06-24 2019-06-24 Telephone FellowGABRIEL [id number] [facility] 00:00:00 00:00:00 Pulmonary Y HEALTH [id number] ity of [facility] [id number] [id number] [address] 2019-06-10 2019-06-10 Transition Aylin Stinson [id number] Univers 00:00:00 00:00:00 of Care Rudi Dolan [id number] ity of [place] [id number] Hailey myles [id number] [address] 2019-06-04 2019-06-09 [facility] Chrissy Negrete 1.2.840. [id number] [facility] 23:37:35 16:50:00 Encounter Kimmy Trevizo [id number]. 10 [facility] [id number] [id number] [facility] Junior Carlos [phone] [address] 2019-06-04 2019-06-09 Inpatient X ED[facility]O [facility] [id number] [facility] 23:37:35 16:50:00 [facility] 2019-04-28 2019-04-30 Phone nullFlavo [facility] [id number] Memoria 19:11:18 04:59:59 Message r Internal 01 l Medicine [facility] 2019-04-28 2019-04-30 Phone nullFlavo [facility]MG [id number] Memoria 19:11:18 04:59:59 Message r Internal 01 l Medicine [facility] 2019-04-28 2019-04-29 Outpatient MHMG [facility] [id number] 14:11:18 23:59:59 01 2019-04-29 2019-04-29 Outpatient [facility] [id number] [place] 00:00:00 00:00:00 TANJA [address] 2019-04-28 2019-04-28 Outpatient [facility] [id number] [place] 00:00:00 00:00:00 TANJA [address] 2019-04-28 2019-04-28 Outpatient ALKA [facility] [id number] [place] 00:00:00 00:00:00 [place] [address] 2019-04-23 2019-04-24 Between nullFlavo [facility] [id number] Memoria 21:46:04 21:46:04 Visit r Internal 02 l Medicine [facility] 2019-04-23 2019-04-24 Between nullFlavo [facility] [id number] Memoria 21:46:04 21:46:04 Visit r Internal 02 l Medicine [facility] 2019-04-23 2019-04-24 Outpatient MG MG [id number] 16:46:04 16:46:04 02 2019-04-21 2019-04-23 Phone nullFlavo MG [id number] Memoria 16:23:04 04:59:59 Message r Internal 00 l Medicine [facility] 2019-04-21 2019-04-23 Phone nullFlavo MG [id number] Memoria 16:23:04 04:59:59 Message r Internal 00 l Medicine [facility] 2019-04-21 2019-04-22 Outpatient MG MG [id number] 11:23:04 23:59:59 00 2019-04-13 2019-04-14 Outpatient nullFlavo [facility] [id number] Memoria 16:00:00 05:59:59 r Internal 00 l Medicine [facility] 2019-04-13 2019-04-14 Outpatient nullFlavo [facility] [id number] Memoria 16:00:00 05:59:59 r Internal 00 l Medicine [facility] 2019-04-13 2019-04-13 Outpatient Shiver, MG [facility] [id number] 10:00:00 23:59:59 [place] 2019-04-13 2019-04-13 Outpatient [facility] [id number] Memoria 10:00:00 10:00:00 00 [facility] 2019-03-26 2019-03-26 Outpatient [facility] [id number] [place] 00:00:00 00:00:00 TANJA [address] 2018-12-03 2018-12-03 Outpatient [facility] [id number] 00:00:00 00:00:00 TANJA [address] [...] eGFR is based on the CKD-EPI 202 equation. To ca lculate the new eGFR fr om a previous Creati nine or Cystatin Cresul t, go to [email or web address] /[email or web address]/ [email or web address]/g fr%5Fcalculator [Automated mess age] The system eShares generated this result transmitted ref erence range: > OR = 6 0 mL/min/1.73m2. The reference range was not used to int erpret this result as normal/abnormal . BUN/creatinine ratio (test NOT APPLICABLE See_Comment [Automated message] code = 3097-3) The system bluebird bio generated this result transmitted ref erence range: 6 - 22 ( calc). The reference r delmy was not used to interpret this result as normal/abnor mal. Sodium (test code = 138 mmol/L 538-954 6068-2) Potassium (test code = 4.7 mmol/L 3.5-5.3 2823-3) Chloride (test code = 97 mmol/L 98-110 L 2075-0) CO2 (test code = 2027-9) 32 mmol/L 20-32 Calcium (test code = 9.9 mg/dL 8.6-10.4 27525-2) BETO (test code = BETO) FASTING:NO FASTING: NO RAC (test code = RAC) Performing Organization Information: Site ID: RGA [facility] Address: [address] [place] [address] Director: Andrade Barron Lab Interpretation (test Abnormal code = 37407-8) [facility] metabolic [id number] 06:33:00 Test Item Value Reference Range Interpretation [...] Creatinine or Cystatin Cresul t, go to [email or web address] ca lculator [Automated message] The [...] . Sodium (test code = 138 mmol/L 150-054 5820-2) Potassium (test code 4.7 mmol/L 3.5-5.3 = 2823-3) Chloride (test code 97 mmol/L 98-110 L = 2075-0) CO2 (test code = 32 mmol/L 20-32 2027-9) Calcium (test code = 9.9 mg/dL 8.6-10.4 24812-1) BETO (test code = FASTING:NO BETO) FASTING: NO RAC (test code = Performing RAC) Organization Information: Site ID: RGA [facility] Address: [address] [place] [address] Director: Andrade Barron Lab Interpretation Abnormal (test code = 40255-0) [facility] [id number] 06:33:00 Test Item Value Reference Range Interpretation Comments Protein (test code 6.9 g/dL 6.1-8.1 = 2885-2) Albumin, S (test 4.5 g/dL 3.6-5.1 code = 1751-7) Globulin, total See_Comment [Automated (test code = message] The 67027-4) system which generated this result transmitted reference range : 1.9 - 3.7 g/dL (calc). The reference range was not used to interpret this result as normal/abnormal . Albumin/globulin See_Comment [Automated ratio (test code = message] The 3210) system which generated this result transmitted reference range : 1.0 - 2.5 (calc ). The reference range was not used to interpr et this result as normal/abnormal . Total bilirubin 0.4 mg/dL 0.2-1.2 (test code = 1974-) Bilirubin direct 0.1 mg/dL See_Comment [Automated (test [...] = Performing RAC) Organization Information: Site ID: [facility] Name: [facility] Lab Address: [address] [place] [address] Director: Chris Ville [id number] 06:33:00 Test Item Value Reference Range Interpretation Comments LDH (test code = 125 U/L 120-250 97416-0) BETO (test code = FASTING:NO FASTING: NO BETO) RAC (test code = Performing Organization RAC) Information: Site ID: [facility] Name: [facility] Lab Address: [address] [place] [address] Director: [facility] metabolic [id number] 06:33:00 Test Item Value Reference Range Interpretation [...] Cystatin Cresul t, go to [email or web address] [email or web address] ca lculator [Automated message] The system [...] . Sodium (test code = 138 mmol/L 228-415 2846-2) Potassium (test code 4.7 mmol/L 3.5-5.3 = 2823-3) Chloride (test code 97 mmol/L 98-110 L = 2075-0) CO2 (test code = 32 mmol/L 20-32 2027-) Calcium (test code = 9.9 mg/dL 8.6-10.4 48329-8) BETO (test code = FASTING:NO BETO) FASTING: NO RAC (test code = Performing RAC) Organization Information: Site ID: RGA [facility]: [facility] Address: [address] [place] [address] Director: Andrade Barron Lab Interpretation Abnormal (test code = 13621-8) [facility] metabolic [id number] 06:33:00 Test Item Value Reference Range Interpretation [...] Cystatin Cresul t, go to [email or web address] [email or web address] ca lculator [Automated message] The system [...] . Sodium (test code = 138 mmol/L 822-868 9404-2) Potassium (test code 4.7 mmol/L 3.5-5.3 = 2823-3) Chloride (test code 97 mmol/L 98-110 L = 2075-0) CO2 (test code = 32 mmol/L 20-2027-10) Calcium (test code = 9.9 mg/dL 8.6-10.4 13695-7) BETO (test code = FASTING:NO BETO) FASTING: NO RAC (test code = Performing RAC) Organization Information: Site ID: RGA Name: [employer] [facility] Lab Address: [address] [place] [address] Director: Andrade Barron Lab Interpretation Abnormal (test code = 88769-7) [facility] metabolic [id number] 06:33:00 Test Item Value Reference Range Interpretation Comments Glucose (test code = 96 mg/dL 65-139 Non-fa sting 2345-7) reference interval BUN (test code = 15 mg/dL - 3094-0) Creatinine (test 0.92 mg/dL 0.60-0.95 code = 2160-0) eGFR (test code = 62 See_Comment The eGFR i s based 8257) [...] . Sodium (test code = 138 mmol/L 235-242 9623-2) Potassium (test code 4.7 mmol/L 3.5-5.3 = 2823-3) Chloride (test code 97 mmol/L 98-110 L = 2075-0) CO2 (test code = 32 mmol/L 20-32 2027-9) Calcium (test code = 9.9 mg/dL 8.6-10.4 83605-4) BETO (test code = FASTING:NO BETO) FASTING: NO RAC (test code = Performing RAC) Organization Information: Site ID: A [facility]: [facility] Address: [address] [place] [address] Director: Andrade Barron Lab Interpretation Abnormal (test code = 49663-5) [facility] MOLECULAR [id number] 16:08:58 Test Item Value Reference Range Interpretation Comments POCT Molecular Strep (test code = Negative Negative 59096-5) Lab Interpretation (test code = Normal 82400-4) [facility] [id number] 08:58:00 Test Item Value Reference Range Interpretation Comments Ferritin level (test 47 ng/mL code = 2276-4) BETO (test code = BETO) FASTING:NO FASTING: NO RAC (test code = RAC) Performing Organization Information: Site ID: [facility] Name: [facility] Lab Address: [address] [place] [address] Director: Andrade Barron [facility] with platelet and lftvmphzvyma7956-45-88 08:58:00 Test Item Value Reference Range Interpretation Comments WBC (test code = See_Comment [Automated 5208-2) message] The system which generated this result transmitted reference range : 3.8 - 10.8 Thousand/uL. Th e reference range was not used to interpret this result as normal/abnormal . RBC (test code = See_Comment [Automated 468-8) message] The system which generated this result [...] RAC) Organization Information: Site ID: RGA Name: [facility] Lab Address: [address] [place] [address] Director: Andrade Barron Lab Interpretation Abnormal (test code = 65312-4) [facility] iron binding [id number] 08:58:00 Test Item Value Reference Range Interpretation [...] = Performing RAC) Organization Information: Site ID: [facility] Name: [facility] Lab Address: [address] [place] [address] Director: [facility]rade [facility]Ferrit[facility] [id number] 08:58:00 Test Item Value Reference Range Interpretation Comments Ferritin level (test 47 ng/mL 16-288 code = 2276-4) BETO (test code = BETO) FASTING:NO FASTING: NO RAC (test code = RAC) Performing Organization Information: Site ID: [facility] Name: [facility] Lab Address: [address] [place] [address] Director: Andrade Barron [facility] with platelet and [id number] 08:58:00 Test Item Value Reference Range Interpretation Comments WBC (test code = See_Comment [Automated 8390-2) message] The system which generated this result transmitted reference range : 3.8 - 10.8 Thousand/uL. Th e reference range was not used to interpret this result as normal/abnormal . RBC (test code = See_Comment [Automated 828-8) message] The system which generated this result [...] absolute See_Comment [Automa mahnaz (test code = 744-7) message] The system which generated this result [...] = Performing RAC) Organization Information: Site ID: [facility]: [facility] Address: [address] [place] [address] Director: Andarde Barron Lab Interpretation Abnormal (test code = 78084-5) [facility] iron binding [id number] 08:58:00 Test Item Value Reference Range Interpretation [...] = Performing RAC) Organization Information: Site ID: [facility] Name: [facility] Lab Address: [address] [place] [address] Director: Andrade Barron [facility] [id number] 08:58:00 Test Item Value Reference Range Interpretation Comments Ferritin level (test 47 ng/mL 16- code = 2276-4) BETO (test code = BETO) FASTING:NO FASTING: NO RAC (test code = RAC) Performing Organization Information: Site ID: [facility] Name: [facility] Address: [address] [place] [address] Director: Andrade Barron [facility] with platelet and ohmujayrgtlu9949-07-53 08:58:00 Test Item Value Reference Range Interpretation Comments WBC (test code = See_Comment [Automated 2690-2) message] The system which generated this result transmitted reference range : 3.8 - 10.8 Thousand/uL. Th e reference range was not used to interpret this result as normal/abnormal . RBC (test code = See_Comment [Automated 789-8) message] The system which generated this result [...] = Performing RAC) Organization Information: Site ID: [facility]: [facility] Address: [address] [place] [address] Director: Andrade Barron Lab Interpretation Abnormal (test code = 03266-3) [facility] iron binding [id number] 08:58:00 Test Item Value Reference Range Interpretation [...] RAC) Organization Information: Site ID: A [facility]: [facility] Lab Address: [address] [place] [address] [place] [address] Director: Andrade Barron [facility] urinalysis [id number] 15:40:00 Test Item Value Reference Range Interpretation Comments Color urine, POC (test Yellow code = 1277446) Clarity urine, POC (test Cloudy code = 3975101) Glucose urine, POC (test Negative Negative code = 4941407) Bilirubin urine, POC Negative Negative (test code = 9216461) Ketones urine, POC (test Negative Negative code = 7869174) Specific gravity urine, 1.005-1.030 POC (test code = 1295831) Blood urine, POC (test Trace Negative A code = 4538732) pH urine, POC (test code See_Comment [A utomated message] = 9785263) The system Zazoom h generated this result transmitted ref erence range: 5.0, 5.5 , 6.0, 6.5, 7.0, 7.5, 8.0, 8.5. The refere nce range was not u sed to interpret this result as normal/abnor mal. Protein urine, POC (test Negative Negative code = 6045509) Urobilinogen urine, POC <2.0 See_Comment [Au tomated message] (test code = 6495692) The sy stem which generated this result transmitted ref erence range: <=2.0. T he reference range was not used to int erpret this result as normal/abnormal . Nitrite urine, POC (test Positive Negative A code = 2426582) Leukocyte esterase Large Negative A urine, POC (test code = 8524781) Lab Interpretation (test Abnormal code = 17813-3) [facility] urinalysis [id number] 15:40:00 Test Item Value Reference Range Interpretation Comments Color urine, POC (test Yellow code = 2268116) Clarity urine, POC (test Cloudy code = 5235193) Glucose urine, POC (test Negative Negative code = 4807284) Bilirubin urine, POC Negative Negative (test code = 0903506) Ketones urine, POC (test Negative Negative code = 4473053) Specific gravity urine, 1.005-1.030 POC (test code = 7066166) Blood urine, POC (test Trace Negative A code = 4987272) pH urine, POC (test code See_Comment [A utomated message] = 4721026) The system eShares generated this result transmitted ref erence range: 5.0, 5.5 , 6.0, 6.5, 7.0, 7.5, 8.0, 8.5. The refere nce range was not u sed to interpret this result as normal/abnor mal. Protein urine, POC (test Negative Negative code = 6186625) Urobilinogen urine, POC <2.0 See_Comment [Au tomated message] (test code = 3616984) The sy stem which generated this result transmitted ref erence range: <=2.0. T he reference range was not used to int erpret this result as normal/abnormal . Nitrite urine, POC (test Positive Negative A code = 8046299) Leukocyte esterase Large Negative A urine, POC (test code = 0769471) Lab Interpretation (test Abnormal code = 39548-1) [facility] urinalysis [id number] 15:40:00 Test Item Value Reference Range Interpretation Comments Color urine, POC (test Yellow code = 8976062) Clarity urine, POC (test Cloudy code = 5574386) Glucose urine, POC (test Negative Negative code = 8624903) Bilirubin urine, POC Negative Negative (test code = 9805551) Ketones urine, POC (test Negative Negative code = 2308027) Specific gravity urine, 1.005-1.030 POC (test code = 5001596) Blood urine, POC (test Trace Negative A code = 2875511) pH urine, POC (test code See_Comment [A utomated message] = 5071303) The system eShares generated this result transmitted ref erence range: 5.0, 5.5 , 6.0, 6.5, 7.0, 7.5, 8.0, 8.5. The refere nce range was not u sed to interpret this result as normal/abnor mal. Protein urine, POC (test Negative Negative code = 9382257) Urobilinogen urine, POC <2.0 See_Comment [Au tomated message] (test code = 2705891) The sy stem which generated this result transmitted ref erence range: <=2.0. T he reference range was not used to int erpret this result as normal/abnormal . Nitrite urine, POC (test Positive Negative A code = 2991889) Leukocyte esterase Large Negative A urine, POC (test code = 8505932) Lab Interpretation (test Abnormal code = 93225-0) [facility] W SPECIFIC [id number] 18:10:00 Test Item Value Reference Range Interpretation [...] and BETO) interpretation of all internal controls [facility] RNA [Presence] in Respiratory specimen by JONN with probe [id number] 16:33:31 Test Item Value Reference Range Interpretation Comments SARS-CoV-2 (COVID-19) RNA Not detected Not-Detected [Presence] in Respiratory specimen by JONN with probe detection (test code = 29041-2) [facility] [id number] 12:34:00 Test Item Value Reference Range Interpretation Comments MAGNESIUM (test code = 1958209128) 1.5 mg/dL 1.7-2.4 L Lab Interpretation (test code = Abnormal 69175-2) [facility] METABOLIC PANEL (NA, K, CL, CO2, GLUCOSE, BUN, CREATININE, CA)2019-06-09 11:42:00 Test Item Value Reference Range Interpretation Comments NA (test code = 134 mmol/L 135-145 L 3833421258) K (test code = 3.9 mmol/L 3.5-5 3880662473) CL (test code = 98 mmol/L 98-108 3569181000) CO2 TOTAL (test code = 26 mmol/L 23-31 7469863475) AGAP (test code = 2-16 3252513957) BUN (test code = 8 mg/dL 7-23 4812143970) GLUCOSE (test code = 108 mg/dL 70-110 7463429101) CREATININE (test code = 0.67 mg/dL 0.5-1.04 4580432759) CALCIUM (test code = 9.4 mg/dL 8.6-10.6 1289304992) eGFR Calculation mL/min/1.73m2 (Non-) (test code = 3472196699) eGFR Calculation mL/min/1.73m2 () (test code = 9937868151) BETO (test code = BETO) Association of [...] tests). Lab Interpretation Abnormal (test code = 32545-4) [facility] WITH [id number] 11:20:00 Test Item Value Reference Range Interpretation [...] RDW-SD (test code = 44.4 fL 39-49.9 08224-8) RDW-CV (test code = 12.9 % 12-15.5 788-0) PLT (test code = See_Comment [Automated 777-3) message] The sy stem which generated this result transmitted reference range : 166 - 358 10*3/ ?L. The reference r delmy was not used to interpret this result as normal/abnormal . MPV (test code = 8.7 fL 9.5-12.9 L 26153-3) NRBC/100 WBC (test See_Comment [Automat ed code = 7075298326) message] The system which generated this result transmitted reference range : 0.0 - 10.0 /100 WBCs. The refer ence range was not u sed to interpret th is result as normal/abnormal . NRBC x10^3 (test code <0.01 See_Comment [Auto mated = 6897380523) message] The s ystem which generated this result transmitted reference range : 10*3/?L. The reference range was not used to interpret this result as normal/abnormal . GRAN MAT (NEUT) % 54.8 % (test code = 770-8) IMM GRAN % (test code 0.80 % = 2467751549) LYMPH % (test code = 22.9 % 736-9) MONO % (test code = 14.8 % 5905-5) EOS % (test code = 6.2 % 713-8) BASO % (test code = 0.5 % 706-2) GRAN MAT x10^3(ANC) 2.03 10*3/uL 1.88-7.09 (test code = 8371116486) IMM GRAN x10^3 (test 0.03 10*3/uL 0-0.06 code = 2361126059) LYMPH x10^3 (test code 0.85 10*3/uL 1.32-3.29 L = 731-0) MONO x10^3 (test code 0.55 10*3/uL 0.33-0.92 = 742-7) EOS x10^3 (test code = 0.23 10*3/uL 0.03-0.39 711-2) BASO x10^3 (test code <0.03 0.01-0.07 = 704-7) Lab Interpretation Abnormal (test code = 87771-6) [facility] 2 [id number] 17:33:18 Blunting of the left costophrenic sinus [...] be consistent with atelectasis butinfectious processcannot be excluded.[facility] CenterPROTHROMBIN TIME / [id number] 12:00:00 Test Item Value Reference Range Interpretation [...] tions. Lab Interpretation (test Normal code = 22913-7) [facility] WITH [id number] 10:09:00 Test Item Value Reference Range Interpretation Comments WBC (test code = See_Comment L [Automated 7690-2) message] The sy stem which generated this result transmitted reference range : 4.30 - 11.10 10*3/?L. The reference range was not used to interpret this result as normal/abnormal . RBC (test code = See_Comment L [Automated 649-8) message] The sy stem which generated this [...] RDW-SD (test code = 44.6 fL 39-49.9 24507-3) RDW-CV (test code = 13.0 % 12-15.5 788-0) PLT (test code = See_Comment [Automated 777-3) message] The sy stem which generated this result transmitted reference range : 166 - 358 10*3/ ?L. The reference r delmy was not used to interpret this result as normal/abnormal . MPV (test code = 8.9 fL 9.5-12.9 L 49806-4) NRBC/100 WBC (test See_Comment [Automat ed code = 3302858873) message] The system which generated this result transmitted reference range : 0.0 - 10.0 /100 WBCs. The refer ence range was not u sed to interpret th is result as normal/abnormal . NRBC x10^3 (test code <0.01 See_Comment [Auto mated = 1073251791) message] The s ystem which generated this result transmitted reference range : 10*3/?L. The reference range was not used to interpret this result as normal/abnormal . GRAN MAT (NEUT) % 46.8 % (test code = 770-8) IMM GRAN % (test code 1.00 % = 3805298794) LYMPH % (test code = 28.5 % 736-9) MONO % (test code = 15.4 % 5905-5) EOS % (test code = 7.8 % 713-8) BASO % (test code = 0.5 % 706-2) GRAN MAT x10^3(ANC) 1.79 10*3/uL 1.88-7.09 L (test code = 2678545564) IMM GRAN x10^3 (test 0.04 10*3/uL 0-0.06 code = 1158682536) LYMPH x10^3 (test code 1.09 10*3/uL 1.32-3.29 L = 731-0) MONO x10^3 (test code 0.59 10*3/uL 0.33-0.92 = 742-7) EOS x10^3 (test code = 0.30 10*3/uL 0.03-0.39 711-2) BASO x10^3 (test code <0.03 0.01-0.07 = 704-7) LG GRAN LYMPHS (test Rare Rare code = 5552979423) PROLYMPHS (test code = Rare 1606039455) Lab Interpretation Abnormal (test code = 83085-6) [facility] METABOLIC PANEL (NA, K, CL, CO2, GLUCOSE, BUN, CREATININE, CA)2019-06-08 09:53:00 Test Item Value Reference Range Interpretation Comments NA (test code = 133 mmol/L 135-145 L 9605717402) K (test code = 3.9 mmol/L 3.5-5 9731205787) CL (test code = 99 mmol/L 98-108 8145732556) CO2 TOTAL (test code = 25 mmol/L 23-31 5408314965) AGAP (test code = 2-16 2988135513) BUN (test code = 6 mg/dL 7-23 L 7516477251) GLUCOSE (test code = 95 mg/dL 70-110 1119373493) CREATININE (test code = 0.57 mg/dL 0.5-1.04 8110359598) CALCIUM (test code = 9.1 mg/dL 8.6-10.6 6403183576) eGFR Calculation mL/min/1.73m2 (Non-) (test code = 0813264093) eGFR Calculation mL/min/1.73m2 () (test code = 0599928317) BETO (test code = BETO) Association of [...] tests). Lab Interpretation Abnormal (test code = 76562-4) [facility] Test Item Value Reference Range Interpretation Comments APTT Patient (test code See_Comment H [Au tomated message] = 3173-2) The system eShares generated this result transmitted ref erence range: 26 - 36 Seconds. The reference range was not used to int erpret this result as normal/abnormal . Lab Interpretation (test Abnormal code = 59158-3) [facility] 02:44:00 Test Item Value Reference Range Interpretation Comments APTT Patient (test code See_Comment H [Au tomated message] = 3173-2) The system [employer] generated this result transmitted ref erence range: 26 - 36 Seconds. The reference range was not used to int erpret this result as normal/abnormal . Lab Interpretation (test Abnormal code = 61831-9) [facility] 20:04:00 Test Item Value Reference Range Interpretation Comments APTT Patient (test code See_Comment H [Au tomated message] = 3173-2) The system [employer] generated this result transmitted ref erence range: 26 - 36 Seconds. The reference range was not used to int erpret this result as normal/abnormal . Lab Interpretation (test Abnormal code = 11193-7) [facility] CenterSPUTUM [id number] 16:19:00 Test Item Value Reference Range Interpretation [...] aeruginosa and Staphylococcus aureus (MRSA or MSSA). [facility] METABOLIC PANEL (NA, K, CL, CO2, GLUCOSE, BUN, CREATININE, CA)2019-06-07 07:50:00 Test Item Value Reference Range Interpretation Comments NA (test code = 131 mmol/L 135-145 L 4103036461) K (test code = 4.2 mmol/L 3.5-5 6376877540) CL (test code = 97 mmol/L 98-108 L 4923113164) CO2 TOTAL (test code = 24 mmol/L 23-31 2932144699) AGAP (test code = 2-16 4479243762) BUN (test code = 8 mg/dL 7-23 2530534624) GLUCOSE (test code = 103 mg/dL 70-110 6263614941) CREATININE (test code = 0.59 mg/dL 0.5-1.04 1947415967) CALCIUM (test code = 8.7 mg/dL 8.6-10.6 1803587661) eGFR Calculation mL/min/1.73m2 (Non-) (test code = 7218352254) eGFR Calculation mL/min/1.73m2 () (test code = 5845382802) BETO (test code = BETO) Association of [...] tests). Lab Interpretation Abnormal (test code = 12613-2) [facility] 07:47:00 Test Item Value Reference Range Interpretation Comments APTT Patient (test code See_Comment H [Au tomated message] = 3173-2) The system [employer] generated this result transmitted ref erence range: 26 - 36 Seconds. The reference range was not used to int erpret this result as normal/abnormal . Lab Interpretation (test Abnormal code = 98248-8) [facility] WITH [id number] 07:42:00 Test Item Value Reference Range Interpretation Comments WBC (test code = See_Comment L [Automated 6190-2) message] The sy stem which generated this result transmitted reference range : 4.30 - 11.10 10*3/?L. The reference range was not used to interpret this result as normal/abnormal . RBC (test code = See_Comment L [Automated 819-8) message] The sy stem which generated this [...] RDW-SD (test code = 43.9 fL 39-49.9 06579-0) RDW-CV (test code = 12.8 % 12-15.5 788-0) PLT (test code = See_Comment [Automated 777-3) message] The sy stem which generated this result transmitted reference range : 166 - 358 10*3/ ?L. The reference r delmy was not used to interpret this result as normal/abnormal . MPV (test code = 8.9 fL 9.5-12.9 L 94119-4) NRBC/100 WBC (test See_Comment [Automat ed code = 7508236248) message] The system which generated this result transmitted reference range : 0.0 - 10.0 /100 WBCs. The refer ence range was not u sed to interpret th is result as normal/abnormal . NRBC x10^3 (test code <0.01 See_Comment [Auto mated = 5354588194) message] The s ystem which generated this result transmitted reference range : 10*3/?L. The reference range was not used to interpret this result as normal/abnormal . GRAN MAT (NEUT) % 53.3 % (test code = 770-8) IMM GRAN % (test code 1.40 % = 9264094728) LYMPH % (test code = 26.0 % 736-9) MONO % (test code = 11.9 % 5905-5) EOS % (test code = 6.9 % 713-8) BASO % (test code = 0.5 % 706-2) GRAN MAT x10^3(ANC) 2.24 10*3/uL 1.88-7.09 (test code = 5048028552) IMM GRAN x10^3 (test 0.06 10*3/uL 0-0.06 code = 5730310012) LYMPH x10^3 (test code 1.09 10*3/uL 1.32-3.29 L = 731-0) MONO x10^3 (test code 0.50 10*3/uL 0.33-0.92 = 742-7) EOS x10^3 (test code = 0.29 10*3/uL 0.03-0.39 711-2) BASO x10^3 (test code <0.03 0.01-0.07 = 704-7) Lab Interpretation Abnormal (test code = 10193-4) [facility]00 Test Item Value Reference Range Interpretation Comments APTT Patient (test code See_Comment H [Au tomated message] = 6733-2) The system [employer] generated this result transmitted ref erence range: 26 - 36 Seconds. The reference range was not used to int erpret this result as normal/abnormal . Lab Interpretation (test Abnormal code = 43811-7) [facility]REACTIVE [id number] 16:40:00 Test Item Value Reference Range Interpretation Comments CRP (test code = 7952407179) 9.0 mg/dL <0.8 H Lab Interpretation (test code = Abnormal 91362-9) [facility] (NA, K, CL, CO2, GLUCOSE, BUN, CREATININE, CA)2019-06-06 13:42:00 Test Item Value Reference Range Interpretation Comments NA (test code = 127 mmol/L 135-145 L 5864400210) K (test code = 3.9 mmol/L 3.5-5 9078120936) CL (test code = 93 mmol/L 98-108 L 3518965589) CO2 TOTAL (test code = 26 mmol/L 23-31 4394411787) AGAP (test code = 2-16 4416653977) BUN (test code = 8 mg/dL 7-23 4343456788) GLUCOSE (test code = 136 mg/dL 70-110 H 5360545501) CREATININE (test code = 0.68 mg/dL 0.5-1.04 9996058062) CALCIUM (test code = 8.6 mg/dL 8.6-10.6 3901550353) eGFR Calculation mL/min/1.73m2 (Non-) (test code = 7447937216) eGFR Calculation mL/min/1.73m2 () (test code = 3441362414) BETO (test code = BETO) Association of [...] tests). Lab Interpretation Abnormal (test code = 40415-5) [facility] 10:57:00 Test Item Value Reference Range Interpretation Comments APTT Patient (test code See_Comment H [Au tomated message] = 3173-2) The system [employer] generated this result transmitted ref erence range: 26 - 36 Seconds. The reference range was not used to int erpret this result as normal/abnormal . Lab Interpretation (test Abnormal code = 22812-3) [facility] 05:40:00 Test Item Value Reference Range Interpretation Comments APTT Patient (test code See_Comment H [Au tomated message] = 3173-2) The system [employer] generated this result transmitted ref erence range: 26 - 36 Seconds. The reference range was not used to int erpret this result as normal/abnormal . Lab Interpretation (test Abnormal code = 47170-0) [facility]-19 [id number] 01:05:00 Test Item Value Reference Range Interpretation Comments SARS-CoV-2 (test code = Not Detected Not Detected 80046-4) BETO (test code = BETO) [place] [facility] SARS-CoV-2 Assay is a real-time RT-PCR test intended for the qualitative detection of RNA from SARS-CoV-2 from nasopharyngeal (ACTIVITY COORDINATOR) specimens. It is used under Emergency Use [...] indicated. Lab Interpretation Normal (test code = 38813-8) [facility] CenterPROCALCITONIN2020-[facility] 20:47:00 Test Item Value Reference Range Interpretation Comments Procalcitonin (test 0.04 ng/mL <0.07 code = 4552177838) BETO (test code = BETO) INTERPRETATION OF [...] lung abscess/empyema. For further information please refer to:[email or web address] Lab Interpretation Normal (test code = 55343-3) [facility] (NA, K, CL, CO2, GLUCOSE, BUN, CREATININE, CA)2019-06-05 20:11:00 Test Item Value Reference Range Interpretation Comments NA (test code = 126 mmol/L 135-145 L 4858996939) K (test code = 4.4 mmol/L 3.5-5 6983359258) CL (test code = 90 mmol/L 98-108 L 4600303587) CO2 TOTAL (test code = 24 mmol/L 23-31 9693391277) AGAP (test code = 2-16 0644047005) BUN (test code = 9 mg/dL 7-23 9112512074) GLUCOSE (test code = 96 mg/dL 70-110 0647506656) CREATININE (test code = 0.59 mg/dL 0.5-1.04 6228994944) CALCIUM (test code = 9.3 mg/dL 8.6-10.6 2991186494) eGFR Calculation mL/min/1.73m2 (Non-) (test code = 0634783321) eGFR Calculation mL/min/1.73m2 () (test code = 3523198996) BETO (test code = BETO) Association of [...] tests). Lab Interpretation Abnormal (test code = 87643-1) [facility] CenterFERRITIN [id number] 19:51:00 Test Item Value Reference Range Interpretation Comments FERRITIN (test code = 132.0 ng/mL 4031713158) BETO (test code = BETO) Biotin has been reported to cause a negative bias, interpret results relative to patient's use of biotin. Lab Interpretation (test Normal code = 64648-3) [facility] CenterCORTISOL PM [id number] 19:17:00 Test Item Value Reference Range Interpretation Comments JAK PM (test code = 15.2 ug/dL 1.7-14 H 8224256142) BETO (test code = BETO) Biotin has been reported to cause a positive bias, interpret results relative to patient's use of biotin. Lab Interpretation (test Abnormal code = 49060-4) [facility] CenterLACTATE [id number] 18:46:00 Test Item Value Reference Range Interpretation Comments LDH (test code = 5931829807) 475 U/L 300-600 Lab Interpretation (test code = Normal 23419-1) [facility] CenterProthrombin Time (PT) / [id number] 17:56:00 Test Item Value Reference Range Interpretation Comments PROTIME PATIENT (test See_Comment H [Auto mated message] code = 5964-2) The system bluebird bio generated this result transmitted ref erence range: 10.1 - 1 2.6 Seconds. The reference range was not used to int erpret this result as normal/abnormal . INR (test code = 6301-6) Nor mal INR <1.1; Warfarin Therap eutic range 2.0 to 3. 0 or 2.5 to 3.5, dep ending upon the indica tions. Lab Interpretation (test Abnormal code = 95252-1) [facility] 17:56:00 Test Item Value Reference Range Interpretation Comments APTT Patient (test code = See_Comment [ Automated message] 3173-2) The system [employer] generated this result transmitted ref erence range: 26 - 36 Seconds. The re ference range was not u sed to interpret this result as normal/abnor mal. Lab Interpretation (test Normal code = 89764-8) [facility] CenterTHYROID STIMULATING [id number] 15:53:00 Test Item Value Reference Range Interpretation Comments TSH (test code = See_Comment [Automated message] 8691456329) The system [employer] generated this result transmitted ref erence range: 0.45 - 4 .70 mIU/L. The refe rence range was not u sed to interpret this result as normal/abnor mal. Lab Interpretation (test Normal code = 89408-4) [facility] CenterMAGNESIUM2020-04-24 15:22:00 Test Item Value Reference Range Interpretation Comments MAGNESIUM (test code = 7599582862) 1.4 mg/dL 1.7-2.4 L Lab Interpretation (test code = Abnormal 30324-7) [facility] CenterCT THORAX WO CONTRAST [id number] 13:10:38 Mucus plugging of the lobar and [...] Disease Control (CDC) and recent statement ofthe [employer], viral testing remains the [...] gy-cm DLP COMPARISON: Same day chest x-ray [facility], Radiant Results Inft User - 06/05/2019 8:11 [...] Disease Control (CDC) and recent statement ofthe [employer], viral testing remains the only specificmethod of diagnosis even if CXR or CT findings are suggestive of COVID-19.Preliminary Report Dictated by Resident: Jono Wiggins MD., have reviewed this study and agree with the abovereport.[facility] CenterXR CHEST 1 VW [id number] 13:01:01 1. ?Retrocardiac opacities may be secondary to atelectasis or infection.These findings are atypicalfor COVID19 pneumonia. 2. ?Small bilateral pleural effusions, left more than right. Disclaimer: Generally, the findings on chest imaging in COVID-19 are notspecific, and overlap with other infections, including influenza, H1N1,SARS and MERS.According to the Centers for Disease Control (CDC) and the [employer], viral testing remains the only [...] Centers for Disease Control (CDC) and the [employer], viral testing remains theonly specific method of diagnosiseven if CXR or CT findings are suggestive of COVID-19. Preliminary Report Dictated by Resident: Sheial Rodriguez, Jono Campos MD., have reviewed this study and agree withthe abovereport.[facility] CenterROXANNA [id number] 05:28:00 Test Item Value Reference Range Interpretation Comments TROPONIN I (test <0.012 See_Comment [Automated code = 6134516999) message] The system which generated this result [...] ? Lab Interpretation Normal (test code = 32903-0) [facility] CenterN-TERMINAL [id number] 05:25:00 Test Item Value Reference Range Interpretation Comments NT-proBNP (test code 345 pg/mL See_Comment [Autom ated = 9310790296) message] The system which generated this result transmitted reference range : <=450. The reference range was not used to interpret this result as normal/abnormal . BETO (test code = BETO) Biotin has been reported to cause a negative bias, interpret results relative to patient's use of biotin. Lab Interpretation Normal (test code = 25682-3) [facility] WITH [id number] 05:23:00 Test Item Value Reference Range Interpretation Comments WBC (test code = See_Comment [Automated 0590-2) message] The sy stem which generated this result transmitted reference range : 4.30 - 11.10 10*3/?L. The reference range was not used to interpret this result as normal/abnormal . RBC (test code = See_Comment L [Automated 639-8) message] The sy stem which generated this [...] RDW-SD (test code = 42.0 fL 39-49.9 79219-2) RDW-CV (test code = 12.5 % 12-15.5 788-0) PLT (test code = See_Comment [Automated 777-3) message] The sy stem which generated this result transmitted reference range : 166 - 358 10*3/ ?L. The reference r delmy was not used to interpret this result as normal/abnormal . MPV (test code = 8.8 fL 9.5-12.9 L 17700-8) NRBC/100 WBC (test See_Comment [Automat ed code = 3845814054) message] The system which generated this result transmitted reference range : 0.0 - 10.0 /100 WBCs. The refer ence range was not u sed to interpret th is result as normal/abnormal . NRBC x10^3 (test code <0.01 See_Comment [Auto mated = 0156830500) message] The s ystem which generated this result transmitted reference range : 10*3/?L. The reference range was not used to interpret this result as normal/abnormal . GRAN MAT (NEUT) % 63.5 % (test code = 770-8) IMM GRAN % (test code 2.10 % = 6080271049) LYMPH % (test code = 19.7 % 736-9) MONO % (test code = 10.8 % 5905-5) EOS % (test code = 3.6 % 713-8) BASO % (test code = 0.3 % 706-2) GRAN MAT x10^3(ANC) 5.50 10*3/uL 1.88-7.09 (test code = 3534627312) IMM GRAN x10^3 (test 0.18 10*3/uL 0-0.06 H code = 6309841351) LYMPH x10^3 (test code 1.70 10*3/uL 1.32-3.29 = 731-0) MONO x10^3 (test code 0.93 10*3/uL 0.33-0.92 H = 742-7) EOS x10^3 (test code = 0.31 10*3/uL 0.03-0.39 711-2) BASO x10^3 (test code 0.03 10*3/uL 0.01-0.07 = 704-7) Lab Interpretation Abnormal (test code = 91403-0) [facility] CenterURINALYSIS2020-[facility]-24 05:21:00 Test Item Value Reference Range Interpretation Comments APPEARANCE (test code = Clear Clear 6201191798) COLOR (test code = Yellow Yellow 2312296450) PH (test code = 4.8-8.0 1720055026) SP GRAVITY (test code = 1.003-1.030 2287331413) GLU U QUAL (test code = Negative Negative 9009970382) BLOOD (test code = Negative Negative 7845423822) KETONES (test code = Negative Negative 5794582767) PROTEIN (test code = Negative Negative 2887-8) UROBILIN (test code = 0.2 mg/dL See_Comment [Auto mated message] 0731998747) The system [employer] generated this result transmit mahnaz reference range : 0-1.0 mg/dL. Th e reference range was not used to interpret this result as normal/abnormal . BILIRUBIN (test code = Negative Negative 3379086421) NITRITE (test code = Negative Negative 4498555743) LEUK VERENICE (test code = Negative Negative 9534856346) RBC/HPF (test code = See_Comment [Autom ated message] 0821595527) The system [employer] generated this result transmit mahnaz reference range : 0 - 3 HPF. The refe rence range was not u sed to interpret th is result as normal/abnormal . WBC/HPF (test code = See_Comment [Autom ated message] 6608418313) The system [employer] generated this result transmit mahnaz reference range : 0 - 5 HPF. The refe rence range was not u sed to interpret th is result as normal/abnormal . BACTERIA (test code = Few Negative A 8519402112) SQ EPITH (test code = HPF 4747904290) Lab Interpretation (test Abnormal code = 81369-0) [facility] CenterCORON[facility] COVID-19 [id number] 05:21:00 Test Item Value Reference Range Interpretation Comments SARS-CoV-2 (test code = Not Detected Not Detected 67323-4) BETO (test code = BETO) ID NOW COVID-19 Assay is an isothermal nucleic acid amplification test intended for the qualitative detection of nucleic acid from SARS-CoV-2 viral RNA in nasopharyngeal (ACTIVITY COORDINATOR) specimens. It is used under Emergency Use [...] indicated. Lab Interpretation Normal (test code = 99215-2) [facility] CenterPROTHROMBIN TIME / [id number] 05:16:00 Test Item Value Reference Range Interpretation Comments PROTIME PATIENT (test See_Comment H [Auto mated message] code = 5964-2) The system bluebird bio generated this result transmitted ref erence range: 12.0 - 1 4.7 Seconds. The reference range was not used to int erpret this result as normal/abnormal . INR (test code = 6301-6) Nor mal INR <1.1; Warfarin Therap eutic range 2.0 to 3. 0 or 2.5 to 3.5, dep ending upon the indica tions. Lab Interpretation (test Abnormal code = 83031-3) [facility] CenterCOM. METABOLIC PANEL (30008)2019-06-05 05:16:00 Test Item Value Reference Range Interpretation Comments NA (test code = 125 mmol/L 135-145 L 3621990468) K (test code = 4.0 mmol/L 3.5-5 6514250520) CL (test code = 87 mmol/L 98-108 L 0119473646) CO2 TOTAL (test code = 24 mmol/L 23-31 7647291889) AGAP (test code = 2-16 4386367184) BUN (test code = 12 mg/dL 7-23 3200332226) GLUCOSE (test code = 123 mg/dL 70-110 H 1386707527) CREATININE (test code = 0.76 mg/dL 0.5-1.04 1094266945) TOTAL BILI (test code = 0.5 mg/dL 0.1-1.2 7806710167) CALCIUM (test code = 9.6 mg/dL 8.6-10.6 6497275472) T PROTEIN (test code = 7.6 g/dL 6.3-8.2 1560756193) ALBUMIN (test code = 4.5 g/dL 3.5-5 0688520995) ALK PHOS (test code = 96 U/L 34-122 6013619803) ALTv (test code = 13 U/L 5-35 1742-6) AST(SGOT) (test code = 26 U/L 13-40 8004104271) eGFR Calculation mL/min/1.73m2 (Non-) (test code = 8384080467) eGFR Calculation mL/min/1.73m2 () (test code = 3215386095) BETO (test code = BETO) Association of [...] tests). Lab Interpretation Abnormal (test code = 26071-8) [facility]"
[2022-04-20] MEDS ORDERED: LEVALBUTEROL 1.25 MG/3 ML NEB ONE (16:04)
[2022-04-20 16:32] LABS: Absolute Lymphocytes (CBC) 1.5 K/uL (0.7-4.9); Hematocrit 37.9 % (36.0-45.0); Lymphocytes % 33.7 % (15.3-44.8); MCV 90.9 fL (80-100); MPV 7.9 fL (7.6-11.3); RBC Red Blood Cell Count 4.16 M/uL (3.86-4.86)
[2022-04-20 16:33] LABS: Protime INR 2.3
[2022-04-20] MEDS ORDERED: METHYLPREDNISOLONE 40 MG INJ ONE (16:43)
[2022-04-20] MEDS ORDERED: FUROSEMIDE 20 MG/ 2ML VIAL ONE (16:43)
[2022-04-20 16:52] LABS: Urine Blood Negative (Negative); Urine Glucose Negative (Negative); Urine Protein Negative (Negative); Urine Specific Gravity 1.015 (1.005-1.030)
[2022-04-20 16:55] LABS: Magnesium 1.9 mg/dL (1.6-2.4); Potassium 3.8 mmol/L (3.5-5.1); Troponin High Sensitivity 16.5 pg/mL (<58.9)
--- NOTE | 2022-04-20 17:02 | RAD REPORT ---
EXAM DESCRIPTION: RADChest Single View04/20/2022 4:25 pm CLINICAL HISTORY: SOB COMPARISON: Chest Single View dated 04/18/2022; Chest Single View dated 12/31/2018; Chest Pa And Lat ( 2 Views) dated 12/11/2018 TECHNIQUE: Portable AP view of the chest. FINDINGS: The lungs are clear.Mild bibasilar atelectasis. No pneumothorax or effusion. The cardiomed iastinal contours are unremarkable. IMPRESSION: No acute cardiopulmonary process.
[2022-04-20 17:25] LABS: Urine Bacteria 20-50 /HPF (<20); Urine Mucus Slight /HPF (None Seen); Urine RBC <5 /HPF (None Seen); Urine WBC Clump Rare /HPF (None Seen)
--- NOTE | 2022-04-20 18:49 | RAD REPORT ---
EXAM DESCRIPTION: CT - Thorax Wo Con - 04/20/2022 6:14 pm CLINICAL HISTORY: SOB COMPARISON: Chest Single View dated 04/20/2022 TECHNIQUE: Axial thin cut images of the chest were obtained without IV contrast. Multiplanar reforma ts were generated and reviewed. All CT scans are performed using dose optimization technique as appropriate and may include automated exposure control or mA/KV adjustment according to patient size. FINDINGS: No mass or focal consolidation in the lungs. Peripheral posterior upper segment left lower lobe, and similar region in the peripheral right lower lobe demonstrating multifocal micro nodules a nd tree-in-bud opacities, could reflect early infectious or inflammatory process. Mild bibasilar subs egmental atelectasis. . No pleural thickening or pleural effusion. No pneumothorax. No abnormal mediastinal or hilar masses or lymphadenopathy seen. Calcifications along the mitral valv e annulus and moderate coronary artery calcifications. Mild aneurysmal dilation of the ascending thor acic aorta, measuring 4.2 centimeter in greatest caliber. No significant aortic or pulmonary artery f indings. Assessment is limited in the absence of IV contrast. No chest wall mass or abnormal axillary lymphadenopathy. Evaluation of the solid abdominal structures reveals no suspicious findings. IMPRESSION: Posterior upper segment left lower lobe, and peripheral right lower lobe areas of multif ocal micro nodules and tree-in-bud opacities could reflect an early infectious or inflammatory proces s. Mild fusiform aneurysmal dilation of the ascending thoracic aorta, measuring 4.2 centimeter in calibe r.
[2022-04-20] MEDS ORDERED: AZITHROMYCIN 250 MG TAB ONE (19:16)
[2022-04-20] MEDS ORDERED: CEFTRIAXONE 1000 MG/VIAL ONE (19:17)
[2022-04-20 21:30] VITALS: TEMP 97.9
[2022-04-20 21:35] VITALS: BP 129/78; O2SAT 98
--- NOTE | 2022-04-23 13:11 | EKG ---
Test Date: 2022-04-20 Test Time: 15:53:54 Cold Strip Roller: GORGE MEASUREMENT RESULTS: Intervals: Rate: 93 [place]: QRSD: 98 QT: 392 QTc: 487 [place]: P: MT: QRS: -13 T: 94 INTERPRETIVE STATEMENTS: Atrial fibrillation with premature ventricular or aberrantly conducted complexes Low voltage QRS Cannot rule out Anterior infarct, age undetermined Abnormal ECG Compared to ECG 04/18/2022 18:24:06 Left-axis deviation no longer present Myocardial infarct finding still present Electronically Signed On 04-23-22 13:06:38 CDT by [employer]
--- NOTE | 2022-04-23 16:28 | EKG ---
Test Date: 2022-04-20 Test Time: 15:54:21 Environmental Program Manager: GORGE MEASUREMENT RESULTS: Intervals: Rate: 98 [place]: QRSD: 92 QT: 370 QTc: 472 [place]: P: [place]: QRS: -41 T: 92 INTERPRETIVE STATEMENTS: Sinus rhythm Left axis deviation Low voltage QRS Cannot rule out Anterior infarct, age undetermined Abnormal ECG Compared to ECG 04/20/2022 15:53:54 Left-axis deviation now present Ventricular premature complex(es) no longer present Myocardial infarct finding still present Electronically Signed On 04-23-22 16:28:06 CDT by [employer]
--- NOTE | 2022-05-04 16:09 | ER ---
Nurse's Notes [facility] Name: Bertha Connell Age: 81 yrs Sex: Female : 1940 Arrival Date: 04/20/2022 Time: 15:16 Bed 20 Private MD: Diagnosis: COPD/ Chronic obstructive pulmonary disease with acute lower respiratory infection;UTI/ Urinary tract infection, site not specified Presentation: 04/20 15:35 Chief complaint: Patient states: "Having trouble breathing", pt unable to take a deep ph breath, states she was seen here Saturday for the same complaint, felt somewhat better, but started having trouble with the same issues yesterday. Pt able to ambulate to room with no signs of distress noted. Denies chest pain and/or tightness. Complains of a slight headache. Coronavirus screen: Vaccine status: Patient reports receiving the 2nd dose of the covid vaccine. Ebola Screen: No symptoms or risks identified at this time. Initial Sepsis Screen: Does the patient meet any 2 criteria? HR > 90 bpm. No. Patient's initial sepsis screen is negative. Does the patient have a suspected source of infection? No. Patient's initial sepsis screen is negative. Risk Assessment: Do you want to hurt yourself or someone else? Patient reports no desire to harm self or others. Onset of symptoms was April 19, 2022. 15:35 Method Of Arrival: Ambulatory 15:35 Acuity: SUSY 3 ph Triage Assessment: 15:50 General: Appears in no apparent distress. comfortable, Behavior is calm, cooperative, ph appropriate for age. Pain: Complains of pain in head Pain currently is 3 out of 10 on a pain scale. Quality of pain is described as aching, Pain began 1 day ago. Historical: - Allergies: 15:50 IV contrast; ph 15:50 Iodine; ph - Home Meds: 15:50 benzonatate 100 mg Oral capsule 1 cap 2 times per day [Active]; flecainide 50 mg Oral ph tablet 1 tab every 12 hours [Active]; Advair Diskus 500-50 mcg/dose inhalation Blister, With Inhalation Device [Active]; fenofibrate 40 mg Oral tab 1 tab daily [Active]; hydrochlorothiazide 12.5 mg Oral tab 1 tab once daily [Active]; Bystolic 2.5 mg Oral tab 2 tabs once daily [Active]; losartan 100 mg Oral tab 1 tab once daily [Active]; Unithroid 88 mcg Oral tablet 1 tab daily [Active]; Xarelto 15 mg Oral tab 1 tab daily [Active]; Dexilant 30 mg Oral CpDB 1 cap once daily [Active]; estradiol 0.05 mg/24 hr transdermal patch, transdermal semiweekly 1 patch 2 times per week [Active]; - PMHx: 15:50 Atrial Fib; Hypertension; COPD; Asthma; GERD; lymphocytic lymphoma; Bronchiectasis; ph - Immunization history:: Client reports receiving the 2nd dose of the Covid vaccine. - Social history:: Smoking status: Patient denies any tobacco usage or history of. Screenin:[address] [facility] ED Fall Risk Assessment (Adult) History of falling in the last 3 months, kc6 including since admission No falls in past 3 months (0 pts) Confusion or Disorientation No (0 pts) Intoxicated or Sedated No (0 pts) Impaired Gait No (0 pts) Mobility Assist Device Used No (0 pt) Altered Elimination No (0 pt) Score/Fall Risk Level 0 - 2 = Low Risk Oriented to surroundings, Maintained a safe environment, Educated pt \\T\\ family on fall prevention, incl call for assistance when getting out of bed, Assessed \\T\\ reinforced patient's understanding of fall precautions, Hourly rounding (assess needs \\T\\ fall precautionary measures) done. Abuse screen: Denies threats or abuse. Denies injuries from another. Nutritional screening: No deficits noted. Tuberculosis screening: No symptoms or risk factors identified. Assessment: 15:42 General: Appears in no apparent distress. comfortable, Behavior is calm, cooperative, kc6 appropriate for age. Pain: Complains of pain in "headache" Pain does not radiate. Pain currently is 3 out of 10 on a pain scale. Pain began 1 day ago. Is continuous, Alleviated by nothing. Also complains of no other associated symptoms. Neuro: Steiner Agitation-Sedation Scale (RASS): 0 - Alert and Calm Level of Consciousness is awake, alert, obeys commands, Oriented to person, place, time, situation, Appropriate for age. Cardiovascular: Heart tones S1 S2 present Capillary refill < 3 seconds Rhythm is sinus rhythm Chest pain is denied. Respiratory: Reports shortness of breath Airway is patent Trachea midline Respiratory effort is even, unlabored, Respiratory pattern is regular, symmetrical. GI: No signs and/or symptoms were reported involving the gastrointestinal system. : No signs and/or symptoms were reported regarding the genitourinary system. EENT: No signs and/or symptoms were reported regarding the EENT system. Derm: No signs and/or symptoms reported regarding the dermatologic system. Skin is intact, Skin is pink, warm \\T\\ dry. Musculoskeletal: No signs and/or symptoms reported regarding the musculoskeletal system. Circulation, motion, and sensation intact. Capillary refill < 3 seconds, Range of motion: intact in all extremities. 16:42 Reassessment: Patient appears in no apparent distress at this time. No changes from kc6 previously documented assessment. Patient and/or family updated on plan of care and expected duration. Pain level reassessed. Patient is alert, oriented x 3, equal unlabored respirations, skin warm/dry/pink. Patient denies pain at this time. 17:42 Reassessment: Patient appears in no apparent distress at this time. No changes from kc6 previously documented assessment. Patient and/or family updated on plan of care and expected duration. Pain level reassessed. Patient is alert, oriented x 3, equal unlabored respirations, skin warm/dry/pink. Patient denies pain at this time. 19:03 Reassessment: Patient is alert, oriented x 3, equal unlabored respirations, skin jj7 warm/dry/pink. ASSUMED CARE OF PT. PT SITTING UP IN BED. NO PAIN OR DISTRESS AT THIS TIME. VS STABLE. NO NEEDS AT THIS TIME. Vital Signs: 15:35 BP 128 / 76; Pulse 106; Resp 14; Temp 97.9(O); Pulse Ox 99% on R/A; Weight 74.84 kg; ph Height 5 ft. 4 in. ; 17:08 BP 106 / 69; Pulse 93; Resp 16 S; Pulse Ox 96% on R/A; Pain 0/10; kc6 18:09 BP 111 / 74; Pulse 92; Resp 14 S; Pulse Ox 97% on R/A; Pain 0/10; kc6 19:03 BP 119 / 71; Pulse 95; Resp 17; Pulse Ox 100% on R/A; Pain 0/10; jj7 19:35 BP 129 / 78; Pulse 94; Resp 19; Pulse Ox 98% ; Pain 0/10; jj7 15:35 Body Mass Index 28.32 (74.84 kg, 162.56 cm) ph 17:08 Pain Scale: Adult kc6 18:09 Pain Scale: Adult kc6 19:03 Pain Scale: Adult jj7 19:35 Pain Scale: Adult jj7 ED Course: 15:16 Patient arrived in ED. jj6 15:25 Radhames Camara PA is PHCP. cp 15:25 Jay Mcguire MD is Attending Physician. cp 15:35 Candace Meza RN is Primary Nurse. kc6 15:44 Patient has correct armband on for positive identification. Placed in gown. Bed in low kc6 position. Call light in reach. Side rails up X2. Adult w/ patient. Client placed on continuous cardiac and pulse oximetry monitoring. NIBP monitoring applied. bus driver/monitor on. 15:44 Arm band placed on. kc6 15:50 Triage completed. ph 16:10 Inserted saline lock: 20 gauge in right antecubital area, using aseptic technique. kc6 Blood collected. Patient maintains SpO2 saturation greater than 95% on room air. 16:27 XRAY Chest (1 view) In Process Unspecified. EDMS 16:52 Urine Microscopic Only Sent. kc6 18:16 CT Chest Wo Con In Process Unspecified. EDMS 18:45 Troponin HS: repeat at 1900 Sent. kc6 19:03 No provider procedures requiring assistance completed. jj7 19:36 IV discontinued, intact, bleeding controlled, No redness/swelling at site. Pressure jj7 dressing applied. Administered Medications: 16:09 Drug: Levalbuterol Inhalation 1.25 mg Route: Inhalation; kc6 16:21 Follow up: Response: No adverse reaction kc6 16:45 Drug: MethylPrednisoLONE IVP 80 mg Route: IVP; Site: right antecubital; kc6 17:45 Follow up: Response: No adverse reaction kc6 16:45 Drug: Furosemide IVP 20 mg Route: IVP; Site: right antecubital; kc6 17:45 Follow up: Response: No adverse reaction kc6 19:01 CANCELLED (Physician Discretion): Rocephin IV 1 grams IV at calculated rate once; Given cp slow IV push per pharmacy instructions 19:28 Drug: AZITHromycin PO 500 mg Route: PO; jj7 19:29 Drug: Rocephin IV 1 grams Route: IV; Rate: calculated rate; Site: right antecubital; jj7 Medication: 19:03 VIS not applicable for this client. jj7 Outcome: 19:22 Discharge ordered by . taryn 19:36 Discharged to home ambulatory, with significant other. jj7 19:36 Condition: good 19:36 Discharge instructions given to patient, significant other, Instructed on discharge instructions, follow up and referral plans. medication usage, Demonstrated understanding of instructions, follow-up care, medications, Prescriptions given X 4. 19:41 Patient left the ED. jj7 Signatures: Dispatcher [employer] EDSandra Hensley RN RN ph Radhames Camara, PA PA Chinyere Turnerj6 Candace Meza RN RN kc6 Samantha Berg RN RN jj7 Corrections: (The following items were deleted from the chart) 15:57 15:50 PMHx: Hypothyroidism; ph ph 15:57 15:50 PMHx: Hyperlipidemia; ph ph 15:57 15:50 PMHx: Gout; ph ph 04/21 19:20 19:19 Response: No adverse reaction chayo domingo
--- NOTE | 2022-05-04 16:09 | EDPHYS ---
Physician Documentation [facility] Name: Bertha Connell Age: 81 yrs Sex: Female : 1940 Arrival Date: 04/20/2022 Time: 15:16 Bed 20 Private MD: ED Physician Jay Mcguire HPI: 04/20 15:53 This 81 yrs old Female presents to ER via Ambulatory with complaints of Chest Pain, cp Chest Tightness. 15:53 The patient has shortness of breath at rest. Onset: The symptoms/episode began/occurred cp gradually, and became worse today. 15:53 Duration: The symptoms are continuous, and are steadily getting worse. Associated signs cp and symptoms: Pertinent positives: chest pain, non-productive cough, Pertinent negatives: fever, hemoptysis, vomiting. Severity of symptoms: in the emergency department the symptoms are unchanged despite home interventions. The patient has been recently seen at the [facility] Emergency Department, this week, for similar complaints labs were performed, X-rays were performed, prescribed Lasix. Historical: - Allergies: 15:50 IV contrast; ph 15:50 Iodine; ph - Home Meds: 15:50 benzonatate 100 mg Oral capsule 1 cap 2 times per day [Active]; flecainide 50 mg Oral ph tablet 1 tab every 12 hours [Active]; Advair Diskus 500-50 mcg/dose inhalation Blister, With Inhalation Device [Active]; fenofibrate 40 mg Oral tab 1 tab daily [Active]; hydrochlorothiazide 12.5 mg Oral tab 1 tab once daily [Active]; Bystolic 2.5 mg Oral tab 2 tabs once daily [Active]; losartan 100 mg Oral tab 1 tab once daily [Active]; Unithroid 88 mcg Oral tablet 1 tab daily [Active]; Xarelto 15 mg Oral tab 1 tab daily [Active]; Dexilant 30 mg Oral CpDB 1 cap once daily [Active]; estradiol 0.05 mg/24 hr transdermal patch, transdermal semiweekly 1 patch 2 times per week [Active]; - PMHx: 15:50 Atrial Fib; Hypertension; COPD; Asthma; GERD; lymphocytic lymphoma; Bronchiectasis; ph - Immunization history:: Client reports receiving the 2nd dose of the Covid vaccine. - Social history:: Smoking status: Patient denies any tobacco usage or history of. ROS: 15:55 Constitutional: Negative for body aches, chills, fever, poor PO intake. cp 15:55 Eyes: Negative for injury, pain, redness, and discharge. cp 15:55 ENT: Negative for drainage from ear(s), ear pain, sore throat, difficulty swallowing, difficulty handling secretions. 15:55 Cardiovascular: Positive for chest pain, Negative for edema, palpitations. 15:55 Respiratory: Positive for cough, shortness of breath. 15:55 Abdomen/GI: Negative for abdominal pain, vomiting, diarrhea, constipation. 15:55 Back: Negative for pain at rest, pain with movement. 15:55 Neuro: Negative for altered mental status, dizziness, headache, numbness, syncope, weakness. 15:55 All other systems are negative. Exam: 15:57 ECG was reviewed by the Attending Physician. cp 16:00 Constitutional: The patient appears in no acute distress, alert, awake, cp non-diaphoretic, non-toxic, well developed, well nourished, uncomfortable. 16:00 Head/Face: Normocephalic, atraumatic. cp 16:00 Eyes: Periorbital structures: appear normal, Conjunctiva: normal, no exudate, no injection, Sclera: no appreciated abnormality, Lids and lashes: appear normal, bilaterally. 16:00 ENT: External ear(s): are unremarkable, Ear canal(s): are normal, clear, TM's: dullness, bilaterally, Nose: is normal, Mouth: Lips: moist, Oral mucosa: pink and intact, moist, Posterior pharynx: is normal, airway is patent, no erythema, no exudate. 16:00 Neck: ROM/movement: is normal, is supple, without pain, no range of motions limitations, no meningismus, Lymph nodes: no appreciated lymphadenopathy. 16:00 Chest/axilla: Inspection: normal, Palpation: is normal, no crepitus, no tenderness. 16:00 Cardiovascular: Rate: tachycardic, Rhythm: regular, Edema: is not appreciated, JVD: is not appreciated. 16:00 Respiratory: the patient does not display signs of respiratory distress, Respirations: labored breathing, that is mild, intercostal retractions, are absent, Breath sounds: bronchial sounds, that are mild, are heard diffusely, decreased breath sounds, are not appreciated, stridor, is not appreciated, wheezing: is not appreciated. 16:00 Abdomen/GI: Inspection: abdomen appears normal, Palpation: abdomen is soft and non-tender, in all quadrants. 16:00 Back: pain, is absent, ROM is normal. 16:00 Skin: no rash present. 16:00 Neuro: Orientation: to person, place \T\ time. Mentation: is normal, Cerebellar function: is grossly normal, Motor: moves all fours, strength is normal, Sensation: is normal. Vital Signs: 15:35 BP 128 / 76; Pulse 106; Resp 14; Temp 97.9(O); Pulse Ox 99% on R/A; Weight 74.84 kg; ph Height 5 ft. 4 in. ; 17:08 BP 106 / 69; Pulse 93; Resp 16 S; Pulse Ox 96% on R/A; Pain 0/10; kc6 18:09 BP 111 / 74; Pulse 92; Resp 14 S; Pulse Ox 97% on R/A; Pain 0/10; kc6 19:03 BP 119 / 71; Pulse 95; Resp 17; Pulse Ox 100% on R/A; Pain 0/10; jj7 19:35 BP 129 / 78; Pulse 94; Resp 19; Pulse Ox 98% ; Pain 0/10; jj7 15:35 Body Mass Index 28.32 (74.84 kg, 162.56 cm) ph 17:08 Pain Scale: Adult kc6 18:09 Pain Scale: Adult kc6 19:03 Pain Scale: Adult jj7 19:35 Pain Scale: Adult jj7 MDM: 15:37 Patient medically screened. cp 16:00 Differential diagnosis: Anxiety Reaction asthma, Bronchitis CHF exacerbation, Chronic cp Obstructive Pulmonary Disease pneumonia, Pneumothorax pulmonary edema, Pulmonary Embolism Sepsis Unstable Angina. 19:20 Antibiotic administration: The patient is discharged and will get outpatient antibiotics, Zithromax. Data interpreted: foot tender: rhythm is normal sinus rhythm, Pulse oximetry: on room air is 98 %. Interpretation: normal. 19:20 Data reviewed: vital signs, nurses notes, lab test result(s), EKG, radiologic studies, cp CT scan, plain films. Consideration of Admission/Observation Escalation of care including admission/observation considered. I considered the following discharge prescriptions or medication management in the emergency department Medications were administered in the Emergency Department. See MAR. Test considered but Not performed: CT: chest with contrast r/o PE. Care significantly affected by the following chronic conditions: Chronic Obstructive Pulmonary Disease, asthma. Counseling: I had a detailed discussion with the patient and/or guardian regarding: the historical points, exam findings, and any diagnostic results supporting the discharge/admit diagnosis, lab results, radiology results, the need for outpatient follow up, a family practitioner, to return to the emergency department if symptoms worsen or persist or if there are any questions or concerns that arise at home. Response to treatment: the patient's symptoms have markedly improved after treatment, and as a result, I will discharge patient. Special discussion: Based on the patient's history, exam, and Dx evaluation, there is no indication for emergent intervention or inpatient Tx. It is understood by the patient/guardian that if the Sx's persist or worsen they need to return immediately for re-evaluation. 04/20 15:50 Order name: Basic Metabolic Panel; Complete Time: 17:14 cp 04/20 17:14 Interpretation: Normal except: NA 134; CL 97; GLUC 124; CRE 1.15; GFR 47. cp 04/20 15:50 Order name: CBC with Diff; Complete Time: 17:14 cp 04/20 15:50 Order name: Magnesium; Complete Time: 17:14 cp 04/20 15:50 Order name: NT PRO-BNP; Complete Time: 17:14 cp 10 15:50 Order name: PT-INR; Complete Time: 17:14 cp 04/20 15:50 Order name: Troponin HS; Complete Time: 17:14 cp 04/20 16:32 Order name: Urine Microscopic Only; Complete Time: 17:49 cp 04/20 17:49 Interpretation: UBACT 20-50; Reviewed. cp 04/20 16:52 Order name: Urine Dipstick-Ancillary; Complete Time: 17:14 EDMS 04/20 18:30 Order name: Troponin HS: repeat at 1900; Complete Time: 19:18 cp 04/20 15:50 Order name: XRAY Chest (1 view); Complete Time: 17:14 cp 04/20 17:50 Order name: CT Chest Wo Con; Complete Time: 18:53 cp 04/20 15:50 Order name: EKG; Complete Time: 15:51 cp 04/20 15:50 Order name: Cardiac monitoring; Complete Time: 15:57 cp 04/20 15:50 Order name: EKG - Nurse/Tech; Complete Time: 15:57 cp 04/20 15:50 Order name: IV Saline Lock; Complete Time: 16:10 cp 04/20 15:50 Order name: Labs collected and sent; Complete Time: 16:10 cp 04/20 15:50 Order name: O2 Per Protocol; Complete Time: 15:57 cp 04/20 15:50 Order name: O2 Sat Monitoring; Complete Time: 15:57 cp 04/20 16:32 Order name: Urine Dipstick-Ancillary (obtain specimen); Complete Time: 16:52 cp EC:57 Rate is 93 beats/min. Rhythm is irregular. QRS interval is normal. QT interval is cp normal. Interpreted by me. Reviewed by me. Administered Medications: 16:09 Drug: Levalbuterol Inhalation 1.25 mg Route: Inhalation; kc6 16:21 Follow up: Response: No adverse reaction [facility] 16:45 Drug: MethylPrednisoLONE IVP 80 mg Route: IVP; Site: right antecubital; kc6 17:45 Follow up: Response: No adverse reaction kc6 16:45 Drug: Furosemide IVP 20 mg Route: IVP; Site: right antecubital; kc6 17:45 Follow up: Response: No adverse reaction [facility] 19:01 CANCELLED (Physician Discretion): Rocephin IV 1 grams IV at calculated rate once; Given cp slow IV push per pharmacy instructions 19:28 Drug: AZITHromycin PO 500 mg Route: PO; jj7 19:29 Drug: Rocephin IV 1 grams Route: IV; Rate: calculated rate; Site: right antecubital; jj7 Disposition Summary: 04/20/22 19:22 Discharge Ordered Location: Home cp Problem: new cp Symptoms: have improved cp Condition: Stable cp Diagnosis - COPD/ Chronic obstructive pulmonary disease with acute lower respiratory infection cp - UTI/ Urinary tract infection, site not specified cp Followup: cp - With: Private Physician - When: 2 - 3 days - Reason: Recheck today's complaints Discharge Instructions: - Discharge Summary Sheet cp - Chronic Obstructive Pulmonary Disease cp - Shortness of Breath, Adult cp - Urinary Tract Infection, Adult cp Forms: - Medication Reconciliation Form cp - Thank You Letter cp - Antibiotic Education cp - Prescription Opioid Use cp Prescriptions: - ipratropium-albuterol 0.5 mg-3 mg(2.5 mg base)/3 mL Inhalation Solution for Nebulization - nebulize 3 milliliter by INHALATION route every 6 hours As needed as needed for cp wheezing; 1 packet; Refills: 0, Product Selection Permitted - Zithromax Z-Musa 250 mg Oral Tablet - take 1 tablet by ORAL route as directed for 5 days Day 1 - take two (2) tablets cp one time. Day 2, 3, 4 , 5 take one (1) tablet once daily.; 6 tablet; Refills: 0, Product Selection Permitted - Prednisone 20 mg Oral Tablet - take 2 tablets by ORAL route once daily for 5 days; 10 tablet; Refills: 0, cp Product Selection Permitted - cefpodoxime 200 mg Oral Tablet - take 1 tablet by ORAL route every 12 hours for 7 days with food; 14 tablet; cp Refills: 0, Product Selection Permitted Addendum: 04/23/2022 08:43 Co-signature as Attending Physician, Jay Mcguire MD I reviewed the patient's care r n provided by the Advanced Practice Provider and agree with the diagnosis and treatment plan. Signatures: Dispatcher [employer] EDMS Jay Mcguire MD MD rn Hall, Patricia, RN RN ph Radhames Camara PA PA cp Candace Meza RN RN kc6 Samantha Berg RN RN jj7 Corrections: (The following items were deleted from the chart) 04/20 15:57 15:50 PMHx: Hypothyroidism; ph ph 15:57 15:50 PMHx: Hyperlipidemia; ph ph 15:57 15:50 PMHx: Gout; ph ph 19:01 19:00 Rocephin IV 1 grams IV at calculated rate once; Given slow IV push per pharmacy cp instructions ordered. cp
== END 2022-04-20 19:41 | disposition home or self-care (01) ==
LOC: ER 15:09
DX: J44.0 Chronic obstructive pulmonary disease with (acute) lower respiratory infection (principal); N39.0 Urinary tract infection, site not specified; I10 Essential (primary) hypertension; Z91.041 Radiographic dye allergy status
CPT/HCPCS: 93005 ×2; 85025; 80048; 36415; 83735; 85610; 84484 ×2; 83880; 71250; 71045; 96375; 96374; 99285; J1940; J7614; J2920; 81003; 81015